=== PATIENT | male | born 1945 | race Caucasian/White ===

== ENCOUNTER 2017-07-29 10:29 | Inpatient (IN) | payer MEDICAID, MEDICARE, OTHER ==
[2017-07-29 10:29] VITALS: BMI 22.4
[2017-07-29 12:43] LABS: BASO % 0.3 % (0.0-2.0); EOS # 0.1 K/uL (0.0-0.7); HEMOGLOBIN 13.9 g/dL (12.0-18.0); LYMPH # 1.5 K/uL (1.0-4.3); LYMPH % 22.7 % (20.0-40.0); MEAN CELL VOLUME 90.6 fL (80.0-94.0); MEAN CORPUSCULAR HEMOGLOBIN 31.3 pg (27.0-31.0); MEAN CORPUSCULAR HGB CONC 34.5 g/dL (33.0-37.0); MEAN PLATELET VOLUME 7.5 fL (7.2-11.7); MONO # 0.5 K/uL (0.0-0.8); NEUT # 4.4 K/uL (1.8-7.0); RBC 4.44 Mil/uL (4.40-5.90); RED CELL DISTRIBUTION WIDTH 13.6 % (11.5-14.5); WHITE BLOOD COUNT 6.4 K/uL (4.8-10.8)
[2017-07-29 13:02] LABS: INR 1.1; PROTHROMBIN TIME 12.1 SECONDS (9.7-12.2)
--- NOTE | 2017-07-29 13:05 | RAD ---
PROCEDURE: CHEST RADIOGRAPH, 1 VIEW HISTORY: toe gangrene/pre-adm/pre op COMPARISON: 04/12/2013 FINDINGS: LUNGS: Chronic interstitial lung disease similar to that seen previously. PLEURA: No pneumothorax or pleural fluid seen. CARDIOVASCULAR: Normal. OSSEOUS STRUCTURES: No significant abnormalities. VISUALIZED UPPER ABDOMEN: Normal. OTHER FINDINGS: None. IMPRESSION: No active pulmonary disease. No significant interval change compared to the prior examination(s).
[2017-07-29 13:16] LABS: ALB/GLOB RATIO 0.9 (1.0-2.1); ALBUMIN 3.9 g/dL (3.5-5.0); ALT/SGPT 21 U/L (21-72); AST/SGOT 34 U/L (17-59); BLOOD UREA NITROGEN 13 mg/dL (9-20); CALCIUM 9.5 mg/dl (8.6-10.4); GFR AFRICAN-AMERICAN > 60; GFR NON-AFRICAN AMERICAN > 60
--- NOTE | 2017-07-29 14:35 | C.PDOC ---
History Of Present Illness 72 y/o male, w/PMhx of diabetes, presents to the ER for evaluation of a black colored left 2nd toe. Patient states that his toe changed colors several months ago and [place] and his son observed that his toe was becoming black. Patient states that he went to see Dr. [place]ton. Time Seen by Provider: 07/29/17 10:55 Chief Complaint (Nursing): Lower Extremity Problem/Injury History Per: Patient History/Exam Limitations: no limitations Onset/Duration Of Symptoms: Days Current Symptoms Are (Timing): Still Present Severity: Moderate Past Medical History Reviewed: Historical Data, Nursing Documentation, Vital Signs Vital Signs: Last Vital Signs Temp 98.3 F 07/29/17 15:28 Pulse 112 H 07/29/17 15:28 Resp 18 07/29/17 15:28 BP 109/66 07/29/17 15:28 Pulse Ox 98 07/29/17 15:56 - Medical History PMH: Arthritis, Diabetes, HTN (no meds) Surgical History: No Surg Hx - [facility] Procedures ANGIOPLASTY OF OTHER NON-CORONARY VESSEL(S) (05/06/13) ATHERECTOMY OF OTHER NON-CORONARY VESSEL(S) (05/06/13) CLOSED [NEEDLE] BIOPSY OF TONGUE (09/30/02) INCIS PERIANAL ABSCESS (04/05/13) INSEJ [id number] PERIPHERAL NON-CORONARY VES STENT(S) (05/06/13) INSERTION OF ONE VASCULAR STENT (05/06/13) PROCEDURE ON SINGLE VESSEL (05/06/13) REPAIR PERIRECT FISTULA (04/05/13) SKIN & SUBQ BIOPSY (09/30/02) VENOUS CATHETERIZATION NEC (04/05/13) Family History: States: No Known Family Hx - Social History Hx Tobacco Use: Yes Hx Alcohol Use: Yes Hx Substance Use: No - Immunization History Hx Tetanus Toxoid Vaccination: No Hx Influenza Vaccination: Yes Hx Pneumococcal Vaccination: No Review Of Systems Except As Marked, All Systems Reviewed And Found Negative. Constitutional: Negative for: Fever, Chills Skin: Positive for: Other (black left 2nd toe) Physical Exam - Physical Exam Appears: Non-toxic, No Acute Distress Skin: Normal Color, Warm Head: Atraumatic, Normacephalic Eye(s): bilateral: Normal Inspection Nose: Normal Oral Mucosa: Moist Neck: Supple Chest: Symmetrical Cardiovascular: Rhythm Regular Respiratory: Normal Breath Sounds, No Rales, No Rhonchi, No Wheezing Extremity: Other (black left 2nd toe) Pulses: Left Dorsalis Pedis: Decreased Neurological/Psych: Oriented x3, Normal Speech ED Course And Treatment - Laboratory Results Result Diagrams: 07/29/17 12:33 07/29/17 12:33 O2 Sat by Pulse Oximetry: 98 (RA) Pulse Ox Interpretation: Normal - Other Rad CXR X-Ray: Viewed By Me, Read By Radiologist Interpretation: ROCEDURE: CHEST RADIOGRAPH, 1 VIEW. HISTORY: toe gangrene/pre -adm/pre op. COMPARISON: 04/12/2013. FINDINGS: LUNGS: Chronic interstitial lung disease similar to that seen previously. PLEURA: No pneumothorax or pleural fluid seen. CARDIOVASCULAR: Normal. OSSEOUS STRUCTURES: No significant abnormalities. VISUALIZED UPPER ABDOMEN: Normal. OTHER FINDINGS: None. IMPRESSION: No active pulmonary disease. No significant interval change compared to the prior examination(s). - CT Scan/US X-Ray- Left Foot Other Rad Studies (CT/US): Read By Radiologist, Radiology Report Reviewed CT/US Interpretation: PROCEDURE: Left foot attention 2nd digit. HISTORY: gangrene. COMPARISON: None. TECHNIQUE: Standard protocol for this study/ examination. FINDINGS: No radiographic evidence of acute osteomyelitis. Multiple hammertoe deformities identified. IMPRESSION: No acute findings related to/accounting for the clinical presentation. Progress Note: Labs, UA, CXR, and X-Ray - Left Foot 2nd digit ordered. Casew as d/w and medical data analyst. Patient was accepted for an admission on 's service. Disposition - Disposition Disposition: HOSPITALIZED Disposition Time: 14:33 Condition: FAIR - Clinical Impression Clinical Impression: Gangrene, Gangrene of toe of left foot Decision To Admit - Pt Status Changed To: Hospital Disposition Of: Inpatient - Admit Certification Admit to Inpatient:: After my assessment, the patient will require hospitalization for at least two midnights. This is because of the severity of symptoms shown, intensity of services needed, and/or the medical risk in this patient being treated as an outpatient. - InPatient: Physician Admission Certification: I certify that this patient requires 2 or more midnights of care for the following reason:: Patient will need more than 2 days of hospitalization, possibly surgical treatment. - . Bed Request Type: Regular Patient Diagnosis: Gangrene, Gangrene of toe of left foot
--- NOTE | 2017-07-29 15:36 | RAD ---
PROCEDURE: Left foot attention 2nd digit HISTORY: gangrene COMPARISON: None TECHNIQUE: Standard protocol for this study/examination. FINDINGS: No radiographic evidence of acute osteomyelitis. Multiple hammertoe deformities identified. IMPRESSION: No acute findings related to/accounting for the clinical presentation.
--- NOTE | 2017-07-29 15:44 | CP.PCM.HP ---
History of Present Illness - History of Present Illness History of Present Illness: 72 year old male presents to ER with left second toe gangrene. Patient is Kiswahili speaking with translation done by nephew who is bedside. Patient stated 6 weeks ago he was cutting his toe nail and may have clipped the skin of the second toe. He noticed toe was progressively more painful as the skin turned darker. Patient was recently in [facility] and returned to [facility] on 07/27/17 for the of his sister. The patient states the pain is a 10/10 and calls it "severe". Patient with claudication type symptoms in legs bilaterally, left worse than right. As per some of patient's past medical history, much of it was obtained from chart. Patient had an angioplasty and atherectomy of L tibioperoneal trunk done in for peripheral vascular disease. Patient states he has diabetes mellitus and prior notes state patient has hypertension, hyperlipidemia and peripheral vascular disease. This is the first time this has happened to the patient. He does not recall stepping on anything or walking barefoot as an inciting incident. PMHx- DM, HTN, HLD, PVD, Hx of anal fissure PSH- (per chart review, patient denied any surgery) angioplasty of non- coronary vessel- , atherectomy of non-coronary vessel-, insertion of bare metal peripheral non-coronary stent-, incision perianal abscess-, repair perirectal fistual-, Allergies: no known allergies Medications: vildagliptin/metformin 50mg/1000mg, linagliptin/metformin 2.5mg/ 850mg- states has been taking both for past 4 years. 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 ROS: negatives: fever, chills, headahces, vision changes, chest pain, shortness of breath, abdominal pain, nausea, vomiting, diarrhea, constipation, dysuria, Positives: leg pain L>R, foot pain L>R Present on Admission - Present on Admission Any Indicators Present on Admission: No Review of Systems - Review of Systems All systems: reviewed and no additional remarkable complaints except (as stated in HPI) Past Patient History - Infectious Disease Hx of Infectious Diseases: None - Past Social History Smoking Status: Former Smoker - CARDIAC Hx Hypertension: Yes (no meds) - ENDOCRINE/METABOLIC Hx Diabetes Mellitus Type 2: Yes - MUSCULOSKELETAL/RHEUMATOLOGICAL Hx Arthritis: Yes - PSYCHIATRIC Hx Substance Use: No - SURGICAL HISTORY Hx Surgeries: No - ANESTHESIA Hx Anesthesia: No Hx Anesthesia Reactions: No Meds Allergies/Adverse Reactions: Allergies Allergy/AdvReac Type Severity Reaction Status Date / Time No Known Allergies Allergy Verified 05/05/13 09:36 Physical Exam - Constitutional Appears: Well, No Acute Distress - Head Exam Head Exam: ATRAUMATIC, NORMAL INSPECTION - Eye Exam Eye Exam: EOMI Pupil Exam: PERRL - ENT Exam ENT Exam: Mucous Membranes Moist - Neck Exam Neck exam: Positive for: Normal Inspection. Negative for: Lymphadenopathy, Tenderness - Respiratory Exam Respiratory Exam: Clear to Auscultation Bilateral, NORMAL BREATHING PATTERN. absent: Rales, Rhonchi, Wheezes - Cardiovascular Exam Cardiovascular Exam: Tachycardia, REGULAR RHYTHM, +S1, +S2. absent: JVD, Systolic Murmur - GI/Abdominal Exam GI & Abdominal Exam: Normal Bowel Sounds, Soft. absent: Distended, Firm, Guarding, Mass, Tenderness - Extremities Exam Extremities exam: Negative for: joint swelling, normal capillary refill, pedal edema, tenderness, pedal pulses present Additional comments: 2nd big toe of left foot black and necrotic - Neurological Exam Neurological exam: Alert, CN II-XII Intact, Oriented x3 - Psychiatric Exam Psychiatric exam: Normal Affect, Normal Mood - Skin Skin Exam: Warm Additional comments: Skin shiny and hairless in LE b/l as seen in PVD Results - Vital Signs Recent Vital Signs: Last Vital Signs Temp 98.3 F 07/29/17 15:28 Pulse 112 H 07/29/17 15:28 Resp 18 07/29/17 15:28 BP 109/66 07/29/17 15:28 Pulse Ox 98 07/29/17 15:38 - Labs Result Diagrams: 07/29/17 12:33 07/29/17 12:33 Labs: Laboratory Results - last 24 hr 07/29/17 07/29/17 07/29/17 12:33 12:33 12:33 WBC 6.4 RBC 4.44 Hgb 13.9 Hct 40.2 MCV 90.6 MCH 31.3 H MCHC 34.5 RDW 13.6 Plt Count 305 MPV 7.5 Neut % (Auto) 68.0 Lymph % (Auto) 22.7 [place] % (Auto) 7.0 Eos % (Auto) 2.0 Baso % (Auto) 0.3 Neut # (Auto) 4.4 Lymph # (Auto) 1.5 [place] # (Auto) 0.5 Eos # (Auto) 0.1 Baso # (Auto) 0.0 PT 12.1 INR 1.1 APTT 38 H Sodium 138 Potassium 4.1 Chloride 98 Carbon Dioxide 28 Anion Gap 16 BUN 13 Creatinine 0.7 L Est GFR ( Amer) > 60 Est GFR (Non-Af Amer) > 60 Random Glucose 155 H Calcium 9.5 Total Bilirubin 0.7 AST 34 ALT 21 D Alkaline Phosphatase 98 Total Protein 8.2 Albumin 3.9 Globulin 4.3 H Albumin/Globulin Ratio 0.9 L Assessment & Plan (1) Gangrene of toe of left foot Assessment and Plan: 2nd toe of left foot black and necrotic Mack stage 4 Vascular surgery consult, Dr Wilkins F/U arterial dopplers LE B/L F/U venous dopplers LE B/L Imaging: Left Foot 2nd digit XRAY: Multiple hammertoe deformities identified. No acute findings related to/accounting for clinical presentation. Status: Acute Priority: High (2) Peripheral arterial disease Assessment and Plan: Hx of angioplasty and stent of left superficial femoral artery [place] [address] Alex Zambrano Meds: Start aspirin 81mg PO QD Status: Acute Priority: High (3) Diabetes mellitus Assessment and Plan: Hx of DM2, also with diabetic neuropathy Accuchecks Diabetic diet Hypoglycemia protocol Labs/Diagnostics: F/U HgbA1c Meds: Start pregabalin 50mg PO BID HOLD home medication vildagliptin/metformin 50mg/1000mg for now Will cover with RISS for now Status: Acute Priority: High (4) HTN (hypertension) Assessment and Plan: Hx of HTN per chart review BP well controlled Monitor Status: Chronic Priority: Medium (5) Prophylactic measure Assessment and Plan: SCDs contraindicated 2/2 necrotic toe Lovenox 40mg SC QD Diabetic diet GI prophylaxis not indicated Status: Acute Priority: Low
[2017-07-29] MEDS ORDERED: Dextrose 50% SYRINGE Inj (50 ml) IV PRN (15:49)
[2017-07-29] MEDS ORDERED: Glucagon Recombinant 1 mg Inj IM PRN (15:49)
[2017-07-29 16:35] LABS: HDL CHOLESTEROL 25 mg/dL (30-70)
[2017-07-29 16:46] LABS: LDL CHOLESTEROL 126 mg/dL (0-129)
[2017-07-29] MEDS ORDERED: (Novolin R) Insulin Human Regular 100 units/ml vial ONE (16:48)
[2017-07-29] MEDS: (Novolin R) Insulin Human Regular 100 units/ml vial SC SCH ×2 (16:49→21:47)
--- NOTE | 2017-07-29 16:59 | CP.PCM.CON ---
History of Present Illness - History of Present Illness History of Present Illness: Vascular surgery consult for Dr. Wilkins Consulted for: gangrenous left toe Patient is a 72M with PMH NIDDM and PVD with history of prior revascularization of the left lower extremity who was referred to ER by PMD for gangrenous left second toe. Patient states that he first noted discolration of the toe 2 months ago after picking at a hangnail. Has been gradually worsening with associated pain with walking and paresthesias of the top of the foot. Oren any purulent drainage or bleedin gfrom the toe, fevers, chills, calf pain, chest pain, SOB, or any other symptoms. Patient takes some medication for his "circulation" but does not know the name of the medication. PMH: DM, Arthritis, PVD PSH: perirectal abscess drainage, Left lower extremity revascularization ALL: NKDA Review of Systems - Review of Systems All systems: reviewed and no additional remarkable complaints except (as per HPI ) Past Patient History - Infectious Disease Hx of Infectious Diseases: None - Past Social History Smoking Status: Former Smoker - CARDIAC Hx Hypertension: Yes (no meds) - ENDOCRINE/METABOLIC Hx Diabetes Mellitus Type 2: Yes - MUSCULOSKELETAL/RHEUMATOLOGICAL Hx Arthritis: Yes - PSYCHIATRIC Hx Substance Use: No - SURGICAL HISTORY Hx Surgeries: No - ANESTHESIA Hx Anesthesia: No Hx Anesthesia Reactions: No Meds Allergies/Adverse Reactions: Allergies Allergy/AdvReac Type Severity Reaction Status Date / Time No Known Allergies Allergy Verified 05/05/13 09:36 - Medications Medications: Current Medications Acetaminophen (Tylenol 325mg Tab) 650 mg PO Q6 PRN PRN Reason: Pain, moderate (4-7) Aspirin (Aspirin Chewable) 81 mg PO DAILY [facility] Last Admin: 07/29/17 16:49 Dose: 81 mg Dextrose (Dextrose 50% Inj) 0 ml IV STAT PRN; Protocol PRN Reason: Hypoglycemia Protocol Dextrose (Glutose 15) 0 gm PO ONCE PRN; Protocol PRN Reason: Hypoglycemia Protocol Enoxaparin Sodium (Lovenox) 40 mg SC DAILY [facility] Glucagon (Glucagen Diagnostic Kit) 0 mg IM STAT PRN; Protocol PRN Reason: Hypoglycemia Protocol Dextrose (Dextrose 5% In Water 1000 Ml) 1,000 mls @ 0 mls/hr IV .Q0M PRN; Protocol; Per Protocol PRN Reason: Hypoglycemia Protocol Insulin Human Regular (Novolin R) 0 unit SC ACHS [facility] PRN Reason: Protocol Last Admin: 07/29/17 16:49 Dose: 2 unit Pregabalin (Lyrica) 50 mg PO BID [facility] Physical Exam - Constitutional Appears: Well, Non-toxic, No Acute Distress - Head Exam Head Exam: ATRAUMATIC, NORMOCEPHALIC - Eye Exam Eye Exam: Normal appearance. absent: Conjunctival injection, Scleral icterus - ENT Exam ENT Exam: Mucous Membranes Moist, Normal Oropharynx - Respiratory Exam Respiratory Exam: NORMAL BREATHING PATTERN. absent: Accessory Muscle Use, Respiratory Distress - Cardiovascular Exam Cardiovascular Exam: Tachycardia - GI/Abdominal Exam GI & Abdominal Exam: Soft. absent: Distended, Tenderness - Extremities Exam Extremities exam: Negative for: calf tenderness, pedal edema Additional comments: dry gangrene of entire left 2nd toe, no erythema, no fluctuance, no drainage or bleeding. pedal pulses ausculted by doppler - Neurological Exam Neurological exam: Alert, Oriented x3 - Psychiatric Exam Psychiatric exam: Normal Affect, Normal Mood - Skin Skin Exam: Dry, Normal Color, Warm Results - Vital Signs Recent Vital Signs: Last Vital Signs Temp 98.3 F 07/29/17 15:28 Pulse 112 H 07/29/17 15:28 Resp 18 07/29/17 15:28 BP 109/66 07/29/17 15:28 Pulse Ox 98 07/29/17 15:56 - Labs Result Diagrams: 07/29/17 12:33 07/29/17 12:33 Labs: Laboratory Results - last 24 hr 07/29/17 07/29/17 07/29/17 12:33 12:33 12:33 WBC 6.4 RBC 4.44 Hgb 13.9 Hct 40.2 MCV 90.6 MCH 31.3 H MCHC 34.5 RDW 13.6 Plt Count 305 MPV 7.5 Neut % (Auto) 68.0 Lymph % (Auto) 22.7 [place] % (Auto) 7.0 Eos % (Auto) 2.0 Baso % (Auto) 0.3 Neut # (Auto) 4.4 Lymph # (Auto) 1.5 [place] # (Auto) 0.5 Eos # (Auto) 0.1 Baso # (Auto) 0.0 PT 12.1 INR 1.1 APTT 38 H Sodium 138 Potassium 4.1 Chloride 98 Carbon Dioxide 28 Anion Gap 16 BUN 13 Creatinine 0.7 L Est GFR ( Amer) > 60 Est GFR (Non-Af Amer) > 60 POC Glucose (mg/dL) Random Glucose 155 H Calcium 9.5 Total Bilirubin 0.7 AST 34 ALT 21 D Alkaline Phosphatase 98 Total Protein 8.2 Albumin 3.9 Globulin 4.3 H Albumin/Globulin Ratio 0.9 L Triglycerides 157 H Cholesterol 178 LDL Cholesterol Direct 126 HDL Cholesterol 25 L 07/29/17 16:31 WBC RBC Hgb Hct MCV MCH MCHC RDW Plt Count MPV Neut % (Auto) Lymph % (Auto) [place] % (Auto) Eos % (Auto) Baso % (Auto) Neut # (Auto) Lymph # (Auto) [place] # (Auto) Eos # (Auto) Baso # (Auto) PT INR APTT Sodium Potassium Chloride Carbon Dioxide Anion Gap BUN Creatinine Est GFR ( Amer) Est GFR (Non-Af Amer) POC Glucose (mg/dL) 189 H Random Glucose Calcium Total Bilirubin AST ALT Alkaline Phosphatase Total Protein Albumin Globulin Albumin/Globulin Ratio Triglycerides Cholesterol LDL Cholesterol Direct HDL Cholesterol Assessment & Plan - Assessment and Plan (Free Text) Assessment: 72M with dry gangrene left 2nd toe and PVD Plan: F/U CTA and US of the lower extremities Further surgical planning pending results of studies PRN pain medication ASA Strict control of blood sugar SCD's Encourage ambulation as tolerated Seen and examined with Dr. Claudette Turpin, PGY2
[2017-07-29] MEDS ORDERED: Iohexol 240 200 ML ONE (17:28)
--- NOTE | 2017-07-29 21:18 | CT ---
EXAM: CT Angiography Abdomen and Pelvis With Intravenous Contrast CLINICAL HISTORY: 72 years old, male; Condition or disease; Peripheral vascular disease and other: Gangrene; Additional info: Gangrene /previous left side stents TECHNIQUE: Axial computed tomographic angiography images of the abdomen and pelvis with intravenous contrast. All CT scans at this facility use one or more dose reduction techniques, viz.: automated exposure control; ma/kV adjustment per patient size (including targeted exams where dose is matched to indication; i.e. head); or iterative reconstruction technique. MIP reconstructed images were created and reviewed. CONTRAST: 150 mL of OMNIPAQUE 350 administered intravenously. COMPARISON: No relevant prior studies available. FINDINGS: Limitations: Motion artifact - mild to moderate. VASCULATURE: Aorta: Moderate to extensive atherosclerosis. Mild ectasia of infrarenal aorta, up to 2.1 cm. Celiac trunk and mesenteric arteries: Mild atherosclerosis of proximal celiac axis and superior mesenteric artery. Mild stenosis of proximal celiac axis and superior mesenteric artery. No occlusion. Renal arteries: Mild atherosclerosis. Mild stenosis of right proximal renal artery. No occlusion. Iliac arteries: Moderate to extensive atherosclerosis. No occlusion or significant stenosis. Lung bases: Hyperinflation of lung bases. Minimal atelectasis/scarring. ABDOMEN: Liver: Unremarkable. No mass. Gallbladder and bile ducts: No calcified stones. No ductal dilation. Pancreas: No ductal dilation. No mass. Spleen: Unremarkable. No splenomegaly. Adrenals: Mild hypertrophy of adrenal glands. Kidneys and ureters: Too small to characterize lesion within RIGHT kidney. No hydronephrosis. Stomach and bowel: Few scattered diverticula within colon. No associated inflammatory stranding. No definite mural thickening. No obstruction. Appendix: Normal caliber. No inflammation. PELVIS: Bladder: Distended bladder. Reproductive: Enlarged prostate gland. ABDOMEN and PELVIS: Intraperitoneal space: No significant fluid collection. No free air. Bones/joints: Mild degenerative changes of spine. No acute fracture. No dislocation. Soft tissues: Unremarkable. Lymph nodes: No pathologically enlarged lymph nodes. IMPRESSION: 1. Vascular disease as above. 2. Incidental/non-acute findings are described above. EXAM: CT Angiography of the Right Lower Extremity With Intravenous Contrast CLINICAL HISTORY: 72 years old, male; Condition or disease; Peripheral vascular disease and other: Gangrene; Additional info: Gangrene /previous left side stents TECHNIQUE: Axial computed tomographic angiography images of the right lower extremity with intravenous contrast using CT angiography protocol. MIP reconstructed images were created and reviewed. CONTRAST: 150 mL of OMNIPAQUE 350 administered intravenously. COMPARISON: No relevant prior studies available. FINDINGS: VASCULATURE: Right femoral/popliteal arteries: Moderate atherosclerosis of common femoral and superficial femoral arteries. Multifocal [id number] stenosis of superficial femoral artery. Moderate atherosclerosis of popliteal artery. Mild stenosis of popliteal artery. Right calf/foot arteries: Moderate to extensive atherosclerosis of anterior and posterior tibial arteries. Multifocal high-grade stenosis/occlusion of anterior and posterior tibial arteries with reconstitution of dorsalis pedis and plantar arteries. Flow within peroneal artery. LOWER EXTREMITY: Bones/joints: No acute fracture. Early osteoarthrosis of patellofemoral compartment. No dislocation. Probable bone island. No definite cortical destruction. Soft tissues: Grossly unremarkable. IMPRESSION: 1. Vascular disease as above. 2. Incidental/non-acute findings are described above. EXAM: CT Angiography of the Left Lower Extremity With Intravenous Contrast CLINICAL HISTORY: 72 years old, male; Condition or disease; Peripheral vascular disease and other: Gangrene; Additional info: Gangrene /previous left side stents TECHNIQUE: Axial computed tomographic angiography images of the left lower extremity with intravenous contrast using CT angiography protocol. MIP reconstructed images were created and reviewed. CONTRAST: 150 mL of OMNIPAQUE 350 administered intravenously. COMPARISON: No relevant prior studies available. FINDINGS: VASCULATURE: Left femoral/popliteal arteries: Moderate atherosclerosis of common femoral and superficial femoral arteries. Mild stenosis of proximal superficial femoral artery. Stent within mid to distal superficial femoral artery. Occlusion of mid superficial femoral artery. High-grade stenosis within distal superficial femoral artery. Moderate atherosclerosis of popliteal artery. High grade stenosis/occlusion of proximal popliteal artery. Moderate stenosis of distal popliteal artery. Left calf/foot arteries: Moderate to extensive atherosclerosis of anterior and posterior tibial arteries. Multifocal high-grade stenosis/occlusion of posterior tibial artery with reconstitution of plantar arteries. Multifocal high-grade stenosis/occlusion of proximal to mid anterior tibial artery. Reconstitution of flow within distal anterior tibial and dorsalis pedis arteries. Multifocal moderate stenosis of peroneal artery. LOWER EXTREMITY: Bones/joints: No acute fracture. Early osteoarthrosis of patellofemoral compartment. No dislocation. Osteolysis/gas of distal second proximal phalanx, second middle phalanx, second distal phalanx. Soft tissues: Soft tissue irregularity of second digit. IMPRESSION: 1. Vascular disease as above. 2. Osteomyelitis/gangrene of second digit. 3. Incidental/non-acute findings are described above.
[2017-07-30 07:17] LABS: BASO % 0.3 % (0.0-2.0); EOS # 0.2 K/uL (0.0-0.7); EOS % 2.4 % (0.0-4.0); HEMOGLOBIN 13.3 g/dL (12.0-18.0); LYMPH # 2.1 K/uL (1.0-4.3); LYMPH % 26.5 % (20.0-40.0); MEAN CELL VOLUME 90.3 fL (80.0-94.0); MEAN CORPUSCULAR HEMOGLOBIN 31.6 pg (27.0-31.0); MEAN PLATELET VOLUME 7.7 fL (7.2-11.7); MONO # 0.6 K/uL (0.0-0.8); MONO % 6.9 % (0.0-10.0); NEUT # 5.2 K/uL (1.8-7.0); NEUT % 63.9 % (50.0-75.0); NRBC % 0.1 % (0.0-2.0); RBC 4.19 Mil/uL (4.40-5.90); RED CELL DISTRIBUTION WIDTH 13.4 % (11.5-14.5); WHITE BLOOD COUNT 8.1 K/uL (4.8-10.8)
[2017-07-30 07:40] LABS: ALB/GLOB RATIO 0.9 (1.0-2.1); ALBUMIN 3.6 g/dL (3.5-5.0); ALT/SGPT 16 U/L (21-72); AST/SGOT 20 U/L (17-59); BLOOD UREA NITROGEN 15 mg/dL (9-20); CALCIUM 9.7 mg/dl (8.6-10.4); GFR AFRICAN-AMERICAN > 60; GFR NON-AFRICAN AMERICAN > 60
[2017-07-30] MEDS: (Novolin R) Insulin Human Regular 100 units/ml vial SC SCH ×4 (08:05→21:30)
--- NOTE | 2017-07-30 08:33 | CP.PCM.CON ---
History of Present Illness - History of Present Illness History of Present Illness: Patient seen/examined. consult to follow. CT angiogram reviewed. Patient known to me form office practice and previous endovascular intervention. Patient is a 72 year old male with previous stent LSFA, atherectomy tibioperoneal trunk 2013, HTN tobacco who presents with gangrene of the second toe of the left foot. The patient developed gangrene in May while in [facility], returned to the [place] 5 [place] ago. He has contiued to smoke cigarettes. I have reviewed the CT angiogram. Occlusion of the mid SFA with high grade stenosis in the distal along with severe tibioperoneal disease. I discussed realistic expectations with the patient. The toe is not salvageable, however he will require anigography to assess the possibility of improvement in circulatory flow to the foot and distal leg. The patient received contrast yesterday for the CT angiogram. To reduce the risk of contrast induced nephropathy, I will schedule peripheral angiogram tomorrow. I discussed with patient. NPO after midnight. clinical lab scientist notified. I loaded patient with Plavix. Past Patient History - Infectious Disease Hx of Infectious Diseases: None - Past Medical History & Family History Past Medical History?: Yes - Past Social History Smoking Status: Former Smoker - CARDIAC Hx Hypertension: Yes (no meds) - ENDOCRINE/METABOLIC Hx Diabetes Mellitus Type 2: Yes - MUSCULOSKELETAL/RHEUMATOLOGICAL Hx Falls: No - PSYCHIATRIC Hx Substance Use: No - SURGICAL HISTORY Hx Surgeries: No - ANESTHESIA Hx Anesthesia: No Hx Anesthesia Reactions: No Meds Allergies/Adverse Reactions: Allergies Allergy/AdvReac Type Severity Reaction Status Date / Time No Known Allergies Allergy Verified 05/05/13 09:36 - Medications Medications: Current Medications Acetaminophen (Tylenol 325mg Tab) 650 mg PO Q6 PRN PRN Reason: Pain, moderate (4-7) Aspirin (Aspirin Chewable) 81 mg PO DAILY [facility] Last Admin: 07/29/17 16:49 Dose: 81 mg Clopidogrel Bisulfate (Plavix) 300 mg PO ONCE ONE Stop: 07/30/17 09:01 Dextrose (Dextrose 50% Inj) 0 ml IV STAT PRN; Protocol PRN Reason: Hypoglycemia Protocol Dextrose (Glutose 15) 0 gm PO ONCE PRN; Protocol PRN Reason: Hypoglycemia Protocol Enoxaparin Sodium (Lovenox) 40 mg SC DAILY [facility] Glucagon (Glucagen Diagnostic Kit) 0 mg IM STAT PRN; Protocol PRN Reason: Hypoglycemia Protocol Dextrose (Dextrose 5% In Water 1000 Ml) 1,000 mls @ 0 mls/hr IV .Q0M PRN; Protocol; Per Protocol PRN Reason: Hypoglycemia Protocol Insulin Human Regular (Novolin R) 0 unit SC ACHS [facility] PRN Reason: Protocol Last Admin: 07/30/17 08:05 Dose: Not Given Pneumococcal Polyvalent Vaccine (Pneumovax 23 Vaccine) 0.5 ml IM .ONCE ONE Stop: 07/31/17 10:01 Pregabalin (Lyrica) 50 mg PO BID [facility] Last Admin: 07/29/17 18:30 Dose: 50 mg Results - Vital Signs Recent Vital Signs: Last Vital Signs Temp 99.0 F 07/30/17 00:00 Pulse 110 H 07/30/17 00:00 Resp 20 07/30/17 00:00 BP 105/65 07/30/17 00:00 Pulse Ox 98 07/30/17 00:00 - Labs Result Diagrams: 07/30/17 07:01 07/30/17 07:01 Labs: Laboratory Results - last 24 hr 07/29/17 07/29/17 07/29/17 12:33 12:33 12:33 WBC 6.4 RBC 4.44 Hgb 13.9 Hct 40.2 MCV 90.6 MCH 31.3 H MCHC 34.5 RDW 13.6 Plt Count 305 MPV 7.5 Neut % (Auto) 68.0 Lymph % (Auto) 22.7 [place] % (Auto) 7.0 Eos % (Auto) 2.0 Baso % (Auto) 0.3 Neut # (Auto) 4.4 Lymph # (Auto) 1.5 [place] # (Auto) 0.5 Eos # (Auto) 0.1 Baso # (Auto) 0.0 PT 12.1 INR 1.1 APTT 38 H Sodium 138 Potassium 4.1 Chloride 98 Carbon Dioxide 28 Anion Gap 16 BUN 13 Creatinine 0.7 L Est GFR ( Amer) > 60 Est GFR (Non-Af Amer) > 60 POC Glucose (mg/dL) Random Glucose 155 H Calcium 9.5 Total Bilirubin 0.7 AST 34 ALT 21 D Alkaline Phosphatase 98 Total Protein 8.2 Albumin 3.9 Globulin 4.3 H Albumin/Globulin Ratio 0.9 L Triglycerides 157 H Cholesterol 178 LDL Cholesterol Direct 126 HDL Cholesterol 25 L 07/29/17 07/29/17 07/30/17 16:31 21:10 07:01 WBC 8.1 RBC 4.19 L Hgb 13.3 Hct 37.9 MCV 90.3 MCH 31.6 H MCHC 35.0 RDW 13.4 Plt Count 317 MPV 7.7 Neut % (Auto) 63.9 Lymph % (Auto) 26.5 [place] % (Auto) 6.9 Eos % (Auto) 2.4 Baso % (Auto) 0.3 Neut # (Auto) 5.2 Lymph # (Auto) 2.1 [place] # (Auto) 0.6 Eos # (Auto) 0.2 Baso # (Auto) 0.0 PT INR APTT Sodium Potassium Chloride Carbon Dioxide Anion Gap BUN Creatinine Est GFR ( Amer) Est GFR (Non-Af Amer) POC Glucose (mg/dL) 189 H 132 H Random Glucose Calcium Total Bilirubin AST ALT Alkaline Phosphatase Total Protein Albumin Globulin Albumin/Globulin Ratio Triglycerides Cholesterol LDL Cholesterol Direct HDL Cholesterol 07/30/17 07/30/17 07:01 07:11 WBC RBC Hgb Hct MCV MCH MCHC RDW Plt Count MPV Neut % (Auto) Lymph % (Auto) [place] % (Auto) Eos % (Auto) Baso % (Auto) Neut # (Auto) Lymph # (Auto) [place] # (Auto) Eos # (Auto) Baso # (Auto) PT INR APTT Sodium 143 Potassium 4.2 Chloride 101 Carbon Dioxide 26 Anion Gap 20 BUN 15 Creatinine 0.7 L Est GFR ( Amer) > 60 Est GFR (Non-Af Amer) > 60 POC Glucose (mg/dL) 112 H Random Glucose 113 H Calcium 9.7 Total Bilirubin 0.6 AST 20 ALT 16 L D Alkaline Phosphatase 89 Total Protein 7.7 Albumin 3.6 Globulin 4.1 H Albumin/Globulin Ratio 0.9 L Triglycerides Cholesterol LDL Cholesterol Direct HDL Cholesterol
--- NOTE | 2017-07-30 08:34 | CP.PCM.CON ---
History of Present Illness - History of Present Illness History of Present Illness: I was asked to see patient by Dr Stockton. Dhiraj marinelliw to me form practice. Patient has a history of smoking PAD s/p stent of the L SFA tibioperoneal atherectomy who presents with gangrene of the 2nd digit of the L foot. Intervention was in 2013, patient has not followed up. He continues to smoke Gangrene develoepd in May. [place] the [place] a [place] days ago. Review of Systems - Constitutional Constitutional: absent: As Per HPI, Anorexia, Chills, Daytime Sleepiness, Excessive Sweating, Fatigue, Fever, Frequent Falls, Headache, Increased Appetite , Lethargy, Malaise, Night Sweats, Snoring, Sleep Apnea, Weight Gain, Weight Loss, Weakness, Other - EENT Eyes: absent: As Per HPI, Blind Spots, Blurred Vision, Change in Vision, Decreased Night Vision, Diplopia, Discharge, Dry Eye, Exophthalmos, Floaters, Irritation, Itchy Eyes, Loss of Peripheral Vision, Pain, Photophobia, Requires Corrective Lenses, Sees Flashes, Spots in Vision, Tunnel Vision, Other Visual Disturbances, Loss of Vision, Other - Cardiovascular Cardiovascular: Claudication - Respiratory Respiratory: absent: As Per HPI, Cough, Dyspnea, Hemoptysis, Dyspnea on Exertion , Wheezing, Snoring, Stridor, Pain on Inspiration, Chest Congestion, Excessive Mucous Production, Change in Mucous Color, Pain with Coughing, Other - Gastrointestinal Gastrointestinal: absent: As Per HPI, Abdominal Pain, Belching, Bloating, Change in Bowel Habits, Change in Stool Character, Coffee Ground Emesis, Constipation, Cramping, Diarrhea, Dyspepsia, Dysphagia, Early Satiety, Excessive Flatus, Fecal Incontinence, Heartburn, Hematemesis, Hematochezia, Loose Stools, Melena, Nausea, Odynophagia, Temesmus, Vomiting, Other - Genitourinary Genitourinary: absent: As Per HPI, Change in Urinary Stream, Difficulty Urinating, Dysuria, Flank Pain, Hematuria, Pyuria, Nocturia, Urinary Incontinence, Urinary Frequency, Urinary Hesitance, Urinary Urgency, Voiding Freq/Small Amts, Freq UTI, Hx Renal/Bladder Calculi, Hx /Renal Surgery, Bladder Distension, Other - Musculoskeletal Musculoskeletal: absent: As Per HPI, Abnormal Gait, Arthralgias, Atrophy, Back Pain, Deformity, Joint Swelling, Limited Range of Motion, Loss of Height, Muscle Cramps, Muscle Weakness, Myalgias, Neck Pain, Numbness, Radiating Pain into Limb, Stiffness, Tingling, Other - Integumentary Integumentary: absent: As Per HPI, Acne, Alopecia, Bleeding Lesions, Change in Hair, Change in Nails, Change in Pigmentation, Changing Lesions, Dry Skin, Erythema, Furuncle, Hirsutism, Lesions, New Lesions, Non-Healing Lesions, Photosensitivity, Pruritus, Rash, Skin Pain, Skin Ulcer, Sores, Striae, Swelling , Unusual Bruising, Wounds, Jaundice, Other - Neurological Neurological: absent: As Per HPI, Abnormal Gait, Abnormal Hearing, Abnormal Movements, Abnormal Speech, Behavioral Changes, Burning Sensations, Confusion, Convulsions, Disequilibrium, Dizziness, Numbness, Focal Weakness, Frequent Falls , Headaches, Lack of Coordination, Loss of Vision, Memory Loss, Paresthesias, Radicular Pain, Restless Legs, Sensory Deficit, Syncope, Tingling, Tremor, Vertigo, Weakness, Other Visual Disturbances, Other - Psychiatric Psychiatric: absent: As Per HPI, Abnormal Sleep Pattern, Anhedonia, Anxiety, Auditory Hallucinations, Behavioral Changes, Change in Appetite, Change in Libido, Confusion, Depression, Difficulty Concentrating, Hallucinations, Homicidal Ideation, Hopelessness, Irritability, Memory Loss, Mood Swings, Panic Attacks, Paranoia, Suicidal Ideation, Visual Hallucinations, Tactile Hallucinations, Other - Endocrine Endocrine: absent: As Per HPI, Change in Body Appearance, Change in Libido, Cold Intolorance, Deepening of Voice, Excessive Sweating, Fatigue, Flushing, Heat Intolorance, Increase in Ring/Shoe/Hat Size, Palpitations, Polydipsia, Polyphagia, Polyuria, Other - Hematologic/Lymphatic Hematologic: absent: As Per HPI, Easy Bleeding, Easy Bruising, Lymphadenopathy, Other Past Patient History - Infectious Disease Hx of Infectious Diseases: None - Past Medical History & Family History Past Medical History?: Yes - Past Social History Smoking Status: Former Smoker - CARDIAC Hx Hypertension: Yes (no meds) - ENDOCRINE/METABOLIC Hx Diabetes Mellitus Type 2: Yes - MUSCULOSKELETAL/RHEUMATOLOGICAL Hx Falls: No - PSYCHIATRIC Hx Substance Use: No - SURGICAL HISTORY Hx Surgeries: No - ANESTHESIA Hx Anesthesia: No Hx Anesthesia Reactions: No Meds Allergies/Adverse Reactions: Allergies Allergy/AdvReac Type Severity Reaction Status Date / Time No Known Allergies Allergy Verified 05/05/13 09:36 - Medications Medications: Current Medications Acetaminophen (Tylenol 325mg Tab) 650 mg PO Q6 PRN PRN Reason: Pain, moderate (4-7) Aspirin (Aspirin Chewable) 81 mg PO DAILY [facility] Last Admin: 07/29/17 16:49 Dose: 81 mg Clopidogrel Bisulfate (Plavix) 300 mg PO ONCE ONE Stop: 07/30/17 09:01 Dextrose (Dextrose 50% Inj) 0 ml IV STAT PRN; Protocol PRN Reason: Hypoglycemia Protocol Dextrose (Glutose 15) 0 gm PO ONCE PRN; Protocol PRN Reason: Hypoglycemia Protocol Enoxaparin Sodium (Lovenox) 40 mg SC DAILY [facility] Glucagon (Glucagen Diagnostic Kit) 0 mg IM STAT PRN; Protocol PRN Reason: Hypoglycemia Protocol Dextrose (Dextrose 5% In Water 1000 Ml) 1,000 mls @ 0 mls/hr IV .Q0M PRN; Protocol; Per Protocol PRN Reason: Hypoglycemia Protocol Insulin Human Regular (Novolin R) 0 unit SC ACHS [facility] PRN Reason: Protocol Last Admin: 07/30/17 08:05 Dose: Not Given Pneumococcal Polyvalent Vaccine (Pneumovax 23 Vaccine) 0.5 ml IM .ONCE ONE Stop: 07/31/17 10:01 Pregabalin (Lyrica) 50 mg PO BID [facility] Last Admin: 07/29/17 18:30 Dose: 50 mg Physical Exam - Constitutional Appears: Non-toxic - Head Exam Head Exam: NORMAL INSPECTION - Eye Exam Eye Exam: Normal appearance - ENT Exam ENT Exam: Mucous Membranes Moist - Neck Exam Neck exam: Positive for: Full Rom - Respiratory Exam Respiratory Exam: NORMAL BREATHING PATTERN - Cardiovascular Exam Cardiovascular Exam: REGULAR RHYTHM - GI/Abdominal Exam GI & Abdominal Exam: Normal Bowel Sounds - Rectal Exam Rectal Exam: Deferred - Extremities Exam Extremities exam: Positive for: tenderness - Neurological Exam Neurological exam: Alert, Oriented x3 - Psychiatric Exam Psychiatric exam: Normal Mood - Skin Skin Exam: Warm Results - Vital Signs Recent Vital Signs: Last Vital Signs Temp 98.6 F 07/30/17 07:00 Pulse 110 H 07/30/17 07:00 Resp 20 07/30/17 07:00 BP 127/78 07/30/17 07:00 Pulse Ox 98 07/30/17 07:00 - Labs Result Diagrams: 08/01/17 08:16 08/01/17 08:16 Labs: Laboratory Results - last 24 hr 07/29/17 07/29/17 07/29/17 12:33 12:33 12:33 WBC 6.4 RBC 4.44 Hgb 13.9 Hct 40.2 MCV 90.6 MCH 31.3 H MCHC 34.5 RDW 13.6 Plt Count 305 MPV 7.5 Neut % (Auto) 68.0 Lymph % (Auto) 22.7 [place] % (Auto) 7.0 Eos % (Auto) 2.0 Baso % (Auto) 0.3 Neut # (Auto) 4.4 Lymph # (Auto) 1.5 [place] # (Auto) 0.5 Eos # (Auto) 0.1 Baso # (Auto) 0.0 PT 12.1 INR 1.1 APTT 38 H Sodium 138 Potassium 4.1 Chloride 98 Carbon Dioxide 28 Anion Gap 16 BUN 13 Creatinine 0.7 L Est GFR ( Amer) > 60 Est GFR (Non-Af Amer) > 60 POC Glucose (mg/dL) Random Glucose 155 H Calcium 9.5 Total Bilirubin 0.7 AST 34 ALT 21 D Alkaline Phosphatase 98 Total Protein 8.2 Albumin 3.9 Globulin 4.3 H Albumin/Globulin Ratio 0.9 L Triglycerides 157 H Cholesterol 178 LDL Cholesterol Direct 126 HDL Cholesterol 25 L 07/29/17 07/29/17 07/30/17 16:31 21:10 07:01 WBC 8.1 RBC 4.19 L Hgb 13.3 Hct 37.9 MCV 90.3 MCH 31.6 H MCHC 35.0 RDW 13.4 Plt Count 317 MPV 7.7 Neut % (Auto) 63.9 Lymph % (Auto) 26.5 [place] % (Auto) 6.9 Eos % (Auto) 2.4 Baso % (Auto) 0.3 Neut # (Auto) 5.2 Lymph # (Auto) 2.1 [place] # (Auto) 0.6 Eos # (Auto) 0.2 Baso # (Auto) 0.0 PT INR APTT Sodium Potassium Chloride Carbon Dioxide Anion Gap BUN Creatinine Est GFR ( Amer) Est GFR (Non-Af Amer) POC Glucose (mg/dL) 189 H 132 H Random Glucose Calcium Total Bilirubin AST ALT Alkaline Phosphatase Total Protein Albumin Globulin Albumin/Globulin Ratio Triglycerides Cholesterol LDL Cholesterol Direct HDL Cholesterol 07/30/17 07/30/17 07:01 07:11 WBC RBC Hgb Hct MCV MCH MCHC RDW Plt Count MPV Neut % (Auto) Lymph % (Auto) [place] % (Auto) Eos % (Auto) Baso % (Auto) Neut # (Auto) Lymph # (Auto) [place] # (Auto) Eos # (Auto) Baso # (Auto) PT INR APTT Sodium 143 Potassium 4.2 Chloride 101 Carbon Dioxide 26 Anion Gap 20 BUN 15 Creatinine 0.7 L Est GFR ( Amer) > 60 Est GFR (Non-Af Amer) > 60 POC Glucose (mg/dL) 112 H Random Glucose 113 H Calcium 9.7 Total Bilirubin 0.6 AST 20 ALT 16 L D Alkaline Phosphatase 89 Total Protein 7.7 Albumin 3.6 Globulin 4.1 H Albumin/Globulin Ratio 0.9 L Triglycerides Cholesterol LDL Cholesterol Direct HDL Cholesterol - EKG Data EKG Interpreted by: Myself EKG shows normal: Sinus rhythm Assessment & Plan (1) Gangrene of toe of left foot Assessment and Plan: patient is s/p CT angiogram which I reviewed. I discussed the need for angiography and possible endovascular intervention. I discussed realistic expectations regarding the toe. Status: Acute Priority: High (2) HTN (hypertension) Status: Chronic Priority: Medium
[2017-07-30] MEDS: Enoxaparin 40 mg Syringe SC SCH (10:02)
--- NOTE | 2017-07-30 10:17 | CP.PCM.PN ---
<Arnol Thomas - Last Filed: 07/30/17 09:50> Subjective - Date & Time of Evaluation Date of Evaluation: 07/30/17 Time of Evaluation: 09:51 - Subjective Subjective: PGY-[address] Stockton. No acute events noted overnight. Patient stated he gets sharp pains in his legs bilaterally. Necrotic toe is not painful. He otherwise did not offer any complaints. Denied chest pain, shortness of breath, fevers, nausea, vomiting. Objective - Vital Signs/Intake and Output Vital Signs (last 24 hours): Temp Pulse Resp BP Pulse Ox 98.6 F 110 H 20 127/78 98 07/30/17 07:00 07/30/17 07:00 07/30/17 07:00 07/30/17 07:00 07/30/17 07:00 Intake and Output: 07/30/17 07/30/17 06:59 18:59 Intake Total 300 180 Balance 300 180 - Medications Medications: Current Medications Acetaminophen (Tylenol 325mg Tab) 650 mg PO Q6 PRN PRN Reason: Pain, moderate (4-7) Aspirin (Aspirin Chewable) 81 mg PO DAILY [facility] Last Admin: 07/29/17 16:49 Dose: 81 mg Dextrose (Dextrose 50% Inj) 0 ml IV STAT PRN; Protocol PRN Reason: Hypoglycemia Protocol Dextrose (Glutose 15) 0 gm PO ONCE PRN; Protocol PRN Reason: Hypoglycemia Protocol Enoxaparin Sodium (Lovenox) 40 mg SC DAILY [facility] Glucagon (Glucagen Diagnostic Kit) 0 mg IM STAT PRN; Protocol PRN Reason: Hypoglycemia Protocol Dextrose (Dextrose 5% In Water 1000 Ml) 1,000 mls @ 0 mls/hr IV .Q0M PRN; Protocol; Per Protocol PRN Reason: Hypoglycemia Protocol Insulin Human Regular (Novolin R) 0 unit SC ACHS [facility] PRN Reason: Protocol Last Admin: 07/30/17 08:05 Dose: Not Given Pneumococcal Polyvalent Vaccine (Pneumovax 23 Vaccine) 0.5 ml IM .ONCE ONE Stop: 07/31/17 10:01 Pregabalin (Lyrica) 50 mg PO BID [facility] Last Admin: 07/29/17 18:30 Dose: 50 mg - Labs Labs: 07/30/17 07:01 07/30/17 07:01 PT 12.1 SECONDS (9.7-12.2) 07/29/17 12:33 INR 1.1 07/29/17 12:33 APTT 38 SECONDS (21-34) H 07/29/17 12:33 - Additional Findings Additional findings: - Constitutional Appears: Well, No Acute Distress - Head Exam Head Exam: ATRAUMATIC, NORMAL INSPECTION - Eye Exam Eye Exam: EOMI Pupil Exam: PERRL - ENT Exam ENT Exam: Mucous Membranes Moist - Neck Exam Neck exam: Positive for: Normal Inspection. Negative for: Lymphadenopathy, Tenderness - Respiratory Exam Respiratory Exam: Clear to Auscultation Bilateral, NORMAL BREATHING PATTERN. absent: Rales, Rhonchi, Wheezes - Cardiovascular Exam Cardiovascular Exam: Tachycardia, REGULAR RHYTHM, +S1, +S2. absent: JVD, Systolic Murmur - GI/Abdominal Exam GI & Abdominal Exam: Normal Bowel Sounds, Soft. absent: Distended, Firm, Guarding, Mass, Tenderness - Extremities Exam Extremities exam: Negative for: joint swelling, normal capillary refill, pedal edema, tenderness, pedal pulses present Additional comments: 2nd big toe of left foot black and necrotic - Neurological Exam Neurological exam: Alert, CN II-XII Intact, Oriented x3 - Psychiatric Exam Psychiatric exam: Normal Affect, Normal Mood - Skin Skin Exam: Warm Additional comments: Skin shiny and hairless in LE b/l as seen in PVD Assessment and Plan (1) Gangrene of toe of left foot Status: Acute (2) Peripheral arterial disease Status: Acute (3) Diabetes mellitus Status: Acute (4) HTN (hypertension) Status: Chronic (5) Prophylactic measure Status: Acute - Assessment and Plan (Free Text) Assessment: Gangrene of toe of left foot, 2nd digit, Mack Stage 4 Peripheral arterial disease Assessment and Plan: 2nd toe of left foot black and necrotic Mack stage 4 Hx of angioplasty and stent of left superficial femoral artery, and atherectomy tibioperoneal trunk, both in [address] Alex Zambrano Vascular surgery consult, Dr Wilkins Cardiology consult, Dr Alex Zambrano. * The toe is not salvageable * will require anigography to assess the possibility of improvement in circulatory flow to the foot and distal leg * peripheral angiogram tomorrow 07/31/17 F/U arterial dopplers LE B/L F/U venous dopplers LE B/L Imaging: Left Foot 2nd digit XRAY: Multiple hammertoe deformities identified. No acute findings related to/accounting for clinical presentation. CT angiogram Abd Ileofem Runoff 07/29/17: Occlusion of the mid SFA with high grade stenosis in the distal along with severe tibioperoneal disease. Meds: Start aspirin 81mg PO QD (will consider adding plavix 75mg PO QD as second antiplatelet agent) Given plavix 300mg PO ONCE 07/30/17 for peripheral angiogram scheduled for 07/31/17 Start Crestor 20mg PO HS (high intensity statin indicated) Start Cilostazol 100mg PO BID for claudication Lotrimin topical to feet bilaterally BID for tinea pedis Status: Acute Priority: High Diabetes mellitus Assessment and Plan: Hx of DM2, also with diabetic neuropathy Accuchecks Diabetic diet Hypoglycemia protocol Labs/Diagnostics: HgbA1c 9.2 Lipid Panel showed Triglycerides 157 and HDL 25 otherwise normal Meds: Start pregabalin 50mg PO BID HOLD home medication vildagliptin/metformin 50mg/1000mg for now Will cover with RISS for now Status: Acute Priority: High HTN (hypertension) Assessment and Plan: Hx of HTN per chart review BP well controlled Monitor Status: Chronic Priority: Medium Prophylactic measure Assessment and Plan: SCDs contraindicated 2/2 necrotic toe Lovenox 40mg SC QD Diabetic diet, 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 07/31/17 GI prophylaxis not indicated Status: Acute Priority: Low <Saranya Reed S - Last Filed: 07/31/17 14:57> Objective - Vital Signs/Intake and Output Vital Signs (last 24 hours): Temp Pulse Resp BP Pulse Ox 97.8 F 111 H 20 114/76 100 07/31/17 09:06 07/31/17 10:11 07/31/17 10:11 07/31/17 10:11 07/31/17 10:11 - Medications Medications: Current Medications Acetaminophen (Tylenol 325mg Tab) 650 mg PO Q6 PRN PRN Reason: Pain, moderate (4-7) Aspirin (Aspirin Chewable) 81 mg PO DAILY [facility] Last Admin: 07/31/17 10:10 Dose: 81 mg Cilostazol (Pletal) 100 mg PO BID [facility] Last Admin: 07/31/17 10:10 Dose: 100 mg Clotrimazole (Lotrimin 1%) 1 gm TOP BID [facility] Last Admin: 07/31/17 10:11 Dose: Not Given Dextrose (Dextrose 50% Inj) 0 ml IV STAT PRN; Protocol PRN Reason: Hypoglycemia Protocol Dextrose (Glutose 15) 0 gm PO ONCE PRN; Protocol PRN Reason: Hypoglycemia Protocol Enoxaparin Sodium (Lovenox) 40 mg SC DAILY [facility] Last Admin: 07/31/17 10:10 Dose: Not Given Glucagon (Glucagen Diagnostic Kit) 0 mg IM STAT PRN; Protocol PRN Reason: Hypoglycemia Protocol Dextrose (Dextrose 5% In Water 1000 Ml) 1,000 mls @ 0 mls/hr IV .Q0M PRN; Protocol; Per Protocol PRN Reason: Hypoglycemia Protocol Insulin Human Regular (Novolin R) 0 unit SC ACHS [facility] PRN Reason: Protocol Last Admin: 07/31/17 12:22 Dose: 6 unit Pregabalin (Lyrica) 50 mg PO BID [facility] Last Admin: 07/31/17 10:10 Dose: 50 mg Rosuvastatin Calcium (Crestor) 20 mg PO HS [facility] Last Admin: 07/30/17 21:30 Dose: 20 mg - Labs Labs: 07/31/17 06:16 07/31/17 06:16 PT 12.1 SECONDS (9.7-12.2) 07/29/17 12:33 INR 1.1 07/29/17 12:33 APTT 38 SECONDS (21-34) H 07/29/17 12:33 Attending/Attestation - Attestation I have personally seen and examined this patient.: Yes I have fully participated in the care of the patient.: Yes I have reviewed all pertinent clinical information, including history, physical exam and plan: Yes Notes (Text): 07/31/17 14:57 case seen and d.w staff s/p gangreme icv antibitic s/p femoral angiogram mx as ordered <Renzo Stockton Jr. - Last Filed: 08/06/17 15:41> Objective - Vital Signs/Intake and Output Vital Signs (last 24 hours): Temp Pulse Resp BP Pulse Ox 98.7 F 114 H 21 120/66 99 08/06/17 12:00 08/06/17 12:20 08/06/17 12:20 08/06/17 12:20 08/06/17 12:20 Intake and Output: 08/06/17 08/06/17 06:59 18:59 Intake Total 1768 1587.5 Output Total 600 1050 Balance 1168 537.5 - Medications Medications: Current Medications Acetaminophen (Tylenol 325mg Tab) 650 mg PO Q6 PRN PRN Reason: Pain, MILD(1-3) Last Admin: 08/05/17 17:24 Dose: 650 mg Aspirin (Aspirin Chewable) 81 mg PO DAILY [facility] Last Admin: 08/06/17 09:47 Dose: 81 mg Cilostazol (Pletal) 100 mg PO BID [facility] Last Admin: 08/06/17 09:48 Dose: 100 mg Clotrimazole (Lotrimin 1%) 1 gm TOP BID [facility] Last Admin: 08/06/17 09:49 Dose: 1 applic Dextrose (Dextrose 50% Inj) 0 ml IV STAT PRN; Protocol PRN Reason: Hypoglycemia Protocol Dextrose (Glutose 15) 0 gm PO ONCE PRN; Protocol PRN Reason: Hypoglycemia Protocol Dextrose (Glutose 15) 0 gm PO .ONCE PRN; Protocol PRN Reason: Hypoglycemia Protocol Enoxaparin Sodium (Lovenox) 40 mg SC DAILY [facility] Last Admin: 08/06/17 10:27 Dose: 40 mg Famotidine (Pepcid) 20 mg PO BID [facility] Glucagon (Glucagen Diagnostic Kit) 0 mg IM STAT PRN; Protocol PRN Reason: Hypoglycemia Protocol Glucagon (Glucagen Diagnostic Kit) 0 mg IM .STAT PRN; Protocol PRN Reason: Hypoglycemia Protocol Hydromorphone HCl (Dilaudid) 0.5 mg IVP Q6H PRN PRN Reason: Pain, severe (8-10) Last Admin: 08/06/17 10:00 Dose: 0.5 mg Dextrose (Dextrose 5% In Water 1000 Ml) 1,000 mls @ 0 mls/hr IV .Q0M PRN; Protocol; Per Protocol PRN Reason: Hypoglycemia Protocol Piperacillin Sod/Tazobactam (Sod 3.375 gm/ Sodium Chloride) 100 mls @ 200 mls/ hr IVPB Q6H [facility] PRN Reason: Protocol Stop: 08/10/17 19:01 Last Admin: 08/06/17 12:02 Dose: 200 mls/hr Sodium Chloride (Sodium Chloride 0.9%) 1,000 mls @ 100 mls/hr IV .Q10H [facility] Last Admin: 08/06/17 11:09 Dose: Not Given Potassium Phosphate 15 mmole/ (Sodium Chloride) 255 mls @ 42.5 mls/hr IVPB ONCE ONE Stop: 08/06/17 16:59 Last Admin: 08/06/17 11:03 Dose: 42.5 mls/hr Vancomycin HCl 1 gm/ Sodium (Chloride) 250 mls @ 166.7 mls/hr IVPB Q24H [facility] PRN Reason: Protocol Insulin Human Regular (Novolin R) 0 unit SC ACHS [facility] PRN Reason: Protocol Last Admin: 08/06/17 12:01 Dose: 3 unit Metformin HCl (Glucophage) 850 mg PO BID [facility] Last Admin: 08/03/17 09:43 Dose: 850 mg Metoprolol Tartrate (Lopressor) 5 mg IVP Q6H PRN PRN Reason: Heart Rate >110 Last Admin: 08/06/17 12:10 Dose: 5 mg Oxycodone/Acetaminophen (Percocet 5/325 Mg Tab) 1 tab PO Q4H PRN PRN Reason: Pain, moderate (4-7) Stop: 08/07/17 16:59 Last Admin: 08/06/17 15:19 Dose: 1 tab Pregabalin (Lyrica) 50 mg PO BID [facility] Last Admin: 08/06/17 09:47 Dose: 50 mg Rosuvastatin Calcium (Crestor) 20 mg PO HS [facility] Last Admin: 08/05/17 23:44 Dose: 20 mg Sitagliptin Phosphate (Januvia) 25 mg PO BID [facility] Last Admin: 08/03/17 09:43 Dose: 25 mg - Labs Labs: 08/06/17 07:55 08/06/17 07:55 PT 12.0 SECONDS (9.7-12.2) 08/04/17 06:18 INR 1.1 08/04/17 06:18 APTT 37 SECONDS (21-34) H 08/04/17 06:18
[2017-07-30] MEDS: Clotrimazole 1% Cream(30 gm) TOP SCH ×2 (11:05→17:38)
--- NOTE | 2017-07-30 12:42 | VASCLAB ---
STUDY DESCRIPTION: HISTORY: stage 4 huitron; hx of PAD PRIORS: None. TECHNIQUE: Pulse volume recording waveforms and segmental pressures of bilateral lower extremities at multiple levels were obtained. Ankle Brachial Indices (ABIs) were calculated. Report prepared by JUAN Muñoz, RVT RIGHT LOWER EXTREMITY: * Brachial artery: Pressure - 112 mmHg. * High thigh: Pressure - mmHg: Ratio - : PVR waveform - Pulsatile * Low thigh: Pressure - mmHg: Ratio - PVR waveform: Pulsatile * Calf: Pressure - 104 mmHg: Ratio - 0.86 PVR waveform: Reduced * Posterior tibial Artery: Pressure - 94 mmHg: Ratio - 0.78 PVR waveform: Reduced * Dorsalis pedis Artery: Pressure - 67 mmHg: Ratio - 0.55 PVR waveform: Reduced * Great toe: Pressure - mmHg: Ratio - PVR waveform: Ankle brachial index (RACHID): 0.78 LEFT LOWER EXTREMITY: * Brachial artery: Pressure - 121 mmHg. * High thigh: Pressure - mmHg: Ratio - : PVR waveform - Pulsatile * Low thigh: Pressure - mmHg: Ratio - PVR waveform: Reduced * Calf: Pressure - 36 mmHg: Ratio - 0.30 PVR waveform: Reduced * Posterior tibial Artery: Pressure - 59 mmHg: Ratio - 0.49 PVR waveform: None * Dorsalis pedis Artery: Pressure - 53 mmHg: Ratio - 0.44 PVR waveform: None * Great toe: Pressure - mmHg: Ratio - PVR waveform: Ankle brachial index (RACHID): 0.49 OTHER FINDINGS: Right: Left: IMPRESSION: Right: This exam reveals moderately decreased perfusion of the right lower extremity, noted at the popliteal, tibial and distal small artery levels. Left: This exam reveals severely decreased perfusion of the left lower extremity, noted at the superficial femoral, popliteal, tibial and distal small artery levels.
--- NOTE | 2017-07-30 12:43 | VASCLAB ---
PROCEDURE: Lower Extremity Venous Duplex Exam. HISTORY: calf pain bilaterally PRIORS: None. TECHNIQUE: Bilateral common femoral, femoral, popliteal and posterior tibial, peroneal and great saphenous veins were evaluated. Flow was assessed with color Doppler, compressibility, assessment of phasic flow and augmentation response. Report prepared by Alberto Miranda, JUAN, RVT FINDINGS: RIGHT: 1. Common Femoral Vein: 1.1. Compressibility - Fully compressible: Thrombus - None : Flow - Phasic: Augmentation -Normal: Reflux - None. 2. Femoral Vein: 2.1. Compressibility - Fully compressible: Thrombus - None : Flow - Phasic: Augmentation -Normal: Reflux - None. 3. Popliteal Vein: 3.1. Compressibility - Fully compressible: Thrombus - None : Flow - Phasic: Augmentation -Normal: Reflux - None. 4. Posterior Tibial Vein: 4.1. Compressibility - Fully compressible: Thrombus - None: Flow - Phasic: Augmentation -Normal: Reflux - None. 5. Peroneal Vein: 5.1. Compressibility - Fully compressible: Thrombus - None: Flow - Phasic: Augmentation -Normal: Reflux - None. 6. Great Saphenous Vein: 6.1. Compressibility - Fully compressible: Thrombus - None: Flow - Phasic: Augmentation - Normal: Reflux - None. LEFT: 1. Common Femoral Vein: 1.1. Compressibility - Fully compressible: Thrombus - None: Flow - Phasic: Augmentation -Normal: Reflux - None. 2. Femoral Vein: 2.1. Compressibility - Fully compressible: Thrombus - None: Flow - Phasic: Augmentation -Normal: Reflux - None. 3. Popliteal Vein: 3.1. Compressibility - Fully compressible: Thrombus - None : Flow - Phasic: Augmentation -Normal: Reflux - None. 4. Posterior Tibial Vein: 4.1. Compressibility - Fully compressible: Thrombus - None: Flow - Phasic: Augmentation -Normal: Reflux - None. 5. Peroneal Vein: 5.1. Compressibility - Fully compressible: Thrombus - None: Flow - Phasic: Augmentation -Normal: Reflux - None. 6. Great Saphenous Vein: 6.1. Compressibility - Fully compressible: Thrombus - None: Flow - Phasic: Augmentation - Normal: Reflux - None. OTHER FINDINGS: Right: None significant. Left: None significant. IMPRESSION: Right: No evidence of deep or superficial vein thrombosis of the right lower extremity. Normal valve function noted of the right side. Left: No evidence of deep or superficial vein thrombosis of the left lower extremity. Normal valve function noted of the left side.
[2017-07-30] MEDS: Cilostazol 100 mg Tab UD PO SCH (17:37)
--- NOTE | 2017-07-30 18:00 | CP.PCM.PN ---
Subjective - Date & Time of Evaluation Date of Evaluation: 07/30/17 Time of Evaluation: 10:30 - Subjective Subjective: Pt seen and examined at bedside this AM. No adverse events overnight. Symptoms are unchanged Objective - Vital Signs/Intake and Output Vital Signs (last 24 hours): Temp Pulse Resp BP Pulse Ox 98.9 F 116 H 20 138/85 98 07/30/17 16:00 07/30/17 16:00 07/30/17 16:00 07/30/17 16:00 07/30/17 16:00 Intake and Output: 07/30/17 07/30/17 06:59 18:59 Intake Total 300 180 Balance 300 180 - Medications Medications: Current Medications Acetaminophen (Tylenol 325mg Tab) 650 mg PO Q6 PRN PRN Reason: Pain, moderate (4-7) Aspirin (Aspirin Chewable) 81 mg PO DAILY [facility] Last Admin: 07/30/17 09:59 Dose: 81 mg Cilostazol (Pletal) 100 mg PO BID [facility] Last Admin: 07/30/17 17:37 Dose: 100 mg Clotrimazole (Lotrimin 1%) 1 gm TOP BID [facility] Last Admin: 07/30/17 17:38 Dose: 1 applic Dextrose (Dextrose 50% Inj) 0 ml IV STAT PRN; Protocol PRN Reason: Hypoglycemia Protocol Dextrose (Glutose 15) 0 gm PO ONCE PRN; Protocol PRN Reason: Hypoglycemia Protocol Enoxaparin Sodium (Lovenox) 40 mg SC DAILY [facility] Last Admin: 07/30/17 10:02 Dose: 40 mg Glucagon (Glucagen Diagnostic Kit) 0 mg IM STAT PRN; Protocol PRN Reason: Hypoglycemia Protocol Dextrose (Dextrose 5% In Water 1000 Ml) 1,000 mls @ 0 mls/hr IV .Q0M PRN; Protocol; Per Protocol PRN Reason: Hypoglycemia Protocol Insulin Human Regular (Novolin R) 0 unit SC ACHS [facility] PRN Reason: Protocol Last Admin: 07/30/17 17:38 Dose: Not Given Pneumococcal Polyvalent Vaccine (Pneumovax 23 Vaccine) 0.5 ml IM .ONCE ONE Stop: 07/31/17 10:01 Pregabalin (Lyrica) 50 mg PO BID [facility] Last Admin: 07/30/17 17:37 Dose: 50 mg Rosuvastatin Calcium (Crestor) 20 mg PO HS [facility] - Labs Labs: 07/30/17 07:01 07/30/17 07:01 PT 12.1 SECONDS (9.7-12.2) 07/29/17 12:33 INR 1.1 07/29/17 12:33 APTT 38 SECONDS (21-34) H 07/29/17 12:33 - Constitutional Appears: Non-toxic, No Acute Distress - Head Exam Head Exam: ATRAUMATIC, NORMOCEPHALIC - Eye Exam Eye Exam: Normal appearance. absent: Conjunctival injection, Scleral icterus - ENT Exam ENT Exam: Mucous Membranes Moist, Normal Oropharynx - Respiratory Exam Respiratory Exam: NORMAL BREATHING PATTERN. absent: Accessory Muscle Use, Respiratory Distress - Extremities Exam Extremities Exam: absent: Calf Tenderness Additional comments: second toe of left foot necrotic - Neurological Exam Neurological Exam: Alert, Awake, Oriented x3 - Psychiatric Exam Psychiatric exam: Normal Affect, Normal Mood - Skin Skin Exam: Dry, Normal Color, Warm Assessment and Plan - Assessment and Plan (Free Text) Assessment: 72M with dry gangrene left 2nd toe and PVD Plan: CTA showed significant vascular disease of the left leg. Dr. Zambrano contacted to evaluate the patient since he has performed revascularization procedures on this patient in the past No intervention planned by vascular surgery team at this time--will defer to Dr. Zambrano. PRN pain medication Strict control of blood sugar SCD's Encourage ambulation as tolerated discussed with Dr. Claudette Turpin, PGY2
[2017-07-30 21:18] LABS: URINE BILIRUBIN NEGATIVE (NEGATIVE); URINE BLOOD NEGATIVE (NEGATIVE); URINE CLARITY Clear (Clear); URINE COLOR Yellow (YELLOW); URINE GLUCOSE (UA) 3+ mg/dL (Normal); URINE LEUKOCYTE ESTERASE NEG Leu/uL (Negative); URINE PROTEIN NEGATIVE (NEGATIVE); URINE UROBILINOGEN NORMAL mg/dL (0.2-1.0)
[2017-07-31 06:28] LABS: BASO # 0.1 K/uL (0.0-0.2); BASO % 0.7 % (0.0-2.0); EOS # 0.2 K/uL (0.0-0.7); EOS % 2.2 % (0.0-4.0); HEMOGLOBIN 13.2 g/dL (12.0-18.0); LYMPH % 25.9 % (20.0-40.0); MEAN CELL VOLUME 89.7 fL (80.0-94.0); MEAN CORPUSCULAR HEMOGLOBIN 31.5 pg (27.0-31.0); MEAN CORPUSCULAR HGB CONC 35.2 g/dL (33.0-37.0); MEAN PLATELET VOLUME 7.5 fL (7.2-11.7); MONO # 0.7 K/uL (0.0-0.8); MONO % 8.4 % (0.0-10.0); NEUT # 4.9 K/uL (1.8-7.0); NEUT % 62.8 % (50.0-75.0); RBC 4.2 Mil/uL (4.40-5.90); RED CELL DISTRIBUTION WIDTH 13.2 % (11.5-14.5); WHITE BLOOD COUNT 7.7 K/uL (4.8-10.8)
[2017-07-31 06:49] LABS: ALB/GLOB RATIO 0.9 (1.0-2.1); ALBUMIN 3.6 g/dL (3.5-5.0); ALT/SGPT 12 U/L (21-72); AST/SGOT 28 U/L (17-59); BLOOD UREA NITROGEN 20 mg/dL (9-20); CALCIUM 9.6 mg/dl (8.6-10.4); GFR AFRICAN-AMERICAN > 60; GFR NON-AFRICAN AMERICAN > 60
[2017-07-31] MEDS ORDERED: Iodixanol 320 MG/ML 100 ML BOTTLE IV ONE (06:55)
[2017-07-31] MEDS ORDERED: Iodixanol 320 MG/ML 200 ML BOTTLE IV ONE ×2 (06:58→07:15)
[2017-07-31] MEDS ORDERED: Midazolam 2 MG/2 ML VIAL ONE (06:59)
[2017-07-31] MEDS: (Novolin R) Insulin Human Regular 100 units/ml vial SC SCH ×4 (07:49→21:27)
[2017-07-31] MEDS ORDERED: Sodium Chloride 0.9% 1,000 ML IV SCH (08:00)
--- NOTE | 2017-07-31 09:11 | CP.PCM.PN ---
Subjective - Date & Time of Evaluation Date of Evaluation: 07/31/17 Time of Evaluation: 09:09 - Subjective Subjective: reviewed and discussed with Dr Zambrano , he plans to do a stress test anterior tibial potential target vessel vein mapping ordered Objective - Vital Signs/Intake and Output Vital Signs (last 24 hours): Temp Pulse Resp BP Pulse Ox 98.3 F 116 H 20 101/60 98 07/31/17 06:00 07/31/17 06:00 07/31/17 06:00 07/31/17 06:00 07/31/17 06:00 - Medications Medications: Current Medications Acetaminophen (Tylenol 325mg Tab) 650 mg PO Q6 PRN PRN Reason: Pain, moderate (4-7) Aspirin (Aspirin Chewable) 81 mg PO DAILY [facility] Last Admin: 07/30/17 09:59 Dose: 81 mg Cilostazol (Pletal) 100 mg PO BID [facility] Last Admin: 07/30/17 17:37 Dose: 100 mg Clotrimazole (Lotrimin 1%) 1 gm TOP BID [facility] Last Admin: 07/30/17 17:38 Dose: 1 applic Dextrose (Dextrose 50% Inj) 0 ml IV STAT PRN; Protocol PRN Reason: Hypoglycemia Protocol Dextrose (Glutose 15) 0 gm PO ONCE PRN; Protocol PRN Reason: Hypoglycemia Protocol Enoxaparin Sodium (Lovenox) 40 mg SC DAILY [facility] Last Admin: 07/30/17 10:02 Dose: 40 mg Glucagon (Glucagen Diagnostic Kit) 0 mg IM STAT PRN; Protocol PRN Reason: Hypoglycemia Protocol Dextrose (Dextrose 5% In Water 1000 Ml) 1,000 mls @ 0 mls/hr IV .Q0M PRN; Protocol; Per Protocol PRN Reason: Hypoglycemia Protocol Sodium Chloride (Sodium Chloride 0.9%) 1,000 mls @ 100 mls/hr IV .Q10H [facility] Stop: 07/31/17 10:00 Insulin Human Regular (Novolin R) 0 unit SC ACHS [facility] PRN Reason: Protocol Last Admin: 07/31/17 07:49 Dose: Not Given Pneumococcal Polyvalent Vaccine (Pneumovax 23 Vaccine) 0.5 ml IM .ONCE ONE Stop: 07/31/17 10:01 Pregabalin (Lyrica) 50 mg PO BID [facility] Last Admin: 07/30/17 17:37 Dose: 50 mg Rosuvastatin Calcium (Crestor) 20 mg PO HS [facility] Last Admin: 07/30/17 21:30 Dose: 20 mg - Labs Labs: 07/31/17 06:16 07/31/17 06:16 PT 12.1 SECONDS (9.7-12.2) 07/29/17 12:33 INR 1.1 07/29/17 12:33 APTT 38 SECONDS (21-34) H 07/29/17 12:33
[2017-07-31] MEDS ORDERED: Pneumococcal 23-Valent Vaccine IM ONE (10:00)
[2017-07-31] MEDS: Cilostazol 100 mg Tab UD PO SCH ×2 (10:10→17:52)
[2017-07-31] MEDS: Enoxaparin 40 mg Syringe SC SCH (10:10)
[2017-07-31] MEDS: Clotrimazole 1% Cream(30 gm) TOP SCH ×2 (10:11→17:52)
--- NOTE | 2017-07-31 10:27 | CP.PCM.PN ---
<Madyson Linton - Last Filed: 07/31/17 16:10> Subjective - Date & Time of Evaluation Date of Evaluation: 07/31/17 Time of Evaluation: 10:00 - Subjective Subjective: PGY-[address] Reed Patient seen and examined at bedside. No acute events overnight. Patient complains of intermittent left toe pain but controlled well with medication. Otherwise patient is eating and drinking well. He denies having fever, chills, headache, shortness of breath, chest pain, abdominal pain, nausea, or vomiting. Objective - Vital Signs/Intake and Output Vital Signs (last 24 hours): Temp Pulse Resp BP Pulse Ox 97.8 F 111 H 20 114/76 100 07/31/17 09:06 07/31/17 10:11 07/31/17 10:11 07/31/17 10:11 07/31/17 10:11 - Medications Medications: Current Medications Acetaminophen (Tylenol 325mg Tab) 650 mg PO Q6 PRN PRN Reason: Pain, moderate (4-7) Aspirin (Aspirin Chewable) 81 mg PO DAILY [facility] Last Admin: 07/31/17 10:10 Dose: 81 mg Cilostazol (Pletal) 100 mg PO BID [facility] Last Admin: 07/31/17 10:10 Dose: 100 mg Clotrimazole (Lotrimin 1%) 1 gm TOP BID [facility] Last Admin: 07/31/17 10:11 Dose: Not Given Dextrose (Dextrose 50% Inj) 0 ml IV STAT PRN; Protocol PRN Reason: Hypoglycemia Protocol Dextrose (Glutose 15) 0 gm PO ONCE PRN; Protocol PRN Reason: Hypoglycemia Protocol Enoxaparin Sodium (Lovenox) 40 mg SC DAILY [facility] Last Admin: 07/31/17 10:10 Dose: Not Given Glucagon (Glucagen Diagnostic Kit) 0 mg IM STAT PRN; Protocol PRN Reason: Hypoglycemia Protocol Dextrose (Dextrose 5% In Water 1000 Ml) 1,000 mls @ 0 mls/hr IV .Q0M PRN; Protocol; Per Protocol PRN Reason: Hypoglycemia Protocol Insulin Human Regular (Novolin R) 0 unit SC ACHS [facility] PRN Reason: Protocol Last Admin: 07/31/17 07:49 Dose: Not Given Pregabalin (Lyrica) 50 mg PO BID [facility] Last Admin: 07/31/17 10:10 Dose: 50 mg Rosuvastatin Calcium (Crestor) 20 mg PO HS [facility] Last Admin: 07/30/17 21:30 Dose: 20 mg - Labs Labs: 07/31/17 06:16 07/31/17 06:16 PT 12.1 SECONDS (9.7-12.2) 07/29/17 12:33 INR 1.1 07/29/17 12:33 APTT 38 SECONDS (21-34) H 07/29/17 12:33 - Additional Findings Additional findings: - Constitutional Appears: Non-toxic, No Acute Distress - Head Exam Head Exam: ATRAUMATIC, NORMOCEPHALIC - Eye Exam Eye Exam: Normal appearance. absent: Conjunctival injection, Scleral icterus - ENT Exam ENT Exam: Mucous Membranes Moist, Normal Oropharynx - Respiratory Exam Respiratory Exam: NORMAL BREATHING PATTERN. absent: Accessory Muscle Use, Respiratory Distress - Extremities Exam Extremities Exam: absent: Calf Tenderness Additional comments: necrotic second toe of left foot - Neurological Exam Neurological Exam: Alert, Awake, Oriented x3 - Psychiatric Exam Psychiatric exam: Normal Affect, Normal Mood - Skin Skin Exam: Dry, Warm Assessment and Plan - Assessment and Plan (Free Text) Assessment: Gangrene of toe of left foot, 2nd digit, Mack Stage 4 Peripheral arterial disease Assessment and Plan: 2nd toe of left foot black and necrotic Mack stage 4 Hx of angioplasty and stent of left superficial femoral artery, and atherectomy tibioperoneal trunk, both in [address] Alex Zambrano Vascular surgery consult, Dr Wilkins Cardiology consult, Dr Alex Zambrano. * The toe is not salvageable * will require anigography to assess the possibility of improvement in circulatory flow to the foot and distal leg * peripheral angiogram 07/31: extensive disease in bilateral lower extremity (see report), consider vascular surgical evaluation for possible bypass of left lower extremity Imaging: Left Foot 2nd digit XRAY: Multiple hammertoe deformities identified. No acute findings related to/accounting for clinical presentation. CT angiogram Abd Ileofem Runoff 07/29/17: Occlusion of the mid SFA with high grade stenosis in the distal along with severe tibioperoneal disease. venous dopplers LE B/L negative for DVT Meds: Start aspirin 81mg PO QD (will consider adding plavix 75mg PO QD as second antiplatelet agent) Given plavix 300mg PO ONCE 07/30/17 for peripheral angiogram scheduled for 4/5/18 Start Crestor 20mg PO HS (high intensity statin indicated) Start Cilostazol 100mg PO BID for claudication Lotrimin topical to feet bilaterally BID for tinea pedis Status: Acute Priority: High Diabetes mellitus Assessment and Plan: Hx of DM2, also with diabetic neuropathy Accuchecks Diabetic diet Hypoglycemia protocol Labs/Diagnostics: HgbA1c 9.2 Lipid Panel showed Triglycerides 157 and HDL 25 otherwise normal Meds: Start pregabalin 50mg PO BID Resume linagliptin/metformin 2.5mg/850mg RISS Hypoglycemia protocol Status: Acute Priority: High HTN (hypertension) Assessment and Plan: Hx of HTN per chart review BP well controlled Monitor Status: Chronic Priority: Medium Prophylactic measure Assessment and Plan: SCDs contraindicated 2/2 necrotic toe Lovenox 40mg SC QD Diabetic diet, resumed GI prophylaxis not indicated Status: Acute Priority: Low Discussed with attending physician All management per Dr. Reed <Saranya Reed S - Last Filed: 07/31/17 17:44> Objective - Vital Signs/Intake and Output Vital Signs (last 24 hours): Temp Pulse Resp BP Pulse Ox 98.1 F 117 H 20 115/67 98 07/31/17 16:01 07/31/17 16:01 07/31/17 16:01 07/31/17 16:01 07/31/17 16:01 Intake and Output: 07/31/17 07/31/17 06:59 18:59 Intake Total 780 Balance 780 - Medications Medications: Current Medications Acetaminophen (Tylenol 325mg Tab) 650 mg PO Q6 PRN PRN Reason: Pain, moderate (4-7) Aspirin (Aspirin Chewable) 81 mg PO DAILY [facility] Last Admin: 07/31/17 10:10 Dose: 81 mg Cilostazol (Pletal) 100 mg PO BID [facility] Last Admin: 07/31/17 10:10 Dose: 100 mg Clotrimazole (Lotrimin 1%) 1 gm TOP BID [facility] Last Admin: 07/31/17 10:11 Dose: Not Given Dextrose (Dextrose 50% Inj) 0 ml IV STAT PRN; Protocol PRN Reason: Hypoglycemia Protocol Dextrose (Glutose 15) 0 gm PO ONCE PRN; Protocol PRN Reason: Hypoglycemia Protocol Dextrose (Glutose 15) 0 gm PO .ONCE PRN; Protocol PRN Reason: Hypoglycemia Protocol Enoxaparin Sodium (Lovenox) 40 mg SC DAILY [facility] Last Admin: 07/31/17 10:10 Dose: Not Given Glucagon (Glucagen Diagnostic Kit) 0 mg IM STAT PRN; Protocol PRN Reason: Hypoglycemia Protocol Glucagon (Glucagen Diagnostic Kit) 0 mg IM .STAT PRN; Protocol PRN Reason: Hypoglycemia Protocol Dextrose (Dextrose 5% In Water 1000 Ml) 1,000 mls @ 0 mls/hr IV .Q0M PRN; Protocol; Per Protocol PRN Reason: Hypoglycemia Protocol Dextrose (Dextrose 5% In Water 1000 Ml) 1,000 mls @ 0 mls/hr IV .Q0M PRN; Protocol; Per Protocol PRN Reason: Hypoglycemia Protocol Insulin Human Regular (Novolin R) 0 unit SC ACHS [facility] PRN Reason: Protocol Last Admin: 07/31/17 12:22 Dose: 6 unit Metformin HCl (Glucophage) 850 mg PO BID [facility] Pregabalin (Lyrica) 50 mg PO BID [facility] Last Admin: 07/31/17 10:10 Dose: 50 mg Rosuvastatin Calcium (Crestor) 20 mg PO HS [facility] Last Admin: 07/30/17 21:30 Dose: 20 mg Sitagliptin Phosphate (Januvia) 25 mg PO BID [facility] - Labs Labs: 07/31/17 06:16 07/31/17 06:16 PT 12.1 SECONDS (9.7-12.2) 07/29/17 12:33 INR 1.1 07/29/17 12:33 APTT 38 SECONDS (21-34) H 07/29/17 12:33 Attending/Attestation - Attestation I have personally seen and examined this patient.: Yes I have fully participated in the care of the patient.: Yes I have reviewed all pertinent clinical information, including history, physical exam and plan: Yes Notes (Text): 07/31/17 17:43 Case seen and discussed with the staff Added dosing Podiatry consult ID consult Continues
--- NOTE | 2017-07-31 14:58 | CP.PCM.PN ---
Subjective - Date & Time of Evaluation Date of Evaluation: 07/31/17 Objective - Vital Signs/Intake and Output Vital Signs (last 24 hours): Temp Pulse Resp BP Pulse Ox 97.8 F 111 H 20 114/76 100 07/31/17 09:06 07/31/17 10:11 07/31/17 10:11 07/31/17 10:11 07/31/17 10:11 - Medications Medications: Current Medications Acetaminophen (Tylenol 325mg Tab) 650 mg PO Q6 PRN PRN Reason: Pain, moderate (4-7) Aspirin (Aspirin Chewable) 81 mg PO DAILY [facility] Last Admin: 07/31/17 10:10 Dose: 81 mg Cilostazol (Pletal) 100 mg PO BID [facility] [place] Last Admin: 07/31/17 10:10 Dose: 100 mg Clotrimazole (Lotrimin 1%) 1 gm TOP BID [facility] [place] Last Admin: 07/31/17 10:11 Dose: Not Given Dextrose (Dextrose 50% Inj) 0 ml IV STAT PRN; Protocol PRN Reason: Hypoglycemia Protocol Dextrose (Glutose 15) 0 gm PO ONCE PRN; Protocol PRN Reason: Hypoglycemia Protocol Enoxaparin Sodium (Lovenox) 40 mg SC DAILY [facility] [place] Last Admin: 07/31/17 10:10 Dose: Not Given Glucagon (Glucagen Diagnostic Kit) 0 mg IM STAT PRN; Protocol PRN Reason: Hypoglycemia Protocol Dextrose (Dextrose 5% In Water 1000 Ml) 1,000 mls @ 0 mls/hr IV .Q0M PRN; Protocol; Per Protocol PRN Reason: Hypoglycemia Protocol Insulin Human Regular (Novolin R) 0 unit SC ACHS [facility] PRN Reason: Protocol Last Admin: 07/31/17 12:22 Dose: 6 unit Pregabalin (Lyrica) 50 mg PO BID [facility] [place] Last Admin: 07/31/17 10:10 Dose: 50 mg Rosuvastatin Calcium (Crestor) 20 mg PO HS [facility] [place] Last Admin: 07/30/17 21:30 Dose: 20 mg - Labs Labs: 07/31/17 06:16 07/31/17 06:16 PT 12.1 SECONDS (9.7-12.2) 07/29/17 12:33 INR 1.1 07/29/17 12:33 APTT 38 SECONDS (21-34) H 07/29/17 12:33 Assessment and Plan - Assessment and Plan (Free Text) Plan: Continue Zosyn Vancomycin Podiatry consult ID consultations Status post venous Doppler Status post cath report is pending Gangrene of toe of left foot, 2nd digit, Mack Stage 4 Peripheral arterial disease Assessment and Plan: 2nd toe of left foot black and necrotic Mack stage 4 Hx of angioplasty and stent of left superficial femoral artery, and atherectomy tibioperoneal trunk, both in [address] Alex Zambrano Vascular surgery consult, Dr Wilkins Cardiology consult, Dr Alex Zambrano. The toe is not salvageable will require anigography to assess the possibility of improvement in circulatory flow to the foot and distal leg peripheral angiogram 07/31: extensive disease in bilateral lower extremity ( see report), consider vascular surgical evaluation for possible bypass of left lower extremity Imaging: Left Foot 2nd digit XRAY: Multiple hammertoe deformities identified. No acute findings related to/accounting for clinical presentation. CT angiogram Abd Ileofem Runoff 07/29/17: Occlusion of the mid SFA with high grade stenosis in the distal along with severe tibioperoneal disease. venous dopplers LE B/L negative for DVT Meds: Start aspirin 81mg PO QD (will consider adding plavix 75mg PO QD as second antiplatelet agent) Given plavix 300mg PO ONCE 07/30/17 for peripheral angiogram scheduled for 07/31/17 Start Crestor 20mg PO HS (high intensity statin indicated) Start Cilostazol 100mg PO BID for claudication Lotrimin topical to feet bilaterally BID for tinea pedis Status: Acute Priority: High Diabetes mellitus Assessment and Plan: Hx of DM2, also with diabetic neuropathy Accuchecks Diabetic diet Hypoglycemia protocol Labs/Diagnostics: HgbA1c 9.2 Lipid Panel showed Triglycerides 157 and HDL 25 otherwise normal Meds: Start pregabalin 50mg PO BID Resume linagliptin/metformin 2.5mg/850mg RISS Hypoglycemia protocol Status: Acute Priority: High HTN (hypertension) Assessment and Plan: Hx of HTN per chart review BP well controlled Monitor Status: Chronic Priority: Medium Prophylactic measure Assessment and Plan: SCDs contraindicated 2/2 necrotic toe Lovenox 40mg SC QD Diabetic diet, resumed GI prophylaxis not indicated Status: Acute Priority: Low
--- NOTE | 2017-07-31 15:30 | OP ---
PROCEDURE DATE: 07/31/2017 PROCEDURE PERFORMED: Retrograde access of right common femoral artery, selective catheter placement in the left common femoral artery via contralateral approach, abdominal aortography, bilateral iliofemoral runoff, bilateral lower extremity angiography, completion angiography via the sheath. INDICATIONS: Peripheral vascular disease with ischemic second digit of the left foot. SURGEON: Abbe Zambrano MD REFERRING PHYSICIAN: Renzo Stockton MD COMPLICATIONS: None. HISTORY: The patient is a 72-year-old male with a past medical history of peripheral vascular disease, status post endovascular intervention of the left SFA and tibioperoneal trunk in 2013, who presented with gangrene of the second toe of the left foot. The patient has continued to smoke and presents for angiography. Ankle-brachial index on the left was 0.43. DESCRIPTION OF PROCEDURE: After obtaining informed consent, the patient was prepped and draped in usual sterile fashion. The 5-Anguillan sheath was inserted into right common femoral artery via modified Seldinger technique. An Omni Flush catheter was advanced to infrarenal abdominal aorta. The abdominal aortography was performed. The catheter was then positioned at the iliac bifurcation. Bilateral iliofemoral runoff was performed. For more selective angiography of the left lower extremity, a stiff-angled Glidewire was advanced via contralateral approach and directed to the left common femoral artery. Selective angiography of the left lower extremity was performed to the level of the foot. The stiff-angled Glidewire and Omni Flush catheter were removed. Completion angiography of the right leg was performed via the sheath and right common femoral artery. Manual pressure was applied to achieve hemostasis. There were no complications. The patient tolerated the procedure well. FINDINGS: The infrarenal abdominal aorta is mildly ectatic with eccentric calcification. There is mild eccentric calcification of the infrarenal abdominal aorta. The renal artery is visualized and have luminal irregularities. Bilateral common iliac arteries have eccentric calcification. There is mild diffuse disease in the right common iliac artery. The internal iliac arteries have diffuse disease. The external iliac arteries as well exhibit non-diffuse disease to the level of the common femoral arteries. The common femoral artery of the left has eccentric calcification. The left profunda femoris has diffuse disease and provides extensive collateralization to the distal popliteal artery. The left superficial femoral artery is occluded at 100% proximally. There is a previously placed stent in the proximal third of the vessel. The reconstitution of the vessels at the mid popliteal artery just above the knee. There is mild diffuse disease of the distal popliteal artery. The tibioperoneal trunk is subtotally occluded. The posterior tibial artery is occluded 100% proximally. There is reconstitution of the anterior tibial artery, which is also occluded 100% at the mid portion. There is mild diffuse disease throughout the anterior tibial artery which supplies a very small dorsalis pedis artery. In the right leg, the right profunda femoris has diffuse disease. The right superficial femoral artery has a 95% stenosis in its proximal portion. There is sequential diffuse disease throughout the mid right superficial femoral artery. The right popliteal artery has a 30% stenosis in the proximal portion. The anterior tibial artery is occluded 100%. The tibioperoneal trunk has a subtotal occlusion. There is reconstitution of the right peroneal artery, which provides the dominant circulation of the lower leg. Reconstitution of the dorsalis pedis at the level of the ankle. So, conclusion is extensive disease of the left superficial femoral artery and with extensive outflow disease in the left lower extremity. Severe stenosis of the right superficial femoral artery, severe tibioperoneal disease in the right. PLAN: Consider vascular surgical evaluation for possible bypass of the left lower extremity. Abbe Zambrano MD
[2017-07-31] MEDS ORDERED: Glucagon Recombinant 1 mg Inj IM PRN (16:42)
--- NOTE | 2017-07-31 17:27 | VASCLAB ---
PROCEDURE: Lower Extremity Vein mapping. HISTORY: pre op bypass left PRIORS: None. TECHNIQUE: Bilateral common femoral, femoral, popliteal and posterior tibial, peroneal and great saphenous veins were evaluated. Flow was assessed with color Doppler, compressibility, assessment of phasic flow and augmentation response. Report prepared by Alberto Miranda, JUAN, RVT FINDINGS: RIGHT: 1. Common Femoral Vein: Compressibility - Fully compressible: Thrombus - None : Flow - Phasic: Augmentation -Normal: Reflux - None. 2. Femoral Vein:Compressibility - Fully compressible: Thrombus - None 3. Popliteal Vein: Compressibility - Fully compressible: Thrombus - None 4. Posterior Tibial Vein: Compressibility - Fully compressible: Thrombus - None 5. Peroneal Vein:Compressibility - Fully compressible: Thrombus - None 6. Greater Saphenous Vein: Compressibility - Fully compressible: Thrombus - None 6.1. Thigh - Proximal Diameter: 0.67cm. Mid Diameter: 0.48cm. Distal Diameter: 0.38cm. Knee Diameter: 0.36cm. 6.2. Calf - Proximal Diameter: 0.44cm. Mid Diameter:0.34cm. Distal Diameter: 0.39cm 6.3. Ankle - Diameter: 0.37cm 7. [place] Saphenous Vein: Compressibility - Fully compressible: thrombus - None 7.1. Knee - Diameter 0.47cm 7.2. Calf - Proximal Diameter: 0.23cm. Mid Diameter: 0.25cm. Distal Diameter: 0.34cm. 7.3. Ankle - Diameter: 0.32cm LEFT: 1. Common Femoral Vein: Compressibility - Fully compressible: Thrombus - None : Flow - Phasic: Augmentation -Normal: Reflux - None. 2. Femoral Vein:Compressibility - Fully compressible: Thrombus - None 3. Popliteal Vein: Compressibility - Fully compressible: Thrombus - None 4. Posterior Tibial Vein: Compressibility - Fully compressible: Thrombus - None 5. Peroneal Vein:Compressibility - Fully compressible: Thrombus - None 6. Greater Saphenous Vein: Compressibility - Fully compressible: Thrombus - None 6.1. Thigh - Proximal Diameter: 0.73cm. Mid Diameter: 0.41cm. Distal Diameter: 0.41cm. Knee Diameter: 0.39cm. 6.2. Calf - Proximal Diameter: 0.35cm. Mid Diameter:0.30cm. Distal Diameter: 0.36cm 6.3. Ankle - Diameter: 0.37cm 7. [place] Saphenous Vein: Compressibility - Fully compressible: thrombus - None 7.1. Knee - Diameter 0.47cm 7.2. Calf - Proximal Diameter: 0.34cm. Mid Diameter: 0.28cm. Distal Diameter: 0.32cm. 7.3. Ankle - Diameter: 0.39cm OTHER FINDINGS: Right: None. Left: None. IMPRESSION: Right: Diameter measurements of the right greater saphenous vein are measured between 0.34 cm and 0.67 cm and lesser saphenous vein is measured between 0.23 cm and 0.47 cm. Left: Diameter measurements of the left greater saphenous vein are measured between 0.30 cm and 0.73 cm and lesser saphenous vein is measured between 0.28 cm and 0.47 cm.
--- NOTE | 2017-07-31 18:46 | CP.PCM.CON ---
History of Present Illness - History of Present Illness History of Present Illness: 72 year old male presents to ER with left second toe gangrene. Patient stated 6 weeks ago he was cutting his toe nail and may have clipped the skin of the second toe. He noticed toe was progressively more painful as the skin turned darker. ". Patient with claudication type symptoms in legs bilaterally, left worse than right. Has dry gangrene Left 2nd toe- for cardiac cath in am May need bypass IV antibiotics in progress PMHx- DM, HTN, HLD, PVD, Hx of anal fissure PSH- (per chart review, patient denied any surgery) angioplasty of non- coronary vessel- , atherectomy of non-coronary vessel-, insertion of bare metal peripheral non-coronary stent-, incision perianal abscess-, repair perirectal fistual-, Allergies: no known allergies Medications: vildagliptin/metformin 50mg/1000mg, linagliptin/metformin 2.5mg/ 850mg- states has been taking both for past 4 years. 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 ROS: negatives: fever, chills, headahces, vision changes, chest pain, shortness of breath, abdominal pain, nausea, vomiting, diarrhea, constipation, dysuria, Positives: leg pain L>R, foot pain L>R Past Patient History - Infectious Disease Hx of Infectious Diseases: None - Past Medical History & Family History Past Medical History?: Yes - Past Social History Smoking Status: Former Smoker - CARDIAC Hx Hypertension: Yes (no meds) - ENDOCRINE/METABOLIC Hx Diabetes Mellitus Type 2: Yes - MUSCULOSKELETAL/RHEUMATOLOGICAL Hx Falls: No - PSYCHIATRIC Hx Substance Use: No - SURGICAL HISTORY Hx Surgeries: No - ANESTHESIA Hx Anesthesia: No Hx Anesthesia Reactions: No Meds Allergies/Adverse Reactions: Allergies Allergy/AdvReac Type Severity Reaction Status Date / Time No Known Allergies Allergy Verified 05/05/13 09:36 - Medications Medications: Current Medications Acetaminophen (Tylenol 325mg Tab) 650 mg PO Q6 PRN PRN Reason: Pain, moderate (4-7) Aspirin (Aspirin Chewable) 81 mg PO DAILY [facility] Last Admin: 07/31/17 10:10 Dose: 81 mg Cilostazol (Pletal) 100 mg PO BID [facility] Last Admin: 07/31/17 17:52 Dose: 100 mg Clotrimazole (Lotrimin 1%) 1 gm TOP BID [facility] Last Admin: 07/31/17 17:52 Dose: 1 applic Dextrose (Dextrose 50% Inj) 0 ml IV STAT PRN; Protocol PRN Reason: Hypoglycemia Protocol Dextrose (Glutose 15) 0 gm PO ONCE PRN; Protocol PRN Reason: Hypoglycemia Protocol Dextrose (Glutose 15) 0 gm PO .ONCE PRN; Protocol PRN Reason: Hypoglycemia Protocol Enoxaparin Sodium (Lovenox) 40 mg SC DAILY [facility] Last Admin: 07/31/17 10:10 Dose: Not Given Glucagon (Glucagen Diagnostic Kit) 0 mg IM STAT PRN; Protocol PRN Reason: Hypoglycemia Protocol Glucagon (Glucagen Diagnostic Kit) 0 mg IM .STAT PRN; Protocol PRN Reason: Hypoglycemia Protocol Dextrose (Dextrose 5% In Water 1000 Ml) 1,000 mls @ 0 mls/hr IV .Q0M PRN; Protocol; Per Protocol PRN Reason: Hypoglycemia Protocol Dextrose (Dextrose 5% In Water 1000 Ml) 1,000 mls @ 0 mls/hr IV .Q0M PRN; Protocol; Per Protocol PRN Reason: Hypoglycemia Protocol Piperacillin Sod/Tazobactam (Sod 3.375 gm/ Sodium Chloride) 100 mls @ 200 mls/ hr IVPB Q6H [facility] PRN Reason: Protocol Stop: 08/10/17 19:01 Vancomycin/Sodium Chloride (Vancomycin 1 Gm/Ns 200 Ml) 1 gm in 200 mls @ 133 mls/hr IVPB Q24H [facility] PRN Reason: Protocol Stop: 08/05/17 18:01 Insulin Human Regular (Novolin R) 0 unit SC ACHS [facility] PRN Reason: Protocol Last Admin: 07/31/17 17:00 Dose: 2 unit Metformin HCl (Glucophage) 850 mg PO BID [facility] Last Admin: 07/31/17 17:51 Dose: 850 mg Pregabalin (Lyrica) 50 mg PO BID [facility] Last Admin: 07/31/17 17:51 Dose: 50 mg Rosuvastatin Calcium (Crestor) 20 mg PO HS [facility] Last Admin: 07/30/17 21:30 Dose: 20 mg Sitagliptin Phosphate (Januvia) 25 mg PO BID [facility] Last Admin: 07/31/17 17:51 Dose: 25 mg Results - Vital Signs Recent Vital Signs: Last Vital Signs Temp 98.1 F 07/31/17 16:01 Pulse 117 H 07/31/17 16:01 Resp 20 07/31/17 16:01 BP 115/67 07/31/17 16:01 Pulse Ox 98 07/31/17 16:01 - Labs Result Diagrams: 07/31/17 06:16 07/31/17 06:16 Labs: Laboratory Results - last 24 hr 07/30/17 07/30/17 07/31/17 21:05 21:10 06:16 WBC 7.7 RBC 4.20 L Hgb 13.2 Hct 37.7 MCV 89.7 MCH 31.5 H MCHC 35.2 RDW 13.2 Plt Count 322 MPV 7.5 Neut % (Auto) 62.8 Lymph % (Auto) 25.9 [place] % (Auto) 8.4 Eos % (Auto) 2.2 Baso % (Auto) 0.7 Neut # (Auto) 4.9 Lymph # (Auto) 2.0 [place] # (Auto) 0.7 Eos # (Auto) 0.2 Baso # (Auto) 0.1 Sodium Potassium Chloride Carbon Dioxide Anion Gap BUN Creatinine Est GFR ( Amer) Est GFR (Non-Af Amer) POC Glucose (mg/dL) 137 H Random Glucose Calcium Total Bilirubin AST ALT Alkaline Phosphatase Total Protein Albumin Globulin Albumin/Globulin Ratio Urine Color Yellow Urine Clarity Clear Urine pH 6.0 Ur Specific [place] 1.021 Urine Protein Negative Urine Glucose (UA) 3+ H Urine Ketones Negative Urine Blood Negative Urine Nitrate Negative Urine Bilirubin Negative Urine Urobilinogen Normal Ur Leukocyte Esterase Neg Urine WBC (Auto) < 1 Urine RBC (Auto) 1 07/31/17 07/31/17 07/31/17 06:16 06:17 11:10 WBC RBC Hgb Hct MCV MCH MCHC RDW Plt Count MPV Neut % (Auto) Lymph % (Auto) [place] % (Auto) Eos % (Auto) Baso % (Auto) Neut # (Auto) Lymph # (Auto) [place] # (Auto) Eos # (Auto) Baso # (Auto) Sodium 138 Potassium 4.0 Chloride 101 Carbon Dioxide 28 Anion Gap 13 BUN 20 Creatinine 0.8 Est GFR ( Amer) > 60 Est GFR (Non-Af Amer) > 60 POC Glucose (mg/dL) 141 H 309 H Random Glucose 153 H Calcium 9.6 Total Bilirubin 0.7 AST 28 ALT 12 L D Alkaline Phosphatase 92 Total Protein 7.6 Albumin 3.6 Globulin 4.1 H Albumin/Globulin Ratio 0.9 L Urine Color Urine Clarity Urine pH Ur Specific [place] Urine Protein Urine Glucose (UA) Urine Ketones Urine Blood Urine Nitrate Urine Bilirubin Urine Urobilinogen Ur Leukocyte Esterase Urine WBC (Auto) Urine RBC (Auto) 07/31/17 16:08 WBC RBC Hgb Hct MCV MCH MCHC RDW Plt Count MPV Neut % (Auto) Lymph % (Auto) [place] % (Auto) Eos % (Auto) Baso % (Auto) Neut # (Auto) Lymph # (Auto) [place] # (Auto) Eos # (Auto) Baso # (Auto) Sodium Potassium Chloride Carbon Dioxide Anion Gap BUN Creatinine Est GFR ( Amer) Est GFR (Non-Af Amer) POC Glucose (mg/dL) 195 H Random Glucose Calcium Total Bilirubin AST ALT Alkaline Phosphatase Total Protein Albumin Globulin Albumin/Globulin Ratio Urine Color Urine Clarity Urine pH Ur Specific [place] Urine Protein Urine Glucose (UA) Urine Ketones Urine Blood Urine Nitrate Urine Bilirubin Urine Urobilinogen Ur Leukocyte Esterase Urine WBC (Auto) Urine RBC (Auto)
[2017-07-31] MEDS: Vancomycin 1 gm/NS 200 ml 1 GM/200 ML BAG IVPB SCH (19:05)
[2017-07-31] MEDS: Piperacillin/Tazobact 3.375 GM in Sodium Chloride 100 ML IVPB SCH (20:38)
[2017-08-01] MEDS: Piperacillin/Tazobact 3.375 GM in Sodium Chloride 100 ML IVPB SCH ×4 (00:14→19:01)
--- NOTE | 2017-08-01 07:37 | CP.PCM.PN ---
Subjective - Date & Time of Evaluation Date of Evaluation: 08/01/17 Time of Evaluation: 07:37 - Subjective Subjective: PGY-[address] Reed Patient seen and examined at bedside. No acute events overnight. States pain in legs have improved since admission. No pain in necrotic toe. Denied chest pain, shortness of breath, fevers, nausea, vomiting. Objective - Vital Signs/Intake and Output Vital Signs (last 24 hours): Temp Pulse Resp BP Pulse Ox 98.0 F 115 H 20 99/58 L 98 08/01/17 00:00 08/01/17 00:00 08/01/17 00:00 08/01/17 00:00 08/01/17 00:00 - Medications Medications: Current Medications Acetaminophen (Tylenol 325mg Tab) 650 mg PO Q6 PRN PRN Reason: Pain, moderate (4-7) Aspirin (Aspirin Chewable) 81 mg PO DAILY [facility] Last Admin: 07/31/17 10:10 Dose: 81 mg Cilostazol (Pletal) 100 mg PO BID [facility] Last Admin: 07/31/17 17:52 Dose: 100 mg Clotrimazole (Lotrimin 1%) 1 gm TOP BID [facility] Last Admin: 07/31/17 17:52 Dose: 1 applic Dextrose (Dextrose 50% Inj) 0 ml IV STAT PRN; Protocol PRN Reason: Hypoglycemia Protocol Dextrose (Glutose 15) 0 gm PO ONCE PRN; Protocol PRN Reason: Hypoglycemia Protocol Dextrose (Glutose 15) 0 gm PO .ONCE PRN; Protocol PRN Reason: Hypoglycemia Protocol Enoxaparin Sodium (Lovenox) 40 mg SC DAILY [facility] Last Admin: 07/31/17 10:10 Dose: Not Given Glucagon (Glucagen Diagnostic Kit) 0 mg IM STAT PRN; Protocol PRN Reason: Hypoglycemia Protocol Glucagon (Glucagen Diagnostic Kit) 0 mg IM .STAT PRN; Protocol PRN Reason: Hypoglycemia Protocol Dextrose (Dextrose 5% In Water 1000 Ml) 1,000 mls @ 0 mls/hr IV .Q0M PRN; Protocol; Per Protocol PRN Reason: Hypoglycemia Protocol Dextrose (Dextrose 5% In Water 1000 Ml) 1,000 mls @ 0 mls/hr IV .Q0M PRN; Protocol; Per Protocol PRN Reason: Hypoglycemia Protocol Piperacillin Sod/Tazobactam (Sod 3.375 gm/ Sodium Chloride) 100 mls @ 200 mls/ hr IVPB Q6H [facility] PRN Reason: Protocol Stop: 08/10/17 19:01 Last Admin: 08/01/17 06:12 Dose: 200 mls/hr Vancomycin/Sodium Chloride (Vancomycin 1 Gm/Ns 200 Ml) 1 gm in 200 mls @ 133 mls/hr IVPB Q24H [facility] PRN Reason: Protocol Stop: 08/05/17 18:01 Last Admin: 07/31/17 19:05 Dose: 133 mls/hr Insulin Human Regular (Novolin R) 0 unit SC ACHS [facility] PRN Reason: Protocol Last Admin: 07/31/17 21:27 Dose: Not Given Metformin HCl (Glucophage) 850 mg PO BID [facility] Last Admin: 07/31/17 17:51 Dose: 850 mg Pregabalin (Lyrica) 50 mg PO BID [facility] Last Admin: 07/31/17 17:51 Dose: 50 mg Rosuvastatin Calcium (Crestor) 20 mg PO HS [facility] Last Admin: 07/31/17 21:28 Dose: 20 mg Sitagliptin Phosphate (Januvia) 25 mg PO BID [facility] Last Admin: 07/31/17 17:51 Dose: 25 mg - Labs Labs: 07/31/17 06:16 07/31/17 06:16 PT 12.1 SECONDS (9.7-12.2) 07/29/17 12:33 INR 1.1 07/29/17 12:33 APTT 38 SECONDS (21-34) H 07/29/17 12:33 - Additional Findings Additional findings: - Constitutional Appears: Non-toxic, No Acute Distress - Head Exam Head Exam: ATRAUMATIC, NORMOCEPHALIC - Eye Exam Eye Exam: Normal appearance. absent: Conjunctival injection, Scleral icterus - ENT Exam ENT Exam: Mucous Membranes Moist, Normal Oropharynx - Respiratory Exam Respiratory Exam: NORMAL BREATHING PATTERN. absent: Accessory Muscle Use, Respiratory Distress - Extremities Exam Extremities Exam: absent: Calf Tenderness Additional comments: necrotic second toe of left foot - Neurological Exam Neurological Exam: Alert, Awake, Oriented x3 - Psychiatric Exam Psychiatric exam: Normal Affect, Normal Mood - Skin Skin Exam: Dry, Warm Assessment and Plan - Assessment and Plan (Free Text) Plan: Gangrene of toe of left foot, 2nd digit, Mack Stage 4 Peripheral arterial disease 2nd toe of left foot black and necrotic Mack stage 4 Hx of angioplasty and stent of left superficial femoral artery, and atherectomy tibioperoneal trunk, both [place] [address] Alex Zambrano Vascular surgery consult, Dr Wilkins Cardiology consult, Dr Alex Zambrano. * The toe is not salvageable * will require anigography to assess the possibility of improvement in circulatory flow to the foot and distal leg * peripheral angiogram 07/31: extensive disease in bilateral lower extremity (see report), consider vascular surgical evaluation for possible bypass of left lower extremity ID consult, Dr. Weber Zosyn 3.375mg Q6H IV (start 07/31/17) Vancomycin 1gm Daily IV (start 07/31/17) Imaging: Left Foot 2nd digit XRAY: Multiple hammertoe deformities identified. No acute findings related to/accounting for clinical presentation. CT angiogram Abd Ileofem Runoff 07/29/17: Occlusion of the mid SFA with high grade stenosis in the distal along with severe tibioperoneal disease. venous dopplers LE B/L negative for DVT NM stress test performed 07/31, f/u image reading Meds: Continue aspirin 81mg PO QD (will consider adding plavix 75mg PO QD as second antiplatelet agent) Given plavix 300mg PO ONCE 07/30/17 for peripheral angiogram scheduled for 07/31/17 Continue Crestor 20mg PO HS (high intensity statin indicated) Continue Cilostazol 100mg PO BID for claudication Lotrimin topical to feet bilaterally BID for tinea pedis Diabetes mellitus Hx of DM2, also with diabetic neuropathy Accuchecks Diabetic diet Hypoglycemia protocol Labs/Diagnostics: HgbA1c 9.2 Lipid Panel showed Triglycerides 157 and HDL 25 otherwise normal Meds: Start pregabalin 50mg PO BID Resume linagliptin/metformin 2.5mg/850mg RISS Hypoglycemia protocol HTN (hypertension) Hx of HTN per chart review BP well controlled Monitor Prophylactic measure SCDs contraindicated 2/2 necrotic toe Lovenox 40mg SC QD Diabetic diet, resumed GI prophylaxis not indicated Discussed with attending physician All management per Dr. Reed
[2017-08-01] MEDS: (Novolin R) Insulin Human Regular 100 units/ml vial SC SCH ×4 (07:44→21:23)
--- NOTE | 2017-08-01 08:18 | CP.PCM.PN ---
Subjective - Date & Time of Evaluation Date of Evaluation: 08/01/17 Time of Evaluation: 08:00 - Subjective Subjective: nuclear stress test performed. await nuclear images. Objective - Vital Signs/Intake and Output Vital Signs (last 24 hours): Temp Pulse Resp BP Pulse Ox 98.4 F 102 H 20 127/81 100 08/01/17 07:37 08/01/17 07:37 08/01/17 07:37 08/01/17 07:37 08/01/17 07:37 - Medications Medications: Current Medications Acetaminophen (Tylenol 325mg Tab) 650 mg PO Q6 PRN PRN Reason: Pain, moderate (4-7) Aspirin (Aspirin Chewable) 81 mg PO DAILY [facility] Last Admin: 07/31/17 10:10 Dose: 81 mg Cilostazol (Pletal) 100 mg PO BID [facility] Last Admin: 07/31/17 17:52 Dose: 100 mg Clotrimazole (Lotrimin 1%) 1 gm TOP BID [facility] Last Admin: 07/31/17 17:52 Dose: 1 applic Dextrose (Dextrose 50% Inj) 0 ml IV STAT PRN; Protocol PRN Reason: Hypoglycemia Protocol Dextrose (Glutose 15) 0 gm PO ONCE PRN; Protocol PRN Reason: Hypoglycemia Protocol Dextrose (Glutose 15) 0 gm PO .ONCE PRN; Protocol PRN Reason: Hypoglycemia Protocol Enoxaparin Sodium (Lovenox) 40 mg SC DAILY [facility] Last Admin: 07/31/17 10:10 Dose: Not Given Glucagon (Glucagen Diagnostic Kit) 0 mg IM STAT PRN; Protocol PRN Reason: Hypoglycemia Protocol Glucagon (Glucagen Diagnostic Kit) 0 mg IM .STAT PRN; Protocol PRN Reason: Hypoglycemia Protocol Dextrose (Dextrose 5% In Water 1000 Ml) 1,000 mls @ 0 mls/hr IV .Q0M PRN; Protocol; Per Protocol PRN Reason: Hypoglycemia Protocol Dextrose (Dextrose 5% In Water 1000 Ml) 1,000 mls @ 0 mls/hr IV .Q0M PRN; Protocol; Per Protocol PRN Reason: Hypoglycemia Protocol Piperacillin Sod/Tazobactam (Sod 3.375 gm/ Sodium Chloride) 100 mls @ 200 mls/ hr IVPB Q6H [facility] PRN Reason: Protocol Stop: 08/10/17 19:01 Last Admin: 08/01/17 06:12 Dose: 200 mls/hr Vancomycin/Sodium Chloride (Vancomycin 1 Gm/Ns 200 Ml) 1 gm in 200 mls @ 133 mls/hr IVPB Q24H [facility] PRN Reason: Protocol Stop: 08/05/17 18:01 Last Admin: 07/31/17 19:05 Dose: 133 mls/hr Insulin Human Regular (Novolin R) 0 unit SC ACHS [facility] PRN Reason: Protocol Last Admin: 08/01/17 07:44 Dose: Not Given Metformin HCl (Glucophage) 850 mg PO BID [facility] Last Admin: 07/31/17 17:51 Dose: 850 mg Pregabalin (Lyrica) 50 mg PO BID [facility] Last Admin: 07/31/17 17:51 Dose: 50 mg Rosuvastatin Calcium (Crestor) 20 mg PO HS [facility] Last Admin: 07/31/17 21:28 Dose: 20 mg Sitagliptin Phosphate (Januvia) 25 mg PO BID [facility] Last Admin: 07/31/17 17:51 Dose: 25 mg - Labs Labs: 07/31/17 06:16 07/31/17 06:16 PT 12.1 SECONDS (9.7-12.2) 07/29/17 12:33 INR 1.1 07/29/17 12:33 APTT 38 SECONDS (21-34) H 07/29/17 12:33
[2017-08-01 08:28] LABS: BASO % 0.5 % (0.0-2.0); EOS # 0.2 K/uL (0.0-0.7); EOS % 2.8 % (0.0-4.0); HEMOGLOBIN 11.8 g/dL (12.0-18.0); LYMPH # 1.4 K/uL (1.0-4.3); LYMPH % 18.1 % (20.0-40.0); MEAN CELL VOLUME 90.3 fL (80.0-94.0); MEAN CORPUSCULAR HEMOGLOBIN 31.6 pg (27.0-31.0); MEAN PLATELET VOLUME 7.6 fL (7.2-11.7); MONO # 0.5 K/uL (0.0-0.8); MONO % 6.8 % (0.0-10.0); NEUT # 5.4 K/uL (1.8-7.0); NEUT % 71.8 % (50.0-75.0); NRBC % 0.1 % (0.0-2.0); RBC 3.74 Mil/uL (4.40-5.90); RED CELL DISTRIBUTION WIDTH 13.4 % (11.5-14.5); WHITE BLOOD COUNT 7.5 K/uL (4.8-10.8)
[2017-08-01 08:49] LABS: ALB/GLOB RATIO 0.9 (1.0-2.1); ALBUMIN 3.2 g/dL (3.5-5.0); ALT/SGPT 10 U/L (21-72); AST/SGOT 21 U/L (17-59); BLOOD UREA NITROGEN 13 mg/dL (9-20); CALCIUM 8.5 mg/dl (8.6-10.4); GFR AFRICAN-AMERICAN > 60; GFR NON-AFRICAN AMERICAN > 60
--- NOTE | 2017-08-01 10:25 | CARD ---
APPROVED REPORT EKG Measurement Heart [id number] <Conclusion> Sinus tachycardia Otherwise normal ECG
[2017-08-01] MEDS: Clotrimazole 1% Cream(30 gm) TOP SCH ×2 (11:17→17:25)
[2017-08-01] MEDS: Cilostazol 100 mg Tab UD PO SCH ×2 (11:17→17:24)
[2017-08-01] MEDS: Enoxaparin 40 mg Syringe SC SCH (11:17)
--- NOTE | 2017-08-01 12:06 | CP.PCM.CON ---
History of Present Illness - History of Present Illness History of Present Illness: Podiatry Consult Note- Dr. Bryant This is a 72 yo male pt seen at bedside today following request for podiatry consult. Pt is seen resting in bed at time of visit with visitor present. Pt states that he was cutting his toenails in [facility] 2 months ago and patient states that he may have accidentally cut his skin. He says he noticed the toe started to become discolored and darkened over the past few weeks. Denies any drainage or any infection. Pt says he returned to the [facility] (07/27/17) for a . Pt complains of pain in both lower extremities with the left greater than the right side. Complains of pain to top and posterior aspect L foot and pain to both legs on ambulation (L>R). He deneis f/n/v/c/sob/cp/ weakness or dizziness at this time. No other pedal complaints. PMH: DM, b/l LE PVD, HTN, HLD ALL: NKDA Meds: see amb orders Surg. Hx: angioplasty & atherectomy L tinioperoneal trunk (2014) Soc. Hx: hx of heavy smoking, occasional etoh, denies illicit drug use. Review of Systems - Review of Systems Review of Systems: all systems reviewed and found neg outside hpi Past Patient History - Infectious Disease Hx of Infectious Diseases: None - Past Medical History & Family History Past Medical History?: Yes - Past Social History Smoking Status: Former Smoker - CARDIAC Hx Hypertension: Yes (no meds) - ENDOCRINE/METABOLIC Hx Diabetes Mellitus Type 2: Yes - MUSCULOSKELETAL/RHEUMATOLOGICAL Hx Falls: No - PSYCHIATRIC Hx Substance Use: No - SURGICAL HISTORY Hx Surgeries: No - ANESTHESIA Hx Anesthesia: No Hx Anesthesia Reactions: No Meds Allergies/Adverse Reactions: Allergies Allergy/AdvReac Type Severity Reaction Status Date / Time No Known Allergies Allergy Verified 05/05/13 09:36 - Medications Medications: Current Medications Acetaminophen (Tylenol 325mg Tab) 650 mg PO Q6 PRN PRN Reason: Pain, moderate (4-7) Aspirin (Aspirin Chewable) 81 mg PO DAILY [facility] Last Admin: 08/01/17 11:16 Dose: 81 mg Cilostazol (Pletal) 100 mg PO BID [facility] Last Admin: 08/01/17 11:17 Dose: 100 mg Clotrimazole (Lotrimin 1%) 1 gm TOP BID [facility] Last Admin: 08/01/17 11:17 Dose: 1 applic Dextrose (Dextrose 50% Inj) 0 ml IV STAT PRN; Protocol PRN Reason: Hypoglycemia Protocol Dextrose (Glutose 15) 0 gm PO ONCE PRN; Protocol PRN Reason: Hypoglycemia Protocol Dextrose (Glutose 15) 0 gm PO .ONCE PRN; Protocol PRN Reason: Hypoglycemia Protocol Enoxaparin Sodium (Lovenox) 40 mg SC DAILY [facility] Last Admin: 08/01/17 11:17 Dose: 40 mg Glucagon (Glucagen Diagnostic Kit) 0 mg IM STAT PRN; Protocol PRN Reason: Hypoglycemia Protocol Glucagon (Glucagen Diagnostic Kit) 0 mg IM .STAT PRN; Protocol PRN Reason: Hypoglycemia Protocol Dextrose (Dextrose 5% In Water 1000 Ml) 1,000 mls @ 0 mls/hr IV .Q0M PRN; Protocol; Per Protocol PRN Reason: Hypoglycemia Protocol Dextrose (Dextrose 5% In Water 1000 Ml) 1,000 mls @ 0 mls/hr IV .Q0M PRN; Protocol; Per Protocol PRN Reason: Hypoglycemia Protocol Piperacillin Sod/Tazobactam (Sod 3.375 gm/ Sodium Chloride) 100 mls @ 200 mls/ hr IVPB Q6H [facility] PRN Reason: Protocol Stop: 08/10/17 19:01 Last Admin: 08/01/17 06:12 Dose: 200 mls/hr Vancomycin/Sodium Chloride (Vancomycin 1 Gm/Ns 200 Ml) 1 gm in 200 mls @ 133 mls/hr IVPB Q24H [facility] PRN Reason: Protocol Stop: 08/05/17 18:01 Last Admin: 07/31/17 19:05 Dose: 133 mls/hr Insulin Human Regular (Novolin R) 0 unit SC ACHS [facility] PRN Reason: Protocol Last Admin: 08/01/17 07:44 Dose: Not Given Metformin HCl (Glucophage) 850 mg PO BID [facility] Last Admin: 08/01/17 11:17 Dose: 850 mg Pregabalin (Lyrica) 50 mg PO BID [facility] Last Admin: 08/01/17 11:16 Dose: 50 mg Rosuvastatin Calcium (Crestor) 20 mg PO HS [facility] Last Admin: 07/31/17 21:28 Dose: 20 mg Sitagliptin Phosphate (Januvia) 25 mg PO BID [facility] Last Admin: 08/01/17 11:17 Dose: 25 mg Physical Exam - Constitutional Appears: Non-toxic, No Acute Distress - Extremities Exam Extremities exam: Negative for: calf tenderness Additional comments: B/L lower extremity exam: VASC- pedal pulses are non-palpable, skin temp runs wnl (prox to distal) bl, cap refill is delayed to all digits, neg pedal edema NEURO- gross and protective pedal sensation are diminished DERM- mummification is noted to left 2nd digit with circumferential demarcation noted to level of 2nd MTPJ with necrotic discoloration toe is dry with neg drainage, neg malodor, neg fluctuance, neg signs infection MSKL- tenderness is elicited on palpation just proximal to dorsal aspect 2nd MTPJ left foot, diffusely along dorsum of left foot and posterior aspect left heel, MM is 5/5 in all directions b/l, R foot is free of any wounds or ulcerations - Neurological Exam Neurological exam: Alert, CN II-XII Intact, Oriented x3 - Psychiatric Exam Psychiatric exam: Normal Affect, Normal Mood Results - Vital Signs Recent Vital Signs: Last Vital Signs Temp 98.4 F 08/01/17 07:37 Pulse 102 H 08/01/17 07:37 Resp 20 08/01/17 07:37 BP 127/81 08/01/17 07:37 Pulse Ox 100 08/01/17 07:37 - Labs Result Diagrams: 08/01/17 08:16 08/01/17 08:16 Labs: Laboratory Results - last 24 hr 07/31/17 07/31/17 08/01/17 16:08 20:56 08:16 WBC 7.5 RBC 3.74 L Hgb 11.8 L Hct 33.8 L MCV 90.3 MCH 31.6 H MCHC 35.0 RDW 13.4 Plt Count 292 MPV 7.6 Neut % (Auto) 71.8 Lymph % (Auto) 18.1 L [place] % (Auto) 6.8 Eos % (Auto) 2.8 Baso % (Auto) 0.5 Neut # (Auto) 5.4 Lymph # (Auto) 1.4 [place] # (Auto) 0.5 Eos # (Auto) 0.2 Baso # (Auto) 0.0 Sodium Potassium Chloride Carbon Dioxide Anion Gap BUN Creatinine Est GFR ( Amer) Est GFR (Non-Af Amer) POC Glucose (mg/dL) 195 H 206 H Random Glucose Calcium Total Bilirubin AST ALT Alkaline Phosphatase Total Protein Albumin Globulin Albumin/Globulin Ratio 08/01/17 08/01/17 08:16 11:27 WBC RBC Hgb Hct MCV MCH MCHC RDW Plt Count MPV Neut % (Auto) Lymph % (Auto) [place] % (Auto) Eos % (Auto) Baso % (Auto) Neut # (Auto) Lymph # (Auto) [place] # (Auto) Eos # (Auto) Baso # (Auto) Sodium 140 Potassium 4.1 Chloride 104 Carbon Dioxide 25 Anion Gap 15 BUN 13 Creatinine 0.7 L Est GFR ( Amer) > 60 Est GFR (Non-Af Amer) > 60 POC Glucose (mg/dL) 238 H Random Glucose 125 H Calcium 8.5 L Total Bilirubin 0.7 AST 21 ALT 10 L Alkaline Phosphatase 78 Total Protein 6.7 Albumin 3.2 L Globulin 3.5 Albumin/Globulin Ratio 0.9 L Assessment & Plan - Assessment and Plan (Free Text) Assessment: 72 yo diabetic male with dry gangrene of left 2nd digit 2/2 severe PVD. Plan: Pt S&E at the bedside Plan was discussed with attending Dr. Bryant chart, labs and vitals were reviewed: afebrile, no leukocytosis L foot x-ray reviewed: no acute findings CT angio: occlusion mid SFA, high grade stenosis in tibioperoneal trunk b/l RACHID left: 0.49; RACHID right 0.79 Myocardial nuclear stress test today IV abx per ID For possible bypass LLE Friday Advised pt he will require amputation in the future, but will await bypass prior to any amputations No dressing needed, keep dry Will follow
--- NOTE | 2017-08-01 16:00 | CARD ---
APPROVED REPORT Protocol: LEXISCAN Test Type: LEXISCAN STRESS Test Indications: PRE OP Target HR: 147 bpm Resting ECG: normal Resting Heart Rate: 110 bpm Resting Blood Pressure: 132/80mmHg submaximum (85%): 125 bpm TEST SUMMARY [id number].20:[id number]/80.1. INFUSIONDOSE 100:[id number]/.1. [id number]/80.3. PROCEDURE Pharmacologic stress testing was performed using 0.4mg per 5ml of regadenoson given intravenously over 7-10 seconds. Reversal agent aminophyline 125 mg, given intravenously for Headache. POST EXERCISE Reason for Termination: Protocol Completed Target HR: No Max HR: 105 bpm 86% of Maximum Predicted HR: 147 bpm Exercise duration: 00:30 min:sec, 0 Stage Exercise capacity: 1.0METs Max Blood Pressure: 132/80mmHg Blood Pressure response to exercise: normal resting BP - appropriate response Heart Rate response to exercise: appropriate Chest Pain: No, none Angina index: 0 Arrhythmia: Yes, ventricular premature beats-isolated ST Change: No, none Deviation: 0 mm INTERPRETATION Stress EKG Conclusion: AWAIT NUCLEAR IMAGES EXAM: Myocardial Perfusion REST/STRESS Imaging Protocol The imaging protocol used to acquire images was Rest Tc-99m/stress Tc-99m 2 days Rest Spect myocardial perfusion imaging was performed in supine position 45 minutes following the injection of 32.8 mCi of Tc-99 Myoview. Gated Stress Spect was performed 45 minutes after intravenous 31.2 mCi Tc-99 Myoview injection. The images were gated to evaluate regional wall motion and calculate ventricular ejection fraction.Images were reconstructed using backfilter projection method in short horizontal and verticle long axis. Spect slices were generated. RESTING DATA EDV28.08okZL6.70L/min ESV6.00mlMyocardial Mass65.00g Av. Heart Rbfc695.00bpm EF79.00% STRESS DATA EDV46.58apFY6.80L/min ESV13.00mlMyocardial Mass86.00g EF72.00% Regional WT score at stress:2.00 Regional WM score at stress:0.00 Summed WT score at stress:11.00 Av. Heart Kktw409.00bpmSummed WM score at stress:13.00 LV Perf. Quant 17 Seg. SSS0.00 17 Seg. SRS0.00 17 Seg. SDS0.00 Stress Defect Extent (% LAD)0.00Rest Defect Extent (% LAD)0.00Rev. Defect Extent (% LAD)0.00 Stress Defect Extent (% LCX)0.00Rest Defect Extent (% LCX)0.00Rev. Defect Extent (% LCX)0.00 Stress Defect Extent (% RCA)0.00Rest Defect Extent (% RCA)0.00Rev. Defect Extent (% RCA)0.00 Stress Defect Extent (% OSWALDO)0.00Rest Defect Extent (% OSWALDO)0.00Rev. Defect Extent (% OSWALDO)0.00 Other Information Quality:Excellent IMPRESSION Normal Myocardial Perfusion exercise stress study Global LV Function: Normal Stress Test Summary: Nondiagnostic LV Perfusion Summary: Normal Left Ventricle LV Size/Shape: The left ventricle is normal size. LV Thickness: There is normal left ventricular wall thickness. LV Function:Left ventricle systolic function is normal. The Ejection Fraction is 55-60%. Regional Wall Motion:No regional wall motion abnormalities noted. Metabolism/Perfusion There are no perfusion/metabolism defects. Conclusion 1. The stress and resting images show normal perfusion.
--- NOTE | 2017-08-01 16:35 | CP.PCM.PN ---
Subjective - Date & Time of Evaluation Date of Evaluation: 08/01/17 Time of Evaluation: 16:30 - Subjective Subjective: stress test reviewed. no evidence of myocardial ischemia. patient is cleared for vascular surgery Objective - Vital Signs/Intake and Output Vital Signs (last 24 hours): Temp Pulse Resp BP Pulse Ox 98.4 F 98 H 20 127/81 99 08/01/17 07:37 08/01/17 12:15 08/01/17 07:37 08/01/17 07:37 08/01/17 12:15 Intake and Output: 08/01/17 08/01/17 06:59 18:59 Intake Total 600 Balance 600 - Medications Medications: Current Medications Acetaminophen (Tylenol 325mg Tab) 650 mg PO Q6 PRN PRN Reason: Pain, moderate (4-7) Aspirin (Aspirin Chewable) 81 mg PO DAILY [facility] Last Admin: 08/01/17 11:16 Dose: 81 mg Cilostazol (Pletal) 100 mg PO BID [facility] Last Admin: 08/01/17 11:17 Dose: 100 mg Clotrimazole (Lotrimin 1%) 1 gm TOP BID [facility] Last Admin: 08/01/17 11:17 Dose: 1 applic Dextrose (Dextrose 50% Inj) 0 ml IV STAT PRN; Protocol PRN Reason: Hypoglycemia Protocol Dextrose (Glutose 15) 0 gm PO ONCE PRN; Protocol PRN Reason: Hypoglycemia Protocol Dextrose (Glutose 15) 0 gm PO .ONCE PRN; Protocol PRN Reason: Hypoglycemia Protocol Enoxaparin Sodium (Lovenox) 40 mg SC DAILY [facility] Last Admin: 08/01/17 11:17 Dose: 40 mg Glucagon (Glucagen Diagnostic Kit) 0 mg IM STAT PRN; Protocol PRN Reason: Hypoglycemia Protocol Glucagon (Glucagen Diagnostic Kit) 0 mg IM .STAT PRN; Protocol PRN Reason: Hypoglycemia Protocol Dextrose (Dextrose 5% In Water 1000 Ml) 1,000 mls @ 0 mls/hr IV .Q0M PRN; Protocol; Per Protocol PRN Reason: Hypoglycemia Protocol Dextrose (Dextrose 5% In Water 1000 Ml) 1,000 mls @ 0 mls/hr IV .Q0M PRN; Protocol; Per Protocol PRN Reason: Hypoglycemia Protocol Piperacillin Sod/Tazobactam (Sod 3.375 gm/ Sodium Chloride) 100 mls @ 200 mls/ hr IVPB Q6H [facility] PRN Reason: Protocol Stop: 08/10/17 19:01 Last Admin: 08/01/17 13:31 Dose: 200 mls/hr Vancomycin/Sodium Chloride (Vancomycin 1 Gm/Ns 200 Ml) 1 gm in 200 mls @ 133 mls/hr IVPB Q24H [facility] PRN Reason: Protocol Stop: 08/05/17 18:01 Last Admin: 07/31/17 19:05 Dose: 133 mls/hr Insulin Human Regular (Novolin R) 0 unit SC ACHS [facility] PRN Reason: Protocol Last Admin: 08/01/17 12:18 Dose: 1 unit Metformin HCl (Glucophage) 850 mg PO BID [facility] Last Admin: 08/01/17 11:17 Dose: 850 mg Pregabalin (Lyrica) 50 mg PO BID [facility] Last Admin: 08/01/17 11:16 Dose: 50 mg Rosuvastatin Calcium (Crestor) 20 mg PO HS [facility] Last Admin: 07/31/17 21:28 Dose: 20 mg Sitagliptin Phosphate (Januvia) 25 mg PO BID [facility] Last Admin: 08/01/17 11:17 Dose: 25 mg - Labs Labs: 08/01/17 08:16 08/01/17 08:16 PT 12.1 SECONDS (9.7-12.2) 07/29/17 12:33 INR 1.1 07/29/17 12:33 APTT 38 SECONDS (21-34) H 07/29/17 12:33 Assessment and Plan (1) Gangrene of toe of left foot Status: Acute (2) HTN (hypertension) Status: Chronic
--- NOTE | 2017-08-01 16:41 | CP.PCM.PN ---
Subjective - Date & Time of Evaluation Date of Evaluation: 08/01/17 Time of Evaluation: 07:00 - Subjective Subjective: clinically same Objective - Vital Signs/Intake and Output Vital Signs (last 24 hours): Temp Pulse Resp BP Pulse Ox 98.4 F 98 H 20 127/81 99 08/01/17 07:37 08/01/17 12:15 08/01/17 07:37 08/01/17 07:37 08/01/17 12:15 Intake and Output: 08/01/17 08/01/17 06:59 18:59 Intake Total 600 Balance 600 - Medications Medications: Current Medications Acetaminophen (Tylenol 325mg Tab) 650 mg PO Q6 PRN PRN Reason: Pain, moderate (4-7) Aspirin (Aspirin Chewable) 81 mg PO DAILY [facility] Last Admin: 08/01/17 11:16 Dose: 81 mg Cilostazol (Pletal) 100 mg PO BID [facility] Last Admin: 08/01/17 11:17 Dose: 100 mg Clotrimazole (Lotrimin 1%) 1 gm TOP BID [facility] Last Admin: 08/01/17 11:17 Dose: 1 applic Dextrose (Dextrose 50% Inj) 0 ml IV STAT PRN; Protocol PRN Reason: Hypoglycemia Protocol Dextrose (Glutose 15) 0 gm PO ONCE PRN; Protocol PRN Reason: Hypoglycemia Protocol Dextrose (Glutose 15) 0 gm PO .ONCE PRN; Protocol PRN Reason: Hypoglycemia Protocol Enoxaparin Sodium (Lovenox) 40 mg SC DAILY [facility] Last Admin: 08/01/17 11:17 Dose: 40 mg Glucagon (Glucagen Diagnostic Kit) 0 mg IM STAT PRN; Protocol PRN Reason: Hypoglycemia Protocol Glucagon (Glucagen Diagnostic Kit) 0 mg IM .STAT PRN; Protocol PRN Reason: Hypoglycemia Protocol Dextrose (Dextrose 5% In Water 1000 Ml) 1,000 mls @ 0 mls/hr IV .Q0M PRN; Protocol; Per Protocol PRN Reason: Hypoglycemia Protocol Dextrose (Dextrose 5% In Water 1000 Ml) 1,000 mls @ 0 mls/hr IV .Q0M PRN; Protocol; Per Protocol PRN Reason: Hypoglycemia Protocol Piperacillin Sod/Tazobactam (Sod 3.375 gm/ Sodium Chloride) 100 mls @ 200 mls/ hr IVPB Q6H [facility] PRN Reason: Protocol Stop: 08/10/17 19:01 Last Admin: 08/01/17 13:31 Dose: 200 mls/hr Vancomycin/Sodium Chloride (Vancomycin 1 Gm/Ns 200 Ml) 1 gm in 200 mls @ 133 mls/hr IVPB Q24H [facility] PRN Reason: Protocol Stop: 08/05/17 18:01 Last Admin: 07/31/17 19:05 Dose: 133 mls/hr Insulin Human Regular (Novolin R) 0 unit SC ACHS [facility] PRN Reason: Protocol Last Admin: 08/01/17 12:18 Dose: 1 unit Metformin HCl (Glucophage) 850 mg PO BID [facility] Last Admin: 08/01/17 11:17 Dose: 850 mg Pregabalin (Lyrica) 50 mg PO BID [facility] Last Admin: 08/01/17 11:16 Dose: 50 mg Rosuvastatin Calcium (Crestor) 20 mg PO HS [facility] Last Admin: 07/31/17 21:28 Dose: 20 mg Sitagliptin Phosphate (Januvia) 25 mg PO BID [facility] Last Admin: 08/01/17 11:17 Dose: 25 mg - Labs Labs: 08/01/17 08:16 08/01/17 08:16 PT 12.1 SECONDS (9.7-12.2) 07/29/17 12:33 INR 1.1 07/29/17 12:33 APTT 38 SECONDS (21-34) H 07/29/17 12:33 - Constitutional Appears: Well - Head Exam Head Exam: ATRAUMATIC, NORMAL INSPECTION, NORMOCEPHALIC - Eye Exam Eye Exam: EOMI, Normal appearance, PERRL Pupil Exam: NORMAL ACCOMODATION, PERRL - ENT Exam ENT Exam: Mucous Membranes Moist, Normal Exam - Neck Exam Neck Exam: Full ROM, Normal Inspection. absent: Lymphadenopathy - Respiratory Exam Respiratory Exam: Decreased Breath Sounds - Cardiovascular Exam Cardiovascular Exam: REGULAR RHYTHM, +S1, +S2 - GI/Abdominal Exam GI & Abdominal Exam: Soft, Diminished Bowel Sounds - Rectal Exam Rectal Exam: Deferred
[2017-08-01] MEDS: Vancomycin 1 gm/NS 200 ml 1 GM/200 ML BAG IVPB SCH (17:00)
--- NOTE | 2017-08-01 18:56 | CP.PCM.PN ---
Subjective - Date & Time of Evaluation Date of Evaluation: 08/01/17 Time of Evaluation: 07:00 - Subjective Subjective: IV rx in progress left foot same needs bypass-scheduled for Friday Objective - Vital Signs/Intake and Output Vital Signs (last 24 hours): Temp Pulse Resp BP Pulse Ox 98.4 F 118 H 20 106/65 98 08/01/17 16:00 08/01/17 16:00 08/01/17 16:00 08/01/17 16:00 08/01/17 16:00 Intake and Output: 08/01/17 08/01/17 06:59 18:59 Intake Total 600 Balance 600 - Medications Medications: Current Medications Acetaminophen (Tylenol 325mg Tab) 650 mg PO Q6 PRN PRN Reason: Pain, moderate (4-7) Aspirin (Aspirin Chewable) 81 mg PO DAILY [facility] Last Admin: 08/01/17 11:16 Dose: 81 mg Cilostazol (Pletal) 100 mg PO BID [facility] Last Admin: 08/01/17 17:24 Dose: 100 mg Clotrimazole (Lotrimin 1%) 1 gm TOP BID [facility] Last Admin: 08/01/17 17:25 Dose: 1 applic Dextrose (Dextrose 50% Inj) 0 ml IV STAT PRN; Protocol PRN Reason: Hypoglycemia Protocol Dextrose (Glutose 15) 0 gm PO ONCE PRN; Protocol PRN Reason: Hypoglycemia Protocol Dextrose (Glutose 15) 0 gm PO .ONCE PRN; Protocol PRN Reason: Hypoglycemia Protocol Enoxaparin Sodium (Lovenox) 40 mg SC DAILY [facility] Last Admin: 08/01/17 11:17 Dose: 40 mg Glucagon (Glucagen Diagnostic Kit) 0 mg IM STAT PRN; Protocol PRN Reason: Hypoglycemia Protocol Glucagon (Glucagen Diagnostic Kit) 0 mg IM .STAT PRN; Protocol PRN Reason: Hypoglycemia Protocol Dextrose (Dextrose 5% In Water 1000 Ml) 1,000 mls @ 0 mls/hr IV .Q0M PRN; Protocol; Per Protocol PRN Reason: Hypoglycemia Protocol Piperacillin Sod/Tazobactam (Sod 3.375 gm/ Sodium Chloride) 100 mls @ 200 mls/ hr IVPB Q6H [facility] PRN Reason: Protocol Stop: 08/10/17 19:01 Last Admin: 08/01/17 13:31 Dose: 200 mls/hr Vancomycin/Sodium Chloride (Vancomycin 1 Gm/Ns 200 Ml) 1 gm in 200 mls @ 133 mls/hr IVPB Q24H [facility] PRN Reason: Protocol Stop: 08/05/17 18:01 Last Admin: 08/01/17 17:00 Dose: 133 mls/hr Insulin Human Regular (Novolin R) 0 unit SC ACHS [facility] PRN Reason: Protocol Last Admin: 08/01/17 17:24 Dose: Not Given Metformin HCl (Glucophage) 850 mg PO BID [facility] Last Admin: 08/01/17 17:24 Dose: 850 mg Pregabalin (Lyrica) 50 mg PO BID [facility] Last Admin: 08/01/17 17:24 Dose: 50 mg Rosuvastatin Calcium (Crestor) 20 mg PO HS [facility] Last Admin: 07/31/17 21:28 Dose: 20 mg Sitagliptin Phosphate (Januvia) 25 mg PO BID [facility] Last Admin: 08/01/17 17:25 Dose: 25 mg - Labs Labs: 08/01/17 08:16 08/01/17 08:16 PT 12.1 SECONDS (9.7-12.2) 07/29/17 12:33 INR 1.1 07/29/17 12:33 APTT 38 SECONDS (21-34) H 07/29/17 12:33 - Constitutional Appears: Non-toxic, Chronically Ill - Head Exam Head Exam: NORMOCEPHALIC - Eye Exam Eye Exam: PERRL - ENT Exam ENT Exam: Mucous Membranes Dry - Neck Exam Neck Exam: absent: Lymphadenopathy - Respiratory Exam Respiratory Exam: Decreased Breath Sounds, Clear to Ausculation Bilateral - Cardiovascular Exam Cardiovascular Exam: REGULAR RHYTHM - GI/Abdominal Exam GI & Abdominal Exam: Distended, Soft - Rectal Exam Rectal Exam: Deferred - Exam Exam: NORMAL INSPECTION - Extremities Exam Extremities Exam: Pedal Edema, Tenderness - Back Exam Back Exam: absent: CVA tenderness (L) - Neurological Exam Neurological Exam: Alert, Awake, Oriented x3 Neuro motor strength exam: Left Upper Extremity: 4, Right Upper Extremity: 4, Left Lower Extremity: 4, Right Lower Extremity: 4 - Psychiatric Exam Psychiatric exam: Normal Mood - Skin Skin Exam: Dry Assessment and Plan (1) Gangrene of toe of left foot Status: Acute (2) Peripheral arterial disease Status: Acute (3) Cellulitis Status: Acute
[2017-08-02] MEDS: Piperacillin/Tazobact 3.375 GM in Sodium Chloride 100 ML IVPB SCH ×4 (00:31→19:29)
[2017-08-02 07:38] LABS: BASO % 0.6 % (0.0-2.0); EOS # 0.3 K/uL (0.0-0.7); EOS % 3.9 % (0.0-4.0); HEMOGLOBIN 11.8 g/dL (12.0-18.0); LYMPH # 1.9 K/uL (1.0-4.3); LYMPH % 27.7 % (20.0-40.0); MEAN CELL VOLUME 89.7 fL (80.0-94.0); MEAN CORPUSCULAR HEMOGLOBIN 31.6 pg (27.0-31.0); MEAN CORPUSCULAR HGB CONC 35.2 g/dL (33.0-37.0); MEAN PLATELET VOLUME 7.7 fL (7.2-11.7); MONO # 0.5 K/uL (0.0-0.8); MONO % 7.3 % (0.0-10.0); NEUT # 4.2 K/uL (1.8-7.0); NEUT % 60.5 % (50.0-75.0); NRBC % 0.1 % (0.0-2.0); RBC 3.73 Mil/uL (4.40-5.90); RED CELL DISTRIBUTION WIDTH 13.4 % (11.5-14.5); WHITE BLOOD COUNT 6.9 K/uL (4.8-10.8)
[2017-08-02 08:08] LABS: ALB/GLOB RATIO 0.9 (1.0-2.1); ALBUMIN 3.3 g/dL (3.5-5.0); ALT/SGPT 13 U/L (21-72); AST/SGOT 15 U/L (17-59); BLOOD UREA NITROGEN 10 mg/dL (9-20); CALCIUM 8.7 mg/dl (8.6-10.4); GFR AFRICAN-AMERICAN > 60; GFR NON-AFRICAN AMERICAN > 60
[2017-08-02] MEDS: (Novolin R) Insulin Human Regular 100 units/ml vial SC SCH ×4 (08:25→22:34)
[2017-08-02] MEDS: Enoxaparin 40 mg Syringe SC SCH (09:38)
[2017-08-02] MEDS: Clotrimazole 1% Cream(30 gm) TOP SCH ×2 (09:39→17:37)
[2017-08-02] MEDS: Cilostazol 100 mg Tab UD PO SCH ×2 (09:39→17:34)
[2017-08-02] MEDS: Vancomycin 1 gm/NS 200 ml 1 GM/200 ML BAG IVPB SCH (17:42)
--- NOTE | 2017-08-02 17:57 | CP.PCM.PN ---
Subjective - Date & Time of Evaluation Date of Evaluation: 08/02/17 Time of Evaluation: 07:00 - Subjective Subjective: clinically same Objective - Vital Signs/Intake and Output Vital Signs (last 24 hours): Temp Pulse Resp BP Pulse Ox 98.6 F 115 H 20 114/62 97 08/02/17 16:55 08/02/17 16:55 08/02/17 16:55 08/02/17 16:55 08/02/17 16:55 Intake and Output: 08/02/17 08/02/17 06:59 18:59 Intake Total 380 580 Balance 380 580 - Medications Medications: Current Medications Acetaminophen (Tylenol 325mg Tab) 650 mg PO Q6 PRN PRN Reason: Pain, moderate (4-7) Aspirin (Aspirin Chewable) 81 mg PO DAILY [facility] Last Admin: 08/02/17 09:38 Dose: 81 mg Cilostazol (Pletal) 100 mg PO BID [facility] Last Admin: 08/02/17 17:34 Dose: 100 mg Clotrimazole (Lotrimin 1%) 1 gm TOP BID [facility] Last Admin: 08/02/17 17:37 Dose: 1 applic Dextrose (Dextrose 50% Inj) 0 ml IV STAT PRN; Protocol PRN Reason: Hypoglycemia Protocol Dextrose (Glutose 15) 0 gm PO ONCE PRN; Protocol PRN Reason: Hypoglycemia Protocol Dextrose (Glutose 15) 0 gm PO .ONCE PRN; Protocol PRN Reason: Hypoglycemia Protocol Enoxaparin Sodium (Lovenox) 40 mg SC DAILY [facility] Last Admin: 08/02/17 09:38 Dose: 40 mg Glucagon (Glucagen Diagnostic Kit) 0 mg IM STAT PRN; Protocol PRN Reason: Hypoglycemia Protocol Glucagon (Glucagen Diagnostic Kit) 0 mg IM .STAT PRN; Protocol PRN Reason: Hypoglycemia Protocol Dextrose (Dextrose 5% In Water 1000 Ml) 1,000 mls @ 0 mls/hr IV .Q0M PRN; Protocol; Per Protocol PRN Reason: Hypoglycemia Protocol Piperacillin Sod/Tazobactam (Sod 3.375 gm/ Sodium Chloride) 100 mls @ 200 mls/ hr IVPB Q6H [facility] PRN Reason: Protocol Stop: 08/10/17 19:01 Last Admin: 08/02/17 12:27 Dose: 200 mls/hr Vancomycin/Sodium Chloride (Vancomycin 1 Gm/Ns 200 Ml) 1 gm in 200 mls @ 133 mls/hr IVPB Q24H [facility] PRN Reason: Protocol Stop: 08/05/17 18:01 Last Admin: 08/02/17 17:42 Dose: 133 mls/hr Insulin Human Regular (Novolin R) 0 unit SC ACHS [facility] PRN Reason: Protocol Last Admin: 08/02/17 17:33 Dose: 2 unit Metformin HCl (Glucophage) 850 mg PO BID [facility] Last Admin: 08/02/17 17:34 Dose: 850 mg Pregabalin (Lyrica) 50 mg PO BID [facility] Last Admin: 08/02/17 17:34 Dose: 50 mg Rosuvastatin Calcium (Crestor) 20 mg PO HS [facility] Last Admin: 08/01/17 21:21 Dose: 20 mg Sitagliptin Phosphate (Januvia) 25 mg PO BID [facility] Last Admin: 08/02/17 17:33 Dose: 25 mg - Labs Labs: 08/02/17 07:27 08/02/17 07:27 PT 12.1 SECONDS (9.7-12.2) 07/29/17 12:33 INR 1.1 07/29/17 12:33 APTT 38 SECONDS (21-34) H 07/29/17 12:33 - Constitutional Appears: Well - Head Exam Head Exam: ATRAUMATIC, NORMAL INSPECTION, NORMOCEPHALIC - Eye Exam Eye Exam: EOMI, Normal appearance, PERRL Pupil Exam: NORMAL ACCOMODATION, PERRL - ENT Exam ENT Exam: Mucous Membranes Moist, Normal Exam - Neck Exam Neck Exam: Full ROM, Normal Inspection. absent: Lymphadenopathy - Respiratory Exam Respiratory Exam: Decreased Breath Sounds - Cardiovascular Exam Cardiovascular Exam: REGULAR RHYTHM, +S1, +S2 - GI/Abdominal Exam GI & Abdominal Exam: Soft, Diminished Bowel Sounds - Rectal Exam Rectal Exam: Deferred
--- NOTE | 2017-08-02 18:23 | CP.PCM.PN ---
Subjective - Date & Time of Evaluation Date of Evaluation: 08/02/17 Time of Evaluation: 18:21 - Subjective Subjective: ASKED TO SEE PT BY DR BURTON IN [facility]AGE. NEGATIVE NUCLEAR ST. PT FOR VASC SURGERY. TACHYCARDIA NOTED. NO COMPLAINTS. Objective - Vital Signs/Intake and Output Vital Signs (last 24 hours): Temp Pulse Resp BP Pulse Ox 98.6 F 115 H 20 114/62 97 08/02/17 16:55 08/02/17 16:55 08/02/17 16:55 08/02/17 16:55 08/02/17 16:55 Intake and Output: 08/02/17 08/02/17 06:59 18:59 Intake Total 380 580 Balance 380 580 - Medications Medications: Current Medications Acetaminophen (Tylenol 325mg Tab) 650 mg PO Q6 PRN PRN Reason: Pain, moderate (4-7) Aspirin (Aspirin Chewable) 81 mg PO DAILY [facility] Last Admin: 08/02/17 09:38 Dose: 81 mg Cilostazol (Pletal) 100 mg PO BID [facility] Last Admin: 08/02/17 17:34 Dose: 100 mg Clotrimazole (Lotrimin 1%) 1 gm TOP BID [facility] Last Admin: 08/02/17 17:37 Dose: 1 applic Dextrose (Dextrose 50% Inj) 0 ml IV STAT PRN; Protocol PRN Reason: Hypoglycemia Protocol Dextrose (Glutose 15) 0 gm PO ONCE PRN; Protocol PRN Reason: Hypoglycemia Protocol Dextrose (Glutose 15) 0 gm PO .ONCE PRN; Protocol PRN Reason: Hypoglycemia Protocol Enoxaparin Sodium (Lovenox) 40 mg SC DAILY [facility] Last Admin: 08/02/17 09:38 Dose: 40 mg Glucagon (Glucagen Diagnostic Kit) 0 mg IM STAT PRN; Protocol PRN Reason: Hypoglycemia Protocol Glucagon (Glucagen Diagnostic Kit) 0 mg IM .STAT PRN; Protocol PRN Reason: Hypoglycemia Protocol Dextrose (Dextrose 5% In Water 1000 Ml) 1,000 mls @ 0 mls/hr IV .Q0M PRN; Protocol; Per Protocol PRN Reason: Hypoglycemia Protocol Piperacillin Sod/Tazobactam (Sod 3.375 gm/ Sodium Chloride) 100 mls @ 200 mls/ hr IVPB Q6H [facility] PRN Reason: Protocol Stop: 08/10/17 19:01 Last Admin: 08/02/17 12:27 Dose: 200 mls/hr Vancomycin/Sodium Chloride (Vancomycin 1 Gm/Ns 200 Ml) 1 gm in 200 mls @ 133 mls/hr IVPB Q24H [facility] PRN Reason: Protocol Stop: 08/05/17 18:01 Last Admin: 08/02/17 17:42 Dose: 133 mls/hr Insulin Human Regular (Novolin R) 0 unit SC ACHS [facility] PRN Reason: Protocol Last Admin: 08/02/17 17:33 Dose: 2 unit Metformin HCl (Glucophage) 850 mg PO BID [facility] Last Admin: 08/02/17 17:34 Dose: 850 mg Pregabalin (Lyrica) 50 mg PO BID [facility] Last Admin: 08/02/17 17:34 Dose: 50 mg Rosuvastatin Calcium (Crestor) 20 mg PO HS [facility] Last Admin: 08/01/17 21:21 Dose: 20 mg Sitagliptin Phosphate (Januvia) 25 mg PO BID [facility] Last Admin: 08/02/17 17:33 Dose: 25 mg - Labs Labs: 08/02/17 07:27 08/02/17 07:27 PT 12.1 SECONDS (9.7-12.2) 07/29/17 12:33 INR 1.1 07/29/17 12:33 APTT 38 SECONDS (21-34) H 07/29/17 12:33 - Constitutional Appears: Well - Head Exam Head Exam: ATRAUMATIC, NORMAL INSPECTION, NORMOCEPHALIC - Eye Exam Eye Exam: EOMI, Normal appearance, PERRL. absent: Conjunctival injection, Nystagmus, Periorbital swelling, Periorbital tenderness, Scleral icterus Pupil Exam: NORMAL ACCOMODATION, PERRL - ENT Exam ENT Exam: Mucous Membranes Moist, Normal Exam. absent: Mucous Membranes Dry, Normal External Ear Exam, Normal Oropharynx, TM's Normal Bilaterally - Neck Exam Neck Exam: Full ROM, Normal Inspection. absent: Lymphadenopathy, Meningismus, Tenderness, Thyromegaly - Respiratory Exam Respiratory Exam: Clear to Ausculation Bilateral, NORMAL BREATHING PATTERN. absent: Accessory Muscle Use, Chest Wall Tenderness, Decreased Breath Sounds, Prolonged Expiratory Phase, Rales, Rhonchi, Wheezes, Respiratory Distress, Stridor - Cardiovascular Exam Cardiovascular Exam: REGULAR RHYTHM, +S1, +S2, Murmur. absent: Bradycardia, Tachycardia, Clicks, Diastolic murmur, Gallop, Irregular Rhythm, JVD, RRR, Rubs , +S4 - GI/Abdominal Exam GI & Abdominal Exam: Soft, Normal Bowel Sounds. absent: Bruit, Distended, Firm , Guarding, Rigid, Tenderness, Diminished Bowel Sounds, Hernia, Hyperactive Bowel Sounds, Hypoactive Bowel Sounds, Organomegaly, Pulsatile Mass, Rebound, Mass - Rectal Exam Rectal Exam: Deferred - Extremities Exam Extremities Exam: Full ROM, Joint Swelling, Pedal Edema. absent: Calf Tenderness, Normal Capillary Refill, Normal Inspection, Tenderness - Back Exam Back Exam: NORMAL INSPECTION. absent: CVA tenderness (L), CVA tenderness (R), Full ROM, muscle spasm, paraspinal tenderness, rash noted, tenderness, vertebral tenderness - Neurological Exam Neurological Exam: Alert, Awake, CN II-XII Intact, Oriented x3. absent: Abnormal Gait, Altered, Motor Sensory Deficit, Normal Gait, Reflexes Normal - Psychiatric Exam Psychiatric exam: Normal Affect, Normal Mood. absent: Agitated, Anxious, Depressed, Flat Affect, Homicidal Ideation, Manic, Suicidal Ideation - Skin Skin Exam: Dry, Intact, Normal Color, Warm. absent: Abrasion, Cyanosis, Diaphoretic, Erythema, Mottled, Pallor, Pallor, Petechiae, Rash, Urticaria, Vesicles Assessment and Plan (1) Tachycardia Status: Acute (2) Diabetes mellitus Status: Acute (3) Gangrene of toe of left foot Status: Acute (4) HTN (hypertension) Status: Chronic (5) Peripheral arterial disease Status: Acute
[2017-08-03] MEDS: Piperacillin/Tazobact 3.375 GM in Sodium Chloride 100 ML IVPB SCH ×4 (00:33→20:16)
[2017-08-03] MEDS: (Novolin R) Insulin Human Regular 100 units/ml vial SC SCH ×4 (08:11→22:00)
--- NOTE | 2017-08-03 08:29 | CP.PCM.PN ---
Subjective - Date & Time of Evaluation Date of Evaluation: 08/03/17 Time of Evaluation: 08:27 - Subjective Subjective: Vascular Surgery - Dr. Wilkins Pt S&E. ASYA. Pt complains of pain in L foot, unchanged. He denies any Fevers /Chills. Aware of plan for bypass tomorrow Objective - Vital Signs/Intake and Output Vital Signs (last 24 hours): Temp Pulse Resp BP Pulse Ox 97.6 F 61 18 111/79 97 08/03/17 00:00 08/03/17 00:00 08/03/17 00:00 08/03/17 00:00 08/03/17 00:00 Intake and Output: 08/03/17 08/03/17 06:59 18:59 Intake Total 1220 Output Total 3 Balance 1217 - Medications Medications: Current Medications Acetaminophen (Tylenol 325mg Tab) 650 mg PO Q6 PRN PRN Reason: Pain, moderate (4-7) Last Admin: 08/03/17 00:40 Dose: 650 mg Aspirin (Aspirin Chewable) 81 mg PO DAILY [facility] Last Admin: 08/02/17 09:38 Dose: 81 mg Cilostazol (Pletal) 100 mg PO BID [facility] Last Admin: 08/02/17 17:34 Dose: 100 mg Clotrimazole (Lotrimin 1%) 1 gm TOP BID [facility] Last Admin: 08/02/17 17:37 Dose: 1 applic Dextrose (Dextrose 50% Inj) 0 ml IV STAT PRN; Protocol PRN Reason: Hypoglycemia Protocol Dextrose (Glutose 15) 0 gm PO ONCE PRN; Protocol PRN Reason: Hypoglycemia Protocol Dextrose (Glutose 15) 0 gm PO .ONCE PRN; Protocol PRN Reason: Hypoglycemia Protocol Enoxaparin Sodium (Lovenox) 40 mg SC DAILY [facility] Last Admin: 08/02/17 09:38 Dose: 40 mg Glucagon (Glucagen Diagnostic Kit) 0 mg IM STAT PRN; Protocol PRN Reason: Hypoglycemia Protocol Glucagon (Glucagen Diagnostic Kit) 0 mg IM .STAT PRN; Protocol PRN Reason: Hypoglycemia Protocol Dextrose (Dextrose 5% In Water 1000 Ml) 1,000 mls @ 0 mls/hr IV .Q0M PRN; Protocol; Per Protocol PRN Reason: Hypoglycemia Protocol Piperacillin Sod/Tazobactam (Sod 3.375 gm/ Sodium Chloride) 100 mls @ 200 mls/ hr IVPB Q6H [facility] PRN Reason: Protocol Stop: 08/10/17 19:01 Last Admin: 08/03/17 06:20 Dose: 200 mls/hr Vancomycin/Sodium Chloride (Vancomycin 1 Gm/Ns 200 Ml) 1 gm in 200 mls @ 133 mls/hr IVPB Q24H [facility] PRN Reason: Protocol Stop: 08/05/17 18:01 Last Admin: 08/02/17 17:42 Dose: 133 mls/hr Insulin Human Regular (Novolin R) 0 unit SC ACHS [facility] PRN Reason: Protocol Last Admin: 08/03/17 08:11 Dose: Not Given Metformin HCl (Glucophage) 850 mg PO BID [facility] Last Admin: 08/02/17 17:34 Dose: 850 mg Pregabalin (Lyrica) 50 mg PO BID [facility] Last Admin: 08/02/17 17:34 Dose: 50 mg Rosuvastatin Calcium (Crestor) 20 mg PO HS [facility] Last Admin: 08/02/17 21:21 Dose: 20 mg Sitagliptin Phosphate (Januvia) 25 mg PO BID [facility] Last Admin: 08/02/17 17:33 Dose: 25 mg - Labs Labs: 08/02/17 07:27 08/02/17 07:27 PT 12.1 SECONDS (9.7-12.2) 07/29/17 12:33 INR 1.1 07/29/17 12:33 APTT 38 SECONDS (21-34) H 07/29/17 12:33 - Constitutional Appears: No Acute Distress - Head Exam Head Exam: ATRAUMATIC, NORMAL INSPECTION, NORMOCEPHALIC - Eye Exam Eye Exam: Normal appearance - Respiratory Exam Respiratory Exam: NORMAL BREATHING PATTERN. absent: Respiratory Distress - Extremities Exam Additional comments: L 2nd toe dry gangrene - Neurological Exam Neurological Exam: Alert, Oriented x3 - Psychiatric Exam Psychiatric exam: Normal Affect, Normal Mood Assessment and Plan - Assessment and Plan (Free Text) Assessment: 72M with PVD and dry gangrene left 2nd toe Plan: -For Fem-Tib bypass tomorrow -Cleared from Cardiac standpoint, appreciate -NPO after midnight singh Wilkins
[2017-08-03 08:55] LABS: BASO % 0.5 % (0.0-2.0); EOS # 0.2 K/uL (0.0-0.7); EOS % 3.2 % (0.0-4.0); HEMOGLOBIN 11.9 g/dL (12.0-18.0); LYMPH # 1.7 K/uL (1.0-4.3); LYMPH % 25.1 % (20.0-40.0); MEAN CELL VOLUME 90.4 fL (80.0-94.0); MEAN CORPUSCULAR HEMOGLOBIN 31.8 pg (27.0-31.0); MEAN CORPUSCULAR HGB CONC 35.2 g/dL (33.0-37.0); MEAN PLATELET VOLUME 7.5 fL (7.2-11.7); MONO # 0.5 K/uL (0.0-0.8); MONO % 8.1 % (0.0-10.0); NEUT # 4.2 K/uL (1.8-7.0); NEUT % 63.1 % (50.0-75.0); RBC 3.74 Mil/uL (4.40-5.90); RED CELL DISTRIBUTION WIDTH 13.5 % (11.5-14.5); WHITE BLOOD COUNT 6.6 K/uL (4.8-10.8)
[2017-08-03 09:22] LABS: ALB/GLOB RATIO 0.9 (1.0-2.1); ALBUMIN 3.3 g/dL (3.5-5.0); ALT/SGPT < 6 U/L (21-72); AST/SGOT 15 U/L (17-59); BLOOD UREA NITROGEN 10 mg/dL (9-20); CALCIUM 8.9 mg/dl (8.6-10.4); GFR AFRICAN-AMERICAN > 60; GFR NON-AFRICAN AMERICAN > 60
[2017-08-03] MEDS: Cilostazol 100 mg Tab UD PO SCH ×2 (09:43→17:14)
[2017-08-03] MEDS: Enoxaparin 40 mg Syringe SC SCH (09:44)
[2017-08-03] MEDS: Clotrimazole 1% Cream(30 gm) TOP SCH ×2 (09:44→17:13)
--- NOTE | 2017-08-03 11:45 | CP.PCM.PN ---
<Danielle Newby - Last Filed: 08/03/17 11:41> Subjective - Date & Time of Evaluation Date of Evaluation: 08/03/17 Time of Evaluation: 10:00 - Subjective Subjective: Medicine Note for Dr. Stockton's Service Patient was seen and examined at bedside. No acute events overnight. States pain in legs have improved since admission. No pain in necrotic toe. Denied chest pain, shortness of breath, fevers, nausea, vomiting. Objective - Vital Signs/Intake and Output Vital Signs (last 24 hours): Temp Pulse Resp BP Pulse Ox 98.5 F 101 H 20 143/73 98 08/03/17 08:00 08/03/17 08:00 08/03/17 08:00 08/03/17 08:00 08/03/17 08:00 Intake and Output: 08/03/17 08/03/17 06:59 18:59 Intake Total 1220 Output Total 3 Balance 1217 - Medications Medications: Current Medications Acetaminophen (Tylenol 325mg Tab) 650 mg PO Q6 PRN PRN Reason: Pain, moderate (4-7) Last Admin: 08/03/17 00:40 Dose: 650 mg Aspirin (Aspirin Chewable) 81 mg PO DAILY [facility] Last Admin: 08/03/17 09:43 Dose: 81 mg Cilostazol (Pletal) 100 mg PO BID [facility] Last Admin: 08/03/17 09:43 Dose: 100 mg Clotrimazole (Lotrimin 1%) 1 gm TOP BID [facility] Last Admin: 08/03/17 09:44 Dose: 1 applic Dextrose (Dextrose 50% Inj) 0 ml IV STAT PRN; Protocol PRN Reason: Hypoglycemia Protocol Dextrose (Glutose 15) 0 gm PO ONCE PRN; Protocol PRN Reason: Hypoglycemia Protocol Dextrose (Glutose 15) 0 gm PO .ONCE PRN; Protocol PRN Reason: Hypoglycemia Protocol Enoxaparin Sodium (Lovenox) 40 mg SC DAILY [facility] Last Admin: 08/03/17 09:44 Dose: 40 mg Glucagon (Glucagen Diagnostic Kit) 0 mg IM STAT PRN; Protocol PRN Reason: Hypoglycemia Protocol Glucagon (Glucagen Diagnostic Kit) 0 mg IM .STAT PRN; Protocol PRN Reason: Hypoglycemia Protocol Dextrose (Dextrose 5% In Water 1000 Ml) 1,000 mls @ 0 mls/hr IV .Q0M PRN; Protocol; Per Protocol PRN Reason: Hypoglycemia Protocol Piperacillin Sod/Tazobactam (Sod 3.375 gm/ Sodium Chloride) 100 mls @ 200 mls/ hr IVPB Q6H [facility] PRN Reason: Protocol Stop: 08/10/17 19:01 Last Admin: 08/03/17 06:20 Dose: 200 mls/hr Vancomycin/Sodium Chloride (Vancomycin 1 Gm/Ns 200 Ml) 1 gm in 200 mls @ 133 mls/hr IVPB Q24H [facility] PRN Reason: Protocol Stop: 08/05/17 18:01 Last Admin: 08/02/17 17:42 Dose: 133 mls/hr Insulin Human Regular (Novolin R) 0 unit SC ACHS [facility] PRN Reason: Protocol Last Admin: 08/03/17 08:11 Dose: Not Given Metformin HCl (Glucophage) 850 mg PO BID [facility] Last Admin: 08/03/17 09:43 Dose: 850 mg Pregabalin (Lyrica) 50 mg PO BID [facility] Last Admin: 08/03/17 09:43 Dose: 50 mg Rosuvastatin Calcium (Crestor) 20 mg PO [facility] Last Admin: 08/02/17 21:21 Dose: 20 mg Sitagliptin Phosphate (Januvia) 25 mg PO BID [facility] Last Admin: 08/03/17 09:43 Dose: 25 mg - Labs Labs: 08/03/17 08:48 08/03/17 08:48 PT 12.1 SECONDS (9.7-12.2) 07/29/17 12:33 INR 1.1 07/29/17 12:33 APTT 38 SECONDS (21-34) H 07/29/17 12:33 - Additional Findings Additional findings: - Constitutional Appears: Non-toxic, No Acute Distress - Head Exam Head Exam: ATRAUMATIC, NORMOCEPHALIC - Eye Exam Eye Exam: Normal appearance. absent: Conjunctival injection, Scleral icterus - ENT Exam ENT Exam: Mucous Membranes Moist, Normal Oropharynx - Respiratory Exam Respiratory Exam: NORMAL BREATHING PATTERN. absent: Accessory Muscle Use, Respiratory Distress - Extremities Exam Extremities Exam: absent: Calf Tenderness Additional comments: necrotic second toe of left foot - Neurological Exam Neurological Exam: Alert, Awake, Oriented x3 - Psychiatric Exam Psychiatric exam: Normal Affect, Normal Mood - Skin Skin Exam: Dry, Warm Assessment and Plan - Assessment and Plan (Free Text) Plan: Gangrene of toe of left foot, 2nd digit, Mack Stage 4 Peripheral arterial disease 2nd toe of left foot black and necrotic Mack stage 4 Hx of angioplasty and stent of left superficial femoral artery, and atherectomy tibioperoneal trunk, both in [address] Alex Zambrano Vascular surgery consult, Dr Wilkins - PLAN FOR: Fem-Tib bypass tomorrow - Cleared by cardio, all pre-op studies performed Cardiology consult, Dr Alex Zambrano. * The toe is not salvageable * peripheral angiogram 07/31: extensive disease in bilateral lower extremity (see report), consider vascular surgical evaluation for possible bypass of left lower extremity Imaging: Left Foot 2nd digit XRAY: Multiple hammertoe deformities identified. No acute findings related to/accounting for clinical presentation. CT angiogram Abd Ileofem Runoff 07/29/17: Occlusion of the mid SFA with high grade stenosis in the distal along with severe tibioperoneal disease. venous dopplers LE B/L negative for DVT NM stress test performed 07/31, f/u image reading Meds: Continue aspirin 81mg PO QD (will consider adding plavix 75mg PO QD as second antiplatelet agent) Given plavix 300mg PO ONCE 07/30/17 for peripheral angiogram scheduled for 07/31/17 Continue Crestor 20mg PO HS (high intensity statin indicated) Continue Cilostazol 100mg PO BID for claudication Lotrimin topical to feet bilaterally BID for tinea pedis ID consult, Dr. Weber Zosyn 3.375mg Q6H IV (start 07/31/17) Vancomycin 1gm Daily IV (start 07/31/17) Diabetes mellitus Hx of DM2, also with diabetic neuropathy Accuchecks Diabetic diet Hypoglycemia protocol Labs/Diagnostics: HgbA1c 9.2 Lipid Panel showed Triglycerides 157 and HDL 25 otherwise normal Meds: Start pregabalin 50mg PO BID - held 2/2 anticipated Fem-Tib bypass tomorrow Resume linagliptin/metformin 2.5mg/850mg - held 2/2 anticipated Fem-Tib bypass tomorrow RISS Hypoglycemia protocol HTN (hypertension) Hx of HTN per chart review BP well controlled Monitor Prophylactic measure SCDs contraindicated 2/2 necrotic toe Lovenox 40mg SC QD - held 2/2 anticipated Fem-Tib bypass tomorrow Diabetic diet, resumed GI prophylaxis not indicated DW Dr. Stockton, Danielle Newby DO, PGY1 <Renzo Stockton Jr. - Last Filed: 08/06/17 15:43> Objective - Vital Signs/Intake and Output Vital Signs (last 24 hours): Temp Pulse Resp BP Pulse Ox 98.7 F 114 H 21 120/66 99 08/06/17 12:00 08/06/17 12:20 08/06/17 12:20 08/06/17 12:20 08/06/17 12:20 Intake and Output: 08/06/17 08/06/17 06:59 18:59 Intake Total 1768 1587.5 Output Total 600 1050 Balance 1168 537.5 - Medications Medications: Current Medications Acetaminophen (Tylenol 325mg Tab) 650 mg PO Q6 PRN PRN Reason: Pain, MILD(1-3) Last Admin: 08/05/17 17:24 Dose: 650 mg Aspirin (Aspirin Chewable) 81 mg PO DAILY [facility] Last Admin: 08/06/17 09:47 Dose: 81 mg Cilostazol (Pletal) 100 mg PO BID [facility] Last Admin: 08/06/17 09:48 Dose: 100 mg Clotrimazole (Lotrimin 1%) 1 gm TOP BID [facility] Last Admin: 08/06/17 09:49 Dose: 1 applic Dextrose (Dextrose 50% Inj) 0 ml IV STAT PRN; Protocol PRN Reason: Hypoglycemia Protocol Dextrose (Glutose 15) 0 gm PO ONCE PRN; Protocol PRN Reason: Hypoglycemia Protocol Dextrose (Glutose 15) 0 gm PO .ONCE PRN; Protocol PRN Reason: Hypoglycemia Protocol Enoxaparin Sodium (Lovenox) 40 mg SC DAILY [facility] Last Admin: 08/06/17 10:27 Dose: 40 mg Famotidine (Pepcid) 20 mg PO BID [facility] Glucagon (Glucagen Diagnostic Kit) 0 mg IM STAT PRN; Protocol PRN Reason: Hypoglycemia Protocol Glucagon (Glucagen Diagnostic Kit) 0 mg IM .STAT PRN; Protocol PRN Reason: Hypoglycemia Protocol Hydromorphone HCl (Dilaudid) 0.5 mg IVP Q6H PRN PRN Reason: Pain, severe (8-10) Last Admin: 08/06/17 10:00 Dose: 0.5 mg Dextrose (Dextrose 5% In Water 1000 Ml) 1,000 mls @ 0 mls/hr IV .Q0M PRN; Protocol; Per Protocol PRN Reason: Hypoglycemia Protocol Piperacillin Sod/Tazobactam (Sod 3.375 gm/ Sodium Chloride) 100 mls @ 200 mls/ hr IVPB Q6H [facility] PRN Reason: Protocol Stop: 08/10/17 19:01 Last Admin: 08/06/17 12:02 Dose: 200 mls/hr Sodium Chloride (Sodium Chloride 0.9%) 1,000 mls @ 100 mls/hr IV .Q10H [facility] Last Admin: 08/06/17 11:09 Dose: Not Given Potassium Phosphate 15 mmole/ (Sodium Chloride) 255 mls @ 42.5 mls/hr IVPB ONCE ONE Stop: 08/06/17 16:59 Last Admin: 08/06/17 11:03 Dose: 42.5 mls/hr Vancomycin HCl 1 gm/ Sodium (Chloride) 250 mls @ 166.7 mls/hr IVPB Q24H [facility] PRN Reason: Protocol Insulin Human Regular (Novolin R) 0 unit SC ACHS [facility] PRN Reason: Protocol Last Admin: 08/06/17 12:01 Dose: 3 unit Metformin HCl (Glucophage) 850 mg PO BID [facility] Last Admin: 08/03/17 09:43 Dose: 850 mg Metoprolol Tartrate (Lopressor) 5 mg IVP Q6H PRN PRN Reason: Heart Rate >110 Last Admin: 08/06/17 12:10 Dose: 5 mg Oxycodone/Acetaminophen (Percocet 5/325 Mg Tab) 1 tab PO Q4H PRN PRN Reason: Pain, moderate (4-7) Stop: 08/07/17 16:59 Last Admin: 08/06/17 15:19 Dose: 1 tab Pregabalin (Lyrica) 50 mg PO BID [facility] Last Admin: 08/06/17 09:47 Dose: 50 mg Rosuvastatin Calcium (Crestor) 20 mg PO HS [facility] Last Admin: 08/05/17 23:44 Dose: 20 mg Sitagliptin Phosphate (Januvia) 25 mg PO BID [facility] Last Admin: 08/03/17 09:43 Dose: 25 mg - Labs Labs: 08/06/17 07:55 08/06/17 07:55 PT 12.0 SECONDS (9.7-12.2) 08/04/17 06:18 INR 1.1 08/04/17 06:18 APTT 37 SECONDS (21-34) H 08/04/17 06:18 Attending/Attestation - Attestation I have personally seen and examined this patient.: Yes I have fully participated in the care of the patient.: Yes I have reviewed all pertinent clinical information, including history, physical exam and plan: Yes Notes (Text): 08/06/17 15:43 Agree with resident note findings and plan of care
--- NOTE | 2017-08-03 15:00 | CP.PCM.PN ---
Subjective - Date & Time of Evaluation Date of Evaluation: 08/03/17 Time of Evaluation: 07:00 - Subjective Subjective: clinically same Objective - Vital Signs/Intake and Output Vital Signs (last 24 hours): Temp Pulse Resp BP Pulse Ox 98.5 F 101 H 20 143/73 98 08/03/17 08:00 08/03/17 08:00 08/03/17 08:00 08/03/17 08:00 08/03/17 08:00 Intake and Output: 08/03/17 08/03/17 06:59 18:59 Intake Total 1220 580 Output Total 3 Balance 1217 580 - Medications Medications: Current Medications Acetaminophen (Tylenol 325mg Tab) 650 mg PO Q6 PRN PRN Reason: Pain, moderate (4-7) Last Admin: 08/03/17 00:40 Dose: 650 mg Aspirin (Aspirin Chewable) 81 mg PO DAILY [facility] Last Admin: 08/03/17 09:43 Dose: 81 mg Cilostazol (Pletal) 100 mg PO BID [facility] Last Admin: 08/03/17 09:43 Dose: 100 mg Clotrimazole (Lotrimin 1%) 1 gm TOP BID [facility] Last Admin: 08/03/17 09:44 Dose: 1 applic Dextrose (Dextrose 50% Inj) 0 ml IV STAT PRN; Protocol PRN Reason: Hypoglycemia Protocol Dextrose (Glutose 15) 0 gm PO ONCE PRN; Protocol PRN Reason: Hypoglycemia Protocol Dextrose (Glutose 15) 0 gm PO .ONCE PRN; Protocol PRN Reason: Hypoglycemia Protocol Enoxaparin Sodium (Lovenox) 40 mg SC DAILY [facility] Last Admin: 08/03/17 09:44 Dose: 40 mg Glucagon (Glucagen Diagnostic Kit) 0 mg IM STAT PRN; Protocol PRN Reason: Hypoglycemia Protocol Glucagon (Glucagen Diagnostic Kit) 0 mg IM .STAT PRN; Protocol PRN Reason: Hypoglycemia Protocol Dextrose (Dextrose 5% In Water 1000 Ml) 1,000 mls @ 0 mls/hr IV .Q0M PRN; Protocol; Per Protocol PRN Reason: Hypoglycemia Protocol Piperacillin Sod/Tazobactam (Sod 3.375 gm/ Sodium Chloride) 100 mls @ 200 mls/ hr IVPB Q6H [facility] PRN Reason: Protocol Stop: 08/10/17 19:01 Last Admin: 08/03/17 13:53 Dose: 200 mls/hr Vancomycin/Sodium Chloride (Vancomycin 1 Gm/Ns 200 Ml) 1 gm in 200 mls @ 133 mls/hr IVPB Q24H [facility] PRN Reason: Protocol Stop: 08/05/17 18:01 Last Admin: 08/02/17 17:42 Dose: 133 mls/hr Insulin Human Regular (Novolin R) 0 unit SC ACHS [facility] PRN Reason: Protocol Last Admin: 08/03/17 12:14 Dose: Not Given Metformin HCl (Glucophage) 850 mg PO BID [facility] Last Admin: 08/03/17 09:43 Dose: 850 mg Pregabalin (Lyrica) 50 mg PO BID [facility] Last Admin: 08/03/17 09:43 Dose: 50 mg Rosuvastatin Calcium (Crestor) 20 mg PO HS [facility] Last Admin: 08/02/17 21:21 Dose: 20 mg Sitagliptin Phosphate (Januvia) 25 mg PO BID [facility] Last Admin: 08/03/17 09:43 Dose: 25 mg - Labs Labs: 08/03/17 08:48 08/03/17 08:48 PT 12.1 SECONDS (9.7-12.2) 07/29/17 12:33 INR 1.1 07/29/17 12:33 APTT 38 SECONDS (21-34) H 07/29/17 12:33 - Constitutional Appears: Well - Head Exam Head Exam: ATRAUMATIC, NORMAL INSPECTION, NORMOCEPHALIC - Eye Exam Eye Exam: EOMI, Normal appearance, PERRL Pupil Exam: NORMAL ACCOMODATION, PERRL - ENT Exam ENT Exam: Mucous Membranes Moist, Normal Exam - Neck Exam Neck Exam: Full ROM, Normal Inspection. absent: Lymphadenopathy - Respiratory Exam Respiratory Exam: Decreased Breath Sounds - Cardiovascular Exam Cardiovascular Exam: REGULAR RHYTHM, +S1, +S2 - GI/Abdominal Exam GI & Abdominal Exam: Soft, Diminished Bowel Sounds - Rectal Exam Rectal Exam: Deferred
--- NOTE | 2017-08-03 15:16 | CP.PCM.PN ---
Subjective - Date & Time of Evaluation Date of Evaluation: 08/03/17 Time of Evaluation: 08:00 - Subjective Subjective: awaiting OR cleared by cardio IV antibiotics reordered Objective - Vital Signs/Intake and Output Vital Signs (last 24 hours): Temp Pulse Resp BP Pulse Ox 98.5 F 101 H 20 143/73 98 08/03/17 08:00 08/03/17 08:00 08/03/17 08:00 08/03/17 08:00 08/03/17 08:00 Intake and Output: 08/03/17 08/03/17 06:59 18:59 Intake Total 1220 580 Output Total 3 Balance 1217 580 - Medications Medications: Current Medications Acetaminophen (Tylenol 325mg Tab) 650 mg PO Q6 PRN PRN Reason: Pain, moderate (4-7) Last Admin: 08/03/17 00:40 Dose: 650 mg Aspirin (Aspirin Chewable) 81 mg PO DAILY [facility] Last Admin: 08/03/17 09:43 Dose: 81 mg Cilostazol (Pletal) 100 mg PO BID [facility] Last Admin: 08/03/17 09:43 Dose: 100 mg Clotrimazole (Lotrimin 1%) 1 gm TOP BID [facility] Last Admin: 08/03/17 09:44 Dose: 1 applic Dextrose (Dextrose 50% Inj) 0 ml IV STAT PRN; Protocol PRN Reason: Hypoglycemia Protocol Dextrose (Glutose 15) 0 gm PO ONCE PRN; Protocol PRN Reason: Hypoglycemia Protocol Dextrose (Glutose 15) 0 gm PO .ONCE PRN; Protocol PRN Reason: Hypoglycemia Protocol Enoxaparin Sodium (Lovenox) 40 mg SC DAILY [facility] Last Admin: 08/03/17 09:44 Dose: 40 mg Glucagon (Glucagen Diagnostic Kit) 0 mg IM STAT PRN; Protocol PRN Reason: Hypoglycemia Protocol Glucagon (Glucagen Diagnostic Kit) 0 mg IM .STAT PRN; Protocol PRN Reason: Hypoglycemia Protocol Dextrose (Dextrose 5% In Water 1000 Ml) 1,000 mls @ 0 mls/hr IV .Q0M PRN; Protocol; Per Protocol PRN Reason: Hypoglycemia Protocol Piperacillin Sod/Tazobactam (Sod 3.375 gm/ Sodium Chloride) 100 mls @ 200 mls/ hr IVPB Q6H [facility] PRN Reason: Protocol Stop: 08/10/17 19:01 Last Admin: 08/03/17 13:53 Dose: 200 mls/hr Vancomycin/Sodium Chloride (Vancomycin 1 Gm/Ns 200 Ml) 1 gm in 200 mls @ 133 mls/hr IVPB Q24H [facility] PRN Reason: Protocol Stop: 08/05/17 18:01 Last Admin: 08/02/17 17:42 Dose: 133 mls/hr Insulin Human Regular (Novolin R) 0 unit SC ACHS [facility] PRN Reason: Protocol Last Admin: 08/03/17 12:14 Dose: Not Given Metformin HCl (Glucophage) 850 mg PO BID [facility] Last Admin: 08/03/17 09:43 Dose: 850 mg Pregabalin (Lyrica) 50 mg PO BID [facility] Last Admin: 08/03/17 09:43 Dose: 50 mg Rosuvastatin Calcium (Crestor) 20 mg PO HS [facility] Last Admin: 08/02/17 21:21 Dose: 20 mg Sitagliptin Phosphate (Januvia) 25 mg PO BID [facility] Last Admin: 08/03/17 09:43 Dose: 25 mg - Labs Labs: 08/03/17 08:48 08/03/17 08:48 PT 12.1 SECONDS (9.7-12.2) 07/29/17 12:33 INR 1.1 07/29/17 12:33 APTT 38 SECONDS (21-34) H 07/29/17 12:33 - Constitutional Appears: Non-toxic, Chronically Ill - Head Exam Head Exam: NORMOCEPHALIC - Eye Exam Eye Exam: PERRL - ENT Exam ENT Exam: Mucous Membranes Dry - Neck Exam Neck Exam: absent: Lymphadenopathy - Respiratory Exam Respiratory Exam: Decreased Breath Sounds - Cardiovascular Exam Cardiovascular Exam: REGULAR RHYTHM - GI/Abdominal Exam GI & Abdominal Exam: Distended, Soft - Rectal Exam Rectal Exam: Deferred - Exam Exam: NORMAL INSPECTION - Extremities Exam Extremities Exam: Pedal Edema, Tenderness - Back Exam Back Exam: absent: CVA tenderness (L), CVA tenderness (R) - Neurological Exam Neurological Exam: Alert, Awake, Oriented x3 Neuro motor strength exam: Left Upper Extremity: 4, Right Upper Extremity: 4, Left Lower Extremity: 4, Right Lower Extremity: 4 - Psychiatric Exam Psychiatric exam: Depressed - Skin Skin Exam: Dry Assessment and Plan (1) Gangrene of toe of left foot Status: Acute (2) Peripheral arterial disease Status: Acute (3) Cellulitis Status: Acute - Assessment and Plan (Free Text) Assessment: for OR/ Bypass cont IV antibiotics
[2017-08-03] MEDS: Vancomycin 1 gm/NS 200 ml 1 GM/200 ML BAG IVPB SCH (17:15)
--- NOTE | 2017-08-03 19:47 | CP.PCM.PN ---
Subjective - Date & Time of Evaluation Date of Evaluation: 08/03/17 Time of Evaluation: 12:00 - Subjective Subjective: Podiatry Progress Note - Dr. Bryant 72M seen and evaluated at bedside for left 2nd digit gangrene. Patient resting in bed comfortably, NAD. No acute events overnight. Reports mild pain to his 2nd digit, well-controlled. States is he scheduled for LLE bypass tomorrow. Offers no other complaints. Denies N/V/F/D/C/SOB/MARCUM/dizziness. Objective - Vital Signs/Intake and Output Vital Signs (last 24 hours): Temp Pulse Resp BP Pulse Ox 97.8 F 112 H 20 117/75 98 08/03/17 16:00 08/03/17 16:00 08/03/17 16:00 08/03/17 16:00 08/03/17 16:00 Intake and Output: 08/03/17 08/04/17 18:59 06:59 Intake Total 580 Balance 580 - Medications Medications: Current Medications Acetaminophen (Tylenol 325mg Tab) 650 mg PO Q6 PRN PRN Reason: Pain, moderate (4-7) Last Admin: 08/03/17 00:40 Dose: 650 mg Aspirin (Aspirin Chewable) 81 mg PO DAILY [facility] Last Admin: 08/03/17 09:43 Dose: 81 mg Cilostazol (Pletal) 100 mg PO BID [facility] Last Admin: 08/03/17 17:14 Dose: 100 mg Clotrimazole (Lotrimin 1%) 1 gm TOP BID [facility] Last Admin: 08/03/17 17:13 Dose: 1 applic Dextrose (Dextrose 50% Inj) 0 ml IV STAT PRN; Protocol PRN Reason: Hypoglycemia Protocol Dextrose (Glutose 15) 0 gm PO ONCE PRN; Protocol PRN Reason: Hypoglycemia Protocol Dextrose (Glutose 15) 0 gm PO .ONCE PRN; Protocol PRN Reason: Hypoglycemia Protocol Enoxaparin Sodium (Lovenox) 40 mg SC DAILY [facility] Last Admin: 08/03/17 09:44 Dose: 40 mg Glucagon (Glucagen Diagnostic Kit) 0 mg IM STAT PRN; Protocol PRN Reason: Hypoglycemia Protocol Glucagon (Glucagen Diagnostic Kit) 0 mg IM .STAT PRN; Protocol PRN Reason: Hypoglycemia Protocol Dextrose (Dextrose 5% In Water 1000 Ml) 1,000 mls @ 0 mls/hr IV .Q0M PRN; Protocol; Per Protocol PRN Reason: Hypoglycemia Protocol Piperacillin Sod/Tazobactam (Sod 3.375 gm/ Sodium Chloride) 100 mls @ 200 mls/ hr IVPB Q6H MARGY PRN Reason: Protocol Stop: 08/10/17 19:01 Last Admin: 08/03/17 13:53 Dose: 200 mls/hr Vancomycin/Sodium Chloride (Vancomycin 1 Gm/Ns 200 Ml) 1 gm in 200 mls @ 133 mls/hr IVPB Q24H MARGY PRN Reason: Protocol Stop: 08/05/17 18:01 Last Admin: 08/03/17 17:15 Dose: 133 mls/hr Insulin Human Regular (Novolin R) 0 unit SC ACHS MARGY PRN Reason: Protocol Last Admin: 08/03/17 12:14 Dose: Not Given Metformin HCl (Glucophage) 850 mg PO BID [facility] Last Admin: 08/03/17 09:43 Dose: 850 mg Pregabalin (Lyrica) 50 mg PO BID [facility] Last Admin: 08/03/17 17:14 Dose: 50 mg Rosuvastatin Calcium (Crestor) 20 mg PO HS [facility] Last Admin: 08/02/17 21:21 Dose: 20 mg Sitagliptin Phosphate (Januvia) 25 mg PO BID [facility] Last Admin: 08/03/17 09:43 Dose: 25 mg - Labs Labs: 08/03/17 08:48 08/03/17 08:48 PT 12.1 SECONDS (9.7-12.2) 07/29/17 12:33 INR 1.1 07/29/17 12:33 APTT 38 SECONDS (21-34) H 07/29/17 12:33 - Constitutional Appears: Well, Non-toxic, No Acute Distress - Extremities Exam Additional comments: B/L lower extremity exam: VASC- pedal pulses are non-palpable, skin temp runs wnl (prox to distal) bl, cap refill is delayed to all digits, neg pedal edema NEURO- gross and protective pedal sensation are diminished DERM- mummification is noted to left 2nd digit with circumferential demarcation noted to level of 2nd MTPJ with necrotic discoloration toe is dry with neg drainage, neg malodor, neg fluctuance, neg signs infection MSKL- tenderness is elicited on palpation just proximal to dorsal aspect 2nd MTPJ left foot, diffusely along dorsum of left foot and posterior aspect left heel, MM is 5/5 in all directions b/l, R foot is free of any wounds or ulcerations - Neurological Exam Neurological Exam: Alert, Awake, Oriented x3 - Psychiatric Exam Psychiatric exam: Normal Affect, Normal Mood Assessment and Plan - Assessment and Plan (Free Text) Assessment: 72 yo diabetic male with dry gangrene of left 2nd digit 2/2 severe PVD. Plan: Patient seen and evaluated at bedside Discussed with attending, Dr. Manny Mejia, WBC WNL 6.6 L foot XR: no acute findings CT angio: occlusion mid SFA, high grade stenosis in tibioperoneal trunk b/l RACHID left: 0.49; RACHID right 0.79 Continue IV abx - Vancomycin 1g IV, Zosyn 3.375g IV Patient scheduled for LLE bypass with vascular tomorrow -s/p bypass will consider amputation Continue to monitor 2nd digit Podiatry will continue to follow
[2017-08-04] MEDS: Piperacillin/Tazobact 3.375 GM in Sodium Chloride 100 ML IVPB SCH ×4 (00:06→18:47)
[2017-08-04 06:28] LABS: BASO % 0.6 % (0.0-2.0); EOS # 0.2 K/uL (0.0-0.7); EOS % 2.8 % (0.0-4.0); HEMOGLOBIN 12.7 g/dL (12.0-18.0); LYMPH # 2.2 K/uL (1.0-4.3); LYMPH % 29.5 % (20.0-40.0); MEAN CELL VOLUME 89.7 fL (80.0-94.0); MEAN CORPUSCULAR HEMOGLOBIN 31.6 pg (27.0-31.0); MEAN CORPUSCULAR HGB CONC 35.2 g/dL (33.0-37.0); MEAN PLATELET VOLUME 7.7 fL (7.2-11.7); MONO # 0.5 K/uL (0.0-0.8); MONO % 6.9 % (0.0-10.0); NEUT # 4.5 K/uL (1.8-7.0); NEUT % 60.2 % (50.0-75.0); NRBC % 0.1 % (0.0-2.0); RED CELL DISTRIBUTION WIDTH 13.5 % (11.5-14.5); WHITE BLOOD COUNT 7.4 K/uL (4.8-10.8)
[2017-08-04 06:33] LABS: INR 1.1
[2017-08-04 06:37] LABS: ALB/GLOB RATIO 0.9 (1.0-2.1); ALBUMIN 3.6 g/dL (3.5-5.0); ALT/SGPT 12 U/L (21-72); AST/SGOT 15 U/L (17-59); BLOOD UREA NITROGEN 12 mg/dL (9-20); CALCIUM 9.1 mg/dl (8.6-10.4); GFR AFRICAN-AMERICAN > 60; GFR NON-AFRICAN AMERICAN > 60
[2017-08-04] MEDS: (Novolin R) Insulin Human Regular 100 units/ml vial SC SCH ×4 (07:48→22:42)
[2017-08-04] MEDS: Clotrimazole 1% Cream(30 gm) TOP SCH ×2 (10:19→19:00)
[2017-08-04] MEDS: Cilostazol 100 mg Tab UD PO SCH ×2 (10:20→19:15)
[2017-08-04] MEDS ORDERED: Propofol 10 mg/ml Inj (20 ML) ONE (10:44)
[2017-08-04] MEDS ORDERED: ceFAZolin 1 gm in NS 0 GM/0 ML BAG IVPB ONE (10:47)
[2017-08-04] MEDS ORDERED: Papaverine Hydrochloride 30 mg/ml (2ml) ONE (10:49)
[2017-08-04] MEDS ORDERED: Iodixanol 320 MG/ML 200 ML BOTTLE IV ONE (10:49)
[2017-08-04] MEDS ORDERED: HEPARIN-NS 5,000 UNITS/500 ML 10,000 UNIT/1,000 ML BAG IV ONE (10:49)
[2017-08-04] MEDS ORDERED: Lactated Ringer's 1,000 ML IV ONE (11:05)
[2017-08-04] MEDS ORDERED: Sodium Chloride 0.9% 1,000 ML IV ONE (11:15)
[2017-08-04] MEDS ORDERED: Rocuronium 10 mg/ml (10 ml) ONE ×2 (11:45→12:47)
[2017-08-04] MEDS ORDERED: Esmolol 100 mg/10ml Inj IV ONE (11:45)
[2017-08-04] MEDS ORDERED: Morphine 4 MG/ML VIAL ONE (14:46)
[2017-08-04] MEDS ORDERED: HEPARIN-NS 5,000 UNITS/500 ML 5,000 UNIT/500 ML BAG IV ONE (15:05)
--- NOTE | 2017-08-04 16:57 | PCM.SURG1 ---
Surgeon's Initial Post Op Note - Surgeon's Notes Surgeon: Dr. Wilkins Compensation Adjuster: Dr. Bower PGY-3 Type of Anesthesia: General Endo Anesthesia Administered By: Dr. Jessica Pre-Operative Diagnosis: Peripheral Vascular Disease Operative Findings: See operative report Post-Operative Diagnosis: Same Operation Performed: Left Femoral to Anterior Tibial Bypass with reverse Saphenous Vein Graft & Intra-op Arteriogram Specimen/Specimens Removed: none Estimated Blood Loss: EBL {In ML}: 500 Blood Products Given: N/A Drains Used: No Drains Post-Op Condition: Good Date of Surgery/Procedure: 08/04/17 Time of Surgery/Procedure: 16:57
[2017-08-04] MEDS: HYDROmorphone 0.5 mg/0.5 ml ISec IVP PRN ×3 (17:07→21:59)
--- NOTE | 2017-08-04 18:00 | RAD ---
PROCEDURE: Fluoroscopy up to 1 hr. HISTORY: FEM POP BYPASS COMPARISON: None TECHNIQUE: Standard protocol for this study/examination. FINDINGS: Total fluoroscopic time (continuous mode) utilized during the procedure 112.5 (seconds). IMPRESSION: Less than 1 hr fluoroscopic time utilized during performance of the procedure.
--- NOTE | 2017-08-04 18:15 | CP.PCM.CON ---
History of Present Illness - History of Present Illness History of Present Illness: Critical Care consult note for Dr. Escobedo Reason for consult: Femoral-tibial bypass This is a 72 year old male with PMHx DM, HTN, HLD, PVD who presented for left 2nd toe gangrene. Upon review of the EMR, this may have been caused by trauma as the patient seems to have accidentally clipped himself. Patient underwent Left Femoral to Anterior Tibial Bypass with reverse Saphenous Vein Graft & Intra -op Arteriogram earlier this afternoon. Patient had 500 cc estimated blood loss. Patient was seen in the PACU s/p procedure. Per nursing staff, he had received a dose of Dilaudid. As such, the patient denied pain at the time. Patient has no acute complaints at this time, stating that he is fine. PMHx: Uncontrolled DM, HTN, HLD, PVD PSHx: Despite denying surgery, the EMR states otherwise. He has had significant vascular history which includes angioplasty (2013), atherectomy (2013), insertion of bare metal peripheral stent (2013). I&D perianal abscess 2012, Perirectal fistula repair 2012 Allergies: no known allergies Social: Smoker for "many years." Occasional alcohol use. Denies drugs. Lives with nephew. 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 Family history: sister from unknown cancer Review of Systems - Constitutional Constitutional: absent: Chills, Fever - EENT Eyes: absent: Change in Vision Ears: absent: Decreased Hearing Nose/Mouth/Throat: absent: Nasal Congestion - Cardiovascular Cardiovascular: absent: Chest Pain - Respiratory Respiratory: absent: Dyspnea - Gastrointestinal Gastrointestinal: absent: Abdominal Pain, Nausea, Vomiting - Genitourinary Genitourinary: absent: Dysuria - Musculoskeletal Musculoskeletal: absent: Back Pain - Integumentary Integumentary: absent: Rash - Neurological Neurological: absent: Dizziness, Headaches - Psychiatric Psychiatric: absent: Anxiety - Endocrine Endocrine: absent: Palpitations Past Patient History - Infectious Disease Hx of Infectious Diseases: None - Past Medical History & Family History Past Medical History?: Yes - Past Social History Smoking Status: Former Smoker - CARDIAC Hx Hypertension: Yes (no meds) - ENDOCRINE/METABOLIC Hx Diabetes Mellitus Type 2: Yes - MUSCULOSKELETAL/RHEUMATOLOGICAL Hx Falls: No - PSYCHIATRIC Hx Substance Use: No - SURGICAL HISTORY Hx Surgeries: No - ANESTHESIA Hx Anesthesia: No Hx Anesthesia Reactions: No Meds Allergies/Adverse Reactions: Allergies Allergy/AdvReac Type Severity Reaction Status Date / Time No Known Allergies Allergy Verified 05/05/13 09:36 - Medications Medications: Current Medications Acetaminophen (Tylenol 325mg Tab) 650 mg PO Q6 PRN PRN Reason: Pain, moderate (4-7) Last Admin: 08/03/17 00:40 Dose: 650 mg Aspirin (Aspirin Chewable) 81 mg PO DAILY [facility] Last Admin: 08/04/17 10:19 Dose: Not Given Cilostazol (Pletal) 100 mg PO BID [facility] Last Admin: 08/04/17 10:20 Dose: Not Given Clotrimazole (Lotrimin 1%) 1 gm TOP BID [facility] Last Admin: 08/04/17 10:19 Dose: Not Given Dextrose (Dextrose 50% Inj) 0 ml IV STAT PRN; Protocol PRN Reason: Hypoglycemia Protocol Dextrose (Glutose 15) 0 gm PO ONCE PRN; Protocol PRN Reason: Hypoglycemia Protocol Dextrose (Glutose 15) 0 gm PO .ONCE PRN; Protocol PRN Reason: Hypoglycemia Protocol Enoxaparin Sodium (Lovenox) 40 mg SC DAILY [facility] Last Admin: 08/03/17 09:44 Dose: 40 mg Glucagon (Glucagen Diagnostic Kit) 0 mg IM STAT PRN; Protocol PRN Reason: Hypoglycemia Protocol Glucagon (Glucagen Diagnostic Kit) 0 mg IM .STAT PRN; Protocol PRN Reason: Hypoglycemia Protocol Hydromorphone HCl (Dilaudid) 0.5 mg IVP Q10M PRN PRN Reason: Pain, moderate (4-7) Stop: 08/04/17 18:53 Last Admin: 08/04/17 17:07 Dose: 0.5 mg Hydromorphone HCl (Dilaudid) 0.5 mg IVP Q6H PRN PRN Reason: Pain, severe (8-10) Dextrose (Dextrose 5% In Water 1000 Ml) 1,000 mls @ 0 mls/hr IV .Q0M PRN; Protocol; Per Protocol PRN Reason: Hypoglycemia Protocol Piperacillin Sod/Tazobactam (Sod 3.375 gm/ Sodium Chloride) 100 mls @ 200 mls/ hr IVPB Q6H [facility] PRN Reason: Protocol Stop: 08/10/17 19:01 Last Admin: 08/04/17 12:57 Dose: 100 mls Vancomycin/Sodium Chloride (Vancomycin 1 Gm/Ns 200 Ml) 1 gm in 200 mls @ 133 mls/hr IVPB Q24H [facility] PRN Reason: Protocol Stop: 08/05/17 18:01 Last Admin: 08/03/17 17:15 Dose: 133 mls/hr Insulin Human Regular (Novolin R) 0 unit SC ACHS MARGY PRN Reason: Protocol Last Admin: 08/04/17 12:04 Dose: Not Given Metformin HCl (Glucophage) 850 mg PO BID [facility] Last Admin: 08/03/17 09:43 Dose: 850 mg Ondansetron HCl (Zofran Inj) 4 mg IVP ONCE PRN PRN Reason: Nausea/Vomiting Stop: 08/04/17 18:53 Oxycodone/Acetaminophen (Percocet 5/325 Mg Tab) 1 tab PO Q4H PRN PRN Reason: Pain, moderate (4-7) Stop: 08/07/17 16:59 Pregabalin (Lyrica) 50 mg PO BID [facility] Last Admin: 08/04/17 10:20 Dose: Not Given Rosuvastatin Calcium (Crestor) 20 mg PO HS [facility] Last Admin: 08/03/17 22:04 Dose: 20 mg Sitagliptin Phosphate (Januvia) 25 mg PO BID [facility] Last Admin: 08/03/17 09:43 Dose: 25 mg Physical Exam - Constitutional Appears: No Acute Distress - Head Exam Head Exam: ATRAUMATIC, NORMOCEPHALIC - Eye Exam Eye Exam: EOMI, Normal appearance - ENT Exam ENT Exam: Mucous Membranes Moist - Neck Exam Neck exam: Positive for: Normal Inspection - Respiratory Exam Respiratory Exam: Clear to Auscultation Bilateral, NORMAL BREATHING PATTERN. absent: Rales, Rhonchi, Wheezes - Cardiovascular Exam Cardiovascular Exam: REGULAR RHYTHM, +S1, +S2 - GI/Abdominal Exam GI & Abdominal Exam: Normal Bowel Sounds, Soft. absent: Tenderness - Extremities Exam Extremities exam: Negative for: pedal edema Additional comments: Groin insertion site is not actively bleeding at the time of encounter. Pedal pulses obtained bilaterally with doppler at bedside - Back Exam Back exam: NORMAL INSPECTION - Neurological Exam Neurological exam: Alert, CN II-XII Intact, Oriented x3 - Psychiatric Exam Psychiatric exam: Normal Affect, Normal Mood - Skin Skin Exam: Dry, Warm Results - Vital Signs Recent Vital Signs: Last Vital Signs Temp 97.3 F L 08/04/17 16:52 Pulse 118 H 08/04/17 16:52 Resp 17 08/04/17 16:52 BP 114/61 08/04/17 16:52 Pulse Ox 99 08/04/17 16:52 - Labs Result Diagrams: 08/04/17 18:32 08/04/17 06:18 Labs: Laboratory Results - last 24 hr 08/03/17 08/04/17 08/04/17 21:20 06:18 06:18 WBC 7.4 RBC 4.00 L Hgb 12.7 Hct 35.9 MCV 89.7 MCH 31.6 H MCHC 35.2 RDW 13.5 Plt Count 304 MPV 7.7 Neut % (Auto) 60.2 Lymph % (Auto) 29.5 [place] % (Auto) 6.9 Eos % (Auto) 2.8 Baso % (Auto) 0.6 Neut # (Auto) 4.5 Lymph # (Auto) 2.2 [place] # (Auto) 0.5 Eos # (Auto) 0.2 Baso # (Auto) 0.0 PT INR APTT Sodium 140 Potassium 3.9 Chloride 103 Carbon Dioxide 23 Anion Gap 17 BUN 12 Creatinine 0.9 Est GFR ( Amer) > 60 Est GFR (Non-Af Amer) > 60 POC Glucose (mg/dL) 180 H Random Glucose 133 H Calcium 9.1 Total Bilirubin 0.6 AST 15 L ALT 12 L D Alkaline Phosphatase 77 Total Protein 7.8 Albumin 3.6 Globulin 4.2 H Albumin/Globulin Ratio 0.9 L Blood Type Antibody Screen 08/04/17 08/04/17 08/04/17 06:18 06:18 07:12 WBC RBC Hgb Hct MCV MCH MCHC RDW Plt Count MPV Neut % (Auto) Lymph % (Auto) [place] % (Auto) Eos % (Auto) Baso % (Auto) Neut # (Auto) Lymph # (Auto) [place] # (Auto) Eos # (Auto) Baso # (Auto) PT 12.0 INR 1.1 APTT 37 H Sodium Potassium Chloride Carbon Dioxide Anion Gap BUN Creatinine Est GFR ( Amer) Est GFR (Non-Af Amer) POC Glucose (mg/dL) 123 H Random Glucose Calcium Total Bilirubin AST ALT Alkaline Phosphatase Total Protein Albumin Globulin Albumin/Globulin Ratio Blood Type O POSITIVE Antibody Screen Negative 08/04/17 16:57 WBC RBC Hgb Hct MCV MCH MCHC RDW Plt Count MPV Neut % (Auto) Lymph % (Auto) [place] % (Auto) Eos % (Auto) Baso % (Auto) Neut # (Auto) Lymph # (Auto) [place] # (Auto) Eos # (Auto) Baso # (Auto) PT INR APTT Sodium Potassium Chloride Carbon Dioxide Anion Gap BUN Creatinine Est GFR ( Amer) Est GFR (Non-Af Amer) POC Glucose (mg/dL) 138 H Random Glucose Calcium Total Bilirubin AST ALT Alkaline Phosphatase Total Protein Albumin Globulin Albumin/Globulin Ratio Blood Type Antibody Screen Assessment & Plan - Assessment and Plan (Free Text) Assessment: This is a 72 year old male with PMHx DM, HTN, HLD, PVD who presented for left 2nd toe gangrene. Patient underwent Left Femoral to Anterior Tibial Bypass with reverse Saphenous Vein Graft & Intra-op Arteriogram earlier this afternoon. Patient is being transferred to ICU for observation overnight. Neuro Awake, Verbal Cardio ASA 81 mg PO daily Normotensive but tachycardia likely due to post op Pulmonary Saturating well on room air GI Consistent Carb Diet Endocrine Hold Metformin Hold Januvia Regular ISS--medium dose Nephro kidney function studies are within normal limits ID On Vancomycin 1 gm Q24H On Zosyn 3.375 gm Q6H Heme/Onc Vascular surgery has requested blood transfusion Patient has blood on standby for transfusion pending CBC as the blood bank will not release the blood at this time. Prophylaxis Hold VTE anticoagulation NS 100cc/hr Disposition: To be monitored overnight in the ICU Discussed with Dr. Escobedo
[2017-08-04] MEDS ORDERED: Sodium Chloride 0.9% 500 ML IV ONE (18:30)
[2017-08-04 18:36] LABS: HEMOGLOBIN 11.3 g/dL (12.0-18.0); MEAN CORPUSCULAR HEMOGLOBIN 30.9 pg (27.0-31.0); MEAN CORPUSCULAR HGB CONC 33.2 g/dL (33.0-37.0); MEAN PLATELET VOLUME 7.3 fL (7.2-11.7); RBC 3.64 Mil/uL (4.40-5.90); RED CELL DISTRIBUTION WIDTH 13.3 % (11.5-14.5)
[2017-08-04 18:38] LABS: WHITE BLOOD COUNT 13.5 K/uL (4.8-10.8)
--- NOTE | 2017-08-04 18:42 | CP.PCM.PN ---
Subjective - Date & Time of Evaluation Date of Evaluation: 08/04/17 Time of Evaluation: 13:20 - Subjective Subjective: clinically same Objective - Vital Signs/Intake and Output Vital Signs (last 24 hours): Temp Pulse Resp BP Pulse Ox 97.3 F L 118 H 17 121/70 98 08/04/17 16:52 08/04/17 18:00 08/04/17 18:00 08/04/17 18:00 08/04/17 18:00 Intake and Output: 08/04/17 08/04/17 06:59 18:59 Intake Total 600 920 Output Total 1000 Balance 600 -80 - Medications Medications: Current Medications Acetaminophen (Tylenol 325mg Tab) 650 mg PO Q6 PRN PRN Reason: Pain, moderate (4-7) Last Admin: 08/03/17 00:40 Dose: 650 mg Aspirin (Aspirin Chewable) 81 mg PO DAILY [facility] Last Admin: 08/04/17 10:19 Dose: Not Given Cilostazol (Pletal) 100 mg PO BID [facility] Last Admin: 08/04/17 10:20 Dose: Not Given Clotrimazole (Lotrimin 1%) 1 gm TOP BID [facility] Last Admin: 08/04/17 10:19 Dose: Not Given Dextrose (Dextrose 50% Inj) 0 ml IV STAT PRN; Protocol PRN Reason: Hypoglycemia Protocol Dextrose (Glutose 15) 0 gm PO ONCE PRN; Protocol PRN Reason: Hypoglycemia Protocol Dextrose (Glutose 15) 0 gm PO .ONCE PRN; Protocol PRN Reason: Hypoglycemia Protocol Enoxaparin Sodium (Lovenox) 40 mg SC DAILY [facility] Last Admin: 08/03/17 09:44 Dose: 40 mg Glucagon (Glucagen Diagnostic Kit) 0 mg IM STAT PRN; Protocol PRN Reason: Hypoglycemia Protocol Glucagon (Glucagen Diagnostic Kit) 0 mg IM .STAT PRN; Protocol PRN Reason: Hypoglycemia Protocol Hydromorphone HCl (Dilaudid) 0.5 mg IVP Q10M PRN PRN Reason: Pain, moderate (4-7) Stop: 08/04/17 18:53 Last Admin: 08/04/17 17:07 Dose: 0.5 mg Hydromorphone HCl (Dilaudid) 0.5 mg IVP Q6H PRN PRN Reason: Pain, severe (8-10) Dextrose (Dextrose 5% In Water 1000 Ml) 1,000 mls @ 0 mls/hr IV .Q0M PRN; Protocol; Per Protocol PRN Reason: Hypoglycemia Protocol Piperacillin Sod/Tazobactam (Sod 3.375 gm/ Sodium Chloride) 100 mls @ 200 mls/ hr IVPB Q6H [facility] PRN Reason: Protocol Stop: 08/10/17 19:01 Last Admin: 08/04/17 12:57 Dose: 100 mls Vancomycin/Sodium Chloride (Vancomycin 1 Gm/Ns 200 Ml) 1 gm in 200 mls @ 133 mls/hr IVPB Q24H [facility] PRN Reason: Protocol Stop: 08/05/17 18:01 Last Admin: 08/03/17 17:15 Dose: 133 mls/hr Insulin Human Regular (Novolin R) 0 unit SC ACHS [facility] PRN Reason: Protocol Last Admin: 08/04/17 12:04 Dose: Not Given Metformin HCl (Glucophage) 850 mg PO BID [facility] Last Admin: 08/03/17 09:43 Dose: 850 mg Ondansetron HCl (Zofran Inj) 4 mg IVP ONCE PRN PRN Reason: Nausea/Vomiting Stop: 08/04/17 18:53 Oxycodone/Acetaminophen (Percocet 5/325 Mg Tab) 1 tab PO Q4H PRN PRN Reason: Pain, moderate (4-7) Stop: 08/07/17 16:59 Pregabalin (Lyrica) 50 mg PO BID [facility] Last Admin: 08/04/17 10:20 Dose: Not Given Rosuvastatin Calcium (Crestor) 20 mg PO HS [facility] Last Admin: 08/03/17 22:04 Dose: 20 mg Sitagliptin Phosphate (Januvia) 25 mg PO BID [facility] Last Admin: 08/03/17 09:43 Dose: 25 mg - Labs Labs: 08/04/17 18:32 08/04/17 06:18 PT 12.0 SECONDS (9.7-12.2) 08/04/17 06:18 INR 1.1 08/04/17 06:18 APTT 37 SECONDS (21-34) H 08/04/17 06:18 - Constitutional Appears: Well - Head Exam Head Exam: ATRAUMATIC, NORMAL INSPECTION, NORMOCEPHALIC - Eye Exam Eye Exam: EOMI, Normal appearance, PERRL Pupil Exam: NORMAL ACCOMODATION, PERRL - ENT Exam ENT Exam: Mucous Membranes Moist, Normal Exam - Neck Exam Neck Exam: Full ROM, Normal Inspection. absent: Lymphadenopathy - Respiratory Exam Respiratory Exam: Decreased Breath Sounds - Cardiovascular Exam Cardiovascular Exam: REGULAR RHYTHM, +S1, +S2 - GI/Abdominal Exam GI & Abdominal Exam: Soft, Diminished Bowel Sounds - Rectal Exam Rectal Exam: Deferred
[2017-08-04] MEDS: Vancomycin 1 gm/NS 200 ml 1 GM/200 ML BAG IVPB SCH (19:16)
[2017-08-04] MEDS: Sodium Chloride 0.9% 1,000 ML IV SCH (19:19)
--- NOTE | 2017-08-04 19:57 | CP.PCM.PCO ---
Physician Communication Note - Physician Communication Note Physician Communication Note: Patient had episode of bleeding from left groin surgical site in PACU Additional Comments - Additional Comments Additional Comments: Dr. Wilkins instructed me to order 1 u PRBC to be administered d/t blood loss in the OR and in PACU and in anticipation of further oozing from site overnight. Spoke to blood bank at 1955 who refused to release the unit of PRBC d /t patient's hgb only dropping 1.4g from 12.7 this AM to 11.[address] Wilkins made aware.
[2017-08-05] MEDS: Oxycodone/Acetaminophen 5/325 mg Tab PO PRN ×4 (00:55→22:00)
[2017-08-05] MEDS: Piperacillin/Tazobact 3.375 GM in Sodium Chloride 100 ML IVPB SCH ×4 (00:56→19:56)
--- NOTE | 2017-08-05 03:38 | OP ---
PROCEDURE DATE: 08/04/2017 PREOPERATIVE DIAGNOSIS: Gangrene of left second toe. POSTOPERATIVE DIAGNOSIS: Gangrene of left second toe. PROCEDURE CARRIED OUT: Femoral distal anterior tibial bypass using reverse saphenous vein with intraoperative arteriogram. SURGEON: Richard Wilkins Jr., MD [employer] OPERATOR: Dr. Bower. ANESTHESIOLOGIST: Mr. Blakely. INDICATIONS: The patient is a 72-year-old male, diabetic with previous endovascular intervention which had failed who was admitted to the hospital for gangrene of left second toe. OPERATIVE FINDINGS: The bypass was taken from the common femoral artery, relatively high up in the down to the distal very calcified anterior tibial artery, just above the ankle joint. At the end of the procedure, there was a good flow through it. There were numerous problems on the intraoperative arteriogram, but basically, there was very good flow through the graft. The rest of the intraoperative findings were remarkable. The recipient vessel was very calcified and small. The donor vessel was very good and the vein was approximately 3+ mm throughout its entire length. DESCRIPTION OF PROCEDURE: The patient was given general anesthesia and intravenous antibiotics. We took a number of angiograms at the beginning of the case to identify whether this was the dorsalis pedis or the peroneal artery. Subsequent films confirm that it was dorsalis pedis. After this had been done, we then marked around the skin with ultrasound marking. We had already dissected out the vessel and the groin to allow for the angiogram. We then dissected out the vessel in foot. We then dissected out the saphenous vein from the ankle, all the way upto the groin. After completely checking this and making sure there was no leak, the vein was prepared. It was then reversed, brought through subcutaneous tunnels and anastomosed using tourniquet control loupe magnification to the distal anterior tibial artery just above the ankle and then it was brought out through the tunnel to the common femoral artery and reverse anastomosed. There was expected bleeding after competition of the anastomosis, but everything went well. There was excellent flow through the graft. The patient tolerated the procedure uneventfully. Blood loss of the procedure was less than 500 mL. The operation carried out was left femoral distal anterior tibial bypass using reverse saphenous vein with intraoperative arteriogram. Richard Wilkins Jr., MD cc: MD Abbe Walter MD
[2017-08-05 06:31] LABS: BASO % 0.5 % (0.0-2.0); EOS % 0.4 % (0.0-4.0); HEMOGLOBIN 9.9 g/dL (12.0-18.0); LYMPH # 1.7 K/uL (1.0-4.3); LYMPH % 30.9 % (20.0-40.0); MEAN CELL VOLUME 88.6 fL (80.0-94.0); MEAN PLATELET VOLUME 7.8 fL (7.2-11.7); MONO # 0.7 K/uL (0.0-0.8); MONO % 12.1 % (0.0-10.0); NEUT # 3.1 K/uL (1.8-7.0); NEUT % 56.1 % (50.0-75.0); NRBC % 0.1 % (0.0-2.0); RBC 3.19 Mil/uL (4.40-5.90); RED CELL DISTRIBUTION WIDTH 15.1 % (11.5-14.5); WHITE BLOOD COUNT 5.6 K/uL (4.8-10.8)
[2017-08-05 06:48] LABS: ALB/GLOB RATIO 0.9 (1.0-2.1); ALBUMIN 2.7 g/dL (3.5-5.0); ALT/SGPT 15 U/L (21-72); AST/SGOT 14 U/L (17-59); BLOOD UREA NITROGEN 13 mg/dL (9-20); CALCIUM 7.6 mg/dl (8.6-10.4); GFR AFRICAN-AMERICAN > 60; GFR NON-AFRICAN AMERICAN > 60
[2017-08-05] MEDS: Sodium Chloride 0.9% 1,000 ML IV SCH ×2 (07:01→15:03)
[2017-08-05] MEDS: HYDROmorphone 0.5 mg/0.5 ml ISec IVP PRN (07:10)
[2017-08-05] MEDS: (Novolin R) Insulin Human Regular 100 units/ml vial SC SCH ×4 (07:43→22:00)
[2017-08-05] MEDS: Magnesium Sulfate 1 gm in D5W 1 GM/100 ML BAG IVPB SCH ×2 (07:44→08:40)
--- NOTE | 2017-08-05 08:31 | CP.PCM.PN ---
Subjective - Date & Time of Evaluation Date of Evaluation: 08/05/17 Time of Evaluation: 08:28 - Subjective Subjective: Surgery: Dr. Wilkins Pt seen and examined. No acute overnight events. States he feels ok this morning and has some post op incisional pain but otherwise denies complaints. Denies F/C. Objective - Vital Signs/Intake and Output Vital Signs (last 24 hours): Temp Pulse Resp BP Pulse Ox 98.4 F 128 H 106 H 117/61 99 08/05/17 08:00 08/05/17 08:00 08/05/17 08:00 08/05/17 06:02 08/05/17 08:00 Intake and Output: 08/05/17 08/05/17 06:59 18:59 Intake Total 2541 200 Output Total 535 75 Balance 2005 125 - Medications Medications: Current Medications Acetaminophen (Tylenol 325mg Tab) 650 mg PO Q6 PRN PRN Reason: Pain, moderate (4-7) Last Admin: 08/03/17 00:40 Dose: 650 mg Aspirin (Aspirin Chewable) 81 mg PO DAILY [facility] Last Admin: 08/04/17 10:19 Dose: Not Given Cilostazol (Pletal) 100 mg PO BID [facility] Last Admin: 08/04/17 19:15 Dose: Not Given Clotrimazole (Lotrimin 1%) 1 gm TOP BID [facility] Last Admin: 08/04/17 19:00 Dose: Not Given Dextrose (Dextrose 50% Inj) 0 ml IV STAT PRN; Protocol PRN Reason: Hypoglycemia Protocol Dextrose (Glutose 15) 0 gm PO ONCE PRN; Protocol PRN Reason: Hypoglycemia Protocol Dextrose (Glutose 15) 0 gm PO .ONCE PRN; Protocol PRN Reason: Hypoglycemia Protocol Enoxaparin Sodium (Lovenox) 40 mg SC DAILY [facility] Last Admin: 08/03/17 09:44 Dose: 40 mg Glucagon (Glucagen Diagnostic Kit) 0 mg IM STAT PRN; Protocol PRN Reason: Hypoglycemia Protocol Glucagon (Glucagen Diagnostic Kit) 0 mg IM .STAT PRN; Protocol PRN Reason: Hypoglycemia Protocol Hydromorphone HCl (Dilaudid) 0.5 mg IVP Q6H PRN PRN Reason: Pain, severe (8-10) Last Admin: 08/05/17 07:10 Dose: 0.5 mg Dextrose (Dextrose 5% In Water 1000 Ml) 1,000 mls @ 0 mls/hr IV .Q0M PRN; Protocol; Per Protocol PRN Reason: Hypoglycemia Protocol Piperacillin Sod/Tazobactam (Sod 3.375 gm/ Sodium Chloride) 100 mls @ 200 mls/ hr IVPB Q6H MARGY PRN Reason: Protocol Stop: 08/10/17 19:01 Last Admin: 08/05/17 06:25 Dose: 200 mls/hr Vancomycin/Sodium Chloride (Vancomycin 1 Gm/Ns 200 Ml) 1 gm in 200 mls @ 133 mls/hr IVPB Q24H MARGY PRN Reason: Protocol Stop: 08/05/17 18:01 Last Admin: 08/04/17 19:16 Dose: 133 mls/hr Sodium Chloride (Sodium Chloride 0.9%) 1,000 mls @ 100 mls/hr IV .Q10H [facility] Last Admin: 08/05/17 07:01 Dose: Not Given Insulin Human Regular (Novolin R) 0 unit SC ACHS [facility] PRN Reason: Protocol Last Admin: 08/05/17 07:43 Dose: 2 unit Metformin HCl (Glucophage) 850 mg PO BID [facility] Last Admin: 08/03/17 09:43 Dose: 850 mg Oxycodone/Acetaminophen (Percocet 5/325 Mg Tab) 1 tab PO Q4H PRN PRN Reason: Pain, moderate (4-7) Stop: 08/07/17 16:59 Last Admin: 08/05/17 05:38 Dose: 1 tab Pregabalin (Lyrica) 50 mg PO BID [facility] Last Admin: 08/04/17 22:31 Dose: 50 mg Rosuvastatin Calcium (Crestor) 20 mg PO HS [facility] Last Admin: 08/04/17 21:54 Dose: 20 mg Sitagliptin Phosphate (Januvia) 25 mg PO BID [facility] Last Admin: 08/03/17 09:43 Dose: 25 mg - Labs Labs: 08/05/17 06:22 08/05/17 06:22 PT 12.0 SECONDS (9.7-12.2) 08/04/17 06:18 INR 1.1 08/04/17 06:18 APTT 37 SECONDS (21-34) H 08/04/17 06:18 - Constitutional Appears: Well, No Acute Distress - Head Exam Head Exam: ATRAUMATIC, NORMOCEPHALIC - ENT Exam ENT Exam: Mucous Membranes Moist - Respiratory Exam Respiratory Exam: NORMAL BREATHING PATTERN - Cardiovascular Exam Cardiovascular Exam: Tachycardia - GI/Abdominal Exam GI & Abdominal Exam: Soft - Extremities Exam Additional comments: LLE with dressing, C/D/I. Pressure dressing in place left groin. Palpable 2+ pulse throughout the graft, Triphasic DP signals - Neurological Exam Neurological Exam: Alert, Awake, Oriented x3 - Skin Skin Exam: Dry, Warm Assessment and Plan - Assessment and Plan (Free Text) Assessment: 72M s/p L Fem-Tib bypass; POD#1 Plan: - remove wilburn - cont to monitor pulse in graft as well as left foot - Keep dressing in place - will discuss removing knee immobilizer later today - d/w Dr. Claudette Bower, PGY-3
[2017-08-05] MEDS: Cilostazol 100 mg Tab UD PO SCH ×2 (09:11→17:27)
[2017-08-05] MEDS ORDERED: Metoprolol 1 mg/ml Inj IVP ONE (09:21)
--- NOTE | 2017-08-05 09:56 | CP.CCUPN ---
<Raul Majano S - Last Filed: 08/05/17 15:10> CCU Subjective - Physician Review Subjective (Free Text): 08/05/17 09:53 Patient seen and examined. He is complaining of pain in the left leg. No other complaints at this time. CCU Objective - Vital Signs / Intake & Output Vital Signs (Last 4 hours): Vital Signs Temp Pulse Resp BP Pulse Ox 08/05/17 09:03 126 H 16 123/58 L 98 08/05/17 09:00 126 H 15 100 08/05/17 08:33 134 H 15 101/60 100 08/05/17 08:02 131 H 13 106/53 L 100 08/05/17 08:00 98.4 F 131 H 20 101/60 100 08/05/17 07:32 128 H 12 112/63 99 08/05/17 07:03 129 H 12 121/61 100 08/05/17 07:00 124 H 19 100 08/05/17 06:32 130 H 12 100 08/05/17 06:02 121 H 18 117/61 99 08/05/17 06:00 122 H 17 99 Intake and Output (Last 8hrs): Intake & Output 08/04/17 08/05/17 08/05/17 22:59 06:59 14:59 Intake Total 1098 1843 700 Output Total 1210 325 125 Balance -112 1518 575 Weight 115 lb 5 oz Intake: IV 300 Intake, IV Amount 558 925 300 Left Hand 558 925 300 Oral 240 640 400 Blood Product 0 278 Apheresis Rbc Cp2d As3 Lr 0 278 2nd Unit [id number] Output: Urine 1210 325 125 Urethral (Clements) 210 325 125 Stool 0 0 Other: # Bowel Movements 0 0 - Physical Exam Head: Positive for: Atraumatic, Normocephalic Pupils: Positive for: PERRL Extroacular Muscles: Positive for: EOMI Conjunctiva: Positive for: Normal Mouth: Positive for: Moist Mucous Membranes Respiratory/Chest: Positive for: Clear to Auscultation, Good Air Exchange. Negative for: Wheezes, Rales, Rhonchi Abdomen: Positive for: Normal Bowel Sounds. Negative for: Tenderness, Distention Upper Extremity: Positive for: Normal Inspection Lower Extremity: Positive for: Other (Pedal pulses obtained with doppler. No active bleeding from site of catheterization. Dressings are soaked in blood.) Neurological: Positive for: GCS=15 Skin: Positive for: Warm, Dry Psychiatric: Positive for: Alert, Oriented x 3 - Medications Active Medications: Active Medications Generic Name Dose Route Start Last Admin Trade Name Freq PRN Reason Stop Dose Admin Acetaminophen 650 mg 07/29/17 15:49 08/03/17 00:40 Tylenol 325mg Tab PO 650 mg Q6 PRN Administration Pain, moderate (4-7) Aspirin 81 mg 07/29/17 16:30 08/05/17 09:09 Aspirin Chewable PO 81 mg DAILY MARGY Administration Cilostazol 100 mg 07/30/17 18:00 08/05/17 09:11 Pletal PO 100 mg BID MARGY Administration Clotrimazole 1 gm 07/30/17 10:00 08/04/17 19:00 Lotrimin 1% TOP Not Given BID MARGY Dextrose 0 ml 07/29/17 15:49 Dextrose 50% Inj IV STAT PRN Hypoglycemia Protocol Protocol Dextrose 0 gm 07/29/17 15:49 Glutose 15 PO ONCE PRN Hypoglycemia Protocol Protocol Dextrose 0 gm 07/31/17 16:42 Glutose 15 PO .ONCE PRN Hypoglycemia Protocol Protocol Enoxaparin Sodium 40 mg 07/30/17 10:00 08/03/17 09:44 Lovenox SC 40 mg DAILY MARGY Administration Glucagon 0 mg 07/29/17 15:49 Glucagen Diagnostic Kit IM STAT PRN Hypoglycemia Protocol Protocol Glucagon 0 mg 07/31/17 16:42 Glucagen Diagnostic Kit IM .STAT PRN Hypoglycemia Protocol Protocol Hydromorphone HCl 0.5 mg 08/04/17 16:58 08/05/17 07:10 Dilaudid IVP 0.5 mg Q6H PRN Administration Pain, severe (8-10) Dextrose 1,000 mls @ 0 mls/hr 07/31/17 16:42 Dextrose 5% In Water 1000 Ml IV .Q0M PRN Hypoglycemia Protocol Protocol Per Protocol Piperacillin Sod/Tazobactam 100 mls @ 200 mls/hr 07/31/17 19:00 08/05/17 06: 25 Sod 3.375 gm/ Sodium Chloride IVPB 08/10/17 19:01 200 mls/hr Q6H MARGY Administration Protocol Vancomycin/Sodium Chloride 1 gm in 200 mls @ 133 mls/hr 07/31/17 18:00 19:16 Vancomycin 1 Gm/Ns 200 Ml IVPB 08/05/17 18:01 133 mls/hr Q24H MARGY Administration Protocol Sodium Chloride 1,000 mls @ 100 mls/hr 08/04/17 19:00 08/05/17 07:01 Sodium Chloride 0.9% IV Not Given .Q10H MARGY Insulin Human Regular 0 unit 07/29/17 16:30 08/05/17 07:43 Novolin R SC 2 unit ACHS MARGY Administration Protocol Metformin HCl 850 mg 07/31/17 18:00 08/03/17 09:43 Glucophage PO 850 mg BID MARGY Administration Oxycodone/Acetaminophen 1 tab 08/04/17 16:58 08/05/17 05:38 Percocet 5/325 Mg Tab PO 08/07/17 16:59 1 tab Q4H PRN Administration Pain, moderate (4-7) Pregabalin 50 mg 07/29/17 18:00 08/05/17 09:09 Lyrica PO 50 mg BID MARGY Administration Rosuvastatin Calcium 20 mg 07/30/17 22:00 08/04/17 21:54 Crestor PO 20 mg HS MARGY Administration Sitagliptin Phosphate 25 mg 07/31/17 18:00 08/03/17 09:43 Januvia PO 25 mg BID MARGY Administration - Patient Studies Lab Studies: Lab Studies 08/05/17 08/05/17 08/04/17 Range/Units 06:22 06:22 21:54 WBC 5.6 D (4.8-10.8) K/uL RBC 3.19 L (4.40-5.90) Mil/uL Hgb 9.9 L (12.0-18.0) g/dL Hct 28.2 L (35.0-51.0) % MCV 88.6 D (80.0-94.0) fL MCH 31.0 (27.0-31.0) pg MCHC 35.0 (33.0-37.0) g/dL RDW 15.1 H (11.5-14.5) % Plt Count 255 (130-400) K/uL MPV 7.8 (7.2-11.7) fL Neut % (Auto) 56.1 (50.0-75.0) % Lymph % (Auto) 30.9 (20.0-40.0) % [place] % (Auto) 12.1 H (0.0-10.0) % Eos % (Auto) 0.4 (0.0-4.0) % Baso % (Auto) 0.5 (0.0-2.0) % Neut # (Auto) 3.1 (1.8-7.0) K/uL Lymph # (Auto) 1.7 (1.0-4.3) K/uL [place] # (Auto) 0.7 (0.0-0.8) K/uL Eos # (Auto) 0.0 (0.0-0.7) K/uL Baso # (Auto) 0.0 (0.0-0.2) K/uL Sodium 138 (132-148) mmol/L Potassium 3.7 (3.6-5.2) mmol/L Chloride 105 (98-107) mmol/L Carbon Dioxide 21 L (22-30) mmol/L Anion Gap 15 (10-20) BUN 13 (9-20) mg/dL Creatinine 0.7 L (0.8-1.5) mg/dL Est GFR ( Amer) > 60 Est GFR (Non-Af Amer) > 60 POC Glucose (mg/dL) 228 H (65-110) mg/dL Random Glucose 181 H (75-110) mg/dL Calcium 7.6 L (8.6-10.4) mg/dl Phosphorus 3.8 (2.5-4.5) mg/dL Magnesium 1.5 L (1.6-2.3) mg/dL Total Bilirubin 1.0 (0.2-1.3) mg/dL AST 14 L (17-59) U/L ALT 15 L D (21-72) U/L Alkaline Phosphatase 55 (38-126) U/L Total Protein 5.8 L (6.3-8.3) g/dL Albumin 2.7 L D (3.5-5.0) g/dL Globulin 3.0 (2.2-3.9) gm/dL Albumin/Globulin Ratio 0.9 L (1.0-2.1) Blood Type Antibody Screen 04/09/18 04/09/18 04/09/18 Range/Units 18:32 16:57 06:18 WBC 13.5 H D (4.8-10.8) K/uL RBC 3.64 L (4.40-5.90) Mil/uL Hgb 11.3 L (12.0-18.0) g/dL Hct 33.9 L (35.0-51.0) % MCV 93.0 D (80.0-94.0) fL MCH 30.9 (27.0-31.0) pg MCHC 33.2 (33.0-37.0) g/dL RDW 13.3 (11.5-14.5) % Plt Count 307 (130-400) K/uL MPV 7.3 (7.2-11.7) fL Neut % (Auto) (50.0-75.0) % Lymph % (Auto) (20.0-40.0) % [place] % (Auto) (0.0-10.0) % Eos % (Auto) (0.0-4.0) % Baso % (Auto) (0.0-2.0) % Neut # (Auto) (1.8-7.0) K/uL Lymph # (Auto) (1.0-4.3) K/uL [place] # (Auto) (0.0-0.8) K/uL Eos # (Auto) (0.0-0.7) K/uL Baso # (Auto) (0.0-0.2) K/uL Sodium (132-148) mmol/L Potassium (3.6-5.2) mmol/L Chloride (98-107) mmol/L Carbon Dioxide (22-30) mmol/L Anion Gap (10-20) BUN (9-20) mg/dL Creatinine (0.8-1.5) mg/dL Est GFR ( Amer) Est GFR (Non-Af Amer) POC Glucose (mg/dL) 138 H (65-110) mg/dL Random Glucose (75-110) mg/dL Calcium (8.6-10.4) mg/dl Phosphorus (2.5-4.5) mg/dL Magnesium (1.6-2.3) mg/dL Total Bilirubin (0.2-1.3) mg/dL AST (17-59) U/L ALT (21-72) U/L Alkaline Phosphatase (38-126) U/L Total Protein (6.3-8.3) g/dL Albumin (3.5-5.0) g/dL Globulin (2.2-3.9) gm/dL Albumin/Globulin Ratio (1.0-2.1) Blood Type O POSITIVE Antibody Screen Negative Laboratory Results - last 24 hr 08/04/17 08/04/17 08/04/17 06:18 16:57 18:32 WBC 13.5 H D RBC 3.64 L Hgb 11.3 L Hct 33.9 L MCV 93.0 D MCH 30.9 MCHC 33.2 RDW 13.3 Plt Count 307 MPV 7.3 Neut % (Auto) Lymph % (Auto) [place] % (Auto) Eos % (Auto) Baso % (Auto) Neut # (Auto) Lymph # (Auto) [place] # (Auto) Eos # (Auto) Baso # (Auto) Sodium Potassium Chloride Carbon Dioxide Anion Gap BUN Creatinine Est GFR ( Amer) Est GFR (Non-Af Amer) POC Glucose (mg/dL) 138 H Random Glucose Calcium Phosphorus Magnesium Total Bilirubin AST ALT Alkaline Phosphatase Total Protein Albumin Globulin Albumin/Globulin Ratio Blood Type O POSITIVE Antibody Screen Negative 08/04/17 08/05/17 08/05/17 21:54 06:22 06:22 WBC 5.6 D RBC 3.19 L Hgb 9.9 L Hct 28.2 L MCV 88.6 D MCH 31.0 MCHC 35.0 RDW 15.1 H Plt Count 255 MPV 7.8 Neut % (Auto) 56.1 Lymph % (Auto) 30.9 [place] % (Auto) 12.1 H Eos % (Auto) 0.4 Baso % (Auto) 0.5 Neut # (Auto) 3.1 Lymph # (Auto) 1.7 [place] # (Auto) 0.7 Eos # (Auto) 0.0 Baso # (Auto) 0.0 Sodium 138 Potassium 3.7 Chloride 105 Carbon Dioxide 21 L Anion Gap 15 BUN 13 Creatinine 0.7 L Est GFR ( Amer) > 60 Est GFR (Non-Af Amer) > 60 POC Glucose (mg/dL) 228 H Random Glucose 181 H Calcium 7.6 L Phosphorus 3.8 Magnesium 1.5 L Total Bilirubin 1.0 AST 14 L ALT 15 L D Alkaline Phosphatase 55 Total Protein 5.8 L Albumin 2.7 L D Globulin 3.0 Albumin/Globulin Ratio 0.9 L Blood Type Antibody Screen Fingerstick Blood Sugar Results: 176 Critical Care Progress Note - Nutrition Nutrition: Nutrition Category Date Time Status Consistent Carbohydrate [DIET] Diets 08/04/17 Dinner Active Assessment/Plan - Assessment and Plan (Free Text) Assessment: This is a 72 year old male with PMHx DM, HTN, HLD, PVD who presented for left 2nd toe gangrene. Patient underwent Left Femoral to Anterior Tibial Bypass with reverse Saphenous Vein Graft & Intra-op Arteriogram on 08/04/17. POD #1 Neuro Awake, Verbal Cardio ASA 81 mg PO daily Normotensive but tachycardic. Lopressor 5 mg IV one dose given. Sinus tachycardia on EKG Remains tachycardic, so echo ordered and transfused 1 more unit RBCs. Pulmonary Saturating well on room air GI Consistent Carb Diet Endocrine Hold Metformin Hold Januvia Regular ISS--medium dose Nephro kidney function studies are within normal limits ID On Vancomycin 1 gm Q24H On Zosyn 3.375 gm Q6H Heme/Onc Received 1 unit of pRBCs overnight Prophylaxis Hold VTE anticoagulation NS 100cc/hr Disposition: Will continue monitoring in the ICU since he is still tachycardic. Seen and Discussed with Dr. Marie <John Marie S - Last Filed: 08/05/17 16:59> CCU Objective - Vital Signs / Intake & Output Vital Signs (Last 4 hours): Vital Signs Temp Pulse Resp BP 08/05/17 16:39 98.5 F 134 H 20 114/53 L 08/05/17 16:24 98.5 F 133 H 18 126/61 Intake and Output (Last 8hrs): Intake & Output 08/05/17 08/05/17 08/05/17 06:59 14:59 22:59 Intake Total 1843 2010 100 Output Total 325 125 600 Balance 1518 1885 -500 Weight 115 lb 5 oz Intake: Intake, IV Amount 925 890 100 Left Hand 925 890 100 Oral 640 1120 0 Blood Product 278 0 Apheresis Rbc Cp2d As3 Lr 0 1st Unit [id number] Apheresis Rbc Cp2d As3 Lr 278 2nd Unit [id number] Output: Urine 325 125 600 Urethral (Clements) 325 125 Urine, Voided 0 600 Stool 0 Other: # Voids Urine, Voided 2 # Bowel Movements 0 0 - Medications Active Medications: Active Medications Generic Name Dose Route Start Last Admin Trade Name Freq PRN Reason Stop Dose Admin Acetaminophen 650 mg 07/29/17 15:49 08/03/17 00:40 Tylenol 325mg Tab PO 650 mg Q6 PRN Administration Pain, moderate (4-7) Aspirin 81 mg 07/29/17 16:30 08/05/17 09:09 Aspirin Chewable PO 81 mg DAILY MARGY Administration Cilostazol 100 mg 07/30/17 18:00 08/05/17 09:11 Pletal PO 100 mg BID MARGY Administration Clotrimazole 1 gm 07/30/17 10:00 08/05/17 10:28 Lotrimin 1% TOP 1 applic BID MARGY Administration Dextrose 0 ml 07/29/17 15:49 Dextrose 50% Inj IV STAT PRN Hypoglycemia Protocol Protocol Dextrose 0 gm 07/29/17 15:49 Glutose 15 PO ONCE PRN Hypoglycemia Protocol Protocol Dextrose 0 gm 07/31/17 16:42 Glutose 15 PO .ONCE PRN Hypoglycemia Protocol Protocol Enoxaparin Sodium 40 mg 07/30/17 10:00 08/05/17 10:15 Lovenox SC 40 mg DAILY MARGY Administration Glucagon 0 mg 07/29/17 15:49 Glucagen Diagnostic Kit IM STAT PRN Hypoglycemia Protocol Protocol Glucagon 0 mg 07/31/17 16:42 Glucagen Diagnostic Kit IM .STAT PRN Hypoglycemia Protocol Protocol Hydromorphone HCl 0.5 mg 08/04/17 16:58 08/05/17 07:10 Dilaudid IVP 0.5 mg Q6H PRN Administration Pain, severe (8-10) Dextrose 1,000 mls @ 0 mls/hr 07/31/17 16:42 Dextrose 5% In Water 1000 Ml IV .Q0M PRN Hypoglycemia Protocol Protocol Per Protocol Piperacillin Sod/Tazobactam 100 mls @ 200 mls/hr 07/31/17 19:00 08/05/17 12: 09 Sod 3.375 gm/ Sodium Chloride IVPB 08/10/17 19:01 200 mls/hr Q6H MARGY Administration Protocol Vancomycin/Sodium Chloride 1 gm in 200 mls @ 133 mls/hr 07/31/17 18:00 19:16 Vancomycin 1 Gm/Ns 200 Ml IVPB 08/05/17 18:01 133 mls/hr Q24H MARGY Administration Protocol Sodium Chloride 1,000 mls @ 100 mls/hr 08/04/17 19:00 08/05/17 15:03 Sodium Chloride 0.9% IV 100 mls/hr .Q10H MARGY Administration Insulin Human Regular 0 unit 07/29/17 16:30 08/05/17 16:48 Novolin R SC 4 unit ACHS MARGY Administration Protocol Metformin HCl 850 mg 07/31/17 18:00 08/03/17 09:43 Glucophage PO 850 mg BID MARGY Administration Oxycodone/Acetaminophen 1 tab 08/04/17 16:58 08/05/17 12:07 Percocet 5/325 Mg Tab PO 08/07/17 16:59 1 tab Q4H PRN Administration Pain, moderate (4-7) Pregabalin 50 mg 07/29/17 18:00 08/05/17 09:09 Lyrica PO 50 mg BID MARGY Administration Rosuvastatin Calcium 20 mg 07/30/17 22:00 08/04/17 21:54 Crestor PO 20 mg HS MARGY Administration Sitagliptin Phosphate 25 mg 07/31/17 18:00 08/03/17 09:43 Januvia PO 25 mg BID MARGY Administration - Patient Studies Lab Studies: Lab Studies 08/05/17 08/05/17 08/05/17 Range/Units 16:13 14:32 11:44 WBC (4.8-10.8) K/uL RBC (4.40-5.90) Mil/uL Hgb (12.0-18.0) g/dL Hct (35.0-51.0) % MCV (80.0-94.0) fL MCH (27.0-31.0) pg MCHC (33.0-37.0) g/dL RDW (11.5-14.5) % Plt Count (130-400) K/uL MPV (7.2-11.7) fL Neut % (Auto) (50.0-75.0) % Lymph % (Auto) (20.0-40.0) % [place] % (Auto) (0.0-10.0) % Eos % (Auto) (0.0-4.0) % Baso % (Auto) (0.0-2.0) % Neut # (Auto) (1.8-7.0) K/uL Lymph # (Auto) (1.0-4.3) K/uL [place] # (Auto) (0.0-0.8) K/uL Eos # (Auto) (0.0-0.7) K/uL Baso # (Auto) (0.0-0.2) K/uL Sodium (132-148) mmol/L Potassium (3.6-5.2) mmol/L Chloride (98-107) mmol/L Carbon Dioxide (22-30) mmol/L Anion Gap (10-20) BUN (9-20) mg/dL Creatinine (0.8-1.5) mg/dL Est GFR ( Amer) Est GFR (Non-Af Amer) POC Glucose (mg/dL) 268 H 265 H (65-110) mg/dL Random Glucose (75-110) mg/dL Calcium (8.6-10.4) mg/dl Phosphorus (2.5-4.5) mg/dL Magnesium (1.6-2.3) mg/dL Total Bilirubin (0.2-1.3) mg/dL AST (17-59) U/L ALT (21-72) U/L Alkaline Phosphatase (38-126) U/L Total Creatine Kinase 39 L (55-170) U/L CK-MB (Mass) 0.69 (0.0-3.38) ng/mL Troponin I < 0.0120 (0.00-0.120) ng/mL Total Protein (6.3-8.3) g/dL Albumin (3.5-5.0) g/dL Globulin (2.2-3.9) gm/dL Albumin/Globulin Ratio (1.0-2.1) Blood Type Antibody Screen 08/05/17 08/05/17 08/05/17 Range/Units 07:31 06:22 06:22 WBC 5.6 D (4.8-10.8) K/uL RBC 3.19 L (4.40-5.90) Mil/uL Hgb 9.9 L (12.0-18.0) g/dL Hct 28.2 L (35.0-51.0) % MCV 88.6 D (80.0-94.0) fL MCH 31.0 (27.0-31.0) pg MCHC 35.0 (33.0-37.0) g/dL RDW 15.1 H (11.5-14.5) % Plt Count 255 (130-400) K/uL MPV 7.8 (7.2-11.7) fL Neut % (Auto) 56.1 (50.0-75.0) % Lymph % (Auto) 30.9 (20.0-40.0) % [place] % (Auto) 12.1 H (0.0-10.0) % Eos % (Auto) 0.4 (0.0-4.0) % Baso % (Auto) 0.5 (0.0-2.0) % Neut # (Auto) 3.1 (1.8-7.0) K/uL Lymph # (Auto) 1.7 (1.0-4.3) K/uL [place] # (Auto) 0.7 (0.0-0.8) K/uL Eos # (Auto) 0.0 (0.0-0.7) K/uL Baso # (Auto) 0.0 (0.0-0.2) K/uL Sodium 138 (132-148) mmol/L Potassium 3.7 (3.6-5.2) mmol/L Chloride 105 (98-107) mmol/L Carbon Dioxide 21 L (22-30) mmol/L Anion Gap 15 (10-20) BUN 13 (9-20) mg/dL Creatinine 0.7 L (0.8-1.5) mg/dL Est GFR ( Amer) > 60 Est GFR (Non-Af Amer) > 60 POC Glucose (mg/dL) 176 H (65-110) mg/dL Random Glucose 181 H (75-110) mg/dL Calcium 7.6 L (8.6-10.4) mg/dl Phosphorus 3.8 (2.5-4.5) mg/dL Magnesium 1.5 L (1.6-2.3) mg/dL Total Bilirubin 1.0 (0.2-1.3) mg/dL AST 14 L (17-59) U/L ALT 15 L D (21-72) U/L Alkaline Phosphatase 55 (38-126) U/L Total Creatine Kinase (55-170) U/L CK-MB (Mass) (0.0-3.38) ng/mL Troponin I (0.00-0.120) ng/mL Total Protein 5.8 L (6.3-8.3) g/dL Albumin 2.7 L D (3.5-5.0) g/dL Globulin 3.0 (2.2-3.9) gm/dL Albumin/Globulin Ratio 0.9 L (1.0-2.1) Blood Type Antibody Screen 08/04/17 08/04/17 08/04/17 Range/Units 21:54 18:32 16:57 WBC 13.5 H D (4.8-10.8) K/uL RBC 3.64 L (4.40-5.90) Mil/uL Hgb 11.3 L (12.0-18.0) g/dL Hct 33.9 L (35.0-51.0) % MCV 93.0 D (80.0-94.0) fL MCH 30.9 (27.0-31.0) pg MCHC 33.2 (33.0-37.0) g/dL RDW 13.3 (11.5-14.5) % Plt Count 307 (130-400) K/uL MPV 7.3 (7.2-11.7) fL Neut % (Auto) (50.0-75.0) % Lymph % (Auto) (20.0-40.0) % [place] % (Auto) (0.0-10.0) % Eos % (Auto) (0.0-4.0) % Baso % (Auto) (0.0-2.0) % Neut # (Auto) (1.8-7.0) K/uL Lymph # (Auto) (1.0-4.3) K/uL [place] # (Auto) (0.0-0.8) K/uL Eos # (Auto) (0.0-0.7) K/uL Baso # (Auto) (0.0-0.2) K/uL Sodium (132-148) mmol/L Potassium (3.6-5.2) mmol/L Chloride (98-107) mmol/L Carbon Dioxide (22-30) mmol/L Anion Gap (10-20) BUN (9-20) mg/dL Creatinine (0.8-1.5) mg/dL Est GFR ( Amer) Est GFR (Non-Af Amer) POC Glucose (mg/dL) 228 H 138 H (65-110) mg/dL Random Glucose (75-110) mg/dL Calcium (8.6-10.4) mg/dl Phosphorus (2.5-4.5) mg/dL Magnesium (1.6-2.3) mg/dL Total Bilirubin (0.2-1.3) mg/dL AST (17-59) U/L ALT (21-72) U/L Alkaline Phosphatase (38-126) U/L Total Creatine Kinase (55-170) U/L CK-MB (Mass) (0.0-3.38) ng/mL Troponin I (0.00-0.120) ng/mL Total Protein (6.3-8.3) g/dL Albumin (3.5-5.0) g/dL Globulin (2.2-3.9) gm/dL Albumin/Globulin Ratio (1.0-2.1) Blood Type Antibody Screen 08/04/17 Range/Units 06:18 WBC (4.8-10.8) K/uL RBC (4.40-5.90) Mil/uL Hgb (12.0-18.0) g/dL Hct (35.0-51.0) % MCV (80.0-94.0) fL MCH (27.0-31.0) pg MCHC (33.0-37.0) g/dL RDW (11.5-14.5) % Plt Count (130-400) K/uL MPV (7.2-11.7) fL Neut % (Auto) (50.0-75.0) % Lymph % (Auto) (20.0-40.0) % [place] % (Auto) (0.0-10.0) % Eos % (Auto) (0.0-4.0) % Baso % (Auto) (0.0-2.0) % Neut # (Auto) (1.8-7.0) K/uL Lymph # (Auto) (1.0-4.3) K/uL [place] # (Auto) (0.0-0.8) K/uL Eos # (Auto) (0.0-0.7) K/uL Baso # (Auto) (0.0-0.2) K/uL Sodium (132-148) mmol/L Potassium (3.6-5.2) mmol/L Chloride (98-107) mmol/L Carbon Dioxide (22-30) mmol/L Anion Gap (10-20) BUN (9-20) mg/dL Creatinine (0.8-1.5) mg/dL Est GFR ( Amer) Est GFR (Non-Af Amer) POC Glucose (mg/dL) (65-110) mg/dL Random Glucose (75-110) mg/dL Calcium (8.6-10.4) mg/dl Phosphorus (2.5-4.5) mg/dL Magnesium (1.6-2.3) mg/dL Total Bilirubin (0.2-1.3) mg/dL AST (17-59) U/L ALT (21-72) U/L Alkaline Phosphatase (38-126) U/L Total Creatine Kinase (55-170) U/L CK-MB (Mass) (0.0-3.38) ng/mL Troponin I (0.00-0.120) ng/mL Total Protein (6.3-8.3) g/dL Albumin (3.5-5.0) g/dL Globulin (2.2-3.9) gm/dL Albumin/Globulin Ratio (1.0-2.1) Blood Type O POSITIVE Antibody Screen Negative Laboratory Results - last 24 hr 08/04/17 08/04/17 08/04/17 06:18 16:57 18:32 WBC 13.5 H D RBC 3.64 L Hgb 11.3 L Hct 33.9 L MCV 93.0 D MCH 30.9 MCHC 33.2 RDW 13.3 Plt Count 307 MPV 7.3 Neut % (Auto) Lymph % (Auto) [place] % (Auto) Eos % (Auto) Baso % (Auto) Neut # (Auto) Lymph # (Auto) [place] # (Auto) Eos # (Auto) Baso # (Auto) Sodium Potassium Chloride Carbon Dioxide Anion Gap BUN Creatinine Est GFR ( Amer) Est GFR (Non-Af Amer) POC Glucose (mg/dL) 138 H Random Glucose Calcium Phosphorus Magnesium Total Bilirubin AST ALT Alkaline Phosphatase Total Creatine Kinase CK-MB (Mass) Troponin I Total Protein Albumin Globulin Albumin/Globulin Ratio Blood Type O POSITIVE Antibody Screen Negative 08/04/17 08/05/17 08/05/17 21:54 06:22 06:22 WBC 5.6 D RBC 3.19 L Hgb 9.9 L Hct 28.2 L MCV 88.6 D MCH 31.0 MCHC 35.0 RDW 15.1 H Plt Count 255 MPV 7.8 Neut % (Auto) 56.1 Lymph % (Auto) 30.9 [place] % (Auto) 12.1 H Eos % (Auto) 0.4 Baso % (Auto) 0.5 Neut # (Auto) 3.1 Lymph # (Auto) 1.7 [place] # (Auto) 0.7 Eos # (Auto) 0.0 Baso # (Auto) 0.0 Sodium 138 Potassium 3.7 Chloride 105 Carbon Dioxide 21 L Anion Gap 15 BUN 13 Creatinine 0.7 L Est GFR ( Amer) > 60 Est GFR (Non-Af Amer) > 60 POC Glucose (mg/dL) 228 H Random Glucose 181 H Calcium 7.6 L Phosphorus 3.8 Magnesium 1.5 L Total Bilirubin 1.0 AST 14 L ALT 15 L D Alkaline Phosphatase 55 Total Creatine Kinase CK-MB (Mass) Troponin I Total Protein 5.8 L Albumin 2.7 L D Globulin 3.0 Albumin/Globulin Ratio 0.9 L Blood Type Antibody Screen 08/05/17 08/05/17 08/05/17 07:31 11:44 14:32 WBC RBC Hgb Hct MCV MCH MCHC RDW Plt Count MPV Neut % (Auto) Lymph % (Auto) [place] % (Auto) Eos % (Auto) Baso % (Auto) Neut # (Auto) Lymph # (Auto) [place] # (Auto) Eos # (Auto) Baso # (Auto) Sodium Potassium Chloride Carbon Dioxide Anion Gap BUN Creatinine Est GFR ( Amer) Est GFR (Non-Af Amer) POC Glucose (mg/dL) 176 H 265 H Random Glucose Calcium Phosphorus Magnesium Total Bilirubin AST ALT Alkaline Phosphatase Total Creatine Kinase 39 L CK-MB (Mass) 0.69 Troponin I < 0.0120 Total Protein Albumin Globulin Albumin/Globulin Ratio Blood Type Antibody Screen 08/05/17 16:13 WBC RBC Hgb Hct MCV MCH MCHC RDW Plt Count MPV Neut % (Auto) Lymph % (Auto) [place] % (Auto) Eos % (Auto) Baso % (Auto) Neut # (Auto) Lymph # (Auto) [place] # (Auto) Eos # (Auto) Baso # (Auto) Sodium Potassium Chloride Carbon Dioxide Anion Gap BUN Creatinine Est GFR ( Amer) Est GFR (Non-Af Amer) POC Glucose (mg/dL) 268 H Random Glucose Calcium Phosphorus Magnesium Total Bilirubin AST ALT Alkaline Phosphatase Total Creatine Kinase CK-MB (Mass) Troponin I Total Protein Albumin Globulin Albumin/Globulin Ratio Blood Type Antibody Screen EKG/Cardiology Studies: Cardiology / EKG Studies 08/05/17 13:11 EKG [ELECTROCARDIOGRAM] Routine Comment: Mode Of Transportation: Reason For Exam: tachycardia Critical Care Progress Note - Nutrition Nutrition: Nutrition Category Date Time Status Consistent Carbohydrate [DIET] Diets 08/04/17 Dinner Active Attending/Attestation - Attestation I have personally seen and examined this patient.: Yes I have fully participated in the care of the patient.: Yes I have reviewed all pertinent clinical information: Yes Notes (Text): 08/05/17 16:57 Patient seen and examined in the intensive care unit. Case discussed with house staff in the morning. Patient underwent Left Femoral to Anterior Tibial Bypass with reverse Saphenous Vein Graft & Intra-op Arteriogram on 08/04/17 She remains tachycardic, status post transfusion of packed RBCs Echocardiogram Lopressor as needed Patient has good urine output Hemodynamically stable
[2017-08-05] MEDS: Enoxaparin 40 mg Syringe SC SCH (10:15)
[2017-08-05] MEDS: Clotrimazole 1% Cream(30 gm) TOP SCH ×2 (10:28→17:23)
--- NOTE | 2017-08-05 10:54 | CP.PCM.PN ---
Subjective - Date & Time of Evaluation Date of Evaluation: 08/05/17 Time of Evaluation: 10:30 - Subjective Subjective: Podiatry Progress Note - Dr. Bryant 72 yo male seen at bedside in ICU today for L 2nd digit dry gangrene. Pt is POD# 1 L fem-anterior tib bypass with Dr. Wilkins. Pt is seen resting comfortably in bed at time of visit with present at the bedside. Dressing to left lower ext graft appears c/d/i. Pt reports minimal pain to the leg, denies any foot pain today. Objective - Vital Signs/Intake and Output Vital Signs (last 24 hours): Temp Pulse Resp BP Pulse Ox 98.4 F 117 H 14 121/67 99 08/05/17 08:00 08/05/17 10:32 08/05/17 10:32 08/05/17 10:32 08/05/17 10:32 Intake and Output: 08/05/17 08/05/17 06:59 18:59 Intake Total 2541 1210 Output Total 535 125 Balance 2005 1085 - Medications Medications: Current Medications Acetaminophen (Tylenol 325mg Tab) 650 mg PO Q6 PRN PRN Reason: Pain, moderate (4-7) Last Admin: 08/03/17 00:40 Dose: 650 mg Aspirin (Aspirin Chewable) 81 mg PO DAILY [facility] Last Admin: 08/05/17 09:09 Dose: 81 mg Cilostazol (Pletal) 100 mg PO BID [facility] Last Admin: 08/05/17 09:11 Dose: 100 mg Clotrimazole (Lotrimin 1%) 1 gm TOP BID [facility] Last Admin: 08/05/17 10:28 Dose: 1 applic Dextrose (Dextrose 50% Inj) 0 ml IV STAT PRN; Protocol PRN Reason: Hypoglycemia Protocol Dextrose (Glutose 15) 0 gm PO ONCE PRN; Protocol PRN Reason: Hypoglycemia Protocol Dextrose (Glutose 15) 0 gm PO .ONCE PRN; Protocol PRN Reason: Hypoglycemia Protocol Enoxaparin Sodium (Lovenox) 40 mg SC DAILY [facility] Last Admin: 08/05/17 10:15 Dose: 40 mg Glucagon (Glucagen Diagnostic Kit) 0 mg IM STAT PRN; Protocol PRN Reason: Hypoglycemia Protocol Glucagon (Glucagen Diagnostic Kit) 0 mg IM .STAT PRN; Protocol PRN Reason: Hypoglycemia Protocol Hydromorphone HCl (Dilaudid) 0.5 mg IVP Q6H PRN PRN Reason: Pain, severe (8-10) Last Admin: 08/05/17 07:10 Dose: 0.5 mg Dextrose (Dextrose 5% In Water 1000 Ml) 1,000 mls @ 0 mls/hr IV .Q0M PRN; Protocol; Per Protocol PRN Reason: Hypoglycemia Protocol Piperacillin Sod/Tazobactam (Sod 3.375 gm/ Sodium Chloride) 100 mls @ 200 mls/ hr IVPB Q6H MARGY PRN Reason: Protocol Stop: 08/10/17 19:01 Last Admin: 08/05/17 06:25 Dose: 200 mls/hr Vancomycin/Sodium Chloride (Vancomycin 1 Gm/Ns 200 Ml) 1 gm in 200 mls @ 133 mls/hr IVPB Q24H MARGY PRN Reason: Protocol Stop: 08/05/17 18:01 Last Admin: 08/04/17 19:16 Dose: 133 mls/hr Sodium Chloride (Sodium Chloride 0.9%) 1,000 mls @ 100 mls/hr IV .Q10H [facility] Last Admin: 08/05/17 07:01 Dose: Not Given Insulin Human Regular (Novolin R) 0 unit SC ACHS MARGY PRN Reason: Protocol Last Admin: 08/05/17 07:43 Dose: 2 unit Metformin HCl (Glucophage) 850 mg PO BID [facility] Last Admin: 08/03/17 09:43 Dose: 850 mg Oxycodone/Acetaminophen (Percocet 5/325 Mg Tab) 1 tab PO Q4H PRN PRN Reason: Pain, moderate (4-7) Stop: 08/07/17 16:59 Last Admin: 08/05/17 05:38 Dose: 1 tab Pregabalin (Lyrica) 50 mg PO BID [facility] Last Admin: 08/05/17 09:09 Dose: 50 mg Rosuvastatin Calcium (Crestor) 20 mg PO [facility] Last Admin: 08/04/17 21:54 Dose: 20 mg Sitagliptin Phosphate (Januvia) 25 mg PO BID [facility] Last Admin: 08/03/17 09:43 Dose: 25 mg - Labs Labs: 08/05/17 06:22 08/05/17 06:22 PT 12.0 SECONDS (9.7-12.2) 08/04/17 06:18 INR 1.1 04/09/18 06:18 APTT 37 SECONDS (21-34) H 08/04/17 06:18 - Constitutional Appears: Non-toxic, No Acute Distress - Extremities Exam Extremities Exam: Calf Tenderness Additional comments: LLE focused Dressing to left leg bypass graft appears c/d/i (surgical team managing) VASC- DP pulse is now palpable, doppler reveals triphasic waveform, cap refill is delayed all digits, neg pedal edema NEURO- gross and protective pedal sensation are diminished DERM- mummification is noted to left 2nd digit with circumferential demarcation noted to level of 2nd MTPJ with necrotic discoloration toe is dry with neg drainage, neg malodor, neg fluctuance, neg signs infection MSKL- neg tenderness to 2nd digit today, able to wiggle all toes freely - Neurological Exam Neurological Exam: Alert, Awake, Oriented x3 - Psychiatric Exam Psychiatric exam: Normal Affect, Normal Mood Assessment and Plan - Assessment and Plan (Free Text) Assessment: 72 yo diabetic male with dry gangrene of L 2nd digit 2/2 severe PVD (POD#1 L fem -tib bypass) Plan: Patient S&E at bedside Discussed with Dr. Bryant Afebrile, absent leukocytosis L foot XR: no acute findings Continue IV abx Mx of graft site per surgical team, will await further recommendations Will require ampof L 2nd digit once stable keep toe clean and dry Will monitor
--- NOTE | 2017-08-05 11:39 | CP.PCM.PN ---
Subjective - Date & Time of Evaluation Date of Evaluation: 08/05/17 Time of Evaluation: 08:00 - Subjective Subjective: POD#1 L fem-anterior tib bypass with Dr. Wilkins Objective - Vital Signs/Intake and Output Vital Signs (last 24 hours): Temp Pulse Resp BP Pulse Ox 98.4 F 117 H 14 121/67 99 08/05/17 08:00 08/05/17 10:32 08/05/17 10:32 08/05/17 10:32 08/05/17 10:32 Intake and Output: 08/05/17 08/05/17 06:59 18:59 Intake Total 2541 1210 Output Total 535 125 Balance 2005 1085 - Medications Medications: Current Medications Acetaminophen (Tylenol 325mg Tab) 650 mg PO Q6 PRN PRN Reason: Pain, moderate (4-7) Last Admin: 08/03/17 00:40 Dose: 650 mg Aspirin (Aspirin Chewable) 81 mg PO DAILY [facility] Last Admin: 08/05/17 09:09 Dose: 81 mg Cilostazol (Pletal) 100 mg PO BID [facility] Last Admin: 08/05/17 09:11 Dose: 100 mg Clotrimazole (Lotrimin 1%) 1 gm TOP BID [facility] Last Admin: 08/05/17 10:28 Dose: 1 applic Dextrose (Dextrose 50% Inj) 0 ml IV STAT PRN; Protocol PRN Reason: Hypoglycemia Protocol Dextrose (Glutose 15) 0 gm PO ONCE PRN; Protocol PRN Reason: Hypoglycemia Protocol Dextrose (Glutose 15) 0 gm PO .ONCE PRN; Protocol PRN Reason: Hypoglycemia Protocol Enoxaparin Sodium (Lovenox) 40 mg SC DAILY [facility] Last Admin: 08/05/17 10:15 Dose: 40 mg Glucagon (Glucagen Diagnostic Kit) 0 mg IM STAT PRN; Protocol PRN Reason: Hypoglycemia Protocol Glucagon (Glucagen Diagnostic Kit) 0 mg IM .STAT PRN; Protocol PRN Reason: Hypoglycemia Protocol Hydromorphone HCl (Dilaudid) 0.5 mg IVP Q6H PRN PRN Reason: Pain, severe (8-10) Last Admin: 08/05/17 07:10 Dose: 0.5 mg Dextrose (Dextrose 5% In Water 1000 Ml) 1,000 mls @ 0 mls/hr IV .Q0M PRN; Protocol; Per Protocol PRN Reason: Hypoglycemia Protocol Piperacillin Sod/Tazobactam (Sod 3.375 gm/ Sodium Chloride) 100 mls @ 200 mls/ hr IVPB Q6H MARGY PRN Reason: Protocol Stop: 08/10/17 19:01 Last Admin: 08/05/17 06:25 Dose: 200 mls/hr Vancomycin/Sodium Chloride (Vancomycin 1 Gm/Ns 200 Ml) 1 gm in 200 mls @ 133 mls/hr IVPB Q24H MARGY PRN Reason: Protocol Stop: 08/05/17 18:01 Last Admin: 08/04/17 19:16 Dose: 133 mls/hr Sodium Chloride (Sodium Chloride 0.9%) 1,000 mls @ 100 mls/hr IV .Q10H [facility] Last Admin: 08/05/17 07:01 Dose: Not Given Insulin Human Regular (Novolin R) 0 unit SC ACHS MARGY PRN Reason: Protocol Last Admin: 08/05/17 07:43 Dose: 2 unit Metformin HCl (Glucophage) 850 mg PO BID [facility] Last Admin: 08/03/17 09:43 Dose: 850 mg Oxycodone/Acetaminophen (Percocet 5/325 Mg Tab) 1 tab PO Q4H PRN PRN Reason: Pain, moderate (4-7) Stop: 08/07/17 16:59 Last Admin: 08/05/17 05:38 Dose: 1 tab Pregabalin (Lyrica) 50 mg PO BID [facility] Last Admin: 08/05/17 09:09 Dose: 50 mg Rosuvastatin Calcium (Crestor) 20 mg PO HS [facility] Last Admin: 08/04/17 21:54 Dose: 20 mg Sitagliptin Phosphate (Januvia) 25 mg PO BID [facility] Last Admin: 08/03/17 09:43 Dose: 25 mg - Labs Labs: 08/05/17 06:22 08/05/17 06:22 PT 12.0 SECONDS (9.7-12.2) 08/04/17 06:18 INR 1.1 08/04/17 06:18 APTT 37 SECONDS (21-34) H 08/04/17 06:18 - Constitutional Appears: Non-toxic, Chronically Ill - Head Exam Head Exam: NORMOCEPHALIC - Eye Exam Eye Exam: absent: Scleral icterus - ENT Exam ENT Exam: Mucous Membranes Dry - Neck Exam Neck Exam: absent: Lymphadenopathy - Respiratory Exam Respiratory Exam: Decreased Breath Sounds - Cardiovascular Exam Cardiovascular Exam: REGULAR RHYTHM - GI/Abdominal Exam GI & Abdominal Exam: Distended, Soft - Rectal Exam Rectal Exam: Deferred - Exam Exam: NORMAL INSPECTION - Extremities Exam Extremities Exam: Pedal Edema, Tenderness - Back Exam Back Exam: absent: CVA tenderness (L), CVA tenderness (R) - Neurological Exam Neurological Exam: Alert, Awake, Oriented x3 - Psychiatric Exam Psychiatric exam: Normal Mood - Skin Skin Exam: Dry Assessment and Plan (1) Gangrene of toe of left foot Status: Acute (2) Peripheral arterial disease Status: Acute (3) Cellulitis Status: Acute - Assessment and Plan (Free Text) Assessment: cont iv rx for gangrene left foot
[2017-08-05 15:11] LABS: CK-MB 0.69 ng/mL (0.0-3.38)
[2017-08-05] MEDS: Vancomycin 1 gm/NS 200 ml 1 GM/200 ML BAG IVPB SCH (17:22)
[2017-08-05] MEDS: Metoprolol 1 mg/ml Inj IVP PRN (19:36)
[2017-08-06] MEDS: Metoprolol 1 mg/ml Inj IVP PRN ×4 (00:17→20:18)
[2017-08-06] MEDS: Piperacillin/Tazobact 3.375 GM in Sodium Chloride 100 ML IVPB SCH ×4 (01:00→19:28)
[2017-08-06] MEDS: Sodium Chloride 0.9% 1,000 ML IV SCH ×4 (02:40→22:34)
[2017-08-06] MEDS: Oxycodone/Acetaminophen 5/325 mg Tab PO PRN ×2 (06:29→15:19)
[2017-08-06] MEDS: (Novolin R) Insulin Human Regular 100 units/ml vial SC SCH ×4 (08:03→21:33)
[2017-08-06 08:04] LABS: BASO % 0.4 % (0.0-2.0); EOS % 0.3 % (0.0-4.0); HEMOGLOBIN 9.3 g/dL (12.0-18.0); LYMPH % 13.3 % (20.0-40.0); MEAN CELL VOLUME 87.1 fL (80.0-94.0); MEAN CORPUSCULAR HEMOGLOBIN 31.2 pg (27.0-31.0); MEAN CORPUSCULAR HGB CONC 35.8 g/dL (33.0-37.0); MEAN PLATELET VOLUME 8.1 fL (7.2-11.7); MONO # 0.8 K/uL (0.0-0.8); MONO % 10.1 % (0.0-10.0); NEUT # 5.8 K/uL (1.8-7.0); NEUT % 75.9 % (50.0-75.0); RBC 2.97 Mil/uL (4.40-5.90); WHITE BLOOD COUNT 7.7 K/uL (4.8-10.8)
[2017-08-06 08:17] LABS: ALB/GLOB RATIO 0.9 (1.0-2.1); ALBUMIN 2.8 g/dL (3.5-5.0); ALT/SGPT 18 U/L (21-72); AST/SGOT 18 U/L (17-59); BLOOD UREA NITROGEN 9 mg/dL (9-20); CALCIUM 7.5 mg/dl (8.6-10.4); GFR AFRICAN-AMERICAN > 60; GFR NON-AFRICAN AMERICAN > 60
[2017-08-06] MEDS: Cilostazol 100 mg Tab UD PO SCH ×2 (09:48→17:34)
[2017-08-06] MEDS: Clotrimazole 1% Cream(30 gm) TOP SCH ×2 (09:49→17:34)
[2017-08-06] MEDS: HYDROmorphone 0.5 mg/0.5 ml ISec IVP PRN ×2 (10:00→20:55)
[2017-08-06] MEDS: Enoxaparin 40 mg Syringe SC SCH (10:27)
[2017-08-06 10:45] LABS: BASO % 0.5 % (0.0-2.0); EOS # 0.1 K/uL (0.0-0.7); EOS % 0.8 % (0.0-4.0); HEMOGLOBIN 9.1 g/dL (12.0-18.0); LYMPH # 1.4 K/uL (1.0-4.3); MEAN CELL VOLUME 87.1 fL (80.0-94.0); MEAN CORPUSCULAR HEMOGLOBIN 30.4 pg (27.0-31.0); MEAN CORPUSCULAR HGB CONC 34.9 g/dL (33.0-37.0); MEAN PLATELET VOLUME 7.7 fL (7.2-11.7); MONO # 0.9 K/uL (0.0-0.8); MONO % 12.7 % (0.0-10.0); NEUT # 4.4 K/uL (1.8-7.0); RED CELL DISTRIBUTION WIDTH 15.3 % (11.5-14.5); WHITE BLOOD COUNT 6.8 K/uL (4.8-10.8)
[2017-08-06] MEDS ORDERED: Potassium Phosphate 15 MMOLE in Dextrose 5% In Water 250 ML IVPB ONE (11:00)
[2017-08-06] MEDS ORDERED: Potassium Phosphate 15 MMOLE in Sodium Chloride 0.9% 250 ML IVPB ONE (11:00)
--- NOTE | 2017-08-06 12:00 | CP.PCM.PN ---
Subjective - Date & Time of Evaluation Date of Evaluation: 08/06/17 Time of Evaluation: 11:30 - Subjective Subjective: Podiatry Progress Note - Dr. Bryant 72 yo male seen at bedside in ICU today for L 2nd digit dry gangrene. Pt is POD# 2 L fem-anterior tib bypass with Dr. Wilkins. Leg pain well-controlled with pain meds. Pt does complain of some toenail pain to the R hallux today, says his nail is ingrown. Denies any other problems. Objective - Vital Signs/Intake and Output Vital Signs (last 24 hours): Temp Pulse Resp BP Pulse Ox 98 F 118 H 18 111/57 L 99 08/06/17 08:00 08/06/17 08:05 08/06/17 08:05 08/06/17 08:05 08/06/17 08:05 Intake and Output: 08/06/17 08/06/17 06:59 18:59 Intake Total 1768 1082.5 Output Total 600 450 Balance 1168 632.5 - Medications Medications: Current Medications Acetaminophen (Tylenol 325mg Tab) 650 mg PO Q6 PRN PRN Reason: Pain, MILD(1-3) Last Admin: 08/05/17 17:24 Dose: 650 mg Aspirin (Aspirin Chewable) 81 mg PO DAILY [facility] Last Admin: 08/06/17 09:47 Dose: 81 mg Cilostazol (Pletal) 100 mg PO BID [facility] Last Admin: 08/06/17 09:48 Dose: 100 mg Clotrimazole (Lotrimin 1%) 1 gm TOP BID [facility] Last Admin: 08/06/17 09:49 Dose: 1 applic Dextrose (Dextrose 50% Inj) 0 ml IV STAT PRN; Protocol PRN Reason: Hypoglycemia Protocol Dextrose (Glutose 15) 0 gm PO ONCE PRN; Protocol PRN Reason: Hypoglycemia Protocol Dextrose (Glutose 15) 0 gm PO .ONCE PRN; Protocol PRN Reason: Hypoglycemia Protocol Enoxaparin Sodium (Lovenox) 40 mg SC DAILY [facility] Last Admin: 08/06/17 10:27 Dose: 40 mg Glucagon (Glucagen Diagnostic Kit) 0 mg IM STAT PRN; Protocol PRN Reason: Hypoglycemia Protocol Glucagon (Glucagen Diagnostic Kit) 0 mg IM .STAT PRN; Protocol PRN Reason: Hypoglycemia Protocol Hydromorphone HCl (Dilaudid) 0.5 mg IVP Q6H PRN PRN Reason: Pain, severe (8-10) Last Admin: 08/06/17 10:00 Dose: 0.5 mg Dextrose (Dextrose 5% In Water 1000 Ml) 1,000 mls @ 0 mls/hr IV .Q0M PRN; Protocol; Per Protocol PRN Reason: Hypoglycemia Protocol Piperacillin Sod/Tazobactam (Sod 3.375 gm/ Sodium Chloride) 100 mls @ 200 mls/ hr IVPB Q6H MARGY PRN Reason: Protocol Stop: 08/10/17 19:01 Last Admin: 08/06/17 06:26 Dose: 200 mls/hr Sodium Chloride (Sodium Chloride 0.9%) 1,000 mls @ 100 mls/hr IV .Q10H [facility] Last Admin: 08/06/17 11:09 Dose: Not Given Potassium Phosphate 15 mmole/ (Sodium Chloride) 255 mls @ 42.5 mls/hr IVPB ONCE ONE Stop: 08/06/17 16:59 Last Admin: 08/06/17 11:03 Dose: 42.5 mls/hr Insulin Human Regular (Novolin R) 0 unit SC ACHS [facility] PRN Reason: Protocol Last Admin: 08/06/17 08:03 Dose: 2 unit Metformin HCl (Glucophage) 850 mg PO BID [facility] Last Admin: 08/03/17 09:43 Dose: 850 mg Metoprolol Tartrate (Lopressor) 5 mg IVP Q6H PRN PRN Reason: Heart Rate >110 Last Admin: 08/06/17 06:25 Dose: 5 mg Oxycodone/Acetaminophen (Percocet 5/325 Mg Tab) 1 tab PO Q4H PRN PRN Reason: Pain, moderate (4-7) Stop: 08/07/17 16:59 Last Admin: 08/06/17 06:29 Dose: 1 tab Pregabalin (Lyrica) 50 mg PO BID [facility] Last Admin: 08/06/17 09:47 Dose: 50 mg Rosuvastatin Calcium (Crestor) 20 mg PO HS [facility] Last Admin: 08/05/17 23:44 Dose: 20 mg Sitagliptin Phosphate (Januvia) 25 mg PO BID [facility] Last Admin: 08/03/17 09:43 Dose: 25 mg - Labs Labs: 08/06/17 07:55 08/06/17 07:55 PT 12.0 SECONDS (9.7-12.2) 08/04/17 06:18 INR 1.1 08/04/17 06:18 APTT 37 SECONDS (21-34) H 08/04/17 06:18 - Constitutional Appears: Non-toxic, No Acute Distress - Extremities Exam Extremities Exam: absent: Calf Tenderness Additional comments: LLE focused Dressing to left leg bypass graft appears c/d/i (surgical team managing) VASC- DP pulse is now palpable, doppler reveals triphasic waveform, cap refill is delayed all digits, neg pedal edema NEURO- gross and protective pedal sensation are diminished DERM- mummification is noted to left 2nd digit with circumferential demarcation noted to level of 2nd MTPJ with necrotic discoloration toe is dry with neg drainage, neg malodor, neg fluctuance, neg signs infection MSK- neg tenderness to 2nd digit today, able to wiggle all toes freely RLE: tenderness to palpation lateral nail border hallux, no signs infection - Neurological Exam Neurological Exam: Alert, Awake, Oriented x3 - Psychiatric Exam Psychiatric exam: Normal Affect, Normal Mood Assessment and Plan - Assessment and Plan (Free Text) Assessment: 72 yo diabetic male with dry gangrene of L 2nd digit 2/2 severe PVD (POD#2 L fem -tib bypass) Plan: Patient S&E at bedside Discussed with Dr. Bryant Afebrile, absent leukocytosis, remains tachy (for ECHO) L foot XR: no acute findings Continue IV abx Mx of graft site per surgical team, will await further recommendations OR Tuesday 08/[address] Bryant for amp L 2nd toe, pt is agreeable to surgery at this time. Plan also discussed with surgical team and Dr. Wilkins Will require medical/cardiac clx keep toe clean and dry Onychoreduction of R foot toenails performed at bedside, pt tolerated procedure well without incident or complaint Will monitor
--- NOTE | 2017-08-06 12:18 | CP.PCM.PN ---
Subjective - Date & Time of Evaluation Date of Evaluation: 08/06/17 Time of Evaluation: 13:00 - Subjective Subjective: pt with mild le pain. no cp or sob Objective - Vital Signs/Intake and Output Vital Signs (last 24 hours): Temp Pulse Resp BP Pulse Ox 98 F 118 H 18 111/57 L 99 08/06/17 08:00 08/06/17 08:05 08/06/17 08:05 08/06/17 08:05 08/06/17 08:05 Intake and Output: 08/06/17 08/06/17 06:59 18:59 Intake Total 1768 1082.5 Output Total 600 450 Balance 1168 632.5 - Medications Medications: Current Medications Acetaminophen (Tylenol 325mg Tab) 650 mg PO Q6 PRN PRN Reason: Pain, MILD(1-3) Last Admin: 08/05/17 17:24 Dose: 650 mg Aspirin (Aspirin Chewable) 81 mg PO DAILY [facility] Last Admin: 08/06/17 09:47 Dose: 81 mg Cilostazol (Pletal) 100 mg PO BID [facility] Last Admin: 08/06/17 09:48 Dose: 100 mg Clotrimazole (Lotrimin 1%) 1 gm TOP BID [facility] Last Admin: 08/06/17 09:49 Dose: 1 applic Dextrose (Dextrose 50% Inj) 0 ml IV STAT PRN; Protocol PRN Reason: Hypoglycemia Protocol Dextrose (Glutose 15) 0 gm PO ONCE PRN; Protocol PRN Reason: Hypoglycemia Protocol Dextrose (Glutose 15) 0 gm PO .ONCE PRN; Protocol PRN Reason: Hypoglycemia Protocol Enoxaparin Sodium (Lovenox) 40 mg SC DAILY [facility] Last Admin: 08/06/17 10:27 Dose: 40 mg Glucagon (Glucagen Diagnostic Kit) 0 mg IM STAT PRN; Protocol PRN Reason: Hypoglycemia Protocol Glucagon (Glucagen Diagnostic Kit) 0 mg IM .STAT PRN; Protocol PRN Reason: Hypoglycemia Protocol Hydromorphone HCl (Dilaudid) 0.5 mg IVP Q6H PRN PRN Reason: Pain, severe (8-10) Last Admin: 08/06/17 10:00 Dose: 0.5 mg Dextrose (Dextrose 5% In Water 1000 Ml) 1,000 mls @ 0 mls/hr IV .Q0M PRN; Protocol; Per Protocol PRN Reason: Hypoglycemia Protocol Piperacillin Sod/Tazobactam (Sod 3.375 gm/ Sodium Chloride) 100 mls @ 200 mls/ hr IVPB Q6H MARGY PRN Reason: Protocol Stop: 08/10/17 19:01 Last Admin: 08/06/17 12:02 Dose: 200 mls/hr Sodium Chloride (Sodium Chloride 0.9%) 1,000 mls @ 100 mls/hr IV .Q10H [facility] Last Admin: 08/06/17 11:09 Dose: Not Given Potassium Phosphate 15 mmole/ (Sodium Chloride) 255 mls @ 42.5 mls/hr IVPB ONCE ONE Stop: 08/06/17 16:59 Last Admin: 08/06/17 11:03 Dose: 42.5 mls/hr Insulin Human Regular (Novolin R) 0 unit SC ACHS [facility] PRN Reason: Protocol Last Admin: 08/06/17 12:01 Dose: 3 unit Metformin HCl (Glucophage) 850 mg PO BID [facility] Last Admin: 08/03/17 09:43 Dose: 850 mg Metoprolol Tartrate (Lopressor) 5 mg IVP Q6H PRN PRN Reason: Heart Rate >110 Last Admin: 08/06/17 12:10 Dose: 5 mg Oxycodone/Acetaminophen (Percocet 5/325 Mg Tab) 1 tab PO Q4H PRN PRN Reason: Pain, moderate (4-7) Stop: 08/07/17 16:59 Last Admin: 08/06/17 06:29 Dose: 1 tab Pregabalin (Lyrica) 50 mg PO BID [facility] Last Admin: 08/06/17 09:47 Dose: 50 mg Rosuvastatin Calcium (Crestor) 20 mg PO [facility] Last Admin: 08/05/17 23:44 Dose: 20 mg Sitagliptin Phosphate (Januvia) 25 mg PO BID [facility] Last Admin: 08/03/17 09:43 Dose: 25 mg - Labs Labs: 08/06/17 07:55 08/06/17 07:55 PT 12.0 SECONDS (9.7-12.2) 08/04/17 06:18 INR 1.1 08/04/17 06:18 APTT 37 SECONDS (21-34) H 08/04/17 06:18 - Constitutional Appears: Well - Head Exam Head Exam: ATRAUMATIC, NORMAL INSPECTION, NORMOCEPHALIC - Eye Exam Eye Exam: EOMI, Normal appearance, PERRL. absent: Conjunctival injection, Nystagmus, Periorbital swelling, Periorbital tenderness, Scleral icterus Pupil Exam: NORMAL ACCOMODATION, PERRL - ENT Exam ENT Exam: Mucous Membranes Moist, Normal Exam. absent: Mucous Membranes Dry, Normal External Ear Exam, Normal Oropharynx, TM's Normal Bilaterally - Neck Exam Neck Exam: Full ROM, Normal Inspection. absent: Lymphadenopathy, Meningismus, Tenderness, Thyromegaly - Respiratory Exam Respiratory Exam: Clear to Ausculation Bilateral, NORMAL BREATHING PATTERN. absent: Accessory Muscle Use, Chest Wall Tenderness, Decreased Breath Sounds, Prolonged Expiratory Phase, Rales, Rhonchi, Wheezes, Respiratory Distress, Stridor - Cardiovascular Exam Cardiovascular Exam: REGULAR RHYTHM, +S1, +S2, Murmur. absent: Bradycardia, Tachycardia, Clicks, Diastolic murmur, Gallop, Irregular Rhythm, JVD, RRR, Rubs , +S4 - GI/Abdominal Exam GI & Abdominal Exam: Soft, Normal Bowel Sounds. absent: Bruit, Distended, Firm , Guarding, Rigid, Tenderness, Diminished Bowel Sounds, Hernia, Hyperactive Bowel Sounds, Hypoactive Bowel Sounds, Organomegaly, Pulsatile Mass, Rebound, Mass - Rectal Exam Rectal Exam: Deferred - Extremities Exam Extremities Exam: Full ROM, Normal Capillary Refill. absent: Joint Swelling, Pedal Edema - Back Exam Back Exam: NORMAL INSPECTION. absent: CVA tenderness (L), CVA tenderness (R), Full ROM, muscle spasm, paraspinal tenderness, rash noted, tenderness, vertebral tenderness - Neurological Exam Neurological Exam: Alert, Awake, CN II-XII Intact, Normal Gait, Oriented x3. absent: Abnormal Gait, Altered, Motor Sensory Deficit, Reflexes Normal - Psychiatric Exam Psychiatric exam: Normal Affect, Normal Mood - Skin Skin Exam: Dry, Intact, Normal Color, Warm Assessment and Plan (1) Tachycardia Status: Acute (2) Diabetes mellitus Status: Acute (3) Gangrene of toe of left foot Status: Acute (4) HTN (hypertension) Status: Chronic (5) Peripheral arterial disease Status: Acute - Assessment and Plan (Free Text) Plan: pt may proceed with surgical amputation from cardiac perspective.
--- NOTE | 2017-08-06 13:34 | CP.CCUPN ---
<Raul Majano - Last Filed: 08/06/17 16:16> CCU Subjective - Physician Review Subjective (Free Text): 08/05/17 09:53 Patient seen and examined. He is complaining of pain in the left leg. No other complaints at this time. 08/06/17 13:33 Patient seen and examined. Patient's pain is better controlled at this time. Patient has no complaints currently. CCU Objective - Vital Signs / Intake & Output Vital Signs (Last 4 hours): Vital Signs Temp Pulse Resp BP Pulse Ox 08/06/17 12:20 114 H 21 120/66 99 08/06/17 12:00 98.7 F 132 H 14 120/66 99 08/06/17 11:21 128 H 19 128/71 99 08/06/17 11:00 121 H 17 98 08/06/17 10:21 124 H 19 122/65 98 08/06/17 10:00 118 H 20 98 Intake and Output (Last 8hrs): Intake & Output 08/05/17 08/06/17 08/06/17 22:59 06:59 14:59 Intake Total 6525 913 6330.5 Output Total 600 600 450 Balance 468 300 732.5 Intake: Intake, IV Amount 500 900 562.5 Left Hand 500 900 562.5 Oral 240 620 Tube Feeding 0 Blood Product 278 Apheresis Rbc Cp2d As3 Lr 278 1st Unit [id number] Other 50 Apheresis Rbc Cp2d As3 Lr 50 1st Unit [id number] Output: Urine 600 600 450 Urine, Voided 600 600 450 Other: # Voids Urine, Voided 2 # Bowel Movements 0 0 - Physical Exam Head: Positive for: Atraumatic, Normocephalic Pupils: Positive for: PERRL Extroacular Muscles: Positive for: EOMI Conjunctiva: Positive for: Normal Mouth: Positive for: Moist Mucous Membranes Respiratory/Chest: Positive for: Clear to Auscultation, Good Air Exchange. Negative for: Wheezes, Rales, Rhonchi Abdomen: Positive for: Normal Bowel Sounds. Negative for: Tenderness, Distention Upper Extremity: Positive for: Normal Inspection Lower Extremity: Positive for: Other (Pedal pulses obtained with doppler. No active bleeding from site of catheterization. Dressings are soaked in blood.) Neurological: Positive for: GCS=15 Skin: Positive for: Warm, Dry Psychiatric: Positive for: Alert, Oriented x 3 - Medications Active Medications: Active Medications Generic Name Dose Route Start Last Admin Trade Name Freq PRN Reason Stop Dose Admin Acetaminophen 650 mg 08/05/17 17:19 08/05/17 17:24 Tylenol 325mg Tab PO 650 mg Q6 PRN Administration Pain, MILD(1-3) Aspirin 81 mg 07/29/17 16:30 08/06/17 09:47 Aspirin Chewable PO 81 mg DAILY MARGY Administration Cilostazol 100 mg 07/30/17 18:00 08/06/17 09:48 Pletal PO 100 mg BID MARGY Administration Clotrimazole 1 gm 07/30/17 10:00 08/06/17 09:49 Lotrimin 1% TOP 1 applic BID MARGY Administration Dextrose 0 ml 07/29/17 15:49 Dextrose 50% Inj IV STAT PRN Hypoglycemia Protocol Protocol Dextrose 0 gm 07/29/17 15:49 Glutose 15 PO ONCE PRN Hypoglycemia Protocol Protocol Dextrose 0 gm 07/31/17 16:42 Glutose 15 PO .ONCE PRN Hypoglycemia Protocol Protocol Enoxaparin Sodium 40 mg 07/30/17 10:00 08/06/17 10:27 Lovenox SC 40 mg DAILY MARGY Administration Glucagon 0 mg 07/29/17 15:49 Glucagen Diagnostic Kit IM STAT PRN Hypoglycemia Protocol Protocol Glucagon 0 mg 07/31/17 16:42 Glucagen Diagnostic Kit IM .STAT PRN Hypoglycemia Protocol Protocol Hydromorphone HCl 0.5 mg 08/04/17 16:58 08/06/17 10:00 Dilaudid IVP 0.5 mg Q6H PRN Administration Pain, severe (8-10) Dextrose 1,000 mls @ 0 mls/hr 07/31/17 16:42 Dextrose 5% In Water 1000 Ml IV .Q0M PRN Hypoglycemia Protocol Protocol Per Protocol Piperacillin Sod/Tazobactam 100 mls @ 200 mls/hr 07/31/17 19:00 08/06/17 12: 02 Sod 3.375 gm/ Sodium Chloride IVPB 08/10/17 19:01 200 mls/hr Q6H MARGY Administration Protocol Sodium Chloride 1,000 mls @ 100 mls/hr 08/04/17 19:00 08/06/17 11:09 Sodium Chloride 0.9% IV Not Given .Q10H MARGY Potassium Phosphate 15 mmole/ 255 mls @ 42.5 mls/hr 08/06/17 11:00 08/06/17 11:03 Sodium Chloride IVPB 08/06/17 16:59 42.5 mls/hr ONCE ONE Administration Insulin Human Regular 0 unit 07/29/17 16:30 08/06/17 12:01 Novolin R SC 3 unit ACHS MARGY Administration Protocol Metformin HCl 850 mg 07/31/17 18:00 08/03/17 09:43 Glucophage PO 850 mg BID MARGY Administration Metoprolol Tartrate 5 mg 08/05/17 18:41 08/06/17 12:10 Lopressor IVP 5 mg Q6H PRN Administration Heart Rate >110 Oxycodone/Acetaminophen 1 tab 08/04/17 16:58 08/06/17 06:29 Percocet 5/325 Mg Tab PO 08/07/17 16:59 1 tab Q4H PRN Administration Pain, moderate (4-7) Pregabalin 50 mg 07/29/17 18:00 08/06/17 09:47 Lyrica PO 50 mg BID MARGY Administration Rosuvastatin Calcium 20 mg 07/30/17 22:00 08/05/17 23:44 Crestor PO 20 mg HS MARGY Administration Sitagliptin Phosphate 25 mg 07/31/17 18:00 08/03/17 09:43 Januvia PO 25 mg BID MARGY Administration - Patient Studies Lab Studies: Microbiology Studies 08/04/17 Unknown MRSA Culture (Admit) - Final Nose MRSA NOT DETECTED Lab Studies 08/06/17 08/06/17 08/06/17 Range/Units 11:43 07:55 07:55 WBC 7.7 (4.8-10.8) K/uL RBC 2.97 L (4.40-5.90) Mil/uL Hgb 9.3 L (12.0-18.0) g/dL Hct 25.9 L (35.0-51.0) % MCV 87.1 (80.0-94.0) fL MCH 31.2 H (27.0-31.0) pg MCHC 35.8 (33.0-37.0) g/dL RDW 15.0 H (11.5-14.5) % Plt Count 223 (130-400) K/uL MPV 8.1 (7.2-11.7) fL Neut % (Auto) 75.9 H (50.0-75.0) % Lymph % (Auto) 13.3 L (20.0-40.0) % [place] % (Auto) 10.1 H (0.0-10.0) % Eos % (Auto) 0.3 (0.0-4.0) % Baso % (Auto) 0.4 (0.0-2.0) % Neut # (Auto) 5.8 (1.8-7.0) K/uL Lymph # (Auto) 1.0 (1.0-4.3) K/uL [place] # (Auto) 0.8 (0.0-0.8) K/uL Eos # (Auto) 0.0 (0.0-0.7) K/uL Baso # (Auto) 0.0 (0.0-0.2) K/uL Sodium 135 (132-148) mmol/L Potassium 3.6 (3.6-5.2) mmol/L Chloride 103 (98-107) mmol/L Carbon Dioxide 20 L (22-30) mmol/L Anion Gap 15 (10-20) BUN 9 (9-20) mg/dL Creatinine 0.7 L (0.8-1.5) mg/dL Est GFR ( Amer) > 60 Est GFR (Non-Af Amer) > 60 POC Glucose (mg/dL) 206 H (65-110) mg/dL Random Glucose 196 H (75-110) mg/dL Calcium 7.5 L (8.6-10.4) mg/dl Phosphorus 2.1 L (2.5-4.5) mg/dL Magnesium 1.9 (1.6-2.3) mg/dL Total Bilirubin 1.2 (0.2-1.3) mg/dL AST 18 (17-59) U/L ALT 18 L (21-72) U/L Alkaline Phosphatase 59 (38-126) U/L Total Creatine Kinase (55-170) U/L CK-MB (Mass) (0.0-3.38) ng/mL Troponin I (0.00-0.120) ng/mL Total Protein 5.9 L (6.3-8.3) g/dL Albumin 2.8 L (3.5-5.0) g/dL Globulin 3.1 (2.2-3.9) gm/dL Albumin/Globulin Ratio 0.9 L (1.0-2.1) Vancomycin Trough (5.0-10.0) ug/mL Blood Type Antibody Screen 08/06/17 08/06/17 08/05/17 Range/Units 07:55 07:51 23:24 WBC 6.8 (4.8-10.8) K/uL RBC 3.00 L (4.40-5.90) Mil/uL Hgb 9.1 L (12.0-18.0) g/dL Hct 26.1 L (35.0-51.0) % MCV 87.1 (80.0-94.0) fL MCH 30.4 (27.0-31.0) pg MCHC 34.9 (33.0-37.0) g/dL RDW 15.3 H (11.5-14.5) % Plt Count 214 (130-400) K/uL MPV 7.7 (7.2-11.7) fL Neut % (Auto) 65.0 (50.0-75.0) % Lymph % (Auto) 21.0 (20.0-40.0) % [place] % (Auto) 12.7 H (0.0-10.0) % Eos % (Auto) 0.8 (0.0-4.0) % Baso % (Auto) 0.5 (0.0-2.0) % Neut # (Auto) 4.4 (1.8-7.0) K/uL Lymph # (Auto) 1.4 (1.0-4.3) K/uL [place] # (Auto) 0.9 H (0.0-0.8) K/uL Eos # (Auto) 0.1 (0.0-0.7) K/uL Baso # (Auto) 0.0 (0.0-0.2) K/uL Sodium (132-148) mmol/L Potassium (3.6-5.2) mmol/L Chloride (98-107) mmol/L Carbon Dioxide (22-30) mmol/L Anion Gap (10-20) BUN (9-20) mg/dL Creatinine (0.8-1.5) mg/dL Est GFR ( Amer) Est GFR (Non-Af Amer) POC Glucose (mg/dL) 199 H (65-110) mg/dL Random Glucose (75-110) mg/dL Calcium (8.6-10.4) mg/dl Phosphorus (2.5-4.5) mg/dL Magnesium (1.6-2.3) mg/dL Total Bilirubin (0.2-1.3) mg/dL AST (17-59) U/L ALT (21-72) U/L Alkaline Phosphatase (38-126) U/L Total Creatine Kinase (55-170) U/L CK-MB (Mass) (0.0-3.38) ng/mL Troponin I (0.00-0.120) ng/mL Total Protein (6.3-8.3) g/dL Albumin (3.5-5.0) g/dL Globulin (2.2-3.9) gm/dL Albumin/Globulin Ratio (1.0-2.1) Vancomycin Trough 9.6 (5.0-10.0) ug/mL Blood Type Antibody Screen 08/05/17 08/05/17 08/05/17 Range/Units 21:08 16:13 14:32 WBC (4.8-10.8) K/uL RBC (4.40-5.90) Mil/uL Hgb (12.0-18.0) g/dL Hct (35.0-51.0) % MCV (80.0-94.0) fL MCH (27.0-31.0) pg MCHC (33.0-37.0) g/dL RDW (11.5-14.5) % Plt Count (130-400) K/uL MPV (7.2-11.7) fL Neut % (Auto) (50.0-75.0) % Lymph % (Auto) (20.0-40.0) % [place] % (Auto) (0.0-10.0) % Eos % (Auto) (0.0-4.0) % Baso % (Auto) (0.0-2.0) % Neut # (Auto) (1.8-7.0) K/uL Lymph # (Auto) (1.0-4.3) K/uL [place] # (Auto) (0.0-0.8) K/uL Eos # (Auto) (0.0-0.7) K/uL Baso # (Auto) (0.0-0.2) K/uL Sodium (132-148) mmol/L Potassium (3.6-5.2) mmol/L Chloride (98-107) mmol/L Carbon Dioxide (22-30) mmol/L Anion Gap (10-20) BUN (9-20) mg/dL Creatinine (0.8-1.5) mg/dL Est GFR ( Amer) Est GFR (Non-Af Amer) POC Glucose (mg/dL) 240 H 268 H (65-110) mg/dL Random Glucose (75-110) mg/dL Calcium (8.6-10.4) mg/dl Phosphorus (2.5-4.5) mg/dL Magnesium (1.6-2.3) mg/dL Total Bilirubin (0.2-1.3) mg/dL AST (17-59) U/L ALT (21-72) U/L Alkaline Phosphatase (38-126) U/L Total Creatine Kinase 39 L (55-170) U/L CK-MB (Mass) 0.69 (0.0-3.38) ng/mL Troponin I < 0.0120 (0.00-0.120) ng/mL Total Protein (6.3-8.3) g/dL Albumin (3.5-5.0) g/dL Globulin (2.2-3.9) gm/dL Albumin/Globulin Ratio (1.0-2.1) Vancomycin Trough (5.0-10.0) ug/mL Blood Type Antibody Screen 08/05/17 08/04/17 Range/Units 11:44 06:18 WBC (4.8-10.8) K/uL RBC (4.40-5.90) Mil/uL Hgb (12.0-18.0) g/dL Hct (35.0-51.0) % MCV (80.0-94.0) fL MCH (27.0-31.0) pg MCHC (33.0-37.0) g/dL RDW (11.5-14.5) % Plt Count (130-400) K/uL MPV (7.2-11.7) fL Neut % (Auto) (50.0-75.0) % Lymph % (Auto) (20.0-40.0) % [place] % (Auto) (0.0-10.0) % Eos % (Auto) (0.0-4.0) % Baso % (Auto) (0.0-2.0) % Neut # (Auto) (1.8-7.0) K/uL Lymph # (Auto) (1.0-4.3) K/uL [place] # (Auto) (0.0-0.8) K/uL Eos # (Auto) (0.0-0.7) K/uL Baso # (Auto) (0.0-0.2) K/uL Sodium (132-148) mmol/L Potassium (3.6-5.2) mmol/L Chloride (98-107) mmol/L Carbon Dioxide (22-30) mmol/L Anion Gap (10-20) BUN (9-20) mg/dL Creatinine (0.8-1.5) mg/dL Est GFR ( Amer) Est GFR (Non-Af Amer) POC Glucose (mg/dL) 265 H (65-110) mg/dL Random Glucose (75-110) mg/dL Calcium (8.6-10.4) mg/dl Phosphorus (2.5-4.5) mg/dL Magnesium (1.6-2.3) mg/dL Total Bilirubin (0.2-1.3) mg/dL AST (17-59) U/L ALT (21-72) U/L Alkaline Phosphatase (38-126) U/L Total Creatine Kinase (55-170) U/L CK-MB (Mass) (0.0-3.38) ng/mL Troponin I (0.00-0.120) ng/mL Total Protein (6.3-8.3) g/dL Albumin (3.5-5.0) g/dL Globulin (2.2-3.9) gm/dL Albumin/Globulin Ratio (1.0-2.1) Vancomycin Trough (5.0-10.0) ug/mL Blood Type O POSITIVE Antibody Screen Negative Laboratory Results - last 24 hr 04/09/18 04/10/18 04/10/18 06:18 11:44 14:32 WBC RBC Hgb Hct MCV MCH MCHC RDW Plt Count MPV Neut % (Auto) Lymph % (Auto) [place] % (Auto) Eos % (Auto) Baso % (Auto) Neut # (Auto) Lymph # (Auto) [place] # (Auto) Eos # (Auto) Baso # (Auto) Sodium Potassium Chloride Carbon Dioxide Anion Gap BUN Creatinine Est GFR ( Amer) Est GFR (Non-Af Amer) POC Glucose (mg/dL) 265 H Random Glucose Calcium Phosphorus Magnesium Total Bilirubin AST ALT Alkaline Phosphatase Total Creatine Kinase 39 L CK-MB (Mass) 0.69 Troponin I < 0.0120 Total Protein Albumin Globulin Albumin/Globulin Ratio Vancomycin Trough Blood Type O POSITIVE Antibody Screen Negative 08/05/17 08/05/17 08/05/17 16:13 21:08 23:24 WBC 6.8 RBC 3.00 L Hgb 9.1 L Hct 26.1 L MCV 87.1 MCH 30.4 MCHC 34.9 RDW 15.3 H Plt Count 214 MPV 7.7 Neut % (Auto) 65.0 Lymph % (Auto) 21.0 [place] % (Auto) 12.7 H Eos % (Auto) 0.8 Baso % (Auto) 0.5 Neut # (Auto) 4.4 Lymph # (Auto) 1.4 [place] # (Auto) 0.9 H Eos # (Auto) 0.1 Baso # (Auto) 0.0 Sodium Potassium Chloride Carbon Dioxide Anion Gap BUN Creatinine Est GFR ( Amer) Est GFR (Non-Af Amer) POC Glucose (mg/dL) 268 H 240 H Random Glucose Calcium Phosphorus Magnesium Total Bilirubin AST ALT Alkaline Phosphatase Total Creatine Kinase CK-MB (Mass) Troponin I Total Protein Albumin Globulin Albumin/Globulin Ratio Vancomycin Trough Blood Type Antibody Screen 08/06/17 08/06/17 08/06/17 07:51 07:55 07:55 WBC 7.7 RBC 2.97 L Hgb 9.3 L Hct 25.9 L MCV 87.1 MCH 31.2 H MCHC 35.8 RDW 15.0 H Plt Count 223 MPV 8.1 Neut % (Auto) 75.9 H Lymph % (Auto) 13.3 L [place] % (Auto) 10.1 H Eos % (Auto) 0.3 Baso % (Auto) 0.4 Neut # (Auto) 5.8 Lymph # (Auto) 1.0 [place] # (Auto) 0.8 Eos # (Auto) 0.0 Baso # (Auto) 0.0 Sodium Potassium Chloride Carbon Dioxide Anion Gap BUN Creatinine Est GFR ( Amer) Est GFR (Non-Af Amer) POC Glucose (mg/dL) 199 H Random Glucose Calcium Phosphorus Magnesium Total Bilirubin AST ALT Alkaline Phosphatase Total Creatine Kinase CK-MB (Mass) Troponin I Total Protein Albumin Globulin Albumin/Globulin Ratio Vancomycin Trough 9.6 Blood Type Antibody Screen 08/06/17 08/06/17 07:55 11:43 WBC RBC Hgb Hct MCV MCH MCHC RDW Plt Count MPV Neut % (Auto) Lymph % (Auto) [place] % (Auto) Eos % (Auto) Baso % (Auto) Neut # (Auto) Lymph # (Auto) [place] # (Auto) Eos # (Auto) Baso # (Auto) Sodium 135 Potassium 3.6 Chloride 103 Carbon Dioxide 20 L Anion Gap 15 BUN 9 Creatinine 0.7 L Est GFR ( Amer) > 60 Est GFR (Non-Af Amer) > 60 POC Glucose (mg/dL) 206 H Random Glucose 196 H Calcium 7.5 L Phosphorus 2.1 L Magnesium 1.9 Total Bilirubin 1.2 AST 18 ALT 18 L Alkaline Phosphatase 59 Total Creatine Kinase CK-MB (Mass) Troponin I Total Protein 5.9 L Albumin 2.8 L Globulin 3.1 Albumin/Globulin Ratio 0.9 L Vancomycin Trough Blood Type Antibody Screen EKG/Cardiology Studies: Cardiology / EKG Studies 08/05/17 13:11 EKG [ELECTROCARDIOGRAM] Routine Comment: Mode Of Transportation: Reason For Exam: tachycardia Fingerstick Blood Sugar Results: 206 Critical Care Progress Note - Nutrition Nutrition: Nutrition Category Date Time Status Consistent Carbohydrate [DIET] Diets 08/04/17 Dinner Active Assessment/Plan - Assessment and Plan (Free Text) Assessment: This is a 72 year old male with PMHx DM, HTN, HLD, PVD who presented for left 2nd toe gangrene. Patient underwent Left Femoral to Anterior Tibial Bypass with reverse Saphenous Vein Graft & Intra-op Arteriogram on 08/04/17. POD #2 Neuro Awake, Verbal Cardio ASA 81 mg PO daily Normotensive but tachycardic. Lopressor 5 mg IV Q6H prn HR>110 dose given. Sinus tachycardia on EKG Remains tachycardic, so echo ordered. f/u results Pulmonary Saturating well on room air GI Consistent Carb Diet Pepcid 20 mg PO BID Endocrine Hold Metformin Hold Januvia Regular ISS--medium dose Nephro kidney function studies are within normal limits ID On Vancomycin 1 gm Q24H On Zosyn 3.375 gm Q6H Heme/Onc Monitor H/H Prophylaxis Hold VTE anticoagulation NS 100cc/hr Pepcid 20 mg PO BID Pain control per surgery Disposition: ICU care Seen and Discussed with Dr. Marie <John Marie S - Last Filed: 08/06/17 18:12> CCU Objective - Vital Signs / Intake & Output Vital Signs (Last 4 hours): Vital Signs Temp Pulse Resp BP Pulse Ox 08/06/17 17:21 134 H 18 139/64 99 08/06/17 17:00 134 H 14 98 08/06/17 16:20 130 H 16 124/61 99 08/06/17 16:00 99.4 F 130 H 17 100 08/06/17 15:20 129 H 18 136/70 99 08/06/17 15:00 127 H 17 100 08/06/17 14:20 127 H 19 142/69 99 Intake and Output (Last 8hrs): Intake & Output 08/06/17 08/06/17 08/06/17 06:59 14:59 22:59 Intake Total 900 1950.0 585.0 Output Total 600 1400 Balance 300 550.0 585.0 Intake: Intake, IV Amount 900 750.0 225.0 Left Hand 900 750.0 225.0 Oral 1200 360 Tube Feeding 0 Output: Urine 600 1400 Urine, Voided 600 1400 Other: # Bowel Movements 0 0 - Medications Active Medications: Active Medications Generic Name Dose Route Start Last Admin Trade Name Freq PRN Reason Stop Dose Admin Acetaminophen 650 mg 08/05/17 17:19 08/05/17 17:24 Tylenol 325mg Tab PO 650 mg Q6 PRN Administration Pain, MILD(1-3) Aspirin 81 mg 07/29/17 16:30 08/06/17 09:47 Aspirin Chewable PO 81 mg DAILY MARGY Administration Cilostazol 100 mg 07/30/17 18:00 08/06/17 17:34 Pletal PO 100 mg BID MARGY Administration Clotrimazole 1 gm 07/30/17 10:00 08/06/17 17:34 Lotrimin 1% TOP 1 applic BID MARGY Administration Dextrose 0 ml 07/29/17 15:49 Dextrose 50% Inj IV STAT PRN Hypoglycemia Protocol Protocol Dextrose 0 gm 07/29/17 15:49 Glutose 15 PO ONCE PRN Hypoglycemia Protocol Protocol Dextrose 0 gm 07/31/17 16:42 Glutose 15 PO .ONCE PRN Hypoglycemia Protocol Protocol Enoxaparin Sodium 40 mg 07/30/17 10:00 08/06/17 10:27 Lovenox SC 40 mg DAILY MARGY Administration Famotidine 20 mg 08/06/17 18:00 08/06/17 17:34 Pepcid PO 20 mg BID MARGY Administration Glucagon 0 mg 07/29/17 15:49 Glucagen Diagnostic Kit IM STAT PRN Hypoglycemia Protocol Protocol Glucagon 0 mg 07/31/17 16:42 Glucagen Diagnostic Kit IM .STAT PRN Hypoglycemia Protocol Protocol Hydromorphone HCl 0.5 mg 08/04/17 16:58 08/06/17 10:00 Dilaudid IVP 0.5 mg Q6H PRN Administration Pain, severe (8-10) Dextrose 1,000 mls @ 0 mls/hr 07/31/17 16:42 Dextrose 5% In Water 1000 Ml IV .Q0M PRN Hypoglycemia Protocol Protocol Per Protocol Piperacillin Sod/Tazobactam 100 mls @ 200 mls/hr 07/31/17 19:00 08/06/17 12: 02 Sod 3.375 gm/ Sodium Chloride IVPB 08/10/17 19:01 200 mls/hr Q6H MARGY Administration Protocol Sodium Chloride 1,000 mls @ 100 mls/hr 08/04/17 19:00 08/06/17 11:09 Sodium Chloride 0.9% IV Not Given .Q10H MARGY Vancomycin/Sodium Chloride 1 gm in 200 mls @ 166.7 mls/hr 08/06/17 18:00 Vancomycin 1 Gm/Ns 200 Ml IVPB 08/11/17 18:01 Q24H MARGY Protocol Insulin Human Regular 0 unit 07/29/17 16:30 08/06/17 16:40 Novolin R SC 3 unit ACHS MARGY Administration Protocol Metformin HCl 850 mg 07/31/17 18:00 08/03/17 09:43 Glucophage PO 850 mg BID MARGY Administration Metoprolol Tartrate 5 mg 08/05/17 18:41 08/06/17 12:10 Lopressor IVP 5 mg Q6H PRN Administration Heart Rate >110 Oxycodone/Acetaminophen 1 tab 08/04/17 16:58 08/06/17 15:19 Percocet 5/325 Mg Tab PO 08/07/17 16:59 1 tab Q4H PRN Administration Pain, moderate (4-7) Pregabalin 50 mg 07/29/17 18:00 08/06/17 17:34 Lyrica PO 50 mg BID MARGY Administration Rosuvastatin Calcium 20 mg 07/30/17 22:00 08/05/17 23:44 Crestor PO 20 mg HS MARGY Administration Sitagliptin Phosphate 25 mg 07/31/17 18:00 08/03/17 09:43 Januvia PO 25 mg BID MARGY Administration - Patient Studies Lab Studies: Microbiology Studies 08/04/17 Unknown MRSA Culture (Admit) - Final Nose MRSA NOT DETECTED Lab Studies 08/06/17 08/06/17 08/06/17 Range/Units 16:19 11:43 07:55 WBC (4.8-10.8) K/uL RBC (4.40-5.90) Mil/uL Hgb (12.0-18.0) g/dL Hct (35.0-51.0) % MCV (80.0-94.0) fL MCH (27.0-31.0) pg MCHC (33.0-37.0) g/dL RDW (11.5-14.5) % Plt Count (130-400) K/uL MPV (7.2-11.7) fL Neut % (Auto) (50.0-75.0) % Lymph % (Auto) (20.0-40.0) % [place] % (Auto) (0.0-10.0) % Eos % (Auto) (0.0-4.0) % Baso % (Auto) (0.0-2.0) % Neut # (Auto) (1.8-7.0) K/uL Lymph # (Auto) (1.0-4.3) K/uL [place] # (Auto) (0.0-0.8) K/uL Eos # (Auto) (0.0-0.7) K/uL Baso # (Auto) (0.0-0.2) K/uL Sodium 135 (132-148) mmol/L Potassium 3.6 (3.6-5.2) mmol/L Chloride 103 (98-107) mmol/L Carbon Dioxide 20 L (22-30) mmol/L Anion Gap 15 (10-20) BUN 9 (9-20) mg/dL Creatinine 0.7 L (0.8-1.5) mg/dL Est GFR ( Amer) > 60 Est GFR (Non-Af Amer) > 60 POC Glucose (mg/dL) 214 H 206 H (65-110) mg/dL Random Glucose 196 H (75-110) mg/dL Calcium 7.5 L (8.6-10.4) mg/dl Phosphorus 2.1 L (2.5-4.5) mg/dL Magnesium 1.9 (1.6-2.3) mg/dL Total Bilirubin 1.2 (0.2-1.3) mg/dL AST 18 (17-59) U/L ALT 18 L (21-72) U/L Alkaline Phosphatase 59 (38-126) U/L Total Protein 5.9 L (6.3-8.3) g/dL Albumin 2.8 L (3.5-5.0) g/dL Globulin 3.1 (2.2-3.9) gm/dL Albumin/Globulin Ratio 0.9 L (1.0-2.1) Vancomycin Trough (5.0-10.0) ug/mL 08/06/17 08/06/17 08/06/17 Range/Units 07:55 07:55 07:51 WBC 7.7 (4.8-10.8) K/uL RBC 2.97 L (4.40-5.90) Mil/uL Hgb 9.3 L (12.0-18.0) g/dL Hct 25.9 L (35.0-51.0) % MCV 87.1 (80.0-94.0) fL MCH 31.2 H (27.0-31.0) pg MCHC 35.8 (33.0-37.0) g/dL RDW 15.0 H (11.5-14.5) % Plt Count 223 (130-400) K/uL MPV 8.1 (7.2-11.7) fL Neut % (Auto) 75.9 H (50.0-75.0) % Lymph % (Auto) 13.3 L (20.0-40.0) % [place] % (Auto) 10.1 H (0.0-10.0) % Eos % (Auto) 0.3 (0.0-4.0) % Baso % (Auto) 0.4 (0.0-2.0) % Neut # (Auto) 5.8 (1.8-7.0) K/uL Lymph # (Auto) 1.0 (1.0-4.3) K/uL [place] # (Auto) 0.8 (0.0-0.8) K/uL Eos # (Auto) 0.0 (0.0-0.7) K/uL Baso # (Auto) 0.0 (0.0-0.2) K/uL Sodium (132-148) mmol/L Potassium (3.6-5.2) mmol/L Chloride (98-107) mmol/L Carbon Dioxide (22-30) mmol/L Anion Gap (10-20) BUN (9-20) mg/dL Creatinine (0.8-1.5) mg/dL Est GFR ( Amer) Est GFR (Non-Af Amer) POC Glucose (mg/dL) 199 H (65-110) mg/dL Random Glucose (75-110) mg/dL Calcium (8.6-10.4) mg/dl Phosphorus (2.5-4.5) mg/dL Magnesium (1.6-2.3) mg/dL Total Bilirubin (0.2-1.3) mg/dL AST (17-59) U/L ALT (21-72) U/L Alkaline Phosphatase (38-126) U/L Total Protein (6.3-8.3) g/dL Albumin (3.5-5.0) g/dL Globulin (2.2-3.9) gm/dL Albumin/Globulin Ratio (1.0-2.1) Vancomycin Trough 9.6 (5.0-10.0) ug/mL 08/05/17 08/05/17 Range/Units 23:24 21:08 WBC 6.8 (4.8-10.8) K/uL RBC 3.00 L (4.40-5.90) Mil/uL Hgb 9.1 L (12.0-18.0) g/dL Hct 26.1 L (35.0-51.0) % MCV 87.1 (80.0-94.0) fL MCH 30.4 (27.0-31.0) pg MCHC 34.9 (33.0-37.0) g/dL RDW 15.3 H (11.5-14.5) % Plt Count 214 (130-400) K/uL MPV 7.7 (7.2-11.7) fL Neut % (Auto) 65.0 (50.0-75.0) % Lymph % (Auto) 21.0 (20.0-40.0) % [place] % (Auto) 12.7 H (0.0-10.0) % Eos % (Auto) 0.8 (0.0-4.0) % Baso % (Auto) 0.5 (0.0-2.0) % Neut # (Auto) 4.4 (1.8-7.0) K/uL Lymph # (Auto) 1.4 (1.0-4.3) K/uL [place] # (Auto) 0.9 H (0.0-0.8) K/uL Eos # (Auto) 0.1 (0.0-0.7) K/uL Baso # (Auto) 0.0 (0.0-0.2) K/uL Sodium (132-148) mmol/L Potassium (3.6-5.2) mmol/L Chloride (98-107) mmol/L Carbon Dioxide (22-30) mmol/L Anion Gap (10-20) BUN (9-20) mg/dL Creatinine (0.8-1.5) mg/dL Est GFR ( Amer) Est GFR (Non-Af Amer) POC Glucose (mg/dL) 240 H (65-110) mg/dL Random Glucose (75-110) mg/dL Calcium (8.6-10.4) mg/dl Phosphorus (2.5-4.5) mg/dL Magnesium (1.6-2.3) mg/dL Total Bilirubin (0.2-1.3) mg/dL AST (17-59) U/L ALT (21-72) U/L Alkaline Phosphatase (38-126) U/L Total Protein (6.3-8.3) g/dL Albumin (3.5-5.0) g/dL Globulin (2.2-3.9) gm/dL Albumin/Globulin Ratio (1.0-2.1) Vancomycin Trough (5.0-10.0) ug/mL Laboratory Results - last 24 hr 08/05/17 08/05/17 08/06/17 21:08 23:24 07:51 WBC 6.8 RBC 3.00 L Hgb 9.1 L Hct 26.1 L MCV 87.1 MCH 30.4 MCHC 34.9 RDW 15.3 H Plt Count 214 MPV 7.7 Neut % (Auto) 65.0 Lymph % (Auto) 21.0 [place] % (Auto) 12.7 H Eos % (Auto) 0.8 Baso % (Auto) 0.5 Neut # (Auto) 4.4 Lymph # (Auto) 1.4 [place] # (Auto) 0.9 H Eos # (Auto) 0.1 Baso # (Auto) 0.0 Sodium Potassium Chloride Carbon Dioxide Anion Gap BUN Creatinine Est GFR ( Amer) Est GFR (Non-Af Amer) POC Glucose (mg/dL) 240 H 199 H Random Glucose Calcium Phosphorus Magnesium Total Bilirubin AST ALT Alkaline Phosphatase Total Protein Albumin Globulin Albumin/Globulin Ratio Vancomycin Trough 08/06/17 08/06/17 08/06/17 07:55 07:55 07:55 WBC 7.7 RBC 2.97 L Hgb 9.3 L Hct 25.9 L MCV 87.1 MCH 31.2 H MCHC 35.8 RDW 15.0 H Plt Count 223 MPV 8.1 Neut % (Auto) 75.9 H Lymph % (Auto) 13.3 L [place] % (Auto) 10.1 H Eos % (Auto) 0.3 Baso % (Auto) 0.4 Neut # (Auto) 5.8 Lymph # (Auto) 1.0 [place] # (Auto) 0.8 Eos # (Auto) 0.0 Baso # (Auto) 0.0 Sodium 135 Potassium 3.6 Chloride 103 Carbon Dioxide 20 L Anion Gap 15 BUN 9 Creatinine 0.7 L Est GFR ( Amer) > 60 Est GFR (Non-Af Amer) > 60 POC Glucose (mg/dL) Random Glucose 196 H Calcium 7.5 L Phosphorus 2.1 L Magnesium 1.9 Total Bilirubin 1.2 AST 18 ALT 18 L Alkaline Phosphatase 59 Total Protein 5.9 L Albumin 2.8 L Globulin 3.1 Albumin/Globulin Ratio 0.9 L Vancomycin Trough 9.6 08/06/17 08/06/17 11:43 16:19 WBC RBC Hgb Hct MCV MCH MCHC RDW Plt Count MPV Neut % (Auto) Lymph % (Auto) [place] % (Auto) Eos % (Auto) Baso % (Auto) Neut # (Auto) Lymph # (Auto) [place] # (Auto) Eos # (Auto) Baso # (Auto) Sodium Potassium Chloride Carbon Dioxide Anion Gap BUN Creatinine Est GFR ( Amer) Est GFR (Non-Af Amer) POC Glucose (mg/dL) 206 H 214 H Random Glucose Calcium Phosphorus Magnesium Total Bilirubin AST ALT Alkaline Phosphatase Total Protein Albumin Globulin Albumin/Globulin Ratio Vancomycin Trough Critical Care Progress Note - Nutrition Nutrition: Nutrition Category Date Time Status Consistent Carbohydrate [DIET] Diets 08/04/17 Dinner Active Attending/Attestation - Attestation I have personally seen and examined this patient.: Yes I have fully participated in the care of the patient.: Yes I have reviewed all pertinent clinical information: Yes Notes (Text): 08/06/17 18:09 patient seen and examined in the intensive care unit. Patient underwent Left Femoral to Anterior Tibial Bypass with reverse Saphenous Vein Graft & Intra-op Arteriogram on 08/04/17. POD #2 status post transfusion of packed RBCs Patient remained tachycardic and is on Lopressor 5 mg as needed Continue present treatment for now and ICU care
--- NOTE | 2017-08-06 13:43 | CP.PCM.PN ---
Subjective - Date & Time of Evaluation Date of Evaluation: 08/06/17 Time of Evaluation: 13:40 - Subjective Subjective: Vascular Surgery; Dr. Wilkins Pt seen and examined, no acute overnight events. States he's feeling well this morning and continues to have appropriate post-op pain. Tolerating diet. Denies N/V, F/C. Objective - Vital Signs/Intake and Output Vital Signs (last 24 hours): Temp Pulse Resp BP Pulse Ox 98.7 F 114 H 21 120/66 99 08/06/17 12:00 08/06/17 12:20 08/06/17 12:20 08/06/17 12:20 08/06/17 12:20 Intake and Output: 08/06/17 08/06/17 06:59 18:59 Intake Total 1768 1182.5 Output Total 600 450 Balance 1168 732.5 - Medications Medications: Current Medications Acetaminophen (Tylenol 325mg Tab) 650 mg PO Q6 PRN PRN Reason: Pain, MILD(1-3) Last Admin: 08/05/17 17:24 Dose: 650 mg Aspirin (Aspirin Chewable) 81 mg PO DAILY [facility] Last Admin: 08/06/17 09:47 Dose: 81 mg Cilostazol (Pletal) 100 mg PO BID [facility] Last Admin: 08/06/17 09:48 Dose: 100 mg Clotrimazole (Lotrimin 1%) 1 gm TOP BID [facility] Last Admin: 08/06/17 09:49 Dose: 1 applic Dextrose (Dextrose 50% Inj) 0 ml IV STAT PRN; Protocol PRN Reason: Hypoglycemia Protocol Dextrose (Glutose 15) 0 gm PO ONCE PRN; Protocol PRN Reason: Hypoglycemia Protocol Dextrose (Glutose 15) 0 gm PO .ONCE PRN; Protocol PRN Reason: Hypoglycemia Protocol Enoxaparin Sodium (Lovenox) 40 mg SC DAILY [facility] Last Admin: 08/06/17 10:27 Dose: 40 mg Glucagon (Glucagen Diagnostic Kit) 0 mg IM STAT PRN; Protocol PRN Reason: Hypoglycemia Protocol Glucagon (Glucagen Diagnostic Kit) 0 mg IM .STAT PRN; Protocol PRN Reason: Hypoglycemia Protocol Hydromorphone HCl (Dilaudid) 0.5 mg IVP Q6H PRN PRN Reason: Pain, severe (8-10) Last Admin: 08/06/17 10:00 Dose: 0.5 mg Dextrose (Dextrose 5% In Water 1000 Ml) 1,000 mls @ 0 mls/hr IV .Q0M PRN; Protocol; Per Protocol PRN Reason: Hypoglycemia Protocol Piperacillin Sod/Tazobactam (Sod 3.375 gm/ Sodium Chloride) 100 mls @ 200 mls/ hr IVPB Q6H MARGY PRN Reason: Protocol Stop: 08/10/17 19:01 Last Admin: 08/06/17 12:02 Dose: 200 mls/hr Sodium Chloride (Sodium Chloride 0.9%) 1,000 mls @ 100 mls/hr IV .Q10H [facility] Last Admin: 08/06/17 11:09 Dose: Not Given Potassium Phosphate 15 mmole/ (Sodium Chloride) 255 mls @ 42.5 mls/hr IVPB ONCE ONE Stop: 08/06/17 16:59 Last Admin: 08/06/17 11:03 Dose: 42.5 mls/hr Insulin Human Regular (Novolin R) 0 unit SC ACHS [facility] PRN Reason: Protocol Last Admin: 08/06/17 12:01 Dose: 3 unit Metformin HCl (Glucophage) 850 mg PO BID [facility] Last Admin: 08/03/17 09:43 Dose: 850 mg Metoprolol Tartrate (Lopressor) 5 mg IVP Q6H PRN PRN Reason: Heart Rate >110 Last Admin: 08/06/17 12:10 Dose: 5 mg Oxycodone/Acetaminophen (Percocet 5/325 Mg Tab) 1 tab PO Q4H PRN PRN Reason: Pain, moderate (4-7) Stop: 08/07/17 16:59 Last Admin: 08/06/17 06:29 Dose: 1 tab Pregabalin (Lyrica) 50 mg PO BID [facility] Last Admin: 08/06/17 09:47 Dose: 50 mg Rosuvastatin Calcium (Crestor) 20 mg PO HS [facility] Last Admin: 08/05/17 23:44 Dose: 20 mg Sitagliptin Phosphate (Januvia) 25 mg PO BID [facility] Last Admin: 08/03/17 09:43 Dose: 25 mg - Labs Labs: 08/06/17 07:55 08/06/17 07:55 PT 12.0 SECONDS (9.7-12.2) 08/04/17 06:18 INR 1.1 08/04/17 06:18 APTT 37 SECONDS (21-34) H 08/04/17 06:18 - Constitutional Appears: Well, No Acute Distress - Head Exam Head Exam: ATRAUMATIC, NORMOCEPHALIC - Eye Exam Eye Exam: Normal appearance - ENT Exam ENT Exam: Mucous Membranes Moist - Respiratory Exam Respiratory Exam: NORMAL BREATHING PATTERN - Cardiovascular Exam Cardiovascular Exam: Tachycardia - GI/Abdominal Exam GI & Abdominal Exam: Soft. absent: Tenderness - Extremities Exam Additional comments: LLE with triphasic DP signal, post-op edema noted, dressings in place - Neurological Exam Neurological Exam: Alert, Awake, Oriented x3 - Skin Skin Exam: Dry, Warm Assessment and Plan - Assessment and Plan (Free Text) Assessment: 72M with PVD s/p Fem-Tib bypass; POD#2 Plan: - podiatry plan for OR on friday for gangrenous toe amputation - pain control - PT - d/w Dr. Claudette Bower, PGY-3
[2017-08-06] MEDS ORDERED: Tramadol 25 mg PO ONE (16:45)
[2017-08-06] MEDS: Tramadol 25 mg PO STA ×2 (16:49→16:52)
--- NOTE | 2017-08-06 17:54 | CP.PCM.PN ---
Subjective - Date & Time of Evaluation Date of Evaluation: 08/06/17 Time of Evaluation: 07:00 - Subjective Subjective: seen on rounds iv rx in progress for or on friday Objective - Vital Signs/Intake and Output Vital Signs (last 24 hours): Temp Pulse Resp BP Pulse Ox 98.7 F 114 H 21 120/66 99 08/06/17 12:00 08/06/17 12:20 08/06/17 12:20 08/06/17 12:20 08/06/17 12:20 Intake and Output: 08/06/17 08/06/17 06:59 18:59 Intake Total 1768 2535.0 Output Total 600 1400 Balance 1168 1135.0 - Medications Medications: Current Medications Acetaminophen (Tylenol 325mg Tab) 650 mg PO Q6 PRN PRN Reason: Pain, MILD(1-3) Last Admin: 08/05/17 17:24 Dose: 650 mg Aspirin (Aspirin Chewable) 81 mg PO DAILY [facility] Last Admin: 08/06/17 09:47 Dose: 81 mg Cilostazol (Pletal) 100 mg PO BID [facility] Last Admin: 08/06/17 17:34 Dose: 100 mg Clotrimazole (Lotrimin 1%) 1 gm TOP BID [facility] Last Admin: 08/06/17 17:34 Dose: 1 applic Dextrose (Dextrose 50% Inj) 0 ml IV STAT PRN; Protocol PRN Reason: Hypoglycemia Protocol Dextrose (Glutose 15) 0 gm PO ONCE PRN; Protocol PRN Reason: Hypoglycemia Protocol Dextrose (Glutose 15) 0 gm PO .ONCE PRN; Protocol PRN Reason: Hypoglycemia Protocol Enoxaparin Sodium (Lovenox) 40 mg SC DAILY [facility] Last Admin: 08/06/17 10:27 Dose: 40 mg Famotidine (Pepcid) 20 mg PO BID [facility] Last Admin: 08/06/17 17:34 Dose: 20 mg Glucagon (Glucagen Diagnostic Kit) 0 mg IM STAT PRN; Protocol PRN Reason: Hypoglycemia Protocol Glucagon (Glucagen Diagnostic Kit) 0 mg IM .STAT PRN; Protocol PRN Reason: Hypoglycemia Protocol Hydromorphone HCl (Dilaudid) 0.5 mg IVP Q6H PRN PRN Reason: Pain, severe (8-10) Last Admin: 08/06/17 10:00 Dose: 0.5 mg Dextrose (Dextrose 5% In Water 1000 Ml) 1,000 mls @ 0 mls/hr IV .Q0M PRN; Protocol; Per Protocol PRN Reason: Hypoglycemia Protocol Piperacillin Sod/Tazobactam (Sod 3.375 gm/ Sodium Chloride) 100 mls @ 200 mls/ hr IVPB Q6H MARGY PRN Reason: Protocol Stop: 08/10/17 19:01 Last Admin: 08/06/17 12:02 Dose: 200 mls/hr Sodium Chloride (Sodium Chloride 0.9%) 1,000 mls @ 100 mls/hr IV .Q10H [facility] Last Admin: 08/06/17 11:09 Dose: Not Given Vancomycin/Sodium Chloride (Vancomycin 1 Gm/Ns 200 Ml) 1 gm in 200 mls @ 166.7 mls/hr IVPB Q24H MARYG PRN Reason: Protocol Stop: 08/11/17 18:01 Insulin Human Regular (Novolin R) 0 unit SC ACHS MARGY PRN Reason: Protocol Last Admin: 08/06/17 16:40 Dose: 3 unit Metformin HCl (Glucophage) 850 mg PO BID [facility] Last Admin: 08/03/17 09:43 Dose: 850 mg Metoprolol Tartrate (Lopressor) 5 mg IVP Q6H PRN PRN Reason: Heart Rate >110 Last Admin: 08/06/17 12:10 Dose: 5 mg Oxycodone/Acetaminophen (Percocet 5/325 Mg Tab) 1 tab PO Q4H PRN PRN Reason: Pain, moderate (4-7) Stop: 08/07/17 16:59 Last Admin: 08/06/17 15:19 Dose: 1 tab Pregabalin (Lyrica) 50 mg PO BID [facility] Last Admin: 08/06/17 17:34 Dose: 50 mg Rosuvastatin Calcium (Crestor) 20 mg PO HS [facility] Last Admin: 08/05/17 23:44 Dose: 20 mg Sitagliptin Phosphate (Januvia) 25 mg PO BID [facility] Last Admin: 08/03/17 09:43 Dose: 25 mg - Labs Labs: 08/06/17 07:55 08/06/17 07:55 PT 12.0 SECONDS (9.7-12.2) 08/04/17 06:18 INR 1.1 08/04/17 06:18 APTT 37 SECONDS (21-34) H 08/04/17 06:18 - Constitutional Appears: Non-toxic, Chronically Ill - Head Exam Head Exam: NORMOCEPHALIC - Eye Exam Eye Exam: PERRL - ENT Exam ENT Exam: Mucous Membranes Dry - Neck Exam Neck Exam: absent: Lymphadenopathy - Respiratory Exam Respiratory Exam: Decreased Breath Sounds - Cardiovascular Exam Cardiovascular Exam: REGULAR RHYTHM - GI/Abdominal Exam GI & Abdominal Exam: Distended - Rectal Exam Rectal Exam: Deferred - Exam Exam: NORMAL INSPECTION - Extremities Exam Extremities Exam: Pedal Edema - Back Exam Back Exam: absent: CVA tenderness (L), CVA tenderness (R) - Neurological Exam Neurological Exam: Alert, Awake, CN II-XII Intact, Oriented x3 Neuro motor strength exam: Left Upper Extremity: 4, Right Upper Extremity: 4, Left Lower Extremity: 4, Right Lower Extremity: 4 - Psychiatric Exam Psychiatric exam: Normal Mood - Skin Skin Exam: Dry Assessment and Plan (1) Gangrene of toe of left foot Status: Acute (2) Peripheral arterial disease Status: Acute (3) Cellulitis Status: Acute - Assessment and Plan (Free Text) Assessment: tachycardia- unclear etio work up in progress cont iv antibiotics and wound care
[2017-08-06] MEDS: Vancomycin 1 gm/NS 200 ml 1 GM/200 ML BAG IVPB SCH (18:37)
[2017-08-07] MEDS: Piperacillin/Tazobact 3.375 GM in Sodium Chloride 100 ML IVPB SCH ×4 (00:59→18:32)
[2017-08-07] MEDS: Oxycodone/Acetaminophen 5/325 mg Tab PO PRN ×2 (01:28→09:57)
[2017-08-07] MEDS: Metoprolol 1 mg/ml Inj IVP PRN ×3 (02:25→16:32)
[2017-08-07] MEDS: HYDROmorphone 0.5 mg/0.5 ml ISec IVP PRN (05:53)
[2017-08-07 06:11] LABS: BASO % 0.4 % (0.0-2.0); EOS % 0.5 % (0.0-4.0); HEMOGLOBIN 8.5 g/dL (12.0-18.0); LYMPH # 1.3 K/uL (1.0-4.3); MEAN CELL VOLUME 87.6 fL (80.0-94.0); MEAN CORPUSCULAR HEMOGLOBIN 30.6 pg (27.0-31.0); MEAN CORPUSCULAR HGB CONC 34.9 g/dL (33.0-37.0); MEAN PLATELET VOLUME 7.9 fL (7.2-11.7); MONO # 0.8 K/uL (0.0-0.8); NEUT # 7.1 K/uL (1.8-7.0); NEUT % 76.1 % (50.0-75.0); RBC 2.77 Mil/uL (4.40-5.90); RED CELL DISTRIBUTION WIDTH 15.1 % (11.5-14.5); WHITE BLOOD COUNT 9.3 K/uL (4.8-10.8)
[2017-08-07 06:31] LABS: ALB/GLOB RATIO 0.9 (1.0-2.1); ALT/SGPT 14 U/L (21-72); AST/SGOT 23 U/L (17-59); BLOOD UREA NITROGEN 8 mg/dL (9-20); CALCIUM 7.8 mg/dl (8.6-10.4); GFR AFRICAN-AMERICAN > 60; GFR NON-AFRICAN AMERICAN > 60
[2017-08-07] MEDS: (Novolin R) Insulin Human Regular 100 units/ml vial SC SCH ×4 (08:45→21:59)
--- NOTE | 2017-08-07 09:56 | CP.PCM.PN ---
Subjective - Date & Time of Evaluation Date of Evaluation: 08/07/17 Time of Evaluation: 07:10 - Subjective Subjective: Patient seen and examined this AM. Patient had episodes of confusion overnight-- thought that staff were abducting him when he was taken to CT scan. Patient alert but confused at time of exam but was re-oriented by nursing. Patient complains of pain in the left lower extremity which is currently well controlled , no fevers, but persistent tachycardia 120-140. Objective - Vital Signs/Intake and Output Vital Signs (last 24 hours): Temp Pulse Resp BP Pulse Ox 98.4 F 135 H 13 136/66 94 L 08/07/17 04:00 08/07/17 07:20 08/07/17 07:20 08/07/17 07:20 08/07/17 07:20 Intake and Output: 08/07/17 08/07/17 06:59 18:59 Intake Total 1250 100 Output Total 800 Balance 450 100 - Medications Medications: Current Medications Acetaminophen (Tylenol 325mg Tab) 650 mg PO Q6 PRN PRN Reason: Pain, MILD(1-3) Last Admin: 08/05/17 17:24 Dose: 650 mg Aspirin (Aspirin Chewable) 81 mg PO DAILY [facility] Last Admin: 08/06/17 09:47 Dose: 81 mg Cilostazol (Pletal) 100 mg PO BID [facility] Last Admin: 08/06/17 17:34 Dose: 100 mg Clotrimazole (Lotrimin 1%) 1 gm TOP BID [facility] Last Admin: 08/06/17 17:34 Dose: 1 applic Dextrose (Dextrose 50% Inj) 0 ml IV STAT PRN; Protocol PRN Reason: Hypoglycemia Protocol Dextrose (Glutose 15) 0 gm PO ONCE PRN; Protocol PRN Reason: Hypoglycemia Protocol Dextrose (Glutose 15) 0 gm PO .ONCE PRN; Protocol PRN Reason: Hypoglycemia Protocol Enoxaparin Sodium (Lovenox) 40 mg SC DAILY [facility] Last Admin: 08/06/17 10:27 Dose: 40 mg Famotidine (Pepcid) 20 mg PO BID [facility] Last Admin: 08/06/17 17:34 Dose: 20 mg Glucagon (Glucagen Diagnostic Kit) 0 mg IM STAT PRN; Protocol PRN Reason: Hypoglycemia Protocol Glucagon (Glucagen Diagnostic Kit) 0 mg IM .STAT PRN; Protocol PRN Reason: Hypoglycemia Protocol Dextrose (Dextrose 5% In Water 1000 Ml) 1,000 mls @ 0 mls/hr IV .Q0M PRN; Protocol; Per Protocol PRN Reason: Hypoglycemia Protocol Piperacillin Sod/Tazobactam (Sod 3.375 gm/ Sodium Chloride) 100 mls @ 200 mls/ hr IVPB Q6H [facility] PRN Reason: Protocol Stop: 08/10/17 19:01 Last Admin: 08/07/17 06:03 Dose: 200 mls/hr Sodium Chloride (Sodium Chloride 0.9%) 1,000 mls @ 100 mls/hr IV .Q10H [facility] Last Admin: 08/06/17 22:34 Dose: 100 mls/hr Vancomycin/Sodium Chloride (Vancomycin 1 Gm/Ns 200 Ml) 1 gm in 200 mls @ 166.7 mls/hr IVPB Q24H [facility] PRN Reason: Protocol Stop: 08/11/17 18:01 Last Admin: 08/06/17 18:37 Dose: 166.7 mls/hr Insulin Human Regular (Novolin R) 0 unit SC ACHS [facility] PRN Reason: Protocol Last Admin: 08/06/17 21:33 Dose: Not Given Metformin HCl (Glucophage) 850 mg PO BID [facility] Last Admin: 08/03/17 09:43 Dose: 850 mg Metoprolol Tartrate (Lopressor) 5 mg IVP Q6H PRN PRN Reason: Heart Rate >110 Last Admin: 08/07/17 02:25 Dose: 5 mg Oxycodone/Acetaminophen (Percocet 5/325 Mg Tab) 1 tab PO Q4H PRN PRN Reason: Pain, moderate (4-7) Stop: 08/07/17 16:59 Last Admin: 08/07/17 01:28 Dose: 1 tab Pregabalin (Lyrica) 50 mg PO BID [facility] Last Admin: 08/06/17 17:34 Dose: 50 mg Rosuvastatin Calcium (Crestor) 20 mg PO HS [facility] Last Admin: 08/06/17 20:59 Dose: 20 mg Sitagliptin Phosphate (Januvia) 25 mg PO BID [facility] Last Admin: 08/03/17 09:43 Dose: 25 mg - Labs Labs: 08/07/17 06:04 08/07/17 06:03 PT 12.0 SECONDS (9.7-12.2) 08/04/17 06:18 INR 1.1 08/04/17 06:18 APTT 37 SECONDS (21-34) H 08/04/17 06:18 - Constitutional Appears: Well, Non-toxic, No Acute Distress - Head Exam Head Exam: ATRAUMATIC, NORMOCEPHALIC - Eye Exam Eye Exam: Normal appearance. absent: Conjunctival injection, Scleral icterus - ENT Exam ENT Exam: Mucous Membranes Moist, Normal Oropharynx - Respiratory Exam Respiratory Exam: NORMAL BREATHING PATTERN. absent: Accessory Muscle Use, Respiratory Distress - Cardiovascular Exam Cardiovascular Exam: Tachycardia - GI/Abdominal Exam GI & Abdominal Exam: Soft. absent: Distended - Extremities Exam Additional comments: left lower extremity with surgical dressings intact with no active drainage evident. Lower leg has moderate erythema and swelling. Foot is warm without pallor. 2+ dopplerable DP of the left foot - Neurological Exam Neurological Exam: Alert, Awake, Oriented x3 - Psychiatric Exam Psychiatric exam: Normal Affect, Normal Mood - Skin Skin Exam: Dry, Normal Color, Warm Assessment and Plan - Assessment and Plan (Free Text) Assessment: 72M with necrotic second left toe and PVD, POD# 3 s/p left femoral tibial bypass Persistent tachycardia Left lower leg swelling/erythema with intact perfusion to the foot hgb 8.5 down from 9.3 over 24 hours Plan: -Continue close monitoring of left lower leg for signs of cellulitis or compartment syndrome--monitor distal pulses -Continue antibiotics -Continue PRN pain medication -Try to minimiza narcotic use for pain as it may be contributing to his confusion--frequently re-orient -Going with podiatry for left 2nd toe removal tomorrow -Medical management per primary -DVT ppx Discussed with Dr. Wilkins--further recs per him Yohana Turpin, PGY2
[2017-08-07] MEDS: Enoxaparin 40 mg Syringe SC SCH (09:57)
[2017-08-07] MEDS: Sodium Chloride 0.9% 1,000 ML IV SCH ×2 (09:58→18:41)
[2017-08-07] MEDS: Cilostazol 100 mg Tab UD PO SCH ×2 (09:58→19:00)
[2017-08-07] MEDS: Clotrimazole 1% Cream(30 gm) TOP SCH ×2 (10:00→18:40)
[2017-08-07] MEDS ORDERED: Potassium Phosphate 15 MMOLE in Sodium Chloride 0.9% 250 ML IVPB ONE ×2 (11:30→19:00)
--- NOTE | 2017-08-07 12:32 | CP.CCUPN ---
<Raul Majano - Last Filed: 08/07/17 18:08> CCU Subjective - Physician Review Subjective (Free Text): 08/05/17 09:53 Patient seen and examined. He is complaining of pain in the left leg. No other complaints at this time. 08/06/17 13:33 Patient seen and examined. Patient's pain is better controlled at this time. Patient has no complaints currently. 08/07/17 12:20 Patient seen and examined. Patient reports feeling overall much better without any complaints at this time. He has received clearance from the shactor for his procedure tomorrow. CCU Objective - Vital Signs / Intake & Output Vital Signs (Last 4 hours): Vital Signs Pulse Resp Pulse Ox 08/07/17 11:00 126 H 19 100 08/07/17 10:00 141 H 13 08/07/17 09:00 140 H 19 81 L Intake and Output (Last 8hrs): Intake & Output 08/06/17 08/07/17 08/07/17 22:59 06:59 14:59 Intake Total 1355.0 800 500 Output Total 0 800 400 Balance 1355.0 0 100 Weight 124 lb 3.2 oz Intake: Intake, IV Amount 825.0 800 500 Left Hand 825.0 800 500 Oral 530 Output: Urine 0 800 400 Urethral (Clements) 0 Urine, Voided 800 400 Other: # Voids Urine, Voided 1 - Physical Exam Head: Positive for: Atraumatic, Normocephalic Pupils: Positive for: PERRL Extroacular Muscles: Positive for: EOMI Conjunctiva: Positive for: Normal Mouth: Positive for: Moist Mucous Membranes Respiratory/Chest: Positive for: Clear to Auscultation, Good Air Exchange. Negative for: Wheezes, Rales, Rhonchi Cardiovascular: Positive for: Normal S1, S2, Tachycardic Abdomen: Positive for: Normal Bowel Sounds. Negative for: Tenderness, Distention Upper Extremity: Positive for: Normal Inspection Lower Extremity: Positive for: Other (Pedal pulses obtained with doppler. ) Neurological: Positive for: GCS=15 Skin: Positive for: Warm, Dry Psychiatric: Positive for: Alert, Oriented x 3 - Medications Active Medications: Active Medications Generic Name Dose Route Start Last Admin Trade Name Freq PRN Reason Stop Dose Admin Acetaminophen 650 mg 08/05/17 17:19 08/05/17 17:24 Tylenol 325mg Tab PO 650 mg Q6 PRN Administration Pain, MILD(1-3) Aspirin 81 mg 07/29/17 16:30 08/07/17 09:57 Aspirin Chewable PO 81 mg DAILY MARGY Administration Cilostazol 100 mg 07/30/17 18:00 08/07/17 09:58 Pletal PO 100 mg BID MARGY Administration Clotrimazole 1 gm 07/30/17 10:00 08/07/17 10:00 Lotrimin 1% TOP 1 applic BID MARGY Administration Dextrose 0 ml 07/29/17 15:49 Dextrose 50% Inj IV STAT PRN Hypoglycemia Protocol Protocol Dextrose 0 gm 07/29/17 15:49 Glutose 15 PO ONCE PRN Hypoglycemia Protocol Protocol Dextrose 0 gm 07/31/17 16:42 Glutose 15 PO .ONCE PRN Hypoglycemia Protocol Protocol Enoxaparin Sodium 40 mg 07/30/17 10:00 08/07/17 09:57 Lovenox SC 40 mg DAILY MARGY Administration Famotidine 20 mg 08/06/17 18:00 08/07/17 09:57 Pepcid PO 20 mg BID MARGY Administration Glucagon 0 mg 07/29/17 15:49 Glucagen Diagnostic Kit IM STAT PRN Hypoglycemia Protocol Protocol Glucagon 0 mg 07/31/17 16:42 Glucagen Diagnostic Kit IM .STAT PRN Hypoglycemia Protocol Protocol Dextrose 1,000 mls @ 0 mls/hr 07/31/17 16:42 Dextrose 5% In Water 1000 Ml IV .Q0M PRN Hypoglycemia Protocol Protocol Per Protocol Piperacillin Sod/Tazobactam 100 mls @ 200 mls/hr 07/31/17 19:00 08/07/17 06: 03 Sod 3.375 gm/ Sodium Chloride IVPB 08/10/17 19:01 200 mls/hr Q6H MARGY Administration Protocol Sodium Chloride 1,000 mls @ 100 mls/hr 08/04/17 19:00 08/07/17 09:58 Sodium Chloride 0.9% IV 100 mls/hr .Q10H MARGY Administration Vancomycin/Sodium Chloride 1 gm in 200 mls @ 166.7 mls/hr 08/06/17 18:00 03/15 18:37 Vancomycin 1 Gm/Ns 200 Ml IVPB 08/11/17 18:01 166.7 mls/hr Q24H MARGY Administration Protocol Potassium Phosphate 15 mmole/ 255 mls @ 42.5 mls/hr 08/07/17 11:30 Sodium Chloride IVPB 08/07/17 17:29 ONCE ONE Insulin Human Regular 0 unit 07/29/17 16:30 08/07/17 08:45 Novolin R SC 1 unit ACHS MARGY Administration Protocol Metformin HCl 850 mg 07/31/17 18:00 08/03/17 09:43 Glucophage PO 850 mg BID MARGY Administration Metoprolol Tartrate 5 mg 08/05/17 18:41 08/07/17 09:57 Lopressor IVP 5 mg Q6H PRN Administration Heart Rate >110 Metoprolol Tartrate 25 mg 08/07/17 11:00 Lopressor PO BID MARGY Oxycodone/Acetaminophen 1 tab 08/04/17 16:58 08/07/17 09:57 Percocet 5/325 Mg Tab PO 08/07/17 16:59 1 tab Q4H PRN Administration Pain, moderate (4-7) Pregabalin 50 mg 07/29/17 18:00 08/07/17 09:57 Lyrica PO 50 mg BID MARGY Administration Rosuvastatin Calcium 20 mg 07/30/17 22:00 08/06/17 20:59 Crestor PO 20 mg HS MARGY Administration Sitagliptin Phosphate 25 mg 07/31/17 18:00 08/03/17 09:43 Januvia PO 25 mg BID MARGY Administration - Patient Studies Lab Studies: Microbiology Studies 08/04/17 Unknown MRSA Culture (Admit) - Final Nose MRSA NOT DETECTED Lab Studies 08/07/17 08/07/17 08/07/17 Range/Units 11:13 07:20 06:04 WBC 9.3 (4.8-10.8) K/uL RBC 2.77 L (4.40-5.90) Mil/uL Hgb 8.5 L (12.0-18.0) g/dL Hct 24.2 L (35.0-51.0) % MCV 87.6 (80.0-94.0) fL MCH 30.6 (27.0-31.0) pg MCHC 34.9 (33.0-37.0) g/dL RDW 15.1 H (11.5-14.5) % Plt Count 248 (130-400) K/uL MPV 7.9 (7.2-11.7) fL Neut % (Auto) 76.1 H (50.0-75.0) % Lymph % (Auto) 14.0 L (20.0-40.0) % Lucas % (Auto) 9.0 (0.0-10.0) % Eos % (Auto) 0.5 (0.0-4.0) % Baso % (Auto) 0.4 (0.0-2.0) % Neut # (Auto) 7.1 H (1.8-7.0) K/uL Lymph # (Auto) 1.3 (1.0-4.3) K/uL Lucas # (Auto) 0.8 (0.0-0.8) K/uL Eos # (Auto) 0.0 (0.0-0.7) K/uL Baso # (Auto) 0.0 (0.0-0.2) K/uL Sodium (132-148) mmol/L Potassium (3.6-5.2) mmol/L Chloride (98-107) mmol/L Carbon Dioxide (22-30) mmol/L Anion Gap (10-20) BUN (9-20) mg/dL Creatinine (0.8-1.5) mg/dL Est GFR ( Amer) Est GFR (Non-Af Amer) POC Glucose (mg/dL) 267 H 255 H (65-110) mg/dL Random Glucose (75-110) mg/dL Calcium (8.6-10.4) mg/dl Phosphorus (2.5-4.5) mg/dL Magnesium (1.6-2.3) mg/dL Total Bilirubin (0.2-1.3) mg/dL AST (17-59) U/L ALT (21-72) U/L Alkaline Phosphatase (38-126) U/L Total Protein (6.3-8.3) g/dL Albumin (3.5-5.0) g/dL Globulin (2.2-3.9) gm/dL Albumin/Globulin Ratio (1.0-2.1) Free T4 (0.78-2.19) ng/dL TSH 3rd Generation (0.46-4.68) mIU/L 08/07/17 08/07/17 08/06/17 Range/Units 06:03 06:03 21:08 WBC (4.8-10.8) K/uL RBC (4.40-5.90) Mil/uL Hgb (12.0-18.0) g/dL Hct (35.0-51.0) % MCV (80.0-94.0) fL MCH (27.0-31.0) pg MCHC (33.0-37.0) g/dL RDW (11.5-14.5) % Plt Count (130-400) K/uL MPV (7.2-11.7) fL Neut % (Auto) (50.0-75.0) % Lymph % (Auto) (20.0-40.0) % Lucas % (Auto) (0.0-10.0) % Eos % (Auto) (0.0-4.0) % Baso % (Auto) (0.0-2.0) % Neut # (Auto) (1.8-7.0) K/uL Lymph # (Auto) (1.0-4.3) K/uL Lucas # (Auto) (0.0-0.8) K/uL Eos # (Auto) (0.0-0.7) K/uL Baso # (Auto) (0.0-0.2) K/uL Sodium 135 (132-148) mmol/L Potassium 3.7 (3.6-5.2) mmol/L Chloride 102 (98-107) mmol/L Carbon Dioxide 22 (22-30) mmol/L Anion Gap 15 (10-20) BUN 8 L (9-20) mg/dL Creatinine 0.7 L (0.8-1.5) mg/dL Est GFR ( Amer) > 60 Est GFR (Non-Af Amer) > 60 POC Glucose (mg/dL) 238 H (65-110) mg/dL Random Glucose 204 H (75-110) mg/dL Calcium 7.8 L (8.6-10.4) mg/dl Phosphorus 2.0 L (2.5-4.5) mg/dL Magnesium 2.0 (1.6-2.3) mg/dL Total Bilirubin 0.9 (0.2-1.3) mg/dL AST 23 (17-59) U/L ALT 14 L D (21-72) U/L Alkaline Phosphatase 67 (38-126) U/L Total Protein 6.4 (6.3-8.3) g/dL Albumin 3.0 L (3.5-5.0) g/dL Globulin 3.5 (2.2-3.9) gm/dL Albumin/Globulin Ratio 0.9 L (1.0-2.1) Free T4 1.55 (0.78-2.19) ng/dL TSH 3rd Generation 2.24 (0.46-4.68) mIU/L 08/06/17 Range/Units 16:19 WBC (4.8-10.8) K/uL RBC (4.40-5.90) Mil/uL Hgb (12.0-18.0) g/dL Hct (35.0-51.0) % MCV (80.0-94.0) fL MCH (27.0-31.0) pg MCHC (33.0-37.0) g/dL RDW (11.5-14.5) % Plt Count (130-400) K/uL MPV (7.2-11.7) fL Neut % (Auto) (50.0-75.0) % Lymph % (Auto) (20.0-40.0) % Lucas % (Auto) (0.0-10.0) % Eos % (Auto) (0.0-4.0) % Baso % (Auto) (0.0-2.0) % Neut # (Auto) (1.8-7.0) K/uL Lymph # (Auto) (1.0-4.3) K/uL Lucas # (Auto) (0.0-0.8) K/uL Eos # (Auto) (0.0-0.7) K/uL Baso # (Auto) (0.0-0.2) K/uL Sodium (132-148) mmol/L Potassium (3.6-5.2) mmol/L Chloride (98-107) mmol/L Carbon Dioxide (22-30) mmol/L Anion Gap (10-20) BUN (9-20) mg/dL Creatinine (0.8-1.5) mg/dL Est GFR ( Amer) Est GFR (Non-Af Amer) POC Glucose (mg/dL) 214 H (65-110) mg/dL Random Glucose (75-110) mg/dL Calcium (8.6-10.4) mg/dl Phosphorus (2.5-4.5) mg/dL Magnesium (1.6-2.3) mg/dL Total Bilirubin (0.2-1.3) mg/dL AST (17-59) U/L ALT (21-72) U/L Alkaline Phosphatase (38-126) U/L Total Protein (6.3-8.3) g/dL Albumin (3.5-5.0) g/dL Globulin (2.2-3.9) gm/dL Albumin/Globulin Ratio (1.0-2.1) Free T4 (0.78-2.19) ng/dL TSH 3rd Generation (0.46-4.68) mIU/L Laboratory Results - last 24 hr 08/06/17 08/06/17 08/07/17 16:19 21:08 06:03 WBC RBC Hgb Hct MCV MCH MCHC RDW Plt Count MPV Neut % (Auto) Lymph % (Auto) Lucas % (Auto) Eos % (Auto) Baso % (Auto) Neut # (Auto) Lymph # (Auto) Lucas # (Auto) Eos # (Auto) Baso # (Auto) Sodium 135 Potassium 3.7 Chloride 102 Carbon Dioxide 22 Anion Gap 15 BUN 8 L Creatinine 0.7 L Est GFR ( Amer) > 60 Est GFR (Non-Af Amer) > 60 POC Glucose (mg/dL) 214 H 238 H Random Glucose 204 H Calcium 7.8 L Phosphorus 2.0 L Magnesium 2.0 Total Bilirubin 0.9 AST 23 ALT 14 L D Alkaline Phosphatase 67 Total Protein 6.4 Albumin 3.0 L Globulin 3.5 Albumin/Globulin Ratio 0.9 L Free T4 TSH 3rd Generation 2.24 08/07/17 08/07/17 08/07/17 06:03 06:04 07:20 WBC 9.3 RBC 2.77 L Hgb 8.5 L Hct 24.2 L MCV 87.6 MCH 30.6 MCHC 34.9 RDW 15.1 H Plt Count 248 MPV 7.9 Neut % (Auto) 76.1 H Lymph % (Auto) 14.0 L Lucas % (Auto) 9.0 Eos % (Auto) 0.5 Baso % (Auto) 0.4 Neut # (Auto) 7.1 H Lymph # (Auto) 1.3 Lucas # (Auto) 0.8 Eos # (Auto) 0.0 Baso # (Auto) 0.0 Sodium Potassium Chloride Carbon Dioxide Anion Gap BUN Creatinine Est GFR ( Amer) Est GFR (Non-Af Amer) POC Glucose (mg/dL) 255 H Random Glucose Calcium Phosphorus Magnesium Total Bilirubin AST ALT Alkaline Phosphatase Total Protein Albumin Globulin Albumin/Globulin Ratio Free T4 1.55 TSH 3rd Generation 08/07/17 11:13 WBC RBC Hgb Hct MCV MCH MCHC RDW Plt Count MPV Neut % (Auto) Lymph % (Auto) Lucas % (Auto) Eos % (Auto) Baso % (Auto) Neut # (Auto) Lymph # (Auto) Lucas # (Auto) Eos # (Auto) Baso # (Auto) Sodium Potassium Chloride Carbon Dioxide Anion Gap BUN Creatinine Est GFR ( Amer) Est GFR (Non-Af Amer) POC Glucose (mg/dL) 267 H Random Glucose Calcium Phosphorus Magnesium Total Bilirubin AST ALT Alkaline Phosphatase Total Protein Albumin Globulin Albumin/Globulin Ratio Free T4 TSH 3rd Generation Fingerstick Blood Sugar Results: 255 Critical Care Progress Note - Nutrition Nutrition: Nutrition Category Date Time Status Consistent Carbohydrate [DIET] Diets 08/04/17 Dinner Active NPO Diet [DIET] Diets 08/08/17 Breakfast Active Assessment/Plan - Assessment and Plan (Free Text) Assessment: This is a 72 year old male with PMHx DM, HTN, HLD, PVD who presented for left 2nd toe gangrene. Patient underwent Left Femoral to Anterior Tibial Bypass with reverse Saphenous Vein Graft & Intra-op Arteriogram on 08/04/17. POD #2 Neuro Awake, Verbal Cardio ASA 81 mg PO daily Normotensive but tachycardic. Lopressor 5 mg IV Q6H prn HR>110 dose Lopressor 25 mg PO BID MARGY Sinus tachycardia on EKG Remains tachycardic, so echo ordered. f/u results Pulmonary Saturating well on room air GI Consistent Carb Diet (NPO after midnight for OR) Pepcid 20 mg PO BID Endocrine Hold Metformin Hold Januvia Regular ISS--medium dose Nephro kidney function studies are within normal limits ID On Vancomycin 1 gm Q24H (Day 8) On Zosyn 3.375 gm Q6H (Day 8) Heme/Onc Monitor H/H Prophylaxis Lovenox 40 mg SC daily NS 100cc/hr Pepcid 20 mg PO BID NPO after midnight for OR Discussed with Dr. Burrows <Ivan Burrows - Last Filed: 08/08/17 11:28> CCU Objective - Vital Signs / Intake & Output Vital Signs (Last 4 hours): Vital Signs Temp Pulse Resp BP 08/08/17 10:31 98.0 F 114 H 16 119/74 08/08/17 10:16 98.2 F 114 H 15 118/58 L 08/08/17 09:48 119/69 Intake and Output (Last 8hrs): Intake & Output 08/07/17 08/08/17 08/08/17 22:59 06:59 14:59 Intake Total 1222 840 100 Output Total 1100 1500 0 Balance 122 -660 100 Weight 124 lb Intake: Intake, IV Amount 732 800 100 Left Hand 732 800 100 Oral 490 40 Blood Product 0 Red Blood Cells Cpd As1 0 Lr Unit [id number] Output: Urine 1100 1500 0 Urine, Voided 1100 1500 0 Stool 0 0 Other: # Voids Urine, Voided 1 - Medications Active Medications: Active Medications Generic Name Dose Route Start Last Admin Trade Name Freq PRN Reason Stop Dose Admin Acetaminophen 650 mg 08/05/17 17:19 08/08/17 00:48 Tylenol 325mg Tab PO 650 mg Q6 PRN Administration Pain, MILD(1-3) Aspirin 81 mg 07/29/17 16:30 08/08/17 09:39 Aspirin Chewable PO Not Given DAILY MARGY Cilostazol 100 mg 07/30/17 18:00 08/07/17 19:00 Pletal PO 100 mg BID MARGY Administration Clotrimazole 1 gm 07/30/17 10:00 08/08/17 09:50 Lotrimin 1% TOP 1 applic BID MARGY Administration Dextrose 0 ml 07/29/17 15:49 Dextrose 50% Inj IV STAT PRN Hypoglycemia Protocol Protocol Dextrose 0 gm 07/29/17 15:49 Glutose 15 PO ONCE PRN Hypoglycemia Protocol Protocol Dextrose 0 gm 07/31/17 16:42 Glutose 15 PO .ONCE PRN Hypoglycemia Protocol Protocol Enoxaparin Sodium 40 mg 07/30/17 10:00 08/07/17 09:57 Lovenox SC 40 mg DAILY MARGY Administration Famotidine 20 mg 08/06/17 18:00 08/08/17 09:42 Pepcid PO Not Given BID MARGY Glucagon 0 mg 07/29/17 15:49 Glucagen Diagnostic Kit IM STAT PRN Hypoglycemia Protocol Protocol Glucagon 0 mg 07/31/17 16:42 Glucagen Diagnostic Kit IM .STAT PRN Hypoglycemia Protocol Protocol Dextrose 1,000 mls @ 0 mls/hr 07/31/17 16:42 Dextrose 5% In Water 1000 Ml IV .Q0M PRN Hypoglycemia Protocol Protocol Per Protocol Piperacillin Sod/Tazobactam 100 mls @ 200 mls/hr 07/31/17 19:00 08/08/17 07: 45 Sod 3.375 gm/ Sodium Chloride IVPB 08/10/17 19:01 200 mls/hr Q6H MARGY Administration Protocol Sodium Chloride 1,000 mls @ 100 mls/hr 08/04/17 19:00 08/08/17 02:00 Sodium Chloride 0.9% IV 100 mls/hr .Q10H MARGY Administration Vancomycin/Sodium Chloride 1 gm in 200 mls @ 166.7 mls/hr 08/06/17 18:00 04/14 18:33 Vancomycin 1 Gm/Ns 200 Ml IVPB 08/11/17 18:01 166.7 mls/hr Q24H MARGY Administration Protocol Insulin Human Regular 0 unit 07/29/17 16:30 08/08/17 08:28 Novolin R SC Not Given ACHS MARGY Protocol Metformin HCl 850 mg 07/31/17 18:00 08/03/17 09:43 Glucophage PO 850 mg BID MARGY Administration Metoprolol Tartrate 5 mg 08/05/17 18:41 08/08/17 08:15 Lopressor IVP 5 mg Q6H PRN Administration Heart Rate >110 Metoprolol Tartrate 25 mg 08/08/17 10:30 Lopressor PO Q8 MARGY Potassium Phos/Sodium Phos 1 pkt 08/08/17 14:00 Neutra-Phos PO 08/09/17 14:01 TID MARGY Pregabalin 50 mg 07/29/17 18:00 08/08/17 09:42 Lyrica PO Not Given BID MARGY Rosuvastatin Calcium 20 mg 07/30/17 22:00 08/07/17 21:59 Crestor PO 20 mg HS MARGY Administration Sitagliptin Phosphate 25 mg 07/31/17 18:00 08/03/17 09:43 Januvia PO 25 mg BID MARGY Administration - Patient Studies Lab Studies: Lab Studies 08/08/17 08/08/17 08/08/17 Range/Units 07:35 06:58 06:11 WBC (4.8-10.8) K/uL RBC (4.40-5.90) Mil/uL Hgb (12.0-18.0) g/dL Hct (35.0-51.0) % MCV (80.0-94.0) fL MCH (27.0-31.0) pg MCHC (33.0-37.0) g/dL RDW (11.5-14.5) % Plt Count (130-400) K/uL MPV (7.2-11.7) fL Neut % (Auto) (50.0-75.0) % Lymph % (Auto) (20.0-40.0) % Lucas % (Auto) (0.0-10.0) % Eos % (Auto) (0.0-4.0) % Baso % (Auto) (0.0-2.0) % Neut # (Auto) (1.8-7.0) K/uL Lymph # (Auto) (1.0-4.3) K/uL Lucas # (Auto) (0.0-0.8) K/uL Eos # (Auto) (0.0-0.7) K/uL Baso # (Auto) (0.0-0.2) K/uL PT (9.7-12.2) SECONDS INR APTT (21-34) SECONDS Sodium 137 (132-148) mmol/L Potassium 3.4 L (3.6-5.2) mmol/L Chloride 104 (98-107) mmol/L Carbon Dioxide 21 L (22-30) mmol/L Anion Gap 15 (10-20) BUN 10 (9-20) mg/dL Creatinine 0.8 (0.8-1.5) mg/dL Est GFR ( Amer) > 60 Est GFR (Non-Af Amer) > 60 POC Glucose (mg/dL) 258 H (65-110) mg/dL Random Glucose 201 H (75-110) mg/dL Calcium 8.1 L (8.6-10.4) mg/dl Phosphorus 2.3 L (2.5-4.5) mg/dL Magnesium 2.1 (1.6-2.3) mg/dL Total Bilirubin 1.0 (0.2-1.3) mg/dL AST 25 (17-59) U/L ALT 17 L D (21-72) U/L Alkaline Phosphatase 70 (38-126) U/L Total Protein 6.0 L (6.3-8.3) g/dL Albumin 2.7 L (3.5-5.0) g/dL Globulin 3.3 (2.2-3.9) gm/dL Albumin/Globulin Ratio 0.8 L (1.0-2.1) Blood Type O POSITIVE Antibody Screen Negative Crossmatch See Detail 08/08/17 08/08/17 08/07/17 Range/Units 06:11 06:11 21:14 WBC 7.7 (4.8-10.8) K/uL RBC 2.40 L (4.40-5.90) Mil/uL Hgb 7.4 L (12.0-18.0) g/dL Hct 21.0 L (35.0-51.0) % MCV 87.5 (80.0-94.0) fL MCH 30.8 (27.0-31.0) pg MCHC 35.2 (33.0-37.0) g/dL RDW 14.9 H (11.5-14.5) % Plt Count 267 (130-400) K/uL MPV 8.0 (7.2-11.7) fL Neut % (Auto) 68.2 (50.0-75.0) % Lymph % (Auto) 20.3 (20.0-40.0) % Lucas % (Auto) 9.8 (0.0-10.0) % Eos % (Auto) 1.2 (0.0-4.0) % Baso % (Auto) 0.5 (0.0-2.0) % Neut # (Auto) 5.3 (1.8-7.0) K/uL Lymph # (Auto) 1.6 (1.0-4.3) K/uL Lucas # (Auto) 0.8 (0.0-0.8) K/uL Eos # (Auto) 0.1 (0.0-0.7) K/uL Baso # (Auto) 0.0 (0.0-0.2) K/uL PT 12.0 (9.7-12.2) SECONDS INR 1.1 APTT 37 H (21-34) SECONDS Sodium (132-148) mmol/L Potassium (3.6-5.2) mmol/L Chloride (98-107) mmol/L Carbon Dioxide (22-30) mmol/L Anion Gap (10-20) BUN (9-20) mg/dL Creatinine (0.8-1.5) mg/dL Est GFR ( Amer) Est GFR (Non-Af Amer) POC Glucose (mg/dL) 311 H (65-110) mg/dL Random Glucose (75-110) mg/dL Calcium (8.6-10.4) mg/dl Phosphorus (2.5-4.5) mg/dL Magnesium (1.6-2.3) mg/dL Total Bilirubin (0.2-1.3) mg/dL AST (17-59) U/L ALT (21-72) U/L Alkaline Phosphatase (38-126) U/L Total Protein (6.3-8.3) g/dL Albumin (3.5-5.0) g/dL Globulin (2.2-3.9) gm/dL Albumin/Globulin Ratio (1.0-2.1) Blood Type Antibody Screen Crossmatch 08/07/17 Range/Units 16:14 WBC (4.8-10.8) K/uL RBC (4.40-5.90) Mil/uL Hgb (12.0-18.0) g/dL Hct (35.0-51.0) % MCV (80.0-94.0) fL MCH (27.0-31.0) pg MCHC (33.0-37.0) g/dL RDW (11.5-14.5) % Plt Count (130-400) K/uL MPV (7.2-11.7) fL Neut % (Auto) (50.0-75.0) % Lymph % (Auto) (20.0-40.0) % Lucas % (Auto) (0.0-10.0) % Eos % (Auto) (0.0-4.0) % Baso % (Auto) (0.0-2.0) % Neut # (Auto) (1.8-7.0) K/uL Lymph # (Auto) (1.0-4.3) K/uL Lucas # (Auto) (0.0-0.8) K/uL Eos # (Auto) (0.0-0.7) K/uL Baso # (Auto) (0.0-0.2) K/uL PT (9.7-12.2) SECONDS INR APTT (21-34) SECONDS Sodium (132-148) mmol/L Potassium (3.6-5.2) mmol/L Chloride (98-107) mmol/L Carbon Dioxide (22-30) mmol/L Anion Gap (10-20) BUN (9-20) mg/dL Creatinine (0.8-1.5) mg/dL Est GFR ( Amer) Est GFR (Non-Af Amer) POC Glucose (mg/dL) 277 H (65-110) mg/dL Random Glucose (75-110) mg/dL Calcium (8.6-10.4) mg/dl Phosphorus (2.5-4.5) mg/dL Magnesium (1.6-2.3) mg/dL Total Bilirubin (0.2-1.3) mg/dL AST (17-59) U/L ALT (21-72) U/L Alkaline Phosphatase (38-126) U/L Total Protein (6.3-8.3) g/dL Albumin (3.5-5.0) g/dL Globulin (2.2-3.9) gm/dL Albumin/Globulin Ratio (1.0-2.1) Blood Type Antibody Screen Crossmatch Laboratory Results - last 24 hr 08/07/17 08/07/17 08/08/17 16:14 21:14 06:11 WBC RBC Hgb Hct MCV MCH MCHC RDW Plt Count MPV Neut % (Auto) Lymph % (Auto) Lucas % (Auto) Eos % (Auto) Baso % (Auto) Neut # (Auto) Lymph # (Auto) Lucas # (Auto) Eos # (Auto) Baso # (Auto) PT 12.0 INR 1.1 APTT 37 H Sodium Potassium Chloride Carbon Dioxide Anion Gap BUN Creatinine Est GFR ( Amer) Est GFR (Non-Af Amer) POC Glucose (mg/dL) 277 H 311 H Random Glucose Calcium Phosphorus Magnesium Total Bilirubin AST ALT Alkaline Phosphatase Total Protein Albumin Globulin Albumin/Globulin Ratio Blood Type Antibody Screen Crossmatch 08/08/17 08/08/17 08/08/17 06:11 06:11 06:58 WBC 7.7 RBC 2.40 L Hgb 7.4 L Hct 21.0 L MCV 87.5 MCH 30.8 MCHC 35.2 RDW 14.9 H Plt Count 267 MPV 8.0 Neut % (Auto) 68.2 Lymph % (Auto) 20.3 Lucas % (Auto) 9.8 Eos % (Auto) 1.2 Baso % (Auto) 0.5 Neut # (Auto) 5.3 Lymph # (Auto) 1.6 Lucas # (Auto) 0.8 Eos # (Auto) 0.1 Baso # (Auto) 0.0 PT INR APTT Sodium 137 Potassium 3.4 L Chloride 104 Carbon Dioxide 21 L Anion Gap 15 BUN 10 Creatinine 0.8 Est GFR ( Amer) > 60 Est GFR (Non-Af Amer) > 60 POC Glucose (mg/dL) Random Glucose 201 H Calcium 8.1 L Phosphorus 2.3 L Magnesium 2.1 Total Bilirubin 1.0 AST 25 ALT 17 L D Alkaline Phosphatase 70 Total Protein 6.0 L Albumin 2.7 L Globulin 3.3 Albumin/Globulin Ratio 0.8 L Blood Type O POSITIVE Antibody Screen Negative Crossmatch See Detail 08/08/17 07:35 WBC RBC Hgb Hct MCV MCH MCHC RDW Plt Count MPV Neut % (Auto) Lymph % (Auto) Lucas % (Auto) Eos % (Auto) Baso % (Auto) Neut # (Auto) Lymph # (Auto) Lucas # (Auto) Eos # (Auto) Baso # (Auto) PT INR APTT Sodium Potassium Chloride Carbon Dioxide Anion Gap BUN Creatinine Est GFR ( Amer) Est GFR (Non-Af Amer) POC Glucose (mg/dL) 258 H Random Glucose Calcium Phosphorus Magnesium Total Bilirubin AST ALT Alkaline Phosphatase Total Protein Albumin Globulin Albumin/Globulin Ratio Blood Type Antibody Screen Crossmatch Critical Care Progress Note - Nutrition Nutrition: Nutrition Category Date Time Status NPO Diet [DIET] Diets 08/08/17 Breakfast Active Attending/Attestation - Attestation I have personally seen and examined this patient.: Yes I have fully participated in the care of the patient.: Yes I have reviewed all pertinent clinical information: Yes Notes (Text): Today: July The Patient was seen and examined at the bedside, Medical records reviewed, and management issues were discussed and formulated with the house staff. I have reviewed all the relevant clinical, laboratory, hemodynamic, radiographic data and medications Events reviewed Pain issues, skin care, head of the bed elevation, glycemic control were addressed. Agree with above resident's assessment and treatment plans of care as transcribed in Dr. Majano note.
--- NOTE | 2017-08-07 14:09 | CP.PCM.PCO ---
Physician Communication Note - Physician Communication Note Physician Communication Note: OR tomorrow Dr. Manny Snow 2nd toe amp Additional Comments - Additional Comments Additional Comments: Pt for OR tomorrow 08/[address] Manny torres L 2nd toe amp Plan has been discussed with pt NPO past midnight Hold anticoags in AM Pt is cleared for surgery by cardiology Dr. Carpenter
--- NOTE | 2017-08-07 16:22 | CP.PCM.PN ---
Subjective - Date & Time of Evaluation Date of Evaluation: 08/07/17 Time of Evaluation: 16:22 - Subjective Subjective: clinically stable. hr elevated due to pain. Objective - Vital Signs/Intake and Output Vital Signs (last 24 hours): Temp Pulse Resp BP Pulse Ox 98.4 F 130 H 18 119/53 L 99 08/07/17 04:00 08/07/17 13:00 08/07/17 13:00 08/07/17 08:20 08/07/17 13:00 Intake and Output: 08/07/17 08/07/17 06:59 18:59 Intake Total 1250 950 Output Total 800 650 Balance 450 300 - Medications Medications: Current Medications Acetaminophen (Tylenol 325mg Tab) 650 mg PO Q6 PRN PRN Reason: Pain, MILD(1-3) Last Admin: 08/05/17 17:24 Dose: 650 mg Aspirin (Aspirin Chewable) 81 mg PO DAILY [facility] Last Admin: 08/07/17 09:57 Dose: 81 mg Cilostazol (Pletal) 100 mg PO BID [facility] Last Admin: 08/07/17 09:58 Dose: 100 mg Clotrimazole (Lotrimin 1%) 1 gm TOP BID [facility] Last Admin: 08/07/17 10:00 Dose: 1 applic Dextrose (Dextrose 50% Inj) 0 ml IV STAT PRN; Protocol PRN Reason: Hypoglycemia Protocol Dextrose (Glutose 15) 0 gm PO ONCE PRN; Protocol PRN Reason: Hypoglycemia Protocol Dextrose (Glutose 15) 0 gm PO .ONCE PRN; Protocol PRN Reason: Hypoglycemia Protocol Enoxaparin Sodium (Lovenox) 40 mg SC DAILY [facility] Last Admin: 08/07/17 09:57 Dose: 40 mg Famotidine (Pepcid) 20 mg PO BID [facility] Last Admin: 08/07/17 09:57 Dose: 20 mg Glucagon (Glucagen Diagnostic Kit) 0 mg IM STAT PRN; Protocol PRN Reason: Hypoglycemia Protocol Glucagon (Glucagen Diagnostic Kit) 0 mg IM .STAT PRN; Protocol PRN Reason: Hypoglycemia Protocol Dextrose (Dextrose 5% In Water 1000 Ml) 1,000 mls @ 0 mls/hr IV .Q0M PRN; Protocol; Per Protocol PRN Reason: Hypoglycemia Protocol Piperacillin Sod/Tazobactam (Sod 3.375 gm/ Sodium Chloride) 100 mls @ 200 mls/ hr IVPB Q6H MARGY PRN Reason: Protocol Stop: 08/10/17 19:01 Last Admin: 08/07/17 06:03 Dose: 200 mls/hr Sodium Chloride (Sodium Chloride 0.9%) 1,000 mls @ 100 mls/hr IV .Q10H [facility] Last Admin: 08/07/17 09:58 Dose: 100 mls/hr Vancomycin/Sodium Chloride (Vancomycin 1 Gm/Ns 200 Ml) 1 gm in 200 mls @ 166.7 mls/hr IVPB Q24H MARGY PRN Reason: Protocol Stop: 08/11/17 18:01 Last Admin: 08/06/17 18:37 Dose: 166.7 mls/hr Potassium Phosphate 15 mmole/ (Sodium Chloride) 255 mls @ 42.5 mls/hr IVPB ONCE ONE Stop: 08/07/17 17:29 Insulin Human Regular (Novolin R) 0 unit SC ACHS MARGY PRN Reason: Protocol Last Admin: 08/07/17 08:45 Dose: 1 unit Metformin HCl (Glucophage) 850 mg PO BID [facility] Last Admin: 08/03/17 09:43 Dose: 850 mg Metoprolol Tartrate (Lopressor) 5 mg IVP Q6H PRN PRN Reason: Heart Rate >110 Last Admin: 08/07/17 09:57 Dose: 5 mg Metoprolol Tartrate (Lopressor) 25 mg PO BID [facility] Oxycodone/Acetaminophen (Percocet 5/325 Mg Tab) 1 tab PO Q4H PRN PRN Reason: Pain, moderate (4-7) Stop: 08/07/17 16:59 Last Admin: 08/07/17 09:57 Dose: 1 tab Pregabalin (Lyrica) 50 mg PO BID [facility] Last Admin: 08/07/17 09:57 Dose: 50 mg Rosuvastatin Calcium (Crestor) 20 mg PO HS [facility] Last Admin: 08/06/17 20:59 Dose: 20 mg Sitagliptin Phosphate (Januvia) 25 mg PO BID [facility] Last Admin: 08/03/17 09:43 Dose: 25 mg - Labs Labs: 08/07/17 06:04 08/07/17 06:03 PT 12.0 SECONDS (9.7-12.2) 08/04/17 06:18 INR 1.1 08/04/17 06:18 APTT 37 SECONDS (21-34) H 08/04/17 06:18 Assessment and Plan (1) Tachycardia Status: Acute (2) Diabetes mellitus Status: Acute (3) Gangrene of toe of left foot Status: Acute (4) HTN (hypertension) Status: Chronic (5) Peripheral arterial disease Status: Acute - Assessment and Plan (Free Text) Plan: pt may proceed with amputation. tachycardia is normal physiological response. no need to treat.
[2017-08-07] MEDS: Vancomycin 1 gm/NS 200 ml 1 GM/200 ML BAG IVPB SCH (18:33)
--- NOTE | 2017-08-07 18:44 | CARD ---
APPROVED REPORT EXAM: Two-dimensional and M-mode echocardiogram with Doppler and color Doppler. Other Information Quality : TDSRhythm : INDICATION Tachycardia RISK FACTORS Hypertension Diabetes 2D DIMENSIONS IVSd0.9 (0.7-1.1cm)LVDd4.0 (3.9-5.9cm) PWd0.9 (0.7-1.1cm)LVDs3.3 (2.5-4.0cm) FS (%) 17.3 %LVEF (%)50.0 (>50%) M-Mode DIMENSIONS Left Atrium (MM)3.60 (2.5-4.0cm)Aortic Root3.37 (2.2-3.7cm) Aortic Cusp Exc.2.32 (1.5-2.0cm) Mitral Valve MV E Ldfzbizq09.9cm/sMV A Gpelrxgl485.9cm/sE/A ratio0.7 TDI E/Lateral E'0.0E/Medial E'0.0 Tricuspid Valve TR Peak [id number]/sTR Peak Gr.10mmHg LEFT VENTRICLE The left ventricle is normal size. There is normal left ventricular wall thickness. Left ventricle systolic function is borderline. Transmitral Doppler flow pattern is Grade I-abnormal relaxation pattern. RIGHT VENTRICLE The right ventricle is normal size. There is normal right ventricular wall thickness. The right ventricular systolic function is normal. ATRIA The left atrium size is normal. The right atrium size is normal. AORTIC VALVE The aortic valve is not well visualized. No aortic regurgitation is present. MITRAL VALVE The mitral valve is moderately thickened. There is no mitral valve stenosis. There is no mitral valve regurgitation noted. PULMONIC VALVE There is trace pulmonic valvular regurgitation. <Conclusion> Poor Echo window The left ventricle is normal size. There is normal left ventricular wall thickness. Left ventricle systolic function is borderline. Transmitral Doppler flow pattern is Grade I-abnormal relaxation pattern.
[2017-08-08] MEDS: Piperacillin/Tazobact 3.375 GM in Sodium Chloride 100 ML IVPB SCH ×4 (00:45→18:07)
[2017-08-08] MEDS: Metoprolol 1 mg/ml Inj IVP PRN ×3 (00:56→18:06)
[2017-08-08] MEDS: Sodium Chloride 0.9% 1,000 ML IV SCH ×2 (02:00→15:31)
[2017-08-08 06:19] LABS: BASO % 0.5 % (0.0-2.0); EOS # 0.1 K/uL (0.0-0.7); EOS % 1.2 % (0.0-4.0); HEMOGLOBIN 7.4 g/dL (12.0-18.0); LYMPH # 1.6 K/uL (1.0-4.3); LYMPH % 20.3 % (20.0-40.0); MEAN CELL VOLUME 87.5 fL (80.0-94.0); MEAN CORPUSCULAR HEMOGLOBIN 30.8 pg (27.0-31.0); MEAN CORPUSCULAR HGB CONC 35.2 g/dL (33.0-37.0); MONO # 0.8 K/uL (0.0-0.8); MONO % 9.8 % (0.0-10.0); NEUT # 5.3 K/uL (1.8-7.0); NEUT % 68.2 % (50.0-75.0); RBC 2.4 Mil/uL (4.40-5.90); RED CELL DISTRIBUTION WIDTH 14.9 % (11.5-14.5); WHITE BLOOD COUNT 7.7 K/uL (4.8-10.8)
[2017-08-08 06:32] LABS: INR 1.1
[2017-08-08 06:43] LABS: ALB/GLOB RATIO 0.8 (1.0-2.1); ALBUMIN 2.7 g/dL (3.5-5.0); ALT/SGPT 17 U/L (21-72); AST/SGOT 25 U/L (17-59); BLOOD UREA NITROGEN 10 mg/dL (9-20); CALCIUM 8.1 mg/dl (8.6-10.4); GFR AFRICAN-AMERICAN > 60; GFR NON-AFRICAN AMERICAN > 60
[2017-08-08] MEDS: (Novolin R) Insulin Human Regular 100 units/ml vial SC SCH ×4 (08:28→22:27)
[2017-08-08] MEDS: Clotrimazole 1% Cream(30 gm) TOP SCH ×2 (09:50→18:08)
[2017-08-08] MEDS ORDERED: ceFAZolin 1 gm in NS 0 GM/0 ML BAG IVPB ONE (12:20)
[2017-08-08] MEDS ORDERED: Bupivacaine HCl 0.5% PF (30 ml) Inj ONE (12:21)
[2017-08-08] MEDS ORDERED: Lidocaine Hydrochloride 10 ML INJ ONE (12:21)
--- NOTE | 2017-08-08 12:40 | CP.CCUPN ---
<Raul Majano - Last Filed: 08/08/17 12:37> CCU Subjective - Physician Review Subjective (Free Text): 08/05/17 09:53 Patient seen and examined. He is complaining of pain in the left leg. No other complaints at this time. 08/06/17 13:33 Patient seen and examined. Patient's pain is better controlled at this time. Patient has no complaints currently. 08/07/17 12:20 Patient seen and examined. Patient reports feeling overall much better without any complaints at this time. He has received clearance from the centralized traffic control operator for his procedure tomorrow. 08/08/17 12:37 Patient seen and examined. Patient has no complaints this morning. Per staff, overnight patient was very confused. A dose of Ativan 1 mg IV was given. Patient is NPO for left 2nd toe amputation this morning. He is being given 1 unit of pRBCs prior to procedure. CCU Objective - Vital Signs / Intake & Output Vital Signs (Last 4 hours): Vital Signs Temp Pulse Resp BP Pulse Ox 08/08/17 12:00 113 H 16 08/08/17 11:20 115 H 15 130/70 08/08/17 11:16 98.3 F 115 H 12 130/70 08/08/17 11:00 113 H 19 08/08/17 10:46 98.2 F 116 H 22 130/70 08/08/17 10:31 98.0 F 114 H 16 119/74 08/08/17 10:21 118 H 17 118/58 L 88 L 08/08/17 10:16 98.2 F 114 H 15 118/58 L 08/08/17 10:00 129 H 18 87 L 08/08/17 09:48 119/69 08/08/17 09:21 133 H 15 119/69 84 L 08/08/17 09:00 129 H 11 L 95 Intake and Output (Last 8hrs): Intake & Output 08/07/17 08/08/17 08/08/17 22:59 06:59 14:59 Intake Total 1222 840 550 Output Total 1100 1500 650 Balance 122 -660 -100 Weight 124 lb Intake: Intake, IV Amount 732 800 550 Left Hand 732 800 550 Oral 490 40 Blood Product 0 Red Blood Cells Cpd As1 0 Lr Unit [id number] Output: Urine 1100 1500 650 Urine, Voided 1100 1500 650 Stool 0 0 Other: # Voids Urine, Voided 1 - Physical Exam Head: Positive for: Atraumatic, Normocephalic Pupils: Positive for: PERRL Extroacular Muscles: Positive for: EOMI Conjunctiva: Positive for: Normal Mouth: Positive for: Moist Mucous Membranes Respiratory/Chest: Positive for: Clear to Auscultation, Good Air Exchange. Negative for: Wheezes, Rales, Rhonchi Cardiovascular: Positive for: Normal S1, S2, Tachycardic Abdomen: Positive for: Normal Bowel Sounds. Negative for: Tenderness, Distention Upper Extremity: Positive for: Normal Inspection Lower Extremity: Positive for: Other (Pedal pulses obtained with doppler. ) Neurological: Positive for: GCS=15 Skin: Positive for: Warm, Dry Psychiatric: Positive for: Alert, Oriented x 3 - Medications Active Medications: Active Medications Generic Name Dose Route Start Last Admin Trade Name Freq PRN Reason Stop Dose Admin Acetaminophen 650 mg 08/05/17 17:19 08/08/17 00:48 Tylenol 325mg Tab PO 650 mg Q6 PRN Administration Pain, MILD(1-3) Aspirin 81 mg 07/29/17 16:30 08/08/17 09:39 Aspirin Chewable PO Not Given DAILY MARGY Cilostazol 100 mg 07/30/17 18:00 08/07/17 19:00 Pletal PO 100 mg BID MARGY Administration Clotrimazole 1 gm 07/30/17 10:00 08/08/17 09:50 Lotrimin 1% TOP 1 applic BID MARGY Administration Dextrose 0 ml 07/29/17 15:49 Dextrose 50% Inj IV STAT PRN Hypoglycemia Protocol Protocol Dextrose 0 gm 07/29/17 15:49 Glutose 15 PO ONCE PRN Hypoglycemia Protocol Protocol Dextrose 0 gm 07/31/17 16:42 Glutose 15 PO .ONCE PRN Hypoglycemia Protocol Protocol Enoxaparin Sodium 40 mg 07/30/17 10:00 08/07/17 09:57 Lovenox SC 40 mg DAILY MARGY Administration Famotidine 20 mg 08/06/17 18:00 08/08/17 09:42 Pepcid PO Not Given BID MARGY Glucagon 0 mg 07/29/17 15:49 Glucagen Diagnostic Kit IM STAT PRN Hypoglycemia Protocol Protocol Glucagon 0 mg 07/31/17 16:42 Glucagen Diagnostic Kit IM .STAT PRN Hypoglycemia Protocol Protocol Dextrose 1,000 mls @ 0 mls/hr 07/31/17 16:42 Dextrose 5% In Water 1000 Ml IV .Q0M PRN Hypoglycemia Protocol Protocol Per Protocol Piperacillin Sod/Tazobactam 100 mls @ 200 mls/hr 07/31/17 19:00 08/08/17 07: 45 Sod 3.375 gm/ Sodium Chloride IVPB 08/10/17 19:01 200 mls/hr Q6H MARGY Administration Protocol Sodium Chloride 1,000 mls @ 100 mls/hr 08/04/17 19:00 08/08/17 02:00 Sodium Chloride 0.9% IV 100 mls/hr .Q10H MARGY Administration Vancomycin/Sodium Chloride 1 gm in 200 mls @ 166.7 mls/hr 08/06/17 18:00 04/14 18:33 Vancomycin 1 Gm/Ns 200 Ml IVPB 08/11/17 18:01 166.7 mls/hr Q24H MARGY Administration Protocol Insulin Human Regular 0 unit 07/29/17 16:30 08/08/17 08:28 Novolin R SC Not Given ACHS MARGY Protocol Metformin HCl 850 mg 07/31/17 18:00 08/03/17 09:43 Glucophage PO 850 mg BID MARGY Administration Metoprolol Tartrate 5 mg 08/05/17 18:41 08/08/17 08:15 Lopressor IVP 5 mg Q6H PRN Administration Heart Rate >110 Metoprolol Tartrate 25 mg 08/08/17 10:30 Lopressor PO Q8 MARGY Potassium Phos/Sodium Phos 1 pkt 08/08/17 14:00 Neutra-Phos PO 08/09/17 14:01 TID MARGY Pregabalin 50 mg 07/29/17 18:00 08/08/17 09:42 Lyrica PO Not Given BID MARGY Rosuvastatin Calcium 20 mg 07/30/17 22:00 08/07/17 21:59 Crestor PO 20 mg HS MARGY Administration Sitagliptin Phosphate 25 mg 07/31/17 18:00 08/03/17 09:43 Januvia PO 25 mg BID MARGY Administration - Patient Studies Lab Studies: Lab Studies 08/08/17 08/08/17 08/08/17 Range/Units 11:36 07:35 06:58 WBC (4.8-10.8) K/uL RBC (4.40-5.90) Mil/uL Hgb (12.0-18.0) g/dL Hct (35.0-51.0) % MCV (80.0-94.0) fL MCH (27.0-31.0) pg MCHC (33.0-37.0) g/dL RDW (11.5-14.5) % Plt Count (130-400) K/uL MPV (7.2-11.7) fL Neut % (Auto) (50.0-75.0) % Lymph % (Auto) (20.0-40.0) % [place] % (Auto) (0.0-10.0) % Eos % (Auto) (0.0-4.0) % Baso % (Auto) (0.0-2.0) % Neut # (Auto) (1.8-7.0) K/uL Lymph # (Auto) (1.0-4.3) K/uL [place] # (Auto) (0.0-0.8) K/uL Eos # (Auto) (0.0-0.7) K/uL Baso # (Auto) (0.0-0.2) K/uL PT (9.7-12.2) SECONDS INR APTT (21-34) SECONDS Sodium (132-148) mmol/L Potassium (3.6-5.2) mmol/L Chloride (98-107) mmol/L Carbon Dioxide (22-30) mmol/L Anion Gap (10-20) BUN (9-20) mg/dL Creatinine (0.8-1.5) mg/dL Est GFR ( Amer) Est GFR (Non-Af Amer) POC Glucose (mg/dL) 258 H 258 H (65-110) mg/dL Random Glucose (75-110) mg/dL Calcium (8.6-10.4) mg/dl Phosphorus (2.5-4.5) mg/dL Magnesium (1.6-2.3) mg/dL Total Bilirubin (0.2-1.3) mg/dL AST (17-59) U/L ALT (21-72) U/L Alkaline Phosphatase (38-126) U/L Total Protein (6.3-8.3) g/dL Albumin (3.5-5.0) g/dL Globulin (2.2-3.9) gm/dL Albumin/Globulin Ratio (1.0-2.1) Blood Type O POSITIVE Antibody Screen Negative Crossmatch See Detail 08/08/17 08/08/17 08/08/17 Range/Units 06:11 06:11 06:11 WBC 7.7 (4.8-10.8) K/uL RBC 2.40 L (4.40-5.90) Mil/uL Hgb 7.4 L (12.0-18.0) g/dL Hct 21.0 L (35.0-51.0) % MCV 87.5 (80.0-94.0) fL MCH 30.8 (27.0-31.0) pg MCHC 35.2 (33.0-37.0) g/dL RDW 14.9 H (11.5-14.5) % Plt Count 267 (130-400) K/uL MPV 8.0 (7.2-11.7) fL Neut % (Auto) 68.2 (50.0-75.0) % Lymph % (Auto) 20.3 (20.0-40.0) % [place] % (Auto) 9.8 (0.0-10.0) % Eos % (Auto) 1.2 (0.0-4.0) % Baso % (Auto) 0.5 (0.0-2.0) % Neut # (Auto) 5.3 (1.8-7.0) K/uL Lymph # (Auto) 1.6 (1.0-4.3) K/uL [place] # (Auto) 0.8 (0.0-0.8) K/uL Eos # (Auto) 0.1 (0.0-0.7) K/uL Baso # (Auto) 0.0 (0.0-0.2) K/uL PT 12.0 (9.7-12.2) SECONDS INR 1.1 APTT 37 H (21-34) SECONDS Sodium 137 (132-148) mmol/L Potassium 3.4 L (3.6-5.2) mmol/L Chloride 104 (98-107) mmol/L Carbon Dioxide 21 L (22-30) mmol/L Anion Gap 15 (10-20) BUN 10 (9-20) mg/dL Creatinine 0.8 (0.8-1.5) mg/dL Est GFR ( Amer) > 60 Est GFR (Non-Af Amer) > 60 POC Glucose (mg/dL) (65-110) mg/dL Random Glucose 201 H (75-110) mg/dL Calcium 8.1 L (8.6-10.4) mg/dl Phosphorus 2.3 L (2.5-4.5) mg/dL Magnesium 2.1 (1.6-2.3) mg/dL Total Bilirubin 1.0 (0.2-1.3) mg/dL AST 25 (17-59) U/L ALT 17 L D (21-72) U/L Alkaline Phosphatase 70 (38-126) U/L Total Protein 6.0 L (6.3-8.3) g/dL Albumin 2.7 L (3.5-5.0) g/dL Globulin 3.3 (2.2-3.9) gm/dL Albumin/Globulin Ratio 0.8 L (1.0-2.1) Blood Type Antibody Screen Crossmatch 08/07/17 08/07/17 Range/Units 21:14 16:14 WBC (4.8-10.8) K/uL RBC (4.40-5.90) Mil/uL Hgb (12.0-18.0) g/dL Hct (35.0-51.0) % MCV (80.0-94.0) fL MCH (27.0-31.0) pg MCHC (33.0-37.0) g/dL RDW (11.5-14.5) % Plt Count (130-400) K/uL MPV (7.2-11.7) fL Neut % (Auto) (50.0-75.0) % Lymph % (Auto) (20.0-40.0) % [place] % (Auto) (0.0-10.0) % Eos % (Auto) (0.0-4.0) % Baso % (Auto) (0.0-2.0) % Neut # (Auto) (1.8-7.0) K/uL Lymph # (Auto) (1.0-4.3) K/uL [place] # (Auto) (0.0-0.8) K/uL Eos # (Auto) (0.0-0.7) K/uL Baso # (Auto) (0.0-0.2) K/uL PT (9.7-12.2) SECONDS INR APTT (21-34) SECONDS Sodium (132-148) mmol/L Potassium (3.6-5.2) mmol/L Chloride (98-107) mmol/L Carbon Dioxide (22-30) mmol/L Anion Gap (10-20) BUN (9-20) mg/dL Creatinine (0.8-1.5) mg/dL Est GFR ( Amer) Est GFR (Non-Af Amer) POC Glucose (mg/dL) 311 H 277 H (65-110) mg/dL Random Glucose (75-110) mg/dL Calcium (8.6-10.4) mg/dl Phosphorus (2.5-4.5) mg/dL Magnesium (1.6-2.3) mg/dL Total Bilirubin (0.2-1.3) mg/dL AST (17-59) U/L ALT (21-72) U/L Alkaline Phosphatase (38-126) U/L Total Protein (6.3-8.3) g/dL Albumin (3.5-5.0) g/dL Globulin (2.2-3.9) gm/dL Albumin/Globulin Ratio (1.0-2.1) Blood Type Antibody Screen Crossmatch Laboratory Results - last 24 hr 08/07/17 08/07/17 08/08/17 16:14 21:14 06:11 WBC RBC Hgb Hct MCV MCH MCHC RDW Plt Count MPV Neut % (Auto) Lymph % (Auto) [place] % (Auto) Eos % (Auto) Baso % (Auto) Neut # (Auto) Lymph # (Auto) [place] # (Auto) Eos # (Auto) Baso # (Auto) PT 12.0 INR 1.1 APTT 37 H Sodium Potassium Chloride Carbon Dioxide Anion Gap BUN Creatinine Est GFR ( Amer) Est GFR (Non-Af Amer) POC Glucose (mg/dL) 277 H 311 H Random Glucose Calcium Phosphorus Magnesium Total Bilirubin AST ALT Alkaline Phosphatase Total Protein Albumin Globulin Albumin/Globulin Ratio Blood Type Antibody Screen Crossmatch 08/08/17 08/08/17 08/08/17 06:11 06:11 06:58 WBC 7.7 RBC 2.40 L Hgb 7.4 L Hct 21.0 L MCV 87.5 MCH 30.8 MCHC 35.2 RDW 14.9 H Plt Count 267 MPV 8.0 Neut % (Auto) 68.2 Lymph % (Auto) 20.3 [place] % (Auto) 9.8 Eos % (Auto) 1.2 Baso % (Auto) 0.5 Neut # (Auto) 5.3 Lymph # (Auto) 1.6 [place] # (Auto) 0.8 Eos # (Auto) 0.1 Baso # (Auto) 0.0 PT INR APTT Sodium 137 Potassium 3.4 L Chloride 104 Carbon Dioxide 21 L Anion Gap 15 BUN 10 Creatinine 0.8 Est GFR ( Amer) > 60 Est GFR (Non-Af Amer) > 60 POC Glucose (mg/dL) Random Glucose 201 H Calcium 8.1 L Phosphorus 2.3 L Magnesium 2.1 Total Bilirubin 1.0 AST 25 ALT 17 L D Alkaline Phosphatase 70 Total Protein 6.0 L Albumin 2.7 L Globulin 3.3 Albumin/Globulin Ratio 0.8 L Blood Type O POSITIVE Antibody Screen Negative Crossmatch See Detail 08/08/17 08/08/17 07:35 11:36 WBC RBC Hgb Hct MCV MCH MCHC RDW Plt Count MPV Neut % (Auto) Lymph % (Auto) [place] % (Auto) Eos % (Auto) Baso % (Auto) Neut # (Auto) Lymph # (Auto) [place] # (Auto) Eos # (Auto) Baso # (Auto) PT INR APTT Sodium Potassium Chloride Carbon Dioxide Anion Gap BUN Creatinine Est GFR ( Amer) Est GFR (Non-Af Amer) POC Glucose (mg/dL) 258 H 258 H Random Glucose Calcium Phosphorus Magnesium Total Bilirubin AST ALT Alkaline Phosphatase Total Protein Albumin Globulin Albumin/Globulin Ratio Blood Type Antibody Screen Crossmatch Fingerstick Blood Sugar Results: 311 Critical Care Progress Note - Nutrition Nutrition: Nutrition Category Date Time Status NPO Diet [DIET] Diets 08/08/17 Breakfast Active Assessment/Plan - Assessment and Plan (Free Text) Assessment: This is a 72 year old male with PMHx DM, HTN, HLD, PVD who presented for left 2nd toe gangrene. Patient underwent Left Femoral to Anterior Tibial Bypass with reverse Saphenous Vein Graft & Intra-op Arteriogram on 08/04/17. POD #4. Patient is set for OR today with podiatry for amputation of gangrenous 2nd toe of left foot. One unit of pRBCs given pre-op. Neuro Awake, Verbal Cardio ASA 81 mg PO daily Normotensive but tachycardic. Lopressor 5 mg IV Q6H prn HR>110 dose Lopressor 25 mg PO Q8H MARGY Sinus tachycardia on EKG Echo report reveals 50% LVEF with borderline systolic function Pulmonary Saturating well on room air GI NPO for OR Pepcid 20 mg PO BID Endocrine Hold Metformin Resumed home Januvia 25 mg PO BID Regular ISS--medium dose Nephro kidney function studies are within normal limits Repleted phosphorous and potassium ID On Vancomycin 1 gm Q24H (Day 9) On Zosyn 3.375 gm Q6H (Day 9) Heme/Onc Monitor H/H Prophylaxis Lovenox 40 mg SC daily--held for OR NS 100cc/hr Pepcid 20 mg PO BID NPO for OR Discussed with Dr. Burrows <Ivan Burrows - Last Filed: 08/08/17 12:49> CCU Objective - Vital Signs / Intake & Output Vital Signs (Last 4 hours): Vital Signs Temp Pulse Resp BP Pulse Ox 08/08/17 12:00 113 H 16 08/08/17 11:20 115 H 15 130/70 08/08/17 11:16 98.3 F 115 H 12 130/70 08/08/17 11:00 113 H 19 08/08/17 10:46 98.2 F 116 H 22 130/70 08/08/17 10:31 98.0 F 114 H 16 119/74 08/08/17 10:21 118 H 17 118/58 L 88 L 08/08/17 10:16 98.2 F 114 H 15 118/58 L 08/08/17 10:00 129 H 18 87 L 08/08/17 09:48 119/69 08/08/17 09:21 133 H 15 119/69 84 L 08/08/17 09:00 129 H 11 L 95 Intake and Output (Last 8hrs): Intake & Output 08/07/17 08/08/1718 22:59 06:59 14:59 Intake Total 1222 840 550 Output Total 1100 1500 650 Balance 122 -660 -100 Weight 124 lb Intake: Intake, IV Amount 732 800 550 Left Hand 732 800 550 Oral 490 40 Blood Product 0 Red Blood Cells Cpd As1 0 Lr Unit [id number] Output: Urine 1100 1500 650 Urine, Voided 1100 1500 650 Stool 0 0 Other: # Voids Urine, Voided 1 - Medications Active Medications: Active Medications Generic Name Dose Route Start Last Admin Trade Name Freq PRN Reason Stop Dose Admin Acetaminophen 650 mg 08/05/17 17:19 08/08/17 00:48 Tylenol 325mg Tab PO 650 mg Q6 PRN Administration Pain, MILD(1-3) Aspirin 81 mg 07/29/17 16:30 08/08/17 09:39 Aspirin Chewable PO Not Given DAILY MARGY Cilostazol 100 mg 07/30/17 18:00 08/07/17 19:00 Pletal PO 100 mg BID MARGY Administration Clotrimazole 1 gm 07/30/17 10:00 08/08/17 09:50 Lotrimin 1% TOP 1 applic BID MARGY Administration Dextrose 0 ml 07/29/17 15:49 Dextrose 50% Inj IV STAT PRN Hypoglycemia Protocol Protocol Dextrose 0 gm 07/29/17 15:49 Glutose 15 PO ONCE PRN Hypoglycemia Protocol Protocol Dextrose 0 gm 07/31/17 16:42 Glutose 15 PO .ONCE PRN Hypoglycemia Protocol Protocol Enoxaparin Sodium 40 mg 07/30/17 10:00 08/07/17 09:57 Lovenox SC 40 mg DAILY MARGY Administration Famotidine 20 mg 08/06/17 18:00 08/08/17 09:42 Pepcid PO Not Given BID MARGY Glucagon 0 mg 07/29/17 15:49 Glucagen Diagnostic Kit IM STAT PRN Hypoglycemia Protocol Protocol Glucagon 0 mg 07/31/17 16:42 Glucagen Diagnostic Kit IM .STAT PRN Hypoglycemia Protocol Protocol Dextrose 1,000 mls @ 0 mls/hr 07/31/17 16:42 Dextrose 5% In Water 1000 Ml IV .Q0M PRN Hypoglycemia Protocol Protocol Per Protocol Piperacillin Sod/Tazobactam 100 mls @ 200 mls/hr 07/31/17 19:00 08/08/17 07: 45 Sod 3.375 gm/ Sodium Chloride IVPB 08/10/17 19:01 200 mls/hr Q6H MARGY Administration Protocol Sodium Chloride 1,000 mls @ 100 mls/hr 08/04/17 19:00 08/08/17 02:00 Sodium Chloride 0.9% IV 100 mls/hr .Q10H MARGY Administration Vancomycin/Sodium Chloride 1 gm in 200 mls @ 166.7 mls/hr 08/06/17 18:00 04/14 18:33 Vancomycin 1 Gm/Ns 200 Ml IVPB 08/11/17 18:01 166.7 mls/hr Q24H MARGY Administration Protocol Insulin Human Regular 0 unit 07/29/17 16:30 08/08/17 08:28 Novolin R SC Not Given ACHS MARGY Protocol Metformin HCl 850 mg 07/31/17 18:00 08/03/17 09:43 Glucophage PO 850 mg BID MARGY Administration Metoprolol Tartrate 5 mg 08/05/17 18:41 08/08/17 08:15 Lopressor IVP 5 mg Q6H PRN Administration Heart Rate >110 Metoprolol Tartrate 25 mg 08/08/17 10:30 Lopressor PO Q8 MARGY Potassium Phos/Sodium Phos 1 pkt 08/08/17 14:00 Neutra-Phos PO 08/09/17 14:01 TID MARGY Pregabalin 50 mg 07/29/17 18:00 08/08/17 09:42 Lyrica PO Not Given BID MARGY Rosuvastatin Calcium 20 mg 07/30/17 22:00 08/07/17 21:59 Crestor PO 20 mg HS MARGY Administration Sitagliptin Phosphate 25 mg 07/31/17 18:00 08/03/17 09:43 Januvia PO 25 mg BID MARGY Administration - Patient Studies Lab Studies: Lab Studies 08/08/17 08/08/17 08/08/17 Range/Units 11:36 07:35 06:58 WBC (4.8-10.8) K/uL RBC (4.40-5.90) Mil/uL Hgb (12.0-18.0) g/dL Hct (35.0-51.0) % MCV (80.0-94.0) fL MCH (27.0-31.0) pg MCHC (33.0-37.0) g/dL RDW (11.5-14.5) % Plt Count (130-400) K/uL MPV (7.2-11.7) fL Neut % (Auto) (50.0-75.0) % Lymph % (Auto) (20.0-40.0) % [place] % (Auto) (0.0-10.0) % Eos % (Auto) (0.0-4.0) % Baso % (Auto) (0.0-2.0) % Neut # (Auto) (1.8-7.0) K/uL Lymph # (Auto) (1.0-4.3) K/uL [place] # (Auto) (0.0-0.8) K/uL Eos # (Auto) (0.0-0.7) K/uL Baso # (Auto) (0.0-0.2) K/uL PT (9.7-12.2) SECONDS INR APTT (21-34) SECONDS Sodium (132-148) mmol/L Potassium (3.6-5.2) mmol/L Chloride (98-107) mmol/L Carbon Dioxide (22-30) mmol/L Anion Gap (10-20) BUN (9-20) mg/dL Creatinine (0.8-1.5) mg/dL Est GFR ( Amer) Est GFR (Non-Af Amer) POC Glucose (mg/dL) 258 H 258 H (65-110) mg/dL Random Glucose (75-110) mg/dL Calcium (8.6-10.4) mg/dl Phosphorus (2.5-4.5) mg/dL Magnesium (1.6-2.3) mg/dL Total Bilirubin (0.2-1.3) mg/dL AST (17-59) U/L ALT (21-72) U/L Alkaline Phosphatase (38-126) U/L Total Protein (6.3-8.3) g/dL Albumin (3.5-5.0) g/dL Globulin (2.2-3.9) gm/dL Albumin/Globulin Ratio (1.0-2.1) Blood Type O POSITIVE Antibody Screen Negative Crossmatch See Detail 08/08/17 08/08/17 08/08/17 Range/Units 06:11 06:11 06:11 WBC 7.7 (4.8-10.8) K/uL RBC 2.40 L (4.40-5.90) Mil/uL Hgb 7.4 L (12.0-18.0) g/dL Hct 21.0 L (35.0-51.0) % MCV 87.5 (80.0-94.0) fL MCH 30.8 (27.0-31.0) pg MCHC 35.2 (33.0-37.0) g/dL RDW 14.9 H (11.5-14.5) % Plt Count 267 (130-400) K/uL MPV 8.0 (7.2-11.7) fL Neut % (Auto) 68.2 (50.0-75.0) % Lymph % (Auto) 20.3 (20.0-40.0) % [place] % (Auto) 9.8 (0.0-10.0) % Eos % (Auto) 1.2 (0.0-4.0) % Baso % (Auto) 0.5 (0.0-2.0) % Neut # (Auto) 5.3 (1.8-7.0) K/uL Lymph # (Auto) 1.6 (1.0-4.3) K/uL [place] # (Auto) 0.8 (0.0-0.8) K/uL Eos # (Auto) 0.1 (0.0-0.7) K/uL Baso # (Auto) 0.0 (0.0-0.2) K/uL PT 12.0 (9.7-12.2) SECONDS INR 1.1 APTT 37 H (21-34) SECONDS Sodium 137 (132-148) mmol/L Potassium 3.4 L (3.6-5.2) mmol/L Chloride 104 (98-107) mmol/L Carbon Dioxide 21 L (22-30) mmol/L Anion Gap 15 (10-20) BUN 10 (9-20) mg/dL Creatinine 0.8 (0.8-1.5) mg/dL Est GFR ( Amer) > 60 Est GFR (Non-Af Amer) > 60 POC Glucose (mg/dL) (65-110) mg/dL Random Glucose 201 H (75-110) mg/dL Calcium 8.1 L (8.6-10.4) mg/dl Phosphorus 2.3 L (2.5-4.5) mg/dL Magnesium 2.1 (1.6-2.3) mg/dL Total Bilirubin 1.0 (0.2-1.3) mg/dL AST 25 (17-59) U/L ALT 17 L D (21-72) U/L Alkaline Phosphatase 70 (38-126) U/L Total Protein 6.0 L (6.3-8.3) g/dL Albumin 2.7 L (3.5-5.0) g/dL Globulin 3.3 (2.2-3.9) gm/dL Albumin/Globulin Ratio 0.8 L (1.0-2.1) Blood Type Antibody Screen Crossmatch 08/07/17 08/07/17 Range/Units 21:14 16:14 WBC (4.8-10.8) K/uL RBC (4.40-5.90) Mil/uL Hgb (12.0-18.0) g/dL Hct (35.0-51.0) % MCV (80.0-94.0) fL MCH (27.0-31.0) pg MCHC (33.0-37.0) g/dL RDW (11.5-14.5) % Plt Count (130-400) K/uL MPV (7.2-11.7) fL Neut % (Auto) (50.0-75.0) % Lymph % (Auto) (20.0-40.0) % [place] % (Auto) (0.0-10.0) % Eos % (Auto) (0.0-4.0) % Baso % (Auto) (0.0-2.0) % Neut # (Auto) (1.8-7.0) K/uL Lymph # (Auto) (1.0-4.3) K/uL [place] # (Auto) (0.0-0.8) K/uL Eos # (Auto) (0.0-0.7) K/uL Baso # (Auto) (0.0-0.2) K/uL PT (9.7-12.2) SECONDS INR APTT (21-34) SECONDS Sodium (132-148) mmol/L Potassium (3.6-5.2) mmol/L Chloride (98-107) mmol/L Carbon Dioxide (22-30) mmol/L Anion Gap (10-20) BUN (9-20) mg/dL Creatinine (0.8-1.5) mg/dL Est GFR ( Amer) Est GFR (Non-Af Amer) POC Glucose (mg/dL) 311 H 277 H (65-110) mg/dL Random Glucose (75-110) mg/dL Calcium (8.6-10.4) mg/dl Phosphorus (2.5-4.5) mg/dL Magnesium (1.6-2.3) mg/dL Total Bilirubin (0.2-1.3) mg/dL AST (17-59) U/L ALT (21-72) U/L Alkaline Phosphatase (38-126) U/L Total Protein (6.3-8.3) g/dL Albumin (3.5-5.0) g/dL Globulin (2.2-3.9) gm/dL Albumin/Globulin Ratio (1.0-2.1) Blood Type Antibody Screen Crossmatch Laboratory Results - last 24 hr 08/07/17 08/07/17 08/08/17 16:14 21:14 06:11 WBC RBC Hgb Hct MCV MCH MCHC RDW Plt Count MPV Neut % (Auto) Lymph % (Auto) [place] % (Auto) Eos % (Auto) Baso % (Auto) Neut # (Auto) Lymph # (Auto) [place] # (Auto) Eos # (Auto) Baso # (Auto) PT 12.0 INR 1.1 APTT 37 H Sodium Potassium Chloride Carbon Dioxide Anion Gap BUN Creatinine Est GFR ( Amer) Est GFR (Non-Af Amer) POC Glucose (mg/dL) 277 H 311 H Random Glucose Calcium Phosphorus Magnesium Total Bilirubin AST ALT Alkaline Phosphatase Total Protein Albumin Globulin Albumin/Globulin Ratio Blood Type Antibody Screen Crossmatch 08/08/17 08/08/17 08/08/17 06:11 06:11 06:58 WBC 7.7 RBC 2.40 L Hgb 7.4 L Hct 21.0 L MCV 87.5 MCH 30.8 MCHC 35.2 RDW 14.9 H Plt Count 267 MPV 8.0 Neut % (Auto) 68.2 Lymph % (Auto) 20.3 [place] % (Auto) 9.8 Eos % (Auto) 1.2 Baso % (Auto) 0.5 Neut # (Auto) 5.3 Lymph # (Auto) 1.6 [place] # (Auto) 0.8 Eos # (Auto) 0.1 Baso # (Auto) 0.0 PT INR APTT Sodium 137 Potassium 3.4 L Chloride 104 Carbon Dioxide 21 L Anion Gap 15 BUN 10 Creatinine 0.8 Est GFR ( Amer) > 60 Est GFR (Non-Af Amer) > 60 POC Glucose (mg/dL) Random Glucose 201 H Calcium 8.1 L Phosphorus 2.3 L Magnesium 2.1 Total Bilirubin 1.0 AST 25 ALT 17 L D Alkaline Phosphatase 70 Total Protein 6.0 L Albumin 2.7 L Globulin 3.3 Albumin/Globulin Ratio 0.8 L Blood Type O POSITIVE Antibody Screen Negative Crossmatch See Detail 08/08/17 08/08/17 07:35 11:36 WBC RBC Hgb Hct MCV MCH MCHC RDW Plt Count MPV Neut % (Auto) Lymph % (Auto) [place] % (Auto) Eos % (Auto) Baso % (Auto) Neut # (Auto) Lymph # (Auto) [place] # (Auto) Eos # (Auto) Baso # (Auto) PT INR APTT Sodium Potassium Chloride Carbon Dioxide Anion Gap BUN Creatinine Est GFR ( Amer) Est GFR (Non-Af Amer) POC Glucose (mg/dL) 258 H 258 H Random Glucose Calcium Phosphorus Magnesium Total Bilirubin AST ALT Alkaline Phosphatase Total Protein Albumin Globulin Albumin/Globulin Ratio Blood Type Antibody Screen Crossmatch Critical Care Progress Note - Nutrition Nutrition: Nutrition Category Date Time Status NPO Diet [DIET] Diets 08/08/17 Breakfast Active Attending/Attestation - Attestation I have personally seen and examined this patient.: Yes I have fully participated in the care of the patient.: Yes I have reviewed all pertinent clinical information: Yes Notes (Text): 08/08/17 12:49 Today: Tuesday, August 08, 2017 The Patient was seen and examined at the bedside, Medical records reviewed, and management issues were discussed and formulated with the house staff. I have reviewed all the relevant clinical, laboratory, hemodynamic, radiographic data and medications Events reviewed Pain issues, skin care, head of the bed elevation, glycemic control were addressed. Agree with above resident's assessment and treatment plans of care as transcribed in Dr. Ken Majano note.
[2017-08-08] MEDS ORDERED: Propofol 10 mg/ml Inj (20 ML) ONE (13:10)
[2017-08-08] MEDS ORDERED: Phenylephrine 10 mg/ml Inj ONE (13:47)
--- NOTE | 2017-08-08 14:04 | PCM.SURG1 ---
Surgeon's Initial Post Op Note - Surgeon's Notes Surgeon: Dr. Elin Bryant DPM Volunteer Specialist: Dr. Jd Reed DPM PGY-1 Type of Anesthesia: IV Sedation, Local Anesthesia Administered By: Dr. Jaskaran ZAVALETA Pre-Operative Diagnosis: Left foot 2nd digit gangrene Operative Findings: See dictation. M: 3-0 prolene; 1/4 inch iodoform packing. I: 10 cc of 1:1 1% lidocaine plain:0.5% Marcaine plain - pre-op; 10 cc of 0.5% marcaine plain - post-op Post-Operative Diagnosis: Same Operation Performed: left partial 2nd ray amputation with removal of all non- viable soft tissue Specimen/Specimens Removed: left 2nd digit and metatarsal head Estimated Blood Loss: EBL {In ML}: 20 Blood Products Given: N/A Drains Used: No Drains Post-Op Condition: Good Date of Surgery/Procedure: 08/08/17 Time of Surgery/Procedure: 14:04
[2017-08-08] MEDS ORDERED: Oxycodone/Acetaminophen 5/325 mg Tab PO PRN (14:06)
[2017-08-08] MEDS: Potassium & Sodium Phosphate PO SCH ×2 (14:45→18:07)
--- NOTE | 2017-08-08 14:48 | RAD ---
PROCEDURE: Left Foot Radiographs. HISTORY: s/p left foot surgery COMPARISON: Left foot radiographs dated 07/29/2017. FINDINGS: BONES: Interval 2nd digit amputation at the level of the 2nd metatarsal head. No acute fracture. JOINTS: Degenerative changes. SOFT TISSUES: Soft tissue swelling. Superficial skin be. OTHER FINDINGS: Achilles enthesophyte. Inferior plantar calcaneal spur. IMPRESSION: Interval 2nd digit amputation with adjacent postsurgical changes. No other significant interval change.
--- NOTE | 2017-08-08 15:15 | CP.PCM.PN ---
Subjective - Date & Time of Evaluation Date of Evaluation: 08/08/17 Time of Evaluation: 10:00 - Subjective Subjective: events noted iv rx in progress Objective - Vital Signs/Intake and Output Vital Signs (last 24 hours): Temp Pulse Resp BP Pulse Ox 98.3 F 113 H 16 130/70 88 L 08/08/17 11:16 08/08/17 12:00 08/08/17 12:00 08/08/17 11:20 08/08/17 10:21 Intake and Output: 08/08/17 08/08/17 06:59 18:59 Intake Total 1312 950 Output Total 1800 650 Balance -488 300 - Medications Medications: Current Medications Acetaminophen (Tylenol 325mg Tab) 650 mg PO Q6 PRN PRN Reason: Pain, MILD(1-3) Last Admin: 08/08/17 00:48 Dose: 650 mg Aspirin (Aspirin Chewable) 81 mg PO DAILY [facility] Last Admin: 08/08/17 09:39 Dose: Not Given Cilostazol (Pletal) 100 mg PO BID [facility] Last Admin: 08/07/17 19:00 Dose: 100 mg Clotrimazole (Lotrimin 1%) 1 gm TOP BID [facility] Last Admin: 08/08/17 09:50 Dose: 1 applic Dextrose (Dextrose 50% Inj) 0 ml IV STAT PRN; Protocol PRN Reason: Hypoglycemia Protocol Dextrose (Glutose 15) 0 gm PO ONCE PRN; Protocol PRN Reason: Hypoglycemia Protocol Dextrose (Glutose 15) 0 gm PO .ONCE PRN; Protocol PRN Reason: Hypoglycemia Protocol Enoxaparin Sodium (Lovenox) 40 mg SC DAILY [facility] Last Admin: 08/07/17 09:57 Dose: 40 mg Famotidine (Pepcid) 20 mg PO BID [facility] Last Admin: 08/08/17 09:42 Dose: Not Given Glucagon (Glucagen Diagnostic Kit) 0 mg IM STAT PRN; Protocol PRN Reason: Hypoglycemia Protocol Glucagon (Glucagen Diagnostic Kit) 0 mg IM .STAT PRN; Protocol PRN Reason: Hypoglycemia Protocol Dextrose (Dextrose 5% In Water 1000 Ml) 1,000 mls @ 0 mls/hr IV .Q0M PRN; Protocol; Per Protocol PRN Reason: Hypoglycemia Protocol Piperacillin Sod/Tazobactam (Sod 3.375 gm/ Sodium Chloride) 100 mls @ 200 mls/ hr IVPB Q6H [facility] PRN Reason: Protocol Stop: 08/10/17 19:01 Last Admin: 08/08/17 07:45 Dose: 200 mls/hr Sodium Chloride (Sodium Chloride 0.9%) 1,000 mls @ 100 mls/hr IV .Q10H [facility] Last Admin: 08/08/17 02:00 Dose: 100 mls/hr Vancomycin/Sodium Chloride (Vancomycin 1 Gm/Ns 200 Ml) 1 gm in 200 mls @ 166.7 mls/hr IVPB Q24H [facility]ARGY PRN Reason: Protocol Stop: 08/11/17 18:01 Last Admin: 08/07/17 18:33 Dose: 166.7 mls/hr Insulin Human Regular (Novolin R) 0 unit SC ACHS MARGY PRN Reason: Protocol Last Admin: 08/08/17 08:28 Dose: Not Given Metformin HCl (Glucophage) 850 mg PO BID [facility] Last Admin: 08/03/17 09:43 Dose: 850 mg Metoprolol Tartrate (Lopressor) 5 mg IVP Q6H PRN PRN Reason: Heart Rate >110 Last Admin: 08/08/17 08:15 Dose: 5 mg Metoprolol Tartrate (Lopressor) 25 mg PO Q8 [facility] Oxycodone/Acetaminophen (Percocet 5/325 Mg Tab) 1 tab PO Q4H PRN PRN Reason: Pain, moderate (4-7) Stop: 08/11/17 14:07 Oxycodone/Acetaminophen (Percocet 5/325 Mg Tab) 2 tab PO Q4H PRN PRN Reason: Pain, severe (8-10) Stop: 08/11/17 14:07 Potassium Phos/Sodium Phos (Neutra-Phos) 1 pkt PO TID [facility] Stop: 08/09/17 14:01 Pregabalin (Lyrica) 50 mg PO BID [facility] Last Admin: 08/08/17 09:42 Dose: Not Given Rosuvastatin Calcium (Crestor) 20 mg PO HS [facility] Last Admin: 08/07/17 21:59 Dose: 20 mg Sitagliptin Phosphate (Januvia) 25 mg PO BID [facility] Last Admin: 08/03/17 09:43 Dose: 25 mg - Labs Labs: 08/08/17 06:11 08/08/17 06:11 PT 12.0 SECONDS (9.7-12.2) 08/08/17 06:11 INR 1.1 08/08/17 06:11 APTT 37 SECONDS (21-34) H 08/08/17 06:11 - Constitutional Appears: Non-toxic, Chronically Ill - Head Exam Head Exam: NORMOCEPHALIC - Eye Exam Eye Exam: absent: Scleral icterus - ENT Exam ENT Exam: Mucous Membranes Dry, Normal External Ear Exam - Neck Exam Neck Exam: absent: Lymphadenopathy - Respiratory Exam Respiratory Exam: Decreased Breath Sounds - Cardiovascular Exam Cardiovascular Exam: REGULAR RHYTHM Assessment and Plan (1) Gangrene of toe of left foot Status: Acute (2) Peripheral arterial disease Status: Acute (3) Cellulitis Status: Acute
[2017-08-08 17:50] LABS: HEMOGLOBIN 9.9 g/dL (12.0-18.0)
[2017-08-08] MEDS: Vancomycin 1 gm/NS 200 ml 1 GM/200 ML BAG IVPB SCH (18:07)
[2017-08-08] MEDS: Docusate-Senna 50 mg-8.6 mg Tab PO SCH (22:26)
[2017-08-09] MEDS: Oxycodone/Acetaminophen 5/325 mg Tab PO PRN ×2 (00:04→10:20)
[2017-08-09] MEDS: Metoprolol 1 mg/ml Inj IVP PRN (00:07)
[2017-08-09] MEDS: Sodium Chloride 0.9% 1,000 ML IV SCH ×3 (00:08→19:02)
[2017-08-09] MEDS: Piperacillin/Tazobact 3.375 GM in Sodium Chloride 100 ML IVPB SCH ×4 (00:15→18:37)
[2017-08-09 06:15] LABS: BASO % 0.4 % (0.0-2.0); EOS # 0.1 K/uL (0.0-0.7); EOS % 1.6 % (0.0-4.0); HEMOGLOBIN 9.4 g/dL (12.0-18.0); LYMPH # 1.3 K/uL (1.0-4.3); LYMPH % 18.9 % (20.0-40.0); MEAN CELL VOLUME 85.4 fL (80.0-94.0); MEAN CORPUSCULAR HEMOGLOBIN 29.7 pg (27.0-31.0); MEAN CORPUSCULAR HGB CONC 34.8 g/dL (33.0-37.0); MEAN PLATELET VOLUME 7.5 fL (7.2-11.7); MONO # 0.8 K/uL (0.0-0.8); MONO % 11.1 % (0.0-10.0); NEUT # 4.8 K/uL (1.8-7.0); RBC 3.16 Mil/uL (4.40-5.90); RED CELL DISTRIBUTION WIDTH 16.9 % (11.5-14.5); WHITE BLOOD COUNT 7.1 K/uL (4.8-10.8)
[2017-08-09 06:27] LABS: ALB/GLOB RATIO 0.8 (1.0-2.1); ALBUMIN 2.9 g/dL (3.5-5.0); ALT/SGPT 21 U/L (21-72); AST/SGOT 25 U/L (17-59); BLOOD UREA NITROGEN 10 mg/dL (9-20); GFR AFRICAN-AMERICAN > 60; GFR NON-AFRICAN AMERICAN > 60
[2017-08-09] MEDS: (Novolin R) Insulin Human Regular 100 units/ml vial SC SCH ×4 (08:00→21:33)
--- NOTE | 2017-08-09 08:57 | CP.CCUPN ---
CCU Subjective - Physician Review Events Since Last Encounter (Free Text): 08/09/17 08:57 Patient is a 72-year-old male with history of hypertension peripheral vascular disease admitted with a gangrene, complicated, underwent left femoral tibial bypass. Postoperatively patient was managed in the intensive care unit Again he underwent the toe amputation on the left side. Patient is currently comfortable. Minimal pain noted. Not in any distress. Vital signs are stable. Mild tachycardia Blood pressure is 123/81 chronically otherwise stable Labs reviewed Currently on antibiotic Assessment and recommendation: 72-year-old male with peripheral vascular disease gangrene. Status post toe amputation. Currently stable. Karin can be transferred to floor. Will follow the patient CCU Objective - Vital Signs / Intake & Output Vital Signs (Last 4 hours): Vital Signs Pulse Resp BP Pulse Ox 08/09/17 06:34 123/56 L 08/09/17 06:17 113 H 19 123/56 L 96 08/09/17 06:00 113 H 20 96 08/09/17 05:17 109 H 19 137/67 99 08/09/17 05:00 111 H 20 96 Intake and Output (Last 8hrs): Intake & Output 08/08/17 08/09/17 08/09/17 22:59 06:59 14:59 Intake Total 1745 1050 100 Output Total 1050 850 500 Balance 695 200 -400 Weight 124 lb 117 lb 3.2 oz Intake: Intake, IV Amount 800 800 100 Left Hand 400 right forearm 400 800 100 Oral 570 250 0 Blood Product 325 Red Blood Cells Cpd As1 325 Lr Unit [id number] Other 50 Red Blood Cells Cpd As1 50 Lr Unit [id number] Output: Urine 1050 850 500 Urine, Voided 1050 850 500 Other: # Voids Urine, Voided 0 0 # Bowel Movements 0 0 0 - Physical Exam Head: Positive for: Atraumatic, Normocephalic Pupils: Positive for: PERRL Extroacular Muscles: Positive for: EOMI Conjunctiva: Positive for: Normal Mouth: Positive for: Moist Mucous Membranes Respiratory/Chest: Positive for: Clear to Auscultation, Good Air Exchange. Negative for: Wheezes, Rales, Rhonchi Cardiovascular: Positive for: Normal S1, S2, Tachycardic Abdomen: Positive for: Normal Bowel Sounds. Negative for: Tenderness, Distention Upper Extremity: Positive for: Normal Inspection Lower Extremity: Positive for: Other (Pedal pulses obtained with doppler. ) Neurological: Positive for: GCS=15 Skin: Positive for: Warm, Dry Psychiatric: Positive for: Alert, Oriented x 3 - Medications Active Medications: Active Medications Generic Name Dose Route Start Last Admin Trade Name Freq PRN Reason Stop Dose Admin Acetaminophen 650 mg 08/05/17 17:19 08/08/17 00:48 Tylenol 325mg Tab PO 650 mg Q6 PRN Administration Pain, MILD(1-3) Aspirin 81 mg 07/29/17 16:30 08/08/17 09:39 Aspirin Chewable PO Not Given DAILY MARGY Cilostazol 100 mg 07/30/17 18:00 08/07/17 19:00 Pletal PO 100 mg BID MARGY Administration Clotrimazole 1 gm 07/30/17 10:00 08/08/17 18:08 Lotrimin 1% TOP 1 applic BID MARGY Administration Dextrose 0 ml 07/29/17 15:49 Dextrose 50% Inj IV STAT PRN Hypoglycemia Protocol Protocol Dextrose 0 gm 07/29/17 15:49 Glutose 15 PO ONCE PRN Hypoglycemia Protocol Protocol Dextrose 0 gm 07/31/17 16:42 Glutose 15 PO .ONCE PRN Hypoglycemia Protocol Protocol Enoxaparin Sodium 40 mg 07/30/17 10:00 08/07/17 09:57 Lovenox SC 40 mg DAILY MARGY Administration Famotidine 20 mg 08/06/17 18:00 08/08/17 18:06 Pepcid PO 20 mg BID MARGY Administration Glucagon 0 mg 07/29/17 15:49 Glucagen Diagnostic Kit IM STAT PRN Hypoglycemia Protocol Protocol Glucagon 0 mg 07/31/17 16:42 Glucagen Diagnostic Kit IM .STAT PRN Hypoglycemia Protocol Protocol Dextrose 1,000 mls @ 0 mls/hr 07/31/17 16:42 Dextrose 5% In Water 1000 Ml IV .Q0M PRN Hypoglycemia Protocol Protocol Per Protocol Piperacillin Sod/Tazobactam 100 mls @ 200 mls/hr 07/31/17 19:00 08/09/17 06: 38 Sod 3.375 gm/ Sodium Chloride IVPB 08/10/17 19:01 200 mls/hr Q6H MARGY Administration Protocol Sodium Chloride 1,000 mls @ 100 mls/hr 08/04/17 19:00 08/09/17 00:08 Sodium Chloride 0.9% IV 100 mls/hr .Q10H MARGY Administration Vancomycin/Sodium Chloride 1 gm in 200 mls @ 166.7 mls/hr 08/06/17 18:00 18:07 Vancomycin 1 Gm/Ns 200 Ml IVPB 08/11/17 18:01 166.7 mls/hr Q24H MARGY Administration Protocol Insulin Human Regular 0 unit 07/29/17 16:30 08/08/17 22:27 Novolin R SC Not Given ACHS MARGY Protocol Metformin HCl 850 mg 07/31/17 18:00 08/03/17 09:43 Glucophage PO 850 mg BID MARGY Administration Metoprolol Tartrate 5 mg 08/05/17 18:41 08/09/17 00:07 Lopressor IVP 5 mg Q6H PRN Administration Heart Rate >110 Metoprolol Tartrate 25 mg 08/08/17 10:30 08/09/17 06:34 Lopressor PO 25 mg Q8 MARGY Administration Oxycodone/Acetaminophen 1 tab 08/08/17 14:06 08/09/17 00:04 Percocet 5/325 Mg Tab PO 08/11/17 14:07 1 tab Q4H PRN Administration Pain, moderate (4-7) Oxycodone/Acetaminophen 2 tab 08/08/17 14:06 Percocet 5/325 Mg Tab PO 08/11/17 14:07 Q4H PRN Pain, severe (8-10) Potassium Phos/Sodium Phos 1 pkt 08/08/17 14:00 08/08/17 18:07 Neutra-Phos PO 08/09/17 14:01 1 pkt TID MARGY Administration Pregabalin 50 mg 07/29/17 18:00 08/08/17 18:08 Lyrica PO 50 mg BID MARGY Administration Rosuvastatin Calcium 20 mg 07/30/17 22:00 08/08/17 22:25 Crestor PO 20 mg HS MARGY Administration Senna/Docusate Sodium 1 tab 08/08/17 22:00 08/08/17 22:26 Senokot S 50 Mg-8.6 Mg PO 1 tab BID MARGY Administration Sitagliptin Phosphate 25 mg 07/31/17 18:00 08/08/17 18:06 Januvia PO 25 mg BID MARGY Administration - Patient Studies Lab Studies: Lab Studies 08/09/17 08/09/17 08/08/17 Range/Units 06:07 06:07 21:14 WBC 7.1 (4.8-10.8) K/uL RBC 3.16 L (4.40-5.90) Mil/uL Hgb 9.4 L (12.0-18.0) g/dL Hct 27.0 L (35.0-51.0) % MCV 85.4 D (80.0-94.0) fL MCH 29.7 (27.0-31.0) pg MCHC 34.8 (33.0-37.0) g/dL RDW 16.9 H (11.5-14.5) % Plt Count 308 (130-400) K/uL MPV 7.5 (7.2-11.7) fL Neut % (Auto) 68.0 (50.0-75.0) % Lymph % (Auto) 18.9 L (20.0-40.0) % [place] % (Auto) 11.1 H (0.0-10.0) % Eos % (Auto) 1.6 (0.0-4.0) % Baso % (Auto) 0.4 (0.0-2.0) % Neut # (Auto) 4.8 (1.8-7.0) K/uL Lymph # (Auto) 1.3 (1.0-4.3) K/uL [place] # (Auto) 0.8 (0.0-0.8) K/uL Eos # (Auto) 0.1 (0.0-0.7) K/uL Baso # (Auto) 0.0 (0.0-0.2) K/uL Sodium 137 (132-148) mmol/L Potassium 3.9 (3.6-5.2) mmol/L Chloride 103 (98-107) mmol/L Carbon Dioxide 23 (22-30) mmol/L Anion Gap 15 (10-20) BUN 10 (9-20) mg/dL Creatinine 0.7 L (0.8-1.5) mg/dL Est GFR ( Amer) > 60 Est GFR (Non-Af Amer) > 60 POC Glucose (mg/dL) 208 H (65-110) mg/dL Random Glucose 186 H (75-110) mg/dL Calcium 8.0 L (8.6-10.4) mg/dl Phosphorus 2.1 L (2.5-4.5) mg/dL Magnesium 2.1 (1.6-2.3) mg/dL Total Bilirubin 1.8 H (0.2-1.3) mg/dL AST 25 (17-59) U/L ALT 21 D (21-72) U/L Alkaline Phosphatase 68 (38-126) U/L Total Protein 6.5 (6.3-8.3) g/dL Albumin 2.9 L (3.5-5.0) g/dL Globulin 3.7 (2.2-3.9) gm/dL Albumin/Globulin Ratio 0.8 L (1.0-2.1) Blood Type Antibody Screen Crossmatch 08/08/17 08/08/17 08/08/17 Range/Units 17:47 15:56 11:36 WBC (4.8-10.8) K/uL RBC (4.40-5.90) Mil/uL Hgb 9.9 L D (12.0-18.0) g/dL Hct 28.3 L (35.0-51.0) % MCV (80.0-94.0) fL MCH (27.0-31.0) pg MCHC (33.0-37.0) g/dL RDW (11.5-14.5) % Plt Count (130-400) K/uL MPV (7.2-11.7) fL Neut % (Auto) (50.0-75.0) % Lymph % (Auto) (20.0-40.0) % [place] % (Auto) (0.0-10.0) % Eos % (Auto) (0.0-4.0) % Baso % (Auto) (0.0-2.0) % Neut # (Auto) (1.8-7.0) K/uL Lymph # (Auto) (1.0-4.3) K/uL [place] # (Auto) (0.0-0.8) K/uL Eos # (Auto) (0.0-0.7) K/uL Baso # (Auto) (0.0-0.2) K/uL Sodium (132-148) mmol/L Potassium (3.6-5.2) mmol/L Chloride (98-107) mmol/L Carbon Dioxide (22-30) mmol/L Anion Gap (10-20) BUN (9-20) mg/dL Creatinine (0.8-1.5) mg/dL Est GFR ( Amer) Est GFR (Non-Af Amer) POC Glucose (mg/dL) 205 H 258 H (65-110) mg/dL Random Glucose (75-110) mg/dL Calcium (8.6-10.4) mg/dl Phosphorus (2.5-4.5) mg/dL Magnesium (1.6-2.3) mg/dL Total Bilirubin (0.2-1.3) mg/dL AST (17-59) U/L ALT (21-72) U/L Alkaline Phosphatase (38-126) U/L Total Protein (6.3-8.3) g/dL Albumin (3.5-5.0) g/dL Globulin (2.2-3.9) gm/dL Albumin/Globulin Ratio (1.0-2.1) Blood Type Antibody Screen Crossmatch 08/08/17 Range/Units 06:58 WBC (4.8-10.8) K/uL RBC (4.40-5.90) Mil/uL Hgb (12.0-18.0) g/dL Hct (35.0-51.0) % MCV (80.0-94.0) fL MCH (27.0-31.0) pg MCHC (33.0-37.0) g/dL RDW (11.5-14.5) % Plt Count (130-400) K/uL MPV (7.2-11.7) fL Neut % (Auto) (50.0-75.0) % Lymph % (Auto) (20.0-40.0) % [place] % (Auto) (0.0-10.0) % Eos % (Auto) (0.0-4.0) % Baso % (Auto) (0.0-2.0) % Neut # (Auto) (1.8-7.0) K/uL Lymph # (Auto) (1.0-4.3) K/uL [place] # (Auto) (0.0-0.8) K/uL Eos # (Auto) (0.0-0.7) K/uL Baso # (Auto) (0.0-0.2) K/uL Sodium (132-148) mmol/L Potassium (3.6-5.2) mmol/L Chloride (98-107) mmol/L Carbon Dioxide (22-30) mmol/L Anion Gap (10-20) BUN (9-20) mg/dL Creatinine (0.8-1.5) mg/dL Est GFR ( Amer) Est GFR (Non-Af Amer) POC Glucose (mg/dL) (65-110) mg/dL Random Glucose (75-110) mg/dL Calcium (8.6-10.4) mg/dl Phosphorus (2.5-4.5) mg/dL Magnesium (1.6-2.3) mg/dL Total Bilirubin (0.2-1.3) mg/dL AST (17-59) U/L ALT (21-72) U/L Alkaline Phosphatase (38-126) U/L Total Protein (6.3-8.3) g/dL Albumin (3.5-5.0) g/dL Globulin (2.2-3.9) gm/dL Albumin/Globulin Ratio (1.0-2.1) Blood Type O POSITIVE Antibody Screen Negative Crossmatch See Detail Laboratory Results - last 24 hr 08/08/17 08/08/17 08/08/17 06:58 11:36 15:56 WBC RBC Hgb Hct MCV MCH MCHC RDW Plt Count MPV Neut % (Auto) Lymph % (Auto) [place] % (Auto) Eos % (Auto) Baso % (Auto) Neut # (Auto) Lymph # (Auto) [place] # (Auto) Eos # (Auto) Baso # (Auto) Sodium Potassium Chloride Carbon Dioxide Anion Gap BUN Creatinine Est GFR ( Amer) Est GFR (Non-Af Amer) POC Glucose (mg/dL) 258 H 205 H Random Glucose Calcium Phosphorus Magnesium Total Bilirubin AST ALT Alkaline Phosphatase Total Protein Albumin Globulin Albumin/Globulin Ratio Blood Type O POSITIVE Antibody Screen Negative Crossmatch See Detail 08/08/17 08/08/17 08/09/17 17:47 21:14 06:07 WBC 7.1 RBC 3.16 L Hgb 9.9 L D 9.4 L Hct 28.3 L 27.0 L MCV 85.4 D MCH 29.7 MCHC 34.8 RDW 16.9 H Plt Count 308 MPV 7.5 Neut % (Auto) 68.0 Lymph % (Auto) 18.9 L [place] % (Auto) 11.1 H Eos % (Auto) 1.6 Baso % (Auto) 0.4 Neut # (Auto) 4.8 Lymph # (Auto) 1.3 [place] # (Auto) 0.8 Eos # (Auto) 0.1 Baso # (Auto) 0.0 Sodium Potassium Chloride Carbon Dioxide Anion Gap BUN Creatinine Est GFR ( Amer) Est GFR (Non-Af Amer) POC Glucose (mg/dL) 208 H Random Glucose Calcium Phosphorus Magnesium Total Bilirubin AST ALT Alkaline Phosphatase Total Protein Albumin Globulin Albumin/Globulin Ratio Blood Type Antibody Screen Crossmatch 08/09/17 06:07 WBC RBC Hgb Hct MCV MCH MCHC RDW Plt Count MPV Neut % (Auto) Lymph % (Auto) [place] % (Auto) Eos % (Auto) Baso % (Auto) Neut # (Auto) Lymph # (Auto) [place] # (Auto) Eos # (Auto) Baso # (Auto) Sodium 137 Potassium 3.9 Chloride 103 Carbon Dioxide 23 Anion Gap 15 BUN 10 Creatinine 0.7 L Est GFR ( Amer) > 60 Est GFR (Non-Af Amer) > 60 POC Glucose (mg/dL) Random Glucose 186 H Calcium 8.0 L Phosphorus 2.1 L Magnesium 2.1 Total Bilirubin 1.8 H AST 25 ALT 21 D Alkaline Phosphatase 68 Total Protein 6.5 Albumin 2.9 L Globulin 3.7 Albumin/Globulin Ratio 0.8 L Blood Type Antibody Screen Crossmatch Fingerstick Blood Sugar Results: 208 Critical Care Progress Note - Nutrition Nutrition: Nutrition Category Date Time Status Consistent Carbohydrate [DIET] Diets 08/08/17 Lunch Active
[2017-08-09] MEDS: Potassium & Sodium Phosphate PO SCH ×2 (10:29→14:34)
[2017-08-09] MEDS: Cilostazol 100 mg Tab UD PO SCH ×2 (10:30→18:46)
[2017-08-09] MEDS: Docusate-Senna 50 mg-8.6 mg Tab PO SCH ×2 (10:31→18:46)
[2017-08-09] MEDS: Clotrimazole 1% Cream(30 gm) TOP SCH ×2 (10:55→18:36)
--- NOTE | 2017-08-09 11:24 | CP.PCM.PN ---
Subjective - Date & Time of Evaluation Date of Evaluation: 08/09/17 Time of Evaluation: 08:30 - Subjective Subjective: Patient seen and examined at bedside with nurse for help with Trin[place] translation. Patient resting comfortably in bed with no new complaints at this time. Patient seems upset and wants his family to come see him more. He says he has "pain inside" from not seeing his family however he denies any pain from surgery or elsewhere. Patient denies fever, chills, headache, dizziness, chest pain, SOB, palpitations, abdominal pain, n/v/d/c. Objective - Vital Signs/Intake and Output Vital Signs (last 24 hours): Temp Pulse Resp BP Pulse Ox 98.9 F 116 H 11 L 125/61 97 08/09/17 08:00 08/09/17 09:00 08/09/17 09:00 08/09/17 08:17 08/09/17 09:00 Intake and Output: 08/09/17 08/09/17 06:59 18:59 Intake Total 1670 300 Output Total 1150 1500 Balance 520 -1200 - Medications Medications: Current Medications Acetaminophen (Tylenol 325mg Tab) 650 mg PO Q6 PRN PRN Reason: Pain, MILD(1-3) Last Admin: 08/08/17 00:48 Dose: 650 mg Aspirin (Aspirin Chewable) 81 mg PO DAILY [facility] Last Admin: 08/09/17 10:28 Dose: 81 mg Cilostazol (Pletal) 100 mg PO BID [facility] Last Admin: 08/09/17 10:30 Dose: 100 mg Clotrimazole (Lotrimin 1%) 1 gm TOP BID [facility] Last Admin: 08/08/17 18:08 Dose: 1 applic Dextrose (Dextrose 50% Inj) 0 ml IV STAT PRN; Protocol PRN Reason: Hypoglycemia Protocol Dextrose (Glutose 15) 0 gm PO ONCE PRN; Protocol PRN Reason: Hypoglycemia Protocol Dextrose (Glutose 15) 0 gm PO .ONCE PRN; Protocol PRN Reason: Hypoglycemia Protocol Enoxaparin Sodium (Lovenox) 40 mg SC DAILY [facility] Last Admin: 08/07/17 09:57 Dose: 40 mg Famotidine (Pepcid) 20 mg PO BID [facility] Last Admin: 08/09/17 10:27 Dose: 20 mg Glucagon (Glucagen Diagnostic Kit) 0 mg IM STAT PRN; Protocol PRN Reason: Hypoglycemia Protocol Glucagon (Glucagen Diagnostic Kit) 0 mg IM .STAT PRN; Protocol PRN Reason: Hypoglycemia Protocol Dextrose (Dextrose 5% In Water 1000 Ml) 1,000 mls @ 0 mls/hr IV .Q0M PRN; Protocol; Per Protocol PRN Reason: Hypoglycemia Protocol Piperacillin Sod/Tazobactam (Sod 3.375 gm/ Sodium Chloride) 100 mls @ 200 mls/ hr IVPB Q6H MARGY PRN Reason: Protocol Stop: 08/10/17 19:01 Last Admin: 08/09/17 06:38 Dose: 200 mls/hr Sodium Chloride (Sodium Chloride 0.9%) 1,000 mls @ 100 mls/hr IV .Q10H [facility] Last Admin: 08/09/17 10:32 Dose: Not Given Vancomycin/Sodium Chloride (Vancomycin 1 Gm/Ns 200 Ml) 1 gm in 200 mls @ 166.7 mls/hr IVPB Q24H MARGY PRN Reason: Protocol Stop: 08/11/17 18:01 Last Admin: 08/08/17 18:07 Dose: 166.7 mls/hr Insulin Human Regular (Novolin R) 0 unit SC ACHS [facility] PRN Reason: Protocol Last Admin: 08/09/17 08:00 Dose: 2 unit Metformin HCl (Glucophage) 850 mg PO BID [facility] Last Admin: 08/03/17 09:43 Dose: 850 mg Metoprolol Tartrate (Lopressor) 5 mg IVP Q6H PRN PRN Reason: Heart Rate >110 Last Admin: 08/09/17 00:07 Dose: 5 mg Metoprolol Tartrate (Lopressor) 25 mg PO Q8 [facility] Last Admin: 08/09/17 06:34 Dose: 25 mg Oxycodone/Acetaminophen (Percocet 5/325 Mg Tab) 1 tab PO Q4H PRN PRN Reason: Pain, moderate (4-7) Stop: 08/11/17 14:07 Last Admin: 08/09/17 00:04 Dose: 1 tab Oxycodone/Acetaminophen (Percocet 5/325 Mg Tab) 2 tab PO Q4H PRN PRN Reason: Pain, severe (8-10) Stop: 08/11/17 14:07 Potassium Phos/Sodium Phos (Neutra-Phos) 1 pkt PO TID [facility] Stop: 08/09/17 14:01 Last Admin: 08/09/17 10:29 Dose: 1 pkt Pregabalin (Lyrica) 50 mg PO BID [facility] Last Admin: 08/09/17 10:29 Dose: 50 mg Rosuvastatin Calcium (Crestor) 20 mg PO HS [facility] Last Admin: 08/08/17 22:25 Dose: 20 mg Senna/Docusate Sodium (Senokot S 50 Mg-8.6 Mg) 1 tab PO BID [facility] Last Admin: 08/09/17 10:31 Dose: 1 tab Sitagliptin Phosphate (Januvia) 25 mg PO BID [facility] Last Admin: 08/09/17 10:28 Dose: 25 mg - Labs Labs: 08/09/17 06:07 08/09/17 06:07 PT 12.0 SECONDS (9.7-12.2) 08/08/17 06:11 INR 1.1 08/08/17 06:11 APTT 37 SECONDS (21-34) H 08/08/17 06:11 - Constitutional Appears: Non-toxic, No Acute Distress - Head Exam Head Exam: ATRAUMATIC, NORMAL INSPECTION, NORMOCEPHALIC - Eye Exam Eye Exam: EOMI, Normal appearance, PERRL - ENT Exam ENT Exam: Mucous Membranes Moist - Respiratory Exam Respiratory Exam: Clear to Ausculation Bilateral, NORMAL BREATHING PATTERN - Cardiovascular Exam Cardiovascular Exam: RRR, +S1, +S2 - GI/Abdominal Exam GI & Abdominal Exam: Soft, Normal Bowel Sounds. absent: Distended, Tenderness - Extremities Exam Extremities Exam: absent: Calf Tenderness, Pedal Edema Additional comments: Left lower leg/foot bandaged, c/d/i - Neurological Exam Neurological Exam: Alert, Awake, Oriented x3 - Psychiatric Exam Psychiatric exam: Normal Affect, Normal Mood - Skin Skin Exam: Dry, Intact, Normal Color, Warm Assessment and Plan - Assessment and Plan (Free Text) Plan: Gangrene of toe of left foot, 2nd digit, Mack Stage 4 Peripheral arterial disease 2nd toe of left foot black and necrotic Mack stage 4 Hx of angioplasty and stent of left superficial femoral artery, and atherectomy tibioperoneal trunk, both in [address] Alex Zambrano Vascular surgery consult, Dr Wilkins Underwent Left Femoral to Anterior Tibial Bypass with reverse Saphenous Vein Graft & Intra-op Arteriogram on 08/04/17 Left 2nd toe amputation done Cardiology consult, Dr Alex Zambrano. ID consult, Dr. Weber Aspirin 81mg PO QD Crestor 20mg PO HS (high intensity statin indicated) Cilostazol 100mg PO BID for claudication Zosyn 3.375mg Q6H IV (start 07/31/17) Vancomycin 1gm Daily IV (start 07/31/17) Diabetes mellitus Hx of DM2, also with diabetic neuropathy Accuchecks Diabetic diet Hypoglycemia protocol Labs/Diagnostics: HgbA1c 9.2 Lipid Panel showed Triglycerides 157 and HDL 25 otherwise normal Meds: Januvia 25 mg PO BID RISS Hypoglycemia protocol HTN (hypertension) Hx of HTN per chart review Lopressor 5 mg IV Q6H prn HR>110 dose Lopressor 25 mg PO Q8H MARGY Echo report reveals 50% LVEF with borderline systolic function Monitor Prophylactic measure SCDs contraindicated 2/2 necrotic toe Lovenox 40mg SC QD Diabetic diet Pepcid 20 mg PO BID
--- NOTE | 2017-08-09 15:54 | CP.PCM.PN ---
Subjective - Date & Time of Evaluation Date of Evaluation: 08/09/17 Time of Evaluation: 12:30 - Subjective Subjective: Podiatry Progress Note- Dr. Bryant 72 y.o male seen and evaluated at bedside 1 day s/p left partial 2nd ray ampuation with removal of all nonviable soft tissue and bone. Patient is seen resting comfortably in bed, in NAD, and AA0x3. Patient denies acute overnight events. Outer dressing is clean, dry, and intact. Patient reports no pain to the left lower extremity. Denies calf pain or tenderness. No new pedal complains Objective - Vital Signs/Intake and Output Vital Signs (last 24 hours): Temp Pulse Resp BP Pulse Ox 98.6 F 126 H 12 93/49 L 100 08/09/17 12:00 08/09/17 15:17 08/09/17 15:17 08/09/17 15:17 08/09/17 15:17 Intake and Output: 08/09/17 08/09/17 06:59 18:59 Intake Total 1670 3760 Output Total 1150 2850 Balance 520 910 - Medications Medications: Current Medications Acetaminophen (Tylenol 325mg Tab) 650 mg PO Q6 PRN PRN Reason: Pain, MILD(1-3) Last Admin: 08/08/17 00:48 Dose: 650 mg Aspirin (Aspirin Chewable) 81 mg PO DAILY [facility] Last Admin: 08/09/17 10:28 Dose: 81 mg Cilostazol (Pletal) 100 mg PO BID [facility] Last Admin: 08/09/17 10:30 Dose: 100 mg Clotrimazole (Lotrimin 1%) 1 gm TOP BID [facility] Last Admin: 08/09/17 10:55 Dose: 1 applic Dextrose (Dextrose 50% Inj) 0 ml IV STAT PRN; Protocol PRN Reason: Hypoglycemia Protocol Dextrose (Glutose 15) 0 gm PO ONCE PRN; Protocol PRN Reason: Hypoglycemia Protocol Enoxaparin Sodium (Lovenox) 40 mg SC DAILY [facility] Last Admin: 08/07/17 09:57 Dose: 40 mg Famotidine (Pepcid) 20 mg PO BID [facility] Last Admin: 08/09/17 10:27 Dose: 20 mg Glucagon (Glucagen Diagnostic Kit) 0 mg IM STAT PRN; Protocol PRN Reason: Hypoglycemia Protocol Glucagon (Glucagen Diagnostic Kit) 0 mg IM .STAT PRN; Protocol PRN Reason: Hypoglycemia Protocol Dextrose (Dextrose 5% In Water 1000 Ml) 1,000 mls @ 0 mls/hr IV .Q0M PRN; Protocol; Per Protocol PRN Reason: Hypoglycemia Protocol Piperacillin Sod/Tazobactam (Sod 3.375 gm/ Sodium Chloride) 100 mls @ 200 mls/ hr IVPB Q6H [facility] PRN Reason: Protocol Stop: 08/10/17 19:01 Last Admin: 08/09/17 12:10 Dose: 200 mls/hr Sodium Chloride (Sodium Chloride 0.9%) 1,000 mls @ 100 mls/hr IV .Q10H [facility] Last Admin: 08/09/17 10:32 Dose: Not Given Vancomycin/Sodium Chloride (Vancomycin 1 Gm/Ns 200 Ml) 1 gm in 200 mls @ 166.7 mls/hr IVPB Q24H [facility] PRN Reason: Protocol Stop: 08/11/17 18:01 Last Admin: 08/08/17 18:07 Dose: 166.7 mls/hr Insulin Human Regular (Novolin R) 0 unit SC ACHS [facility] PRN Reason: Protocol Last Admin: 08/09/17 11:35 Dose: 4 unit Metformin HCl (Glucophage) 850 mg PO BID [facility] Last Admin: 08/03/17 09:43 Dose: 850 mg Metoprolol Tartrate (Lopressor) 5 mg IVP Q6H PRN PRN Reason: Heart Rate >110 Last Admin: 08/09/17 00:07 Dose: 5 mg Metoprolol Tartrate (Lopressor) 25 mg PO Q8 [facility] Last Admin: 08/09/17 14:35 Dose: 25 mg Oxycodone/Acetaminophen (Percocet 5/325 Mg Tab) 1 tab PO Q4H PRN PRN Reason: Pain, moderate (4-7) Stop: 08/11/17 14:07 Last Admin: 08/09/17 10:20 Dose: 1 tab Oxycodone/Acetaminophen (Percocet 5/325 Mg Tab) 2 tab PO Q4H PRN PRN Reason: Pain, severe (8-10) Stop: 08/11/17 14:07 Pregabalin (Lyrica) 50 mg PO BID [facility] Last Admin: 08/09/17 10:29 Dose: 50 mg Rosuvastatin Calcium (Crestor) 20 mg PO HS [facility] Last Admin: 08/08/17 22:25 Dose: 20 mg Senna/Docusate Sodium (Senokot S 50 Mg-8.6 Mg) 1 tab PO BID [facility] Last Admin: 08/09/17 10:31 Dose: 1 tab Sitagliptin Phosphate (Januvia) 25 mg PO BID [facility] Last Admin: 08/09/17 10:28 Dose: 25 mg - Labs Labs: 08/09/17 06:07 08/09/17 06:07 PT 12.0 SECONDS (9.7-12.2) 08/08/17 06:11 INR 1.1 08/08/17 06:11 APTT 37 SECONDS (21-34) H 08/08/17 06:11 - Constitutional Appears: Well, Non-toxic, No Acute Distress - Extremities Exam Extremities Exam: absent: Calf Tenderness Additional comments: LLE focused left leg bypass graft surigcal site appears c/d/i (surgical team managing) VASC- DP pulse is now palpable, doppler reveals triphasic waveform, cap refill is delayed all digits, neg pedal edema NEURO- gross and protective pedal sensation are diminished DERM- s/p left 2nd partial ray amputation surgical site remained opened measuring approximately 5 cm x 2.5 cm x 3 cm with proximal wound edges sutured; proximal surgical site with sutured intact with skin edges co-apted and well re- approximated with no dehiscence noted. Surgical site wound base is mainly granular with mild active sangious bleeding noted, no purulence drainage appreciated, no odor, no erythema, no streaking, no increase calor ORTHO- mild pain with manipulation of the surgical site with wound VAC changes - Neurological Exam Neurological Exam: Alert, Awake, Oriented x3 - Psychiatric Exam Psychiatric exam: Normal Affect, Normal Mood Assessment and Plan - Assessment and Plan (Free Text) Assessment: 72 y.o male seen and evaluated at bedside 1 day s/p left partial 2nd ray ampuation with removal of all nonviable soft tissue and bone with wound VAC therapy to surgical site Plan: Patient examined and evaluated Discussed plan in detail with attending Dr. Manny Mejia, absent leukocytosis Surgical site cleansed with saline solution and wound V.A.C therapy applied. Setting set to continous at 125 mmhg. Wound VAC will be changed q 48-72 hours by podiatrt Please reinforced with tegaderm if leakage is present Dress surgical site with dsd, abd, and kerlix Patient may PWB to the heel in surgical shoe Will need portable wound V.A.C to aid in ambulation efforts Podiatry will continue to follow while in house
--- NOTE | 2017-08-09 17:12 | CP.PCM.PN ---
Subjective - Date & Time of Evaluation Date of Evaluation: 08/09/17 Time of Evaluation: 17:11 - Subjective Subjective: PT IS S/P AMPUTATION OF TOE. MILD PAIN. TACHYCARDIA Objective - Vital Signs/Intake and Output Vital Signs (last 24 hours): Temp Pulse Resp BP Pulse Ox 97.9 F 126 H 19 114/45 L 97 08/09/17 16:00 08/09/17 16:17 08/09/17 16:17 08/09/17 16:17 08/09/17 16:17 Intake and Output: 08/09/17 08/09/17 06:59 18:59 Intake Total 1670 4180 Output Total 1150 3250 Balance 520 930 - Medications Medications: Current Medications Acetaminophen (Tylenol 325mg Tab) 650 mg PO Q6 PRN PRN Reason: Pain, MILD(1-3) Last Admin: 08/08/17 00:48 Dose: 650 mg Aspirin (Aspirin Chewable) 81 mg PO DAILY [facility] Last Admin: 08/09/17 10:28 Dose: 81 mg Cilostazol (Pletal) 100 mg PO BID [facility] Last Admin: 08/09/17 10:30 Dose: 100 mg Clotrimazole (Lotrimin 1%) 1 gm TOP BID [facility] Last Admin: 08/09/17 10:55 Dose: 1 applic Dextrose (Dextrose 50% Inj) 0 ml IV STAT PRN; Protocol PRN Reason: Hypoglycemia Protocol Dextrose (Glutose 15) 0 gm PO ONCE PRN; Protocol PRN Reason: Hypoglycemia Protocol Enoxaparin Sodium (Lovenox) 40 mg SC DAILY [facility] Last Admin: 08/07/17 09:57 Dose: 40 mg Famotidine (Pepcid) 20 mg PO BID [facility] Last Admin: 08/09/17 10:27 Dose: 20 mg Glucagon (Glucagen Diagnostic Kit) 0 mg IM STAT PRN; Protocol PRN Reason: Hypoglycemia Protocol Glucagon (Glucagen Diagnostic Kit) 0 mg IM .STAT PRN; Protocol PRN Reason: Hypoglycemia Protocol Dextrose (Dextrose 5% In Water 1000 Ml) 1,000 mls @ 0 mls/hr IV .Q0M PRN; Protocol; Per Protocol PRN Reason: Hypoglycemia Protocol Piperacillin Sod/Tazobactam (Sod 3.375 gm/ Sodium Chloride) 100 mls @ 200 mls/ hr IVPB Q6H [facility] PRN Reason: Protocol Stop: 08/10/17 19:01 Last Admin: 08/09/17 12:10 Dose: 200 mls/hr Sodium Chloride (Sodium Chloride 0.9%) 1,000 mls @ 100 mls/hr IV .Q10H [facility] Last Admin: 08/09/17 10:32 Dose: Not Given Vancomycin/Sodium Chloride (Vancomycin 1 Gm/Ns 200 Ml) 1 gm in 200 mls @ 166.7 mls/hr IVPB Q24H [facility] PRN Reason: Protocol Stop: 08/11/17 18:01 Last Admin: 08/08/17 18:07 Dose: 166.7 mls/hr Insulin Human Regular (Novolin R) 0 unit SC ACHS [facility] PRN Reason: Protocol Last Admin: 08/09/17 16:45 Dose: 3 unit Metformin HCl (Glucophage) 850 mg PO BID [facility] Last Admin: 08/03/17 09:43 Dose: 850 mg Metoprolol Tartrate (Lopressor) 5 mg IVP Q6H PRN PRN Reason: Heart Rate >110 Last Admin: 08/09/17 00:07 Dose: 5 mg Metoprolol Tartrate (Lopressor) 25 mg PO Q8 [facility] Last Admin: 08/09/17 14:35 Dose: 25 mg Oxycodone/Acetaminophen (Percocet 5/325 Mg Tab) 1 tab PO Q4H PRN PRN Reason: Pain, moderate (4-7) Stop: 08/11/17 14:07 Last Admin: 08/09/17 10:20 Dose: 1 tab Oxycodone/Acetaminophen (Percocet 5/325 Mg Tab) 2 tab PO Q4H PRN PRN Reason: Pain, severe (8-10) Stop: 08/11/17 14:07 Pregabalin (Lyrica) 50 mg PO BID [facility] Last Admin: 08/09/17 10:29 Dose: 50 mg Rosuvastatin Calcium (Crestor) 20 mg PO HS [facility] Last Admin: 08/08/17 22:25 Dose: 20 mg Senna/Docusate Sodium (Senokot S 50 Mg-8.6 Mg) 1 tab PO BID [facility] Last Admin: 08/09/17 10:31 Dose: 1 tab Sitagliptin Phosphate (Januvia) 25 mg PO BID [facility] Last Admin: 08/09/17 10:28 Dose: 25 mg - Labs Labs: 08/09/17 06:07 08/09/17 06:07 PT 12.0 SECONDS (9.7-12.2) 08/08/17 06:11 INR 1.1 08/08/17 06:11 APTT 37 SECONDS (21-34) H 08/08/17 06:11 - Constitutional Appears: Well - Head Exam Head Exam: ATRAUMATIC, NORMAL INSPECTION, NORMOCEPHALIC - Eye Exam Eye Exam: EOMI, Normal appearance, PERRL. absent: Conjunctival injection, Nystagmus, Periorbital swelling, Periorbital tenderness, Scleral icterus Pupil Exam: NORMAL ACCOMODATION, PERRL - ENT Exam ENT Exam: Mucous Membranes Moist, Normal Exam. absent: Mucous Membranes Dry, Normal External Ear Exam, Normal Oropharynx, TM's Normal Bilaterally - Neck Exam Neck Exam: Full ROM, Normal Inspection - Respiratory Exam Respiratory Exam: Clear to Ausculation Bilateral, NORMAL BREATHING PATTERN. absent: Accessory Muscle Use, Chest Wall Tenderness, Decreased Breath Sounds, Prolonged Expiratory Phase, Rales, Rhonchi, Wheezes, Respiratory Distress, Stridor - Cardiovascular Exam Cardiovascular Exam: Tachycardia, REGULAR RHYTHM, +S2, +S4. absent: Bradycardia , Clicks, Diastolic murmur, Gallop, Irregular Rhythm, JVD, RRR, Rubs, +S1, Murmur - GI/Abdominal Exam GI & Abdominal Exam: Soft, Normal Bowel Sounds - Rectal Exam Rectal Exam: Deferred - Extremities Exam Additional comments: gauze cdi - Back Exam Back Exam: NORMAL INSPECTION. absent: CVA tenderness (L), CVA tenderness (R), Full ROM, muscle spasm, paraspinal tenderness, rash noted, tenderness, vertebral tenderness - Neurological Exam Neurological Exam: Alert, Awake, CN II-XII Intact, Oriented x3. absent: Abnormal Gait, Altered, Motor Sensory Deficit, Normal Gait, Reflexes Normal - Psychiatric Exam Psychiatric exam: Normal Affect, Normal Mood - Skin Skin Exam: Dry, Intact, Normal Color, Warm Assessment and Plan (1) Tachycardia Status: Acute (2) Diabetes mellitus Status: Acute (3) Gangrene of toe of left foot Status: Acute (4) HTN (hypertension) Status: Chronic (5) Peripheral arterial disease Status: Acute - Assessment and Plan (Free Text) Plan: BB'S low dose q12 CONTROL PAIN MONITOR HR IVFS tachycardia is due to pain, surgical stress, anemia. will check tfts.
[2017-08-09] MEDS: Vancomycin 1 gm/NS 200 ml 1 GM/200 ML BAG IVPB SCH (17:36)
[2017-08-10] MEDS: Piperacillin/Tazobact 3.375 GM in Sodium Chloride 100 ML IVPB SCH ×4 (00:34→18:40)
[2017-08-10] MEDS: Sodium Chloride 0.9% 1,000 ML IV SCH (05:34)
[2017-08-10 06:28] LABS: BLOOD UREA NITROGEN 12 mg/dL (9-20); CALCIUM 7.9 mg/dl (8.6-10.4); GFR AFRICAN-AMERICAN > 60; GFR NON-AFRICAN AMERICAN > 60
[2017-08-10 06:45] LABS: BASO # 0.1 K/uL (0.0-0.2); BASO % 1.4 % (0.0-2.0); EOS # 0.1 K/uL (0.0-0.7); EOS % 1.6 % (0.0-4.0); HEMOGLOBIN 8.9 g/dL (12.0-18.0); LYMPH # 1.1 K/uL (1.0-4.3); LYMPH % 13.8 % (20.0-40.0); MEAN CELL VOLUME 85.8 fL (80.0-94.0); MEAN CORPUSCULAR HEMOGLOBIN 29.5 pg (27.0-31.0); MEAN CORPUSCULAR HGB CONC 34.4 g/dL (33.0-37.0); MEAN PLATELET VOLUME 7.7 fL (7.2-11.7); MONO # 0.7 K/uL (0.0-0.8); MONO % 9.4 % (0.0-10.0); NEUT # 5.8 K/uL (1.8-7.0); NEUT % 73.8 % (50.0-75.0); RBC 3.01 Mil/uL (4.40-5.90); RED CELL DISTRIBUTION WIDTH 16.4 % (11.5-14.5); WHITE BLOOD COUNT 7.9 K/uL (4.8-10.8)
--- NOTE | 2017-08-10 08:28 | CP.CCUPN ---
CCU Subjective - Physician Review Events Since Last Encounter (Free Text): 08/10/17 08:27 Patient is a 72-year-old male with history of hypertension peripheral vascular disease admitted with a gangrene, complicated, underwent left femoral tibial bypass. Postoperatively patient was managed in the intensive care unit he underwent the toe amputation on the left side. Patient is currently comfortable. Minimal pain noted. Not in any distress. Vital signs are stable. Mild tachycardia Blood pressure is 123/81 chronically otherwise stable Labs reviewed Currently on antibiotic Assessment and recommendation: 72-year-old male with peripheral vascular disease gangrene. Status post toe amputation. Currently stable. can be transferred to floor. Will follow the patient CCU Objective - Vital Signs / Intake & Output Vital Signs (Last 4 hours): Vital Signs Pulse Resp BP Pulse Ox 08/10/17 07:17 117 H 21 111/62 96 08/10/17 07:00 116 H 21 95 08/10/17 06:17 119 H 112/56 L 99 08/10/17 06:00 120 H 15 98 08/10/17 05:17 115 H 21 115/46 L 96 08/10/17 05:00 115 H 19 96 Intake and Output (Last 8hrs): Intake & Output 08/09/17 08/10/17 08/10/17 22:59 06:59 14:59 Intake Total 2280 800 100 Output Total 1200 900 0 Balance 1080 -100 100 Weight 118 lb Intake: Intake, IV Amount 800 800 100 right forearm 800 800 100 Oral 1480 Output: Drainage 0 0 0 Left Lower Foot 0 0 0 Urine 1200 900 Urine, Voided 1200 900 Other: # Bowel Movements 1 1 1 - Physical Exam Head: Positive for: Atraumatic, Normocephalic Pupils: Positive for: PERRL Extroacular Muscles: Positive for: EOMI Conjunctiva: Positive for: Normal Mouth: Positive for: Moist Mucous Membranes Respiratory/Chest: Positive for: Clear to Auscultation, Good Air Exchange. Negative for: Wheezes, Rales, Rhonchi Cardiovascular: Positive for: Normal S1, S2, Tachycardic Abdomen: Positive for: Normal Bowel Sounds. Negative for: Tenderness, Distention Upper Extremity: Positive for: Normal Inspection Lower Extremity: Positive for: Other (Pedal pulses obtained with doppler. ) Neurological: Positive for: GCS=15 Skin: Positive for: Warm, Dry Psychiatric: Positive for: Alert, Oriented x 3 - Medications Active Medications: Active Medications Generic Name Dose Route Start Last Admin Trade Name Freq PRN Reason Stop Dose Admin Acetaminophen 650 mg 08/05/17 17:19 08/08/17 00:48 Tylenol 325mg Tab PO 650 mg Q6 PRN Administration Pain, MILD(1-3) Aspirin 81 mg 07/29/17 16:30 08/09/17 10:28 Aspirin Chewable PO 81 mg DAILY [facility] Administration Cilostazol 100 mg 07/30/17 18:00 08/09/17 18:46 Pletal PO 100 mg BID [facility] Administration Clotrimazole 1 gm 07/30/17 10:00 08/09/17 18:36 Lotrimin 1% TOP 1 applic BID [facility] Administration Dextrose 0 ml 07/29/17 15:49 Dextrose 50% Inj IV STAT PRN Hypoglycemia Protocol Protocol Dextrose 0 gm 07/29/17 15:49 Glutose 15 PO ONCE PRN Hypoglycemia Protocol Protocol Enoxaparin Sodium 40 mg 07/30/17 10:00 08/07/17 09:57 Lovenox SC 40 mg DAILY [facility] Administration Famotidine 20 mg 08/06/17 18:00 08/09/17 18:45 Pepcid PO 20 mg BID [facility] Administration Glucagon 0 mg 07/29/17 15:49 Glucagen Diagnostic Kit IM STAT PRN Hypoglycemia Protocol Protocol Glucagon 0 mg 07/31/17 16:42 Glucagen Diagnostic Kit IM .STAT PRN Hypoglycemia Protocol Protocol Dextrose 1,000 mls @ 0 mls/hr 07/31/17 16:42 Dextrose 5% In Water 1000 Ml IV .Q0M PRN Hypoglycemia Protocol Protocol Per Protocol Piperacillin Sod/Tazobactam 100 mls @ 200 mls/hr 07/31/17 19:00 08/10/17 06: 05 Sod 3.375 gm/ Sodium Chloride IVPB 08/10/17 19:01 200 mls/hr Q6H [facility] Administration Protocol Sodium Chloride 1,000 mls @ 100 mls/hr 08/04/17 19:00 08/10/17 05:34 Sodium Chloride 0.9% IV Not Given .Q10H [facility] Vancomycin/Sodium Chloride 1 gm in 200 mls @ 166.7 mls/hr 08/06/17 18:00 17:36 Vancomycin 1 Gm/Ns 200 Ml IVPB 08/11/17 18:01 166.7 mls/hr Q24H [facility] Administration Protocol Insulin Human Regular 0 unit 07/29/17 16:30 08/09/17 21:33 Novolin R SC Not Given ACHS [facility] Protocol Metformin HCl 850 mg 07/31/17 18:00 08/03/17 09:43 Glucophage PO 850 mg BID [facility] Administration Metoprolol Tartrate 5 mg 08/05/17 18:41 08/09/17 00:07 Lopressor IVP 5 mg Q6H PRN Administration Heart Rate >110 Metoprolol Tartrate 25 mg 08/09/17 18:00 08/09/17 18:35 Lopressor PO Not Given BID [facility] Oxycodone/Acetaminophen 1 tab 08/08/17 14:06 08/09/17 10:20 Percocet 5/325 Mg Tab PO 08/11/17 14:07 1 tab Q4H PRN Administration Pain, moderate (4-7) Oxycodone/Acetaminophen 2 tab 08/08/17 14:06 Percocet 5/325 Mg Tab PO 08/11/17 14:07 Q4H PRN Pain, severe (8-10) Pregabalin 50 mg 07/29/17 18:00 08/09/17 18:00 Lyrica PO 50 mg BID [facility] Administration Rosuvastatin Calcium 20 mg 07/30/17 22:00 08/09/17 21:42 Crestor PO 20 mg HS [facility] Administration Senna/Docusate Sodium 1 tab 08/08/17 22:00 08/09/17 18:46 Senokot S 50 Mg-8.6 Mg PO 1 tab BID [facility] Administration Sitagliptin Phosphate 25 mg 07/31/17 18:00 08/09/17 18:45 Januvia PO 25 mg BID [facility] Administration - Patient Studies Lab Studies: Lab Studies 08/10/17 08/10/17 08/10/17 Range/Units 07:47 06:10 06:10 WBC 7.9 (4.8-10.8) K/uL RBC 3.01 L (4.40-5.90) Mil/uL Hgb 8.9 L (12.0-18.0) g/dL Hct 25.8 L (35.0-51.0) % MCV 85.8 (80.0-94.0) fL MCH 29.5 (27.0-31.0) pg MCHC 34.4 (33.0-37.0) g/dL RDW 16.4 H (11.5-14.5) % Plt Count 352 (130-400) K/uL MPV 7.7 (7.2-11.7) fL Neut % (Auto) 73.8 (50.0-75.0) % Lymph % (Auto) 13.8 L (20.0-40.0) % Avery % (Auto) 9.4 (0.0-10.0) % Eos % (Auto) 1.6 (0.0-4.0) % Baso % (Auto) 1.4 (0.0-2.0) % Neut # (Auto) 5.8 (1.8-7.0) K/uL Lymph # (Auto) 1.1 (1.0-4.3) K/uL Avery # (Auto) 0.7 (0.0-0.8) K/uL Eos # (Auto) 0.1 (0.0-0.7) K/uL Baso # (Auto) 0.1 (0.0-0.2) K/uL Sodium (132-148) mmol/L Potassium (3.6-5.2) mmol/L Chloride (98-107) mmol/L Carbon Dioxide (22-30) mmol/L Anion Gap (10-20) BUN (9-20) mg/dL Creatinine (0.8-1.5) mg/dL Est GFR ( Amer) Est GFR (Non-Af Amer) POC Glucose (mg/dL) 193 H (65-110) mg/dL Random Glucose (75-110) mg/dL Calcium (8.6-10.4) mg/dl Magnesium (1.6-2.3) mg/dL Free T4 1.94 (0.78-2.19) ng/dL Total T3 (1.49-2.60) nmol/L TSH 3rd Generation (0.46-4.68) mIU/L 08/10/17 08/09/17 08/09/17 Range/Units 06:10 21:14 15:58 WBC (4.8-10.8) K/uL RBC (4.40-5.90) Mil/uL Hgb (12.0-18.0) g/dL Hct (35.0-51.0) % MCV (80.0-94.0) fL MCH (27.0-31.0) pg MCHC (33.0-37.0) g/dL RDW (11.5-14.5) % Plt Count (130-400) K/uL MPV (7.2-11.7) fL Neut % (Auto) (50.0-75.0) % Lymph % (Auto) (20.0-40.0) % Avery % (Auto) (0.0-10.0) % Eos % (Auto) (0.0-4.0) % Baso % (Auto) (0.0-2.0) % Neut # (Auto) (1.8-7.0) K/uL Lymph # (Auto) (1.0-4.3) K/uL Avery # (Auto) (0.0-0.8) K/uL Eos # (Auto) (0.0-0.7) K/uL Baso # (Auto) (0.0-0.2) K/uL Sodium 136 (132-148) mmol/L Potassium 3.6 (3.6-5.2) mmol/L Chloride 104 (98-107) mmol/L Carbon Dioxide 23 (22-30) mmol/L Anion Gap 13 (10-20) BUN 12 (9-20) mg/dL Creatinine 0.7 L (0.8-1.5) mg/dL Est GFR ( Amer) > 60 Est GFR (Non-Af Amer) > 60 POC Glucose (mg/dL) 205 H 247 H (65-110) mg/dL Random Glucose 186 H (75-110) mg/dL Calcium 7.9 L (8.6-10.4) mg/dl Magnesium 2.0 (1.6-2.3) mg/dL Free T4 (0.78-2.19) ng/dL Total T3 1.30 L (1.49-2.60) nmol/L TSH 3rd Generation 0.94 (0.46-4.68) mIU/L 08/09/17 08/09/17 Range/Units 11:33 07:11 WBC (4.8-10.8) K/uL RBC (4.40-5.90) Mil/uL Hgb (12.0-18.0) g/dL Hct (35.0-51.0) % MCV (80.0-94.0) fL MCH (27.0-31.0) pg MCHC (33.0-37.0) g/dL RDW (11.5-14.5) % Plt Count (130-400) K/uL MPV (7.2-11.7) fL Neut % (Auto) (50.0-75.0) % Lymph % (Auto) (20.0-40.0) % Avery % (Auto) (0.0-10.0) % Eos % (Auto) (0.0-4.0) % Baso % (Auto) (0.0-2.0) % Neut # (Auto) (1.8-7.0) K/uL Lymph # (Auto) (1.0-4.3) K/uL Avery # (Auto) (0.0-0.8) K/uL Eos # (Auto) (0.0-0.7) K/uL Baso # (Auto) (0.0-0.2) K/uL Sodium (132-148) mmol/L Potassium (3.6-5.2) mmol/L Chloride (98-107) mmol/L Carbon Dioxide (22-30) mmol/L Anion Gap (10-20) BUN (9-20) mg/dL Creatinine (0.8-1.5) mg/dL Est GFR ( Amer) Est GFR (Non-Af Amer) POC Glucose (mg/dL) 269 H 220 H (65-110) mg/dL Random Glucose (75-110) mg/dL Calcium (8.6-10.4) mg/dl Magnesium (1.6-2.3) mg/dL Free T4 (0.78-2.19) ng/dL Total T3 (1.49-2.60) nmol/L TSH 3rd Generation (0.46-4.68) mIU/L Laboratory Results - last 24 hr 08/09/17 08/09/17 08/09/17 07:11 11:33 15:58 WBC RBC Hgb Hct MCV MCH MCHC RDW Plt Count MPV Neut % (Auto) Lymph % (Auto) Avery % (Auto) Eos % (Auto) Baso % (Auto) Neut # (Auto) Lymph # (Auto) Avery # (Auto) Eos # (Auto) Baso # (Auto) Sodium Potassium Chloride Carbon Dioxide Anion Gap BUN Creatinine Est GFR ( Amer) Est GFR (Non-Af Amer) POC Glucose (mg/dL) 220 H 269 H 247 H Random Glucose Calcium Magnesium Free T4 Total T3 TSH 3rd Generation 08/09/17 08/10/17 08/10/17 21:14 06:10 06:10 WBC RBC Hgb Hct MCV MCH MCHC RDW Plt Count MPV Neut % (Auto) Lymph % (Auto) Avery % (Auto) Eos % (Auto) Baso % (Auto) Neut # (Auto) Lymph # (Auto) Avery # (Auto) Eos # (Auto) Baso # (Auto) Sodium 136 Potassium 3.6 Chloride 104 Carbon Dioxide 23 Anion Gap 13 BUN 12 Creatinine 0.7 L Est GFR ( Amer) > 60 Est GFR (Non-Af Amer) > 60 POC Glucose (mg/dL) 205 H Random Glucose 186 H Calcium 7.9 L Magnesium 2.0 Free T4 1.94 Total T3 1.30 L TSH 3rd Generation 0.94 08/10/17 08/10/17 06:10 07:47 WBC 7.9 RBC 3.01 L Hgb 8.9 L Hct 25.8 L MCV 85.8 MCH 29.5 MCHC 34.4 RDW 16.4 H Plt Count 352 MPV 7.7 Neut % (Auto) 73.8 Lymph % (Auto) 13.8 L Avery % (Auto) 9.4 Eos % (Auto) 1.6 Baso % (Auto) 1.4 Neut # (Auto) 5.8 Lymph # (Auto) 1.1 Avery # (Auto) 0.7 Eos # (Auto) 0.1 Baso # (Auto) 0.1 Sodium Potassium Chloride Carbon Dioxide Anion Gap BUN Creatinine Est GFR ( Amer) Est GFR (Non-Af Amer) POC Glucose (mg/dL) 193 H Random Glucose Calcium Magnesium Free T4 Total T3 TSH 3rd Generation Fingerstick Blood Sugar Results: 205 Critical Care Progress Note - Nutrition Nutrition: Nutrition Category Date Time Status Consistent Carbohydrate [DIET] Diets 08/08/17 Lunch Active
[2017-08-10] MEDS ORDERED: Oxycodone/Acetaminophen 5/325 mg Tab PO PRN (08:29)
[2017-08-10] MEDS: (Novolin R) Insulin Human Regular 100 units/ml vial SC SCH ×4 (08:32→22:45)
[2017-08-10] MEDS: Cilostazol 100 mg Tab UD PO SCH ×2 (10:19→17:02)
[2017-08-10] MEDS: Docusate-Senna 50 mg-8.6 mg Tab PO SCH ×2 (10:20→19:02)
--- NOTE | 2017-08-10 10:52 | CP.PCM.PN ---
Subjective - Date & Time of Evaluation Date of Evaluation: 08/10/17 Time of Evaluation: 10:48 - Subjective Subjective: Patient seen and examined at bedside. Patient resting comfortably in bed with no new complaints at this time. Patient denies fever, chills, headache, dizziness, chest pain, SOB, palpitations, abdominal pain, n/v/d/c, calf pain, and LE edema. Objective - Vital Signs/Intake and Output Vital Signs (last 24 hours): Temp Pulse Resp BP Pulse Ox 98.9 F 112 H 26 H 111/52 L 94 L 08/10/17 04:00 08/10/17 10:00 08/10/17 10:00 08/10/17 10:19 08/10/17 10:00 Intake and Output: 08/10/17 08/10/17 06:59 18:59 Intake Total 1500 740 Output Total 1200 320 Balance 300 420 - Medications Medications: Current Medications Acetaminophen (Tylenol 325mg Tab) 650 mg PO Q6 PRN PRN Reason: Pain, MILD(1-3) Last Admin: 08/08/17 00:48 Dose: 650 mg Aspirin (Aspirin Chewable) 81 mg PO DAILY [facility] Last Admin: 08/10/17 10:19 Dose: 81 mg Cilostazol (Pletal) 100 mg PO BID [facility] Last Admin: 08/10/17 10:19 Dose: 100 mg Clotrimazole (Lotrimin 1%) 1 gm TOP BID [facility] Last Admin: 08/09/17 18:36 Dose: 1 applic Dextrose (Dextrose 50% Inj) 0 ml IV STAT PRN; Protocol PRN Reason: Hypoglycemia Protocol Dextrose (Glutose 15) 0 gm PO ONCE PRN; Protocol PRN Reason: Hypoglycemia Protocol Enoxaparin Sodium (Lovenox) 40 mg SC DAILY [facility] Last Admin: 08/07/17 09:57 Dose: 40 mg Famotidine (Pepcid) 20 mg PO BID [facility] Last Admin: 08/10/17 10:19 Dose: 20 mg Glucagon (Glucagen Diagnostic Kit) 0 mg IM STAT PRN; Protocol PRN Reason: Hypoglycemia Protocol Glucagon (Glucagen Diagnostic Kit) 0 mg IM .STAT PRN; Protocol PRN Reason: Hypoglycemia Protocol Dextrose (Dextrose 5% In Water 1000 Ml) 1,000 mls @ 0 mls/hr IV .Q0M PRN; Protocol; Per Protocol PRN Reason: Hypoglycemia Protocol Piperacillin Sod/Tazobactam (Sod 3.375 gm/ Sodium Chloride) 100 mls @ 200 mls/ hr IVPB Q6H [facility] PRN Reason: Protocol Stop: 08/10/17 19:01 Last Admin: 08/10/17 06:05 Dose: 200 mls/hr Vancomycin/Sodium Chloride (Vancomycin 1 Gm/Ns 200 Ml) 1 gm in 200 mls @ 166.7 mls/hr IVPB Q24H [facility] PRN Reason: Protocol Stop: 08/11/17 18:01 Last Admin: 08/09/17 17:36 Dose: 166.7 mls/hr Insulin Human Regular (Novolin R) 0 unit SC ACHS [facility] PRN Reason: Protocol Last Admin: 08/10/17 08:32 Dose: 2 unit Metformin HCl (Glucophage) 850 mg PO BID [facility] Last Admin: 08/03/17 09:43 Dose: 850 mg Metoprolol Tartrate (Lopressor) 25 mg PO BID [facility] Last Admin: 08/10/17 10:19 Dose: 25 mg Oxycodone/Acetaminophen (Percocet 5/325 Mg Tab) 1 tab PO Q8 PRN PRN Reason: Pain, moderate (4-7) Stop: 08/13/17 14:01 Rosuvastatin Calcium (Crestor) 20 mg PO HS [facility] Last Admin: 08/09/17 21:42 Dose: 20 mg Senna/Docusate Sodium (Senokot S 50 Mg-8.6 Mg) 1 tab PO BID [facility] Last Admin: 08/10/17 10:20 Dose: 1 tab Sitagliptin Phosphate (Januvia) 25 mg PO BID [facility] Last Admin: 08/10/17 10:20 Dose: 25 mg - Labs Labs: 08/10/17 06:10 08/10/17 06:10 PT 12.0 SECONDS (9.7-12.2) 08/08/17 06:11 INR 1.1 08/08/17 06:11 APTT 37 SECONDS (21-34) H 08/08/17 06:11 - Additional Findings Additional findings: - Constitutional Appears: Non-toxic, No Acute Distress - Head Exam Head Exam: ATRAUMATIC, NORMAL INSPECTION, NORMOCEPHALIC - Eye Exam Eye Exam: EOMI, Normal appearance, PERRL - ENT Exam ENT Exam: Mucous Membranes Moist - Respiratory Exam Respiratory Exam: Clear to Ausculation Bilateral, NORMAL BREATHING PATTERN - Cardiovascular Exam Cardiovascular Exam: RRR, +S1, +S2 - GI/Abdominal Exam GI & Abdominal Exam: Soft, Normal Bowel Sounds. absent: Distended, Tenderness - Extremities Exam Extremities Exam: absent: Calf Tenderness, Pedal Edema Additional comments: Left lower leg/foot bandaged, c/d/i - Neurological Exam Neurological Exam: Alert, Awake, Oriented x3 - Psychiatric Exam Psychiatric exam: Normal Affect, Normal Mood - Skin Skin Exam: Dry, Intact, Normal Color, Warm Assessment and Plan - Assessment and Plan (Free Text) Plan: Gangrene of toe of left foot, 2nd digit, Mack Stage 4 Peripheral arterial disease 2nd toe of left foot black and necrotic Mack stage 4 Hx of angioplasty and stent of left superficial femoral artery, and atherectomy tibioperoneal trunk, both in [address] Alex Zambrano Vascular surgery consult, Dr Wilkins Podiatry on board Underwent Left Femoral to Anterior Tibial Bypass with reverse Saphenous Vein Graft & Intra-op Arteriogram on 08/04/17 Left 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 ID consult, Dr. Weber Aspirin 81mg PO QD Crestor 20mg PO HS (high intensity statin indicated) Cilostazol 100mg PO BID for claudication Zosyn 3.375mg Q6H IV (start 07/31/17) Vancomycin 1gm Daily IV (start 07/31/17) Diabetes mellitus Hx of DM2, also with diabetic neuropathy Accuchecks Diabetic diet Hypoglycemia protocol Labs/Diagnostics: HgbA1c 9.2 Lipid Panel showed Triglycerides 157 and HDL 25 otherwise normal Meds: Januvia 25 mg PO BID [facility] Hypoglycemia protocol HTN (hypertension) Hx of HTN per chart review Lopressor 5 mg IV Q6H prn HR>110 dose Lopressor 25 mg PO Q8H [facility] Echo report reveals 50% LVEF with borderline systolic function Monitor Prophylactic measure SCDs contraindicated 2/2 necrotic toe Lovenox 40mg SC QD Diabetic diet Pepcid 20 mg PO BID
[2017-08-10] MEDS: Clotrimazole 1% Cream(30 gm) TOP SCH ×2 (11:00→19:30)
--- NOTE | 2017-08-10 16:33 | CP.PCM.PN ---
Subjective - Date & Time of Evaluation Date of Evaluation: 08/10/17 Time of Evaluation: 14:00 - Subjective Subjective: Podiatry Progress Note- Dr. Bryant 72 y.o male seen and evaluated at bedside 2 days s/p left partial 2nd ray ampuation with removal of all nonviable soft tissue and bone. Patient is seen resting comfortably in bed, in NAD, and AA0x3. Patient denies acute overnight events. Outer dressing is clean, dry, and intact. Patient reports no pain to the left lower extremity. Denies calf pain or tenderness. No new pedal complains Objective - Vital Signs/Intake and Output Vital Signs (last 24 hours): Temp Pulse Resp BP Pulse Ox 98.7 F 126 H 25 H 104/47 L 96 08/10/17 12:00 08/10/17 15:18 08/10/17 15:18 08/10/17 15:18 08/10/17 15:18 Intake and Output: 08/10/17 08/10/17 06:59 18:59 Intake Total 1500 1460 Output Total 1200 320 Balance 300 1140 - Medications Medications: Current Medications Acetaminophen (Tylenol 325mg Tab) 650 mg PO Q6 PRN PRN Reason: Pain, MILD(1-3) Last Admin: 08/08/17 00:48 Dose: 650 mg Aspirin (Aspirin Chewable) 81 mg PO DAILY [facility] Last Admin: 08/10/17 10:19 Dose: 81 mg Cilostazol (Pletal) 100 mg PO BID [facility] Last Admin: 08/10/17 10:19 Dose: 100 mg Clotrimazole (Lotrimin 1%) 1 gm TOP BID [facility] Last Admin: 08/09/17 18:36 Dose: 1 applic Dextrose (Dextrose 50% Inj) 0 ml IV STAT PRN; Protocol PRN Reason: Hypoglycemia Protocol Dextrose (Glutose 15) 0 gm PO ONCE PRN; Protocol PRN Reason: Hypoglycemia Protocol Enoxaparin Sodium (Lovenox) 40 mg SC DAILY [facility] Last Admin: 08/07/17 09:57 Dose: 40 mg Famotidine (Pepcid) 20 mg PO BID [facility] Last Admin: 08/10/17 10:19 Dose: 20 mg Glucagon (Glucagen Diagnostic Kit) 0 mg IM STAT PRN; Protocol PRN Reason: Hypoglycemia Protocol Glucagon (Glucagen Diagnostic Kit) 0 mg IM .STAT PRN; Protocol PRN Reason: Hypoglycemia Protocol Dextrose (Dextrose 5% In Water 1000 Ml) 1,000 mls @ 0 mls/hr IV .Q0M PRN; Protocol; Per Protocol PRN Reason: Hypoglycemia Protocol Piperacillin Sod/Tazobactam (Sod 3.375 gm/ Sodium Chloride) 100 mls @ 200 mls/ hr IVPB Q6H [facility] PRN Reason: Protocol Stop: 08/10/17 19:01 Last Admin: 08/10/17 13:00 Dose: 200 mls/hr Vancomycin/Sodium Chloride (Vancomycin 1 Gm/Ns 200 Ml) 1 gm in 200 mls @ 166.7 mls/hr IVPB Q24H [facility] PRN Reason: Protocol Stop: 08/11/17 18:01 Last Admin: 08/09/17 17:36 Dose: 166.7 mls/hr Insulin Human Regular (Novolin R) 0 unit SC ACHS [facility] PRN Reason: Protocol Last Admin: 08/10/17 08:32 Dose: 2 unit Metformin HCl (Glucophage) 850 mg PO BID [facility] Last Admin: 08/03/17 09:43 Dose: 850 mg Metoprolol Tartrate (Lopressor) 25 mg PO BID [facility] Last Admin: 08/10/17 10:19 Dose: 25 mg Oxycodone/Acetaminophen (Percocet 5/325 Mg Tab) 1 tab PO Q8 PRN PRN Reason: Pain, moderate (4-7) Stop: 08/13/17 14:01 Rosuvastatin Calcium (Crestor) 20 mg PO HS [facility] Last Admin: 08/09/17 21:42 Dose: 20 mg Senna/Docusate Sodium (Senokot S 50 Mg-8.6 Mg) 1 tab PO BID [facility] Last Admin: 08/10/17 10:20 Dose: 1 tab Sitagliptin Phosphate (Januvia) 25 mg PO BID [facility] Last Admin: 08/10/17 10:20 Dose: 25 mg - Labs Labs: 08/10/17 06:10 08/10/17 06:10 PT 12.0 SECONDS (9.7-12.2) 08/08/17 06:11 INR 1.1 08/08/17 06:11 APTT 37 SECONDS (21-34) H 08/08/17 06:11 - Constitutional Appears: Well, Non-toxic, No Acute Distress - Extremities Exam Extremities Exam: absent: Calf Tenderness Additional comments: Temperature gradient WNL, TRAFFIC CHIEF delayed to digits Dressing c/d/i without strikethrough Wound VAC on continous flow without leakage No drainage in canister during visitation - Neurological Exam Neurological Exam: Alert, Awake, Oriented x3 Assessment and Plan - Assessment and Plan (Free Text) Assessment: 72 y.o male seen and evaluated at bedside 2 days s/p left partial 2nd ray ampuation with removal of all nonviable soft tissue and bone with wound VAC therapy to surgical site Plan: Patient examined and evaluated Discussed plan in detail with attending Dr. Bryant Afcheryl, absent leukocytosis Wound VAC intact without leaking. Flow at continous at 125 mmhg Wound VAC will be changed q 48-72 hours by podiatry (last changed date 08/09/17) Please reinforced with tegaderm if leakage is present Dress surgical site with dsd, abd, and kerlix Patient may PWB to the heel in surgical shoe Will need portable wound V.A.C to aid in ambulation efforts Podiatry will continue to follow while in house
[2017-08-10] MEDS: Vancomycin 1 gm/NS 200 ml 1 GM/200 ML BAG IVPB SCH (17:02)
--- NOTE | 2017-08-10 17:48 | CP.PCM.PN ---
Subjective - Date & Time of Evaluation Date of Evaluation: 08/10/17 Time of Evaluation: 09:00 - Subjective Subjective: left foot warm and dry vac in place Objective - Vital Signs/Intake and Output Vital Signs (last 24 hours): Temp Pulse Resp BP Pulse Ox 98 F 128 H 24 108/54 L 95 08/10/17 16:00 08/10/17 16:17 08/10/17 16:17 08/10/17 17:01 08/10/17 16:17 Intake and Output: 08/10/17 08/10/17 06:59 18:59 Intake Total 1500 1540 Output Total 1200 700 Balance 300 840 - Medications Medications: Current Medications Acetaminophen (Tylenol 325mg Tab) 650 mg PO Q6 PRN PRN Reason: Pain, MILD(1-3) Last Admin: 08/08/17 00:48 Dose: 650 mg Aspirin (Aspirin Chewable) 81 mg PO DAILY [facility] Last Admin: 08/10/17 10:19 Dose: 81 mg Cilostazol (Pletal) 100 mg PO BID [facility] Last Admin: 08/10/17 17:02 Dose: 100 mg Clotrimazole (Lotrimin 1%) 1 gm TOP BID [facility] Last Admin: 08/09/17 18:36 Dose: 1 applic Dextrose (Dextrose 50% Inj) 0 ml IV STAT PRN; Protocol PRN Reason: Hypoglycemia Protocol Dextrose (Glutose 15) 0 gm PO ONCE PRN; Protocol PRN Reason: Hypoglycemia Protocol Enoxaparin Sodium (Lovenox) 40 mg SC DAILY [facility] Last Admin: 08/07/17 09:57 Dose: 40 mg Famotidine (Pepcid) 20 mg PO BID [facility] Last Admin: 08/10/17 17:01 Dose: 20 mg Glucagon (Glucagen Diagnostic Kit) 0 mg IM STAT PRN; Protocol PRN Reason: Hypoglycemia Protocol Glucagon (Glucagen Diagnostic Kit) 0 mg IM .STAT PRN; Protocol PRN Reason: Hypoglycemia Protocol Dextrose (Dextrose 5% In Water 1000 Ml) 1,000 mls @ 0 mls/hr IV .Q0M PRN; Protocol; Per Protocol PRN Reason: Hypoglycemia Protocol Piperacillin Sod/Tazobactam (Sod 3.375 gm/ Sodium Chloride) 100 mls @ 200 mls/ hr IVPB Q6H [facility] PRN Reason: Protocol Stop: 08/10/17 19:01 Last Admin: 08/10/17 13:00 Dose: 200 mls/hr Vancomycin/Sodium Chloride (Vancomycin 1 Gm/Ns 200 Ml) 1 gm in 200 mls @ 166.7 mls/hr IVPB Q24H [facility] PRN Reason: Protocol Stop: 08/11/17 18:01 Last Admin: 08/10/17 17:02 Dose: 166.7 mls/hr Insulin Human Regular (Novolin R) 0 unit SC ACHS [facility] PRN Reason: Protocol Last Admin: 08/10/17 17:02 Dose: 4 unit Metformin HCl (Glucophage) 850 mg PO BID [facility] Last Admin: 08/03/17 09:43 Dose: 850 mg Metoprolol Tartrate (Lopressor) 25 mg PO BID [facility] Last Admin: 08/10/17 17:01 Dose: 25 mg Oxycodone/Acetaminophen (Percocet 5/325 Mg Tab) 1 tab PO Q8 PRN PRN Reason: Pain, moderate (4-7) Stop: 08/13/17 14:01 Rosuvastatin Calcium (Crestor) 20 mg PO HS [facility] Last Admin: 08/09/17 21:42 Dose: 20 mg Senna/Docusate Sodium (Senokot S 50 Mg-8.6 Mg) 1 tab PO BID [facility] Last Admin: 08/10/17 10:20 Dose: 1 tab Sitagliptin Phosphate (Januvia) 25 mg PO BID [facility] Last Admin: 08/10/17 17:02 Dose: 25 mg - Labs Labs: 08/10/17 06:10 08/10/17 06:10 PT 12.0 SECONDS (9.7-12.2) 08/08/17 06:11 INR 1.1 08/08/17 06:11 APTT 37 SECONDS (21-34) H 08/08/17 06:11 - Constitutional Appears: Non-toxic, Chronically Ill - Head Exam Head Exam: NORMOCEPHALIC - Eye Exam Eye Exam: PERRL - ENT Exam ENT Exam: Mucous Membranes Dry - Neck Exam Neck Exam: absent: Lymphadenopathy - Respiratory Exam Respiratory Exam: Decreased Breath Sounds - Cardiovascular Exam Cardiovascular Exam: REGULAR RHYTHM - GI/Abdominal Exam GI & Abdominal Exam: Distended, Soft - Rectal Exam Rectal Exam: Deferred - Exam Exam: NORMAL INSPECTION - Extremities Exam Extremities Exam: Pedal Edema, Tenderness - Back Exam Back Exam: absent: CVA tenderness (L), CVA tenderness (R) - Neurological Exam Neurological Exam: Alert, Awake, CN II-XII Intact Assessment and Plan (1) Gangrene of toe of left foot Status: Acute (2) Peripheral arterial disease Status: Acute (3) Cellulitis Status: Acute
[2017-08-11 06:05] LABS: BASO % 0.4 % (0.0-2.0); EOS # 0.1 K/uL (0.0-0.7); EOS % 1.7 % (0.0-4.0); HEMOGLOBIN 8.6 g/dL (12.0-18.0); LYMPH # 1.3 K/uL (1.0-4.3); LYMPH % 15.5 % (20.0-40.0); MEAN CELL VOLUME 85.7 fL (80.0-94.0); MEAN CORPUSCULAR HEMOGLOBIN 29.4 pg (27.0-31.0); MEAN CORPUSCULAR HGB CONC 34.3 g/dL (33.0-37.0); MEAN PLATELET VOLUME 7.5 fL (7.2-11.7); MONO # 0.7 K/uL (0.0-0.8); MONO % 8.9 % (0.0-10.0); NEUT # 6.1 K/uL (1.8-7.0); NEUT % 73.5 % (50.0-75.0); RBC 2.93 Mil/uL (4.40-5.90); RED CELL DISTRIBUTION WIDTH 16.7 % (11.5-14.5); WHITE BLOOD COUNT 8.3 K/uL (4.8-10.8)
[2017-08-11 06:35] LABS: ALB/GLOB RATIO 0.8 (1.0-2.1); ALBUMIN 2.8 g/dL (3.5-5.0); ALT/SGPT 26 U/L (21-72); AST/SGOT 34 U/L (17-59); BLOOD UREA NITROGEN 11 mg/dL (9-20); CALCIUM 8.1 mg/dl (8.6-10.4); GFR AFRICAN-AMERICAN > 60; GFR NON-AFRICAN AMERICAN > 60
[2017-08-11] MEDS: (Novolin R) Insulin Human Regular 100 units/ml vial SC SCH ×3 (08:05→21:56)
[2017-08-11] MEDS: Cilostazol 100 mg Tab UD PO SCH ×2 (09:15→17:34)
[2017-08-11] MEDS: Clotrimazole 1% Cream(30 gm) TOP SCH ×2 (09:17→18:00)
[2017-08-11] MEDS: Docusate-Senna 50 mg-8.6 mg Tab PO SCH ×2 (09:17→17:55)
[2017-08-11] MEDS: Enoxaparin 40 mg Syringe SC SCH (10:39)
--- NOTE | 2017-08-11 11:56 | CP.CCUPN ---
CCU Subjective - Physician Review Subjective (Free Text): 08/11/17 11:54 Patient seen and examined. Patient has no acute complaints at this time and is comfortable. CCU Objective - Vital Signs / Intake & Output Vital Signs (Last 4 hours): Vital Signs Pulse Resp BP Pulse Ox 08/11/17 11:00 115 H 24 96 08/11/17 10:34 127 H 26 H 109/58 L 97 08/11/17 10:00 127 H 26 H 97 08/11/17 09:17 130 H 23 119/56 L 98 08/11/17 09:16 125/66 08/11/17 09:00 130 H 24 97 08/11/17 08:18 129 H 20 125/66 98 08/11/17 08:00 129 H 23 97 Intake and Output (Last 8hrs): Intake & Output 08/10/17 08/11/17 08/11/17 22:59 06:59 14:59 Intake Total 740 0 800 Output Total 1380 800 600 Balance -640 -800 200 Weight 119 lb 8 oz Intake: Intake, IV Amount 200 right forearm 200 Oral 540 0 800 Output: Drainage 0 Left Lower Foot 0 Urine 1380 800 600 Urine, Voided 1380 800 600 Stool 0 Emesis 0 Other: # Voids Urine, Voided 1 1 # Bowel Movements 1 1 1 - Physical Exam Head: Positive for: Atraumatic, Normocephalic Pupils: Positive for: PERRL Extroacular Muscles: Positive for: EOMI Conjunctiva: Positive for: Normal Mouth: Positive for: Moist Mucous Membranes Respiratory/Chest: Positive for: Clear to Auscultation, Good Air Exchange. Negative for: Wheezes, Rales, Rhonchi Cardiovascular: Positive for: Normal S1, S2, Tachycardic Abdomen: Positive for: Normal Bowel Sounds. Negative for: Tenderness, Distention Upper Extremity: Positive for: Normal Inspection Lower Extremity: Positive for: Other (Pedal pulses obtained with doppler. ) Neurological: Positive for: GCS=15 Skin: Positive for: Warm, Dry Psychiatric: Positive for: Alert, Oriented x 3 - Medications Active Medications: Active Medications Generic Name Dose Route Start Last Admin Trade Name Freq PRN Reason Stop Dose Admin Acetaminophen 650 mg 08/05/17 17:19 08/08/17 00:48 Tylenol 325mg Tab PO 650 mg Q6 PRN Administration Pain, MILD(1-3) Aspirin 81 mg 07/29/17 16:30 08/11/17 09:15 Aspirin Chewable PO 81 mg DAILY MARGY Administration Cilostazol 100 mg 07/30/17 18:00 08/11/17 09:15 Pletal PO 100 mg BID MARGY Administration Clotrimazole 1 gm 07/30/17 10:00 08/11/17 09:17 Lotrimin 1% TOP 1 applic BID MARGY Administration Dextrose 0 ml 07/29/17 15:49 Dextrose 50% Inj IV STAT PRN Hypoglycemia Protocol Protocol Dextrose 0 gm 07/29/17 15:49 Glutose 15 PO ONCE PRN Hypoglycemia Protocol Protocol Diltiazem HCl 30 mg 08/11/17 10:15 08/11/17 10:35 Cardizem PO 30 mg QID MARGY Administration Enoxaparin Sodium 40 mg 08/11/17 10:00 08/11/17 10:39 Lovenox SC 40 mg DAILY MARGY Administration Famotidine 20 mg 08/06/17 18:00 08/11/17 09:15 Pepcid PO 20 mg BID MARGY Administration Glucagon 0 mg 07/29/17 15:49 Glucagen Diagnostic Kit IM STAT PRN Hypoglycemia Protocol Protocol Glucagon 0 mg 07/31/17 16:42 Glucagen Diagnostic Kit IM .STAT PRN Hypoglycemia Protocol Protocol Vancomycin/Sodium Chloride 1 gm in 200 mls @ 166.7 mls/hr 08/06/17 18:00 17:02 Vancomycin 1 Gm/Ns 200 Ml IVPB 08/11/17 18:01 166.7 mls/hr Q24H MARGY Administration Protocol Insulin Human Regular 0 unit 07/29/17 16:30 08/11/17 08:05 Novolin R SC 2 unit ACHS MARGY Administration Protocol Metformin HCl 850 mg 07/31/17 18:00 08/03/17 09:43 Glucophage PO 850 mg BID MARGY Administration Metoprolol Tartrate 25 mg 08/09/17 18:00 08/11/17 09:16 Lopressor PO 25 mg BID MARGY Administration Oxycodone/Acetaminophen 1 tab 08/10/17 08:29 08/11/17 09:23 Percocet 5/325 Mg Tab PO 08/13/17 14:01 1 tab Q8 PRN Administration Pain, moderate (4-7) Rosuvastatin Calcium 20 mg 07/30/17 22:00 04/15/18 21:08 Crestor PO 20 mg HS MARGY Administration Senna/Docusate Sodium 1 tab 08/08/17 22:00 08/11/17 09:17 Senokot S 50 Mg-8.6 Mg PO 1 tab BID MARGY Administration Sitagliptin Phosphate 25 mg 07/31/17 18:00 08/11/17 09:15 Januvia PO 25 mg BID MARGY Administration - Patient Studies Lab Studies: Lab Studies 08/11/17 08/11/17 08/11/17 Range/Units 11:39 07:51 05:56 WBC (4.8-10.8) K/uL RBC (4.40-5.90) Mil/uL Hgb (12.0-18.0) g/dL Hct (35.0-51.0) % MCV (80.0-94.0) fL MCH (27.0-31.0) pg MCHC (33.0-37.0) g/dL RDW (11.5-14.5) % Plt Count (130-400) K/uL MPV (7.2-11.7) fL Neut % (Auto) (50.0-75.0) % Lymph % (Auto) (20.0-40.0) % [place] % (Auto) (0.0-10.0) % Eos % (Auto) (0.0-4.0) % Baso % (Auto) (0.0-2.0) % Neut # (Auto) (1.8-7.0) K/uL Lymph # (Auto) (1.0-4.3) K/uL [place] # (Auto) (0.0-0.8) K/uL Eos # (Auto) (0.0-0.7) K/uL Baso # (Auto) (0.0-0.2) K/uL Sodium 136 (132-148) mmol/L Potassium 3.6 (3.6-5.2) mmol/L Chloride 103 (98-107) mmol/L Carbon Dioxide 21 L (22-30) mmol/L Anion Gap 15 (10-20) BUN 11 (9-20) mg/dL Creatinine 0.7 L (0.8-1.5) mg/dL Est GFR ( Amer) > 60 Est GFR (Non-Af Amer) > 60 POC Glucose (mg/dL) 308 H 180 H (65-110) mg/dL Random Glucose 168 H (75-110) mg/dL Calcium 8.1 L (8.6-10.4) mg/dl Phosphorus 2.2 L (2.5-4.5) mg/dL Magnesium 2.0 (1.6-2.3) mg/dL Total Bilirubin 1.3 (0.2-1.3) mg/dL AST 34 (17-59) U/L ALT 26 (21-72) U/L Alkaline Phosphatase 72 (38-126) U/L Total Protein 6.3 (6.3-8.3) g/dL Albumin 2.8 L (3.5-5.0) g/dL Globulin 3.5 (2.2-3.9) gm/dL Albumin/Globulin Ratio 0.8 L (1.0-2.1) Crossmatch 08/11/17 08/10/17 08/10/17 Range/Units 05:56 21:12 16:11 WBC 8.3 (4.8-10.8) K/uL RBC 2.93 L (4.40-5.90) Mil/uL Hgb 8.6 L (12.0-18.0) g/dL Hct 25.1 L (35.0-51.0) % MCV 85.7 (80.0-94.0) fL MCH 29.4 (27.0-31.0) pg MCHC 34.3 (33.0-37.0) g/dL RDW 16.7 H (11.5-14.5) % Plt Count 414 H (130-400) K/uL MPV 7.5 (7.2-11.7) fL Neut % (Auto) 73.5 (50.0-75.0) % Lymph % (Auto) 15.5 L (20.0-40.0) % [place] % (Auto) 8.9 (0.0-10.0) % Eos % (Auto) 1.7 (0.0-4.0) % Baso % (Auto) 0.4 (0.0-2.0) % Neut # (Auto) 6.1 (1.8-7.0) K/uL Lymph # (Auto) 1.3 (1.0-4.3) K/uL [place] # (Auto) 0.7 (0.0-0.8) K/uL Eos # (Auto) 0.1 (0.0-0.7) K/uL Baso # (Auto) 0.0 (0.0-0.2) K/uL Sodium (132-148) mmol/L Potassium (3.6-5.2) mmol/L Chloride (98-107) mmol/L Carbon Dioxide (22-30) mmol/L Anion Gap (10-20) BUN (9-20) mg/dL Creatinine (0.8-1.5) mg/dL Est GFR ( Amer) Est GFR (Non-Af Amer) POC Glucose (mg/dL) 179 H 299 H (65-110) mg/dL Random Glucose (75-110) mg/dL Calcium (8.6-10.4) mg/dl Phosphorus (2.5-4.5) mg/dL Magnesium (1.6-2.3) mg/dL Total Bilirubin (0.2-1.3) mg/dL AST (17-59) U/L ALT (21-72) U/L Alkaline Phosphatase (38-126) U/L Total Protein (6.3-8.3) g/dL Albumin (3.5-5.0) g/dL Globulin (2.2-3.9) gm/dL Albumin/Globulin Ratio (1.0-2.1) Crossmatch 08/10/17 08/08/17 Range/Units 12:02 06:58 WBC (4.8-10.8) K/uL RBC (4.40-5.90) Mil/uL Hgb (12.0-18.0) g/dL Hct (35.0-51.0) % MCV (80.0-94.0) fL MCH (27.0-31.0) pg MCHC (33.0-37.0) g/dL RDW (11.5-14.5) % Plt Count (130-400) K/uL MPV (7.2-11.7) fL Neut % (Auto) (50.0-75.0) % Lymph % (Auto) (20.0-40.0) % [place] % (Auto) (0.0-10.0) % Eos % (Auto) (0.0-4.0) % Baso % (Auto) (0.0-2.0) % Neut # (Auto) (1.8-7.0) K/uL Lymph # (Auto) (1.0-4.3) K/uL [place] # (Auto) (0.0-0.8) K/uL Eos # (Auto) (0.0-0.7) K/uL Baso # (Auto) (0.0-0.2) K/uL Sodium (132-148) mmol/L Potassium (3.6-5.2) mmol/L Chloride (98-107) mmol/L Carbon Dioxide (22-30) mmol/L Anion Gap (10-20) BUN (9-20) mg/dL Creatinine (0.8-1.5) mg/dL Est GFR ( Amer) Est GFR (Non-Af Amer) POC Glucose (mg/dL) 276 H (65-110) mg/dL Random Glucose (75-110) mg/dL Calcium (8.6-10.4) mg/dl Phosphorus (2.5-4.5) mg/dL Magnesium (1.6-2.3) mg/dL Total Bilirubin (0.2-1.3) mg/dL AST (17-59) U/L ALT (21-72) U/L Alkaline Phosphatase (38-126) U/L Total Protein (6.3-8.3) g/dL Albumin (3.5-5.0) g/dL Globulin (2.2-3.9) gm/dL Albumin/Globulin Ratio (1.0-2.1) Crossmatch See Detail Laboratory Results - last 24 hr 08/08/17 08/10/17 08/10/17 06:58 12:02 16:11 WBC RBC Hgb Hct MCV MCH MCHC RDW Plt Count MPV Neut % (Auto) Lymph % (Auto) [place] % (Auto) Eos % (Auto) Baso % (Auto) Neut # (Auto) Lymph # (Auto) [place] # (Auto) Eos # (Auto) Baso # (Auto) Sodium Potassium Chloride Carbon Dioxide Anion Gap BUN Creatinine Est GFR ( Amer) Est GFR (Non-Af Amer) POC Glucose (mg/dL) 276 H 299 H Random Glucose Calcium Phosphorus Magnesium Total Bilirubin AST ALT Alkaline Phosphatase Total Protein Albumin Globulin Albumin/Globulin Ratio Crossmatch See Detail 08/10/17 08/11/17 08/11/17 21:12 05:56 05:56 WBC 8.3 RBC 2.93 L Hgb 8.6 L Hct 25.1 L MCV 85.7 MCH 29.4 MCHC 34.3 RDW 16.7 H Plt Count 414 H MPV 7.5 Neut % (Auto) 73.5 Lymph % (Auto) 15.5 L [place] % (Auto) 8.9 Eos % (Auto) 1.7 Baso % (Auto) 0.4 Neut # (Auto) 6.1 Lymph # (Auto) 1.3 [place] # (Auto) 0.7 Eos # (Auto) 0.1 Baso # (Auto) 0.0 Sodium 136 Potassium 3.6 Chloride 103 Carbon Dioxide 21 L Anion Gap 15 BUN 11 Creatinine 0.7 L Est GFR ( Amer) > 60 Est GFR (Non-Af Amer) > 60 POC Glucose (mg/dL) 179 H Random Glucose 168 H Calcium 8.1 L Phosphorus 2.2 L Magnesium 2.0 Total Bilirubin 1.3 AST 34 ALT 26 Alkaline Phosphatase 72 Total Protein 6.3 Albumin 2.8 L Globulin 3.5 Albumin/Globulin Ratio 0.8 L Crossmatch 08/11/17 08/11/17 07:51 11:39 WBC RBC Hgb Hct MCV MCH MCHC RDW Plt Count MPV Neut % (Auto) Lymph % (Auto) [place] % (Auto) Eos % (Auto) Baso % (Auto) Neut # (Auto) Lymph # (Auto) [place] # (Auto) Eos # (Auto) Baso # (Auto) Sodium Potassium Chloride Carbon Dioxide Anion Gap BUN Creatinine Est GFR ( Amer) Est GFR (Non-Af Amer) POC Glucose (mg/dL) 180 H 308 H Random Glucose Calcium Phosphorus Magnesium Total Bilirubin AST ALT Alkaline Phosphatase Total Protein Albumin Globulin Albumin/Globulin Ratio Crossmatch Fingerstick Blood Sugar Results: 180 Critical Care Progress Note - Nutrition Nutrition: Nutrition Category Date Time Status Consistent Carbohydrate [DIET] Diets 08/08/17 Lunch Active Assessment/Plan - Assessment and Plan (Free Text) Assessment: This is a 72 year old male with PMHx DM, HTN, HLD, PVD who presented for left 2nd toe gangrene. Patient underwent Left Femoral to Anterior Tibial Bypass with reverse Saphenous Vein Graft & Intra-op Arteriogram on 08/04/17. Patient had amputation by podiatry of gangrenous 2nd toe of left foot on 08/08/17. Neuro Awake, Verbal Cardio ASA 81 mg PO daily Normotensive but tachycardic. Lopressor 25 mg PO BID MARGY Cardizem 30 mg PO QID MARGY Sinus tachycardia on EKG Echo report reveals 50% LVEF with borderline systolic function Pulmonary Saturating well on room air GI Consistent carb diet Pepcid 20 mg PO BID Endocrine Hold Metformin Resumed home Januvia 25 mg PO BID Regular ISS--medium dose Nephro kidney function studies are within normal limits Repleted phosphorous and potassium ID On Vancomycin 1 gm Q24H Heme/Onc Monitor H/H Prophylaxis Lovenox 40 mg SC daily Pepcid 20 mg PO BID Consistent carb diet Disposition: Transfer to telemetry. Discussed with Dr. Escobedo
[2017-08-11 18:14] VITALS: RESP 20
--- NOTE | 2017-08-12 02:32 | OP ---
PROCEDURE DATE: 08/08/2017 PREOPERATIVE DIAGNOSIS: Left foot second digit gangrene. POSTOPERATIVE DIAGNOSIS: Left foot second digit gangrene. PROCEDURE: Left foot partial second ray resection with removal of nonviable soft tissue. SURGEON: Elin Bryant DPM. METAL CEILING HANGER: Jd Reed DPM, PGY1. ANESTHESIOLOGIST: Dr. Jessica. TYPE OF ANESTHESIA: IV sedation with local. INDICATION: The patient is a 72-year-old male with the above diagnosis. The patient has exhausted all conservative treatment at this time and now requires surgical intervention. The patient signed the consent after careful explanation of risks, benefits, complications and alternatives for surgical procedure. No guarantees were given nor implied. PREPARATION: The patient was brought into the operating room and placed on the operating room table in the supine position. The timeout was performed for identification of the correct patient and the procedure. DESCRIPTION OF PROCEDURE: After the induction of the IV sedation, the patient received a total of 10 mL of 1:1 mixture of 2% lidocaine plain and 0.5% Marcaine plain in local block V type fashion. Once local anesthesia was achieved, the left foot and ankle were then prepped and draped in normal sterile manner. No tourniquet was utilized during this procedure. Procedure of the left foot, partial second ray resection with removal of all nonviable soft tissue. Attention was drawn to the dorsal aspect of the left foot second digit where a racquet-type incision was made extending from the dorsal distal aspect of the second metatarsal head anteriorly around the second digit using a #15 blade. The incision was then extended down through the subcutaneous layers down to the level of the bone. Using the phalangeal clamp to stabilize the digits, the second digit was then disarticulated from the foot at the level of the MTPJ. All the nonviable soft tissue was surgically debrided down to the level of healthy bleeding tissue. At this time, second metatarsal head was resected with a dorsal distal to plantar proximal angle using a sagittal saw and was removed from the surgical site and was sent to Pathology for proximal margin. All the bone and soft tissue were sent for Pathology at this time. The surgical site was then copiously irrigated with saline. The surgical site was then re-approximated and brought together using a 3-0 Prolene. Distal portion of the wound was left open and it was packed with 0.25 inch iodoform packing and was dressed with Betadine-soaked Adaptic, 4 x 4, ABD, and Kerlix dressings. POSTOPERATIVE CONDITION: The patient tolerated the anesthesia and the procedure well and was escorted to the recovery room with vital signs stable to the left foot. The patient is to weight bear as tolerated to the left foot with surgical shoe. This patient will return to the floor where he will be followed up by Podiatry. Jd Reed DPM
[2017-08-12 08:08] LABS: BASO # 0.1 K/uL (0.0-0.2); BASO % 0.7 % (0.0-2.0); EOS # 0.1 K/uL (0.0-0.7); EOS % 1.1 % (0.0-4.0); LYMPH # 1.4 K/uL (1.0-4.3); LYMPH % 17.3 % (20.0-40.0); MEAN CELL VOLUME 85.8 fL (80.0-94.0); MEAN CORPUSCULAR HEMOGLOBIN 30.3 pg (27.0-31.0); MEAN CORPUSCULAR HGB CONC 35.3 g/dL (33.0-37.0); MEAN PLATELET VOLUME 7.7 fL (7.2-11.7); MONO # 0.7 K/uL (0.0-0.8); MONO % 8.6 % (0.0-10.0); NEUT % 72.3 % (50.0-75.0); NRBC % 0.1 % (0.0-2.0); RBC 2.96 Mil/uL (4.40-5.90); RED CELL DISTRIBUTION WIDTH 16.3 % (11.5-14.5); WHITE BLOOD COUNT 8.2 K/uL (4.8-10.8)
[2017-08-12] MEDS: (Novolin R) Insulin Human Regular 100 units/ml vial SC SCH ×3 (08:17→17:49)
[2017-08-12 08:22] LABS: ALB/GLOB RATIO 0.7 (1.0-2.1); ALBUMIN 2.8 g/dL (3.5-5.0); ALT/SGPT 31 U/L (21-72); AST/SGOT 44 U/L (17-59); BLOOD UREA NITROGEN 12 mg/dL (9-20); CALCIUM 8.1 mg/dl (8.6-10.4); GFR AFRICAN-AMERICAN > 60; GFR NON-AFRICAN AMERICAN > 60
--- NOTE | 2017-08-12 09:11 | CP.PCM.PN ---
Subjective - Date & Time of Evaluation Date of Evaluation: 08/12/17 Time of Evaluation: 09:11 - Subjective Subjective: Patient seen and examined at [facility] Doing well minimal pain still tachycardic Wound vac in place tolerating diet. Objective - Vital Signs/Intake and Output Vital Signs (last 24 hours): Temp Pulse Resp BP Pulse Ox 98.2 F 125 H 20 130/74 98 08/12/17 07:43 08/12/17 08:23 08/12/17 07:43 08/12/17 07:43 08/12/17 07:43 Intake and Output: 08/12/17 08/12/17 06:59 18:59 Intake Total 400 Output Total 900 Balance -500 - Medications Medications: Current Medications Aspirin (Aspirin Chewable) 81 mg PO DAILY [facility] Last Admin: 08/11/17 09:15 Dose: 81 mg Cilostazol (Pletal) 100 mg PO BID [facility] Last Admin: 08/11/17 17:34 Dose: 100 mg Clotrimazole (Lotrimin 1%) 1 gm TOP BID [facility] Last Admin: 08/11/17 18:00 Dose: 1 applic Diltiazem HCl (Cardizem Cd) 240 mg PO DAILY [facility] Diltiazem HCl (Cardizem) 30 mg PO ONCE ONE Stop: 08/12/17 10:01 Enoxaparin Sodium (Lovenox) 40 mg SC DAILY [facility] Last Admin: 08/11/17 10:39 Dose: 40 mg Insulin Human Regular (Novolin R) 0 unit SC [facility] PRN Reason: Protocol Last Admin: 08/11/17 21:56 Dose: Not Given Metoprolol Tartrate (Lopressor) 25 mg PO BID [facility] Last Admin: 08/11/17 17:34 Dose: 25 mg Rosuvastatin Calcium (Crestor) 20 mg PO HS [facility] Last Admin: 08/11/17 21:37 Dose: 20 mg Senna/Docusate Sodium (Senokot S 50 Mg-8.6 Mg) 1 tab PO BID [facility] Last Admin: 08/11/17 17:55 Dose: Not Given - Labs Labs: 08/12/17 07:53 08/12/17 07:53 PT 12.0 SECONDS (9.7-12.2) 08/08/17 06:11 INR 1.1 08/08/17 06:11 APTT 37 SECONDS (21-34) H 08/08/17 06:11 - Constitutional Appears: Well, Non-toxic, No Acute Distress - Head Exam Head Exam: ATRAUMATIC, NORMAL INSPECTION, NORMOCEPHALIC - Eye Exam Eye Exam: EOMI, Normal appearance, PERRL Pupil Exam: NORMAL ACCOMODATION - ENT Exam ENT Exam: Mucous Membranes Moist - Respiratory Exam Respiratory Exam: Clear to Ausculation Bilateral, NORMAL BREATHING PATTERN - Cardiovascular Exam Cardiovascular Exam: Tachycardia, REGULAR RHYTHM - GI/Abdominal Exam GI & Abdominal Exam: Soft, Normal Bowel Sounds. absent: Distended, Tenderness - Extremities Exam Additional comments: R. leg incision c/d/i. Wound vac on in b/w 04/30 digits - Neurological Exam Neurological Exam: Alert, Awake - Psychiatric Exam Psychiatric exam: Normal Affect, Normal Mood - Skin Skin Exam: Dry, Intact Assessment and Plan (1) Peripheral arterial disease Assessment & Plan: Vscular (Claudette): Left Femoral-Anterior Tibial Bypass with reverse Saphenous Vein Graft & Intra-op Arteriogram on 08/04/17 Podiatry (Manny): Amputation by podiatry of gangrenous 2nd toe of left foot on 08/08/17. Wound vac Vacno 1g QD ASA 81 PO QD Status: Acute (2) Tachycardia Assessment & Plan: Sinus tach Lopressor 25 BID Cardizem CD 240 QD Status: Acute (3) HTN (hypertension) Assessment & Plan: Lopressor 25 BID Status: Chronic (4) Diabetes mellitus Assessment & Plan: ISS High Crestor 20 PO HS Status: Acute (5) Prophylactic measure Assessment & Plan: Lovenox 40 SC QD GI PPX Not indicated Follow up reccs for rehab Status: Acute
[2017-08-12] MEDS ORDERED: diltiaZEM 240 mg/24 Hours CD Cap PO SCH (10:00)
[2017-08-12] MEDS: Cilostazol 100 mg Tab UD PO SCH ×2 (10:10→17:48)
[2017-08-12] MEDS: Enoxaparin 40 mg Syringe SC SCH (10:10)
[2017-08-12] MEDS: Docusate-Senna 50 mg-8.6 mg Tab PO SCH ×2 (10:10→17:48)
[2017-08-12] MEDS: Clotrimazole 1% Cream(30 gm) TOP SCH ×2 (10:10→17:49)
--- NOTE | 2017-08-12 11:02 | CP.PCM.PN ---
Subjective - Date & Time of Evaluation Date of Evaluation: 08/12/17 Time of Evaluation: 07:00 - Subjective Subjective: feels well no fever vac in place Objective - Vital Signs/Intake and Output Vital Signs (last 24 hours): Temp Pulse Resp BP Pulse Ox 98.2 F 125 H 20 128/76 98 08/12/17 07:43 08/12/17 08:23 08/12/17 07:43 08/12/17 10:10 08/12/17 07:43 Intake and Output: 08/12/17 08/12/17 06:59 18:59 Intake Total 400 Output Total 900 Balance -500 - Medications Medications: Current Medications Aspirin (Aspirin Chewable) 81 mg PO DAILY [facility] Last Admin: 08/12/17 10:09 Dose: 81 mg Cilostazol (Pletal) 100 mg PO BID [facility] Last Admin: 08/12/17 10:10 Dose: 100 mg Clotrimazole (Lotrimin 1%) 1 gm TOP BID [facility] Last Admin: 08/11/17 18:00 Dose: 1 applic Diltiazem HCl (Cardizem Cd) 240 mg PO DAILY [facility] Last Admin: 08/12/17 10:09 Dose: 240 mg Enoxaparin Sodium (Lovenox) 40 mg SC DAILY [facility] Last Admin: 08/12/17 10:10 Dose: 40 mg Insulin Human Regular (Novolin R) 0 unit SC [facility] PRN Reason: Protocol Last Admin: 08/12/17 08:17 Dose: 4 unit Metoprolol Tartrate (Lopressor) 25 mg PO BID [facility] Last Admin: 08/12/17 10:10 Dose: 25 mg Rosuvastatin Calcium (Crestor) 20 mg PO [facility] Last Admin: 08/11/17 21:37 Dose: 20 mg Senna/Docusate Sodium (Senokot S 50 Mg-8.6 Mg) 1 tab PO BID [facility] Last Admin: 08/12/17 10:10 Dose: 1 tab - Labs Labs: 08/12/17 07:53 08/12/17 07:53 PT 12.0 SECONDS (9.7-12.2) 08/08/17 06:11 INR 1.1 08/08/17 06:11 APTT 37 SECONDS (21-34) H 08/08/17 06:11 - Constitutional Appears: Non-toxic, Chronically Ill - Head Exam Head Exam: NORMOCEPHALIC - Eye Exam Eye Exam: PERRL - ENT Exam ENT Exam: Mucous Membranes Dry - Neck Exam Neck Exam: absent: Lymphadenopathy - Respiratory Exam Respiratory Exam: Decreased Breath Sounds - Cardiovascular Exam Cardiovascular Exam: REGULAR RHYTHM - GI/Abdominal Exam GI & Abdominal Exam: Distended, Soft Assessment and Plan (1) Gangrene of toe of left foot Status: Acute (2) Peripheral arterial disease Status: Acute (3) Cellulitis Status: Acute
--- NOTE | 2017-08-12 13:47 | CP.PCM.DIS ---
Provider - Provider Date of Admission: 07/29/17 14:33 Attending physician: Renzo Stockton Jr, MD Primary care physician: Mahin Consults: Vascular: Claudette Time Spent in preparation of Discharge (in minutes): 45 Diagnosis - Discharge Diagnosis (1) Peripheral arterial disease Status: Acute Priority: High (2) Tachycardia Status: Acute (3) HTN (hypertension) Status: Chronic Priority: Medium (4) Diabetes mellitus Status: Acute Priority: High (5) Prophylactic measure Status: Acute Priority: Low Hospital Course - Lab Results Lab Results: Micro Results 08/04/17 Unknown Nose MRSA Culture (Admit) - Final MRSA NOT DETECTED 07/29/17 11:33 Blood Blood Culture - Final NO GROWTH AFTER 5 DAYS 07/29/17 11:33 Blood Gram Stain - Final TEST NOT PERFORMED 07/29/17 11:33 Blood Blood Culture - Final NO GROWTH AFTER 5 DAYS 07/29/17 11:33 Blood Gram Stain - Final TEST NOT PERFORMED Most Recent Lab Values WBC 8.2 K/uL (4.8-10.8) 08/12/17 07:53 RBC 2.96 Mil/uL (4.40-5.90) L 08/12/17 07:53 Hgb 9.0 g/dL (12.0-18.0) L 08/12/17 07:53 Hct 25.4 % (35.0-51.0) L 08/12/17 07:53 MCV 85.8 fL (80.0-94.0) 08/12/17 07:53 MCH 30.3 pg (27.0-31.0) 08/12/17 07:53 MCHC 35.3 g/dL (33.0-37.0) 08/12/17 07:53 RDW 16.3 % (11.5-14.5) H 08/12/17 07:53 Plt Count 473 K/uL (130-400) H 08/12/17 07:53 MPV 7.7 fL (7.2-11.7) 08/12/17 07:53 Neut % (Auto) 72.3 % (50.0-75.0) 08/12/17 07:53 Lymph % (Auto) 17.3 % (20.0-40.0) L 08/12/17 07:53 Luna % (Auto) 8.6 % (0.0-10.0) 08/12/17 07:53 Eos % (Auto) 1.1 % (0.0-4.0) 08/12/17 07:53 Baso % (Auto) 0.7 % (0.0-2.0) 08/12/17 07:53 Neut # (Auto) 6.0 K/uL (1.8-7.0) 08/12/17 07:53 Lymph # (Auto) 1.4 K/uL (1.0-4.3) 08/12/17 07:53 Luna # (Auto) 0.7 K/uL (0.0-0.8) 08/12/17 07:53 Eos # (Auto) 0.1 K/uL (0.0-0.7) 08/12/17 07:53 Baso # (Auto) 0.1 K/uL (0.0-0.2) 08/12/17 07:53 PT 12.0 SECONDS (9.7-12.2) 08/08/17 06:11 INR 1.1 08/08/17 06:11 APTT 37 SECONDS (21-34) H 08/08/17 06:11 Sodium 135 mmol/L (132-148) 08/12/17 07:53 Potassium 4.0 mmol/L (3.6-5.2) 08/12/17 07:53 Chloride 101 mmol/L (98-107) 08/12/17 07:53 Carbon Dioxide 24 mmol/L (22-30) 08/12/17 07:53 Anion Gap 14 (10-20) 08/12/17 07:53 BUN 12 mg/dL (9-20) 08/12/17 07:53 Creatinine 0.6 mg/dL (0.8-1.5) L 08/12/17 07:53 Est GFR ( Amer) > 60 08/12/17 07:53 Est GFR (Non-Af Amer) > 60 08/12/17 07:53 POC Glucose (mg/dL) 289 mg/dL (65-110) H 08/12/17 11:34 Random Glucose 226 mg/dL (75-110) H 08/12/17 07:53 Hemoglobin A1c 9.2 % (4.2-6.5) H 07/30/17 07:01 Calcium 8.1 mg/dl (8.6-10.4) L 08/12/17 07:53 Phosphorus 2.7 mg/dL (2.5-4.5) 08/12/17 07:53 Magnesium 2.1 mg/dL (1.6-2.3) 08/12/17 07:53 Total Bilirubin 1.4 mg/dL (0.2-1.3) H 08/12/17 07:53 AST 44 U/L (17-59) 08/12/17 07:53 ALT 31 U/L (21-72) 08/12/17 07:53 Alkaline Phosphatase 79 U/L (38-126) 08/12/17 07:53 Total Creatine Kinase 39 U/L (55-170) L 08/05/17 14:32 CK-MB (Mass) 0.69 ng/mL (0.0-3.38) 08/05/17 14:32 Troponin I < 0.0120 ng/mL (0.00-0.120) 08/05/17 14:32 Total Protein 6.6 g/dL (6.3-8.3) 08/12/17 07:53 Albumin 2.8 g/dL (3.5-5.0) L 08/12/17 07:53 Globulin 3.8 gm/dL (2.2-3.9) 08/12/17 07:53 Albumin/Globulin Ratio 0.7 (1.0-2.1) L 08/12/17 07:53 Triglycerides 157 mg/dL (0-149) H 07/29/17 12:33 Cholesterol 178 mg/dL (0-199) 07/29/17 12:33 LDL Cholesterol Direct 126 mg/dL (0-129) 07/29/17 12:33 HDL Cholesterol 25 mg/dL (30-70) L 07/29/17 12:33 Free T4 1.94 ng/dL (0.78-2.19) 08/10/17 06:10 Total T3 1.30 nmol/L (1.49-2.60) L 08/10/17 06:10 TSH 3rd Generation 0.94 mIU/L (0.46-4.68) 08/10/17 06:10 Urine Color Yellow (YELLOW) 07/30/17 21:05 Urine Clarity Clear (Clear) 07/30/17 21:05 Urine pH 6.0 (5.0-8.0) 07/30/17 21:05 Ur Specific [place] 1.021 (1.003-1.030) 07/30/17 21:05 Urine Protein Negative mg/dL (NEGATIVE) 07/30/17 21:05 Urine Glucose (UA) 3+ mg/dL (Normal) H 07/30/17 21:05 Urine Ketones Negative mg/dL (NEGATIVE) 07/30/17 21:05 Urine Blood Negative (NEGATIVE) 07/30/17 21:05 Urine Nitrate Negative (NEGATIVE) 07/30/17 21:05 Urine Bilirubin Negative (NEGATIVE) 07/30/17 21:05 Urine Urobilinogen Normal mg/dL (0.2-1.0) 07/30/17 21:05 Ur Leukocyte Esterase Neg Gina/uL (Negative) 07/30/17 21:05 Urine WBC (Auto) < 1 /hpf (0-5) 07/30/17 21:05 Urine RBC (Auto) 1 /hpf (0-3) 07/30/17 21:05 Vancomycin Trough 9.6 ug/mL (5.0-10.0) 08/06/17 07:55 Blood Type O POSITIVE 08/08/17 06:58 Antibody Screen Negative 08/08/17 06:58 Crossmatch See Detail 08/08/17 06:58 - Hospital Course Hospital Course: 72 year old male presents to ER with left second toe gangrene. Patient is Monegasque speaking with translation done by nephew who is bedside. Patient stated 6 weeks ago he was cutting his toe nail and may have clipped the skin of the second toe. He noticed toe was progressively more painful as the skin turned darker. Patient was recently in [facility] and returned to [facility] on 07/27/17 for the of his sister. The patient states the pain is a 10/10 and calls it "severe". Patient with claudication type symptoms in legs bilaterally, left worse than right. As per some of patient's past medical history, much of it was obtained from chart. Patient had an angioplasty and atherectomy of L tibioperoneal trunk done in for peripheral vascular disease. Patient states he has diabetes mellitus and prior notes state patient has hypertension, hyperlipidemia and peripheral vascular disease. This is the first time this has happened to the patient. He does not recall stepping on anything or walking barefoot as an inciting incident. Found to have PAD requiring bypass by Dr. Wilkins. Patient then went to ICU was found to be tachycardic. Placed on cardizem CD and Metoprolol. Tachycardia controls. Toe amputated by podiatry. Wound vac placed. Stable for discharge to rehab at [facility]. Discharge Exam - Head Exam Head Exam: NORMOCEPHALIC - Eye Exam Eye Exam: EOMI, Normal appearance, PERRL Pupil Exam: NORMAL ACCOMODATION, PERRL - GI/Abdominal Exam GI & Abdominal Exam: Normal Bowel Sounds - Extremities Exam Additional comments: incision on r. leg c/d/i. s/p amputation of second right toe - Neurological Exam Neurological exam: Alert, CN II-XII Intact, Normal Gait, Oriented x3, Reflexes Normal - Psychiatric Exam Psychiatric exam: Normal Affect, Normal Mood - Skin Skin Exam: Dry, Intact, Normal Color, Warm Discharge Plan - Discharge Medications Prescriptions: Aspirin [Aspirin Chewable] 81 mg PO DAILY #30 chew [id number] CD [Cardizem CD] 240 mg PO DAILY #30 cap Linagliptin/Metformin HCl [Jentadueto 2.5 mg-850 mg Tab] 1 tab PO BID #60 tablet Metoprolol Tartrate [Lopressor] 25 mg PO BID #60 tab Rosuvastatin Calcium [Crestor] 20 mg PO HS #30 tab - Follow Up Plan Condition: FAIR Disposition: HOME/ ROUTINE Instructions: Peripheral Artery Disease (DC), Peripheral Artery Disease (GEN), Necrotizing Fasciitis (DC), Necrotizing Fasciitis (GEN) Additional Instructions: Please follow up with Dr. Stockton in 7-10 days. Please call the office to make an appointment. I have attached the office information. Please follow up with DR. Wilkins in 7-10 days, i have attached the office information. Please call to make an appointment. Please follow up with DR. Bryant in 7-10 days, I have attached the office information for her office in the [facility]. Please call to make an appointment. PER DR RAFAL BRYANT , PLEASE SEE DR RAFAL BRYANT (PODIATRY) [phone] ON Friday IN HER CLINIC FOR FOLLOW UP APPT . Referrals: [facility] at [facility] [Outside] Renzo Stockton Jr., MD [Medical Doctor] - Richard Wilkins Jr., MD [Staff Provider] -
--- NOTE | 2017-08-12 14:35 | CP.PCM.PN ---
Subjective - Date & Time of Evaluation Date of Evaluation: 08/12/17 Time of Evaluation: 10:15 - Subjective Subjective: Podiatry Progress Note- Dr. Bryant 72 y.o male seen and evaluated at bedside 4 days s/p left partial 2nd ray amputation. Patient is seen resting comfortably in bed, in NAD, and AA0x3. Patient denies acute overnight events, and pain to the surgical area is well controlled, with no breakthrough levels. Outer dressing is clean, dry, and intact. Patient reports no pain to the left lower extremity. Denies calf pain or tenderness. No new pedal complains Objective - Vital Signs/Intake and Output Vital Signs (last 24 hours): Temp Pulse Resp BP Pulse Ox 98.2 F 111 H 20 128/76 98 08/12/17 07:43 08/12/17 12:00 08/12/17 07:43 08/12/17 10:10 08/12/17 07:43 Intake and Output: 08/12/17 08/12/17 06:59 18:59 Intake Total 400 Output Total 900 Balance -500 - Medications Medications: Current Medications Aspirin (Aspirin Chewable) 81 mg PO DAILY [facility] Last Admin: 08/12/17 10:09 Dose: 81 mg Cilostazol (Pletal) 100 mg PO BID [facility] Last Admin: 08/12/17 10:10 Dose: 100 mg Clotrimazole (Lotrimin 1%) 1 gm TOP BID [facility] Last Admin: 08/12/17 10:10 Dose: Not Given Diltiazem HCl (Cardizem Cd) 240 mg PO DAILY [facility] Last Admin: 08/12/17 10:09 Dose: 240 mg Enoxaparin Sodium (Lovenox) 40 mg SC DAILY [facility] Last Admin: 08/12/17 10:10 Dose: 40 mg Insulin Human Regular (Novolin R) 0 unit SC [facility] PRN Reason: Protocol Last Admin: 08/12/17 13:03 Dose: 6 unit Metoprolol Tartrate (Lopressor) 25 mg PO BID [facility] Last Admin: 08/12/17 10:10 Dose: 25 mg Rosuvastatin Calcium (Crestor) 20 mg PO HS [facility] Last Admin: 08/11/17 21:37 Dose: 20 mg Senna/Docusate Sodium (Senokot S 50 Mg-8.6 Mg) 1 tab PO BID [facility] Last Admin: 08/12/17 10:10 Dose: 1 tab - Labs Labs: 08/12/17 07:53 08/12/17 07:53 PT 12.0 SECONDS (9.7-12.2) 08/08/17 06:11 INR 1.1 08/08/17 06:11 APTT 37 SECONDS (21-34) H 08/08/17 06:11 - Constitutional Appears: Well, Non-toxic, No Acute Distress - Extremities Exam Additional comments: Temperature gradient WNL, [employer] delayed to digits Dressing c/d/i without strikethrough Wound VAC on continous flow without leakage No drainage in canister during visitation - Neurological Exam Neurological Exam: Alert, Awake, Oriented x3 - Psychiatric Exam Psychiatric exam: Normal Affect, Normal Mood Assessment and Plan - Assessment and Plan (Free Text) Assessment: 72 year old male 4 days s/p left partial 2nd ray amputation. Plan: Patient examined and evaluated Discussed plan in detail with attending Dr. Bryant, who endorsed the following plan. Afebrile, absent leukocytosis Wound VAC intact without leaking. Flow at continous at 125 mmhg. Outer dresisng layer redressed with dsd, abd, and kerlix Wound VAC changed by podiatry to be changed yumiko 72 hours. -Will need portable wound V.A.C to aid in ambulation efforts Patient may Partial weightbearing to heel in surgical shoe Pt stable from podiatry stand point for discharge to [facility]. [facility] to continue Wound- VAC therapy. Pt to follow up with Dr. Bryant in [facility] within 7-10 days.
[2017-08-12 15:54] VITALS: BP 123/67; PULSE 116; TEMP 98.9; O2SAT 97
--- NOTE | 2017-08-13 14:49 | CARD ---
APPROVED REPORT EKG Measurement Heart [id number] <Conclusion> Sinus tachycardia Nonspecific T wave abnormality Abnormal ECG
== END 2017-08-12 19:31 | DRG 271 ==
LOC: C.ER 10:29 → C.9E 14:33 → C.3T 17:04 → C.9I 08-04 08:58 → C.3T 08-04 09:08 → C.9I 08-04 10:31 → C.5S 08-11 18:11
PROVIDERS: ADMIT Internal Medicine; ATTEND Internal Medicine
PROC: 04HK3DZ Insertion of Intraluminal Device into Right Femoral Artery, Percutaneous Approach (ICD-10-PCS; 2017-07-31)
PROC: 041 Lower Arteries, Bypass (ICD-10-PCS; 2017-08-04)
PROC: 0Y6S0Z1 Detachment at Left 2nd Toe, High, Open Approach (ICD-10-PCS; principal; 2017-08-08 12:00)
DX: E11.52 Type 2 diabetes mellitus with diabetic peripheral angiopathy with gangrene (principal); I96 Gangrene, not elsewhere classified; M86.172 Other acute osteomyelitis, left ankle and foot; E11.40 Type 2 diabetes mellitus with diabetic neuropathy, unspecified; E78.5 Hyperlipidemia, unspecified; F17.210 Nicotine dependence, cigarettes, uncomplicated; I10 Essential (primary) hypertension; I70.201 Unspecified atherosclerosis of native arteries of extremities, right leg; M20.42 Other hammer toe(s) (acquired), left foot; Z79.84 Long term (current) use of oral hypoglycemic drugs; E11.65 Type 2 diabetes mellitus with hyperglycemia; Z79.4 Long term (current) use of insulin; E11.69 Type 2 diabetes mellitus with other specified complication; Z68.21 Body mass index [BMI] 21.0-21.9, adult

== ENCOUNTER 2017-09-08 08:37 | Day surgery (SDC) | payer OTHER ==
--- NOTE | 2017-09-08 16:44 | CARD ---
APPROVED REPORT EKG Measurement Heart [id number] <Conclusion> Sinus tachycardia Otherwise normal ECG
== END 2017-09-08 10:30 | disposition home or self-care (01) ==
LOC: C.SDS 08:37
PROVIDERS: ATTEND Podiatrist Foot & Ankle Surgery
DX: Z89.429 Acquired absence of other toe(s), unspecified side (principal); R00.0 Tachycardia, unspecified; I96 Gangrene, not elsewhere classified; Z53.09 Procedure and treatment not carried out because of other contraindication
CPT/HCPCS: 17999; 93005